=== PATIENT | male | born 1955 | race Caucasian/White ===

== ENCOUNTER 2019-12-29 15:36 | Inpatient (IN) | payer OTHER ==
[2019-12-29] MEDS ORDERED: MIDAZOLAM 2 MG/2 ML INJ IV ONE (15:38)
[2019-12-29] MEDS ORDERED: PANTOPRAZOLE SODIUM 40 MG VIAL IV ONE (15:51)
[2019-12-29] MEDS ORDERED: CEFEPIME 2 GM/D5W RTU 2 GM/50 ML RTUPB IV ONE (15:52)
[2019-12-29] MEDS ORDERED: VANCOMYCIN HCL INJ 1000 MG VIAL IV ONE (15:53)
[2019-12-29 15:55] LABS: INTERNATIONAL RATION (INR) 1.15; PROTHROMBIN TIME 14.8 SEC (11.4-15.4)
[2019-12-29 15:59] LABS: ABSOLUTE BASOPHILS # (AUTO) 0.1 10^3/uL (0.0-0.2); ABSOLUTE EOSINOPHILS # (AUTO) 0.1 10^3/uL (0.0-0.6); ABSOLUTE LYMPHOCYTES (AUTO) 1.4 10^3/uL (0.5-4.7); ABSOLUTE MONOCYTES (AUTO) 0.8 10^3/uL (0.1-1.4); ABSOLUTE NEUT (AUTO) 9.3 10^3/uL (1.7-8.2); BASOPHILS % (AUTO) 0.7 % (0-2); EOSINOPHILS % (AUTO) 0.5 % (0-6); HEMATOCRIT 34.1 % (37.9-51.0); HEMOGLOBIN 11.5 g/dL (13.5-17.0); LYMPHOCYTES % (AUTO) 11.7 % (13-45); MEAN CORPUSCULAR HEMOGLOBIN 33.9 pg (27.0-33.4); MEAN CORPUSCULAR HGB CONC 33.6 g/dL (32.0-36.0); MEAN CORPUSCULAR VOLUME 101 fl (80-97); MONOCYTES % (AUTO) 7.3 % (3-13); PLATELET COUNT 361 10^3/uL (150-450); RED BLOOD COUNT 3.38 10^6/uL (4.35-5.55); RED CELL DISTRIBUTION WIDTH 15.8 % (11.5-14.0); SEGMENTED NEUTROPHILS % (AUTO) 79.8 % (42-78); TOTAL CELLS COUNTED % (AUTO) 100 %; WHITE BLOOD COUNT 11.7 10^3/uL (4.0-10.5)
[2019-12-29 16:16] LABS: ALBUMIN 2.8 g/dL (3.5-5.0); ALKALINE PHOSPHATASE 131 U/L (38-126); ANION GAP 9 (5-19); ASPARTATE AMINO TRANSFERASE 18 U/L (17-59); BILIRUBIN,TOTAL 0.4 mg/dL (0.2-1.3); BLOOD UREA NITROGEN 11 mg/dL (7-20); CALCIUM 8.3 mg/dL (8.4-10.2); CARBON DIOXIDE 18 mmol/L (22-30); CHLORIDE 107 mmol/L (98-107); GLUCOSE 201 mg/dL (75-110); POTASSIUM 3.4 mmol/L (3.6-5.0); TOTAL PROTEIN 5.6 g/dL (6.3-8.2)
[2019-12-29] MEDS: PROPOFOL 1,000 MG/100 ML INFUS..BTL IV PRN ×2 (16:20→23:18)
[2019-12-29 16:21] LABS: ACETAMINOPHEN < 10 ug/mL (10-30); ALCOHOL < 10 mg/dL (NONE DETECTED)
--- NOTE | 2019-12-29 16:26 | EKG REPORT ---
SEVERITY:- ABNORMAL ECG - SINUS TACHYCARDIA LEFT POST FASCICULAR BLOCK RIGHT AXIS DEVIATION CONSIDER ANTERIOR INFARCT ABNORMAL T, CONSIDER ISCHEMIA, LATERAL LEADS PROLONGED QT INTERVAL : Confirmed by: Cecil Wild MD 29-Dec-2019 16:25:58
[2019-12-29 16:28] LABS: TROPONIN I 0.017 ng/mL
--- NOTE | 2019-12-29 16:42 | RADIOLOGY REPORT (SQ) ---
EXAM DESCRIPTION: CHEST SINGLE VIEW IMAGES COMPLETED DATE/TIME: 12/29/2019 3:21 pm REASON FOR STUDY: verify intubation. Altered mental status, GI bleeding. COMPARISON: CT chest same date EXAM PARAMETERS: NUMBER OF VIEWS: One view. TECHNIQUE: Single frontal radiographic view of the chest acquired. RADIATION DOSE: NA LIMITATIONS: None. FINDINGS: LUNGS AND PLEURA: Status inversus verified on CT. No opacities, masses or pneumothorax. N o pleural effusion. MEDIASTINUM AND HILAR STRUCTURES: No masses. Contour normal. HEART AND VASCULAR STRUCTURES: Heart normal in size. Normal vasculature. BONES: No acute findings. HARDWARE: Endotracheal tube is in the upper thoracic trachea approximately 8.8 cm above the gianluca. Esophagogastric tube tip and side hole below the diaphragm likely within the stomach. There is a bal listic fragment projecting over the right upper abdomen. OTHER: No other significant finding. IMPRESSION: Endotracheal tube is in the upper trachea approximately 8.8 cm above the gianluca. Recomm end advancing. Esophagogastric tube tip and side-hole are below the diaphragm within the stomach. 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 TECHNICAL DOCUMENTATION: JOB ID: [id number] [employer]- All Rights Reserved Reading location - IP/workstation name: [email or web address]
--- NOTE | 2019-12-29 16:48 | RADIOLOGY REPORT (SQ) ---
EXAM DESCRIPTION: CT HEAD WITHOUT IMAGES COMPLETED DATE/TIME: 12/29/2019 3:23 pm REASON FOR STUDY: ams COMPARISON: None. TECHNIQUE: Axial images acquired through the brain without intravenous contrast. Images reviewed wi th bone, brain and subdural windows. Additional sagittal and coronal reconstructions were generated. Images stored on PACS. All CT scanners at this facility use dose modulation, iterative reconstruction, and/or weight based d osing when appropriate to reduce radiation dose to as low as reasonably achievable (ALARA). [facility]: Dose Right [facility]: CareDose [facility]: Dose Right [facility]: Teradose 4D [facility]: [employer] RADIATION DOSE: CT Rad equipment meets quality standard of care and radiation dose reduction techniq ues were employed. CTDIvol: 53.2 mGy. DLP: 1044 mGy-cm. mGy. LIMITATIONS: None. FINDINGS: VENTRICLES: Normal size and contour. CEREBRUM: No masses. No hemorrhage. No midline shift. No evidence for acute infarction. Normal gra y/white matter differentiation. No areas of low density in the white matter. CEREBELLUM: No masses. No hemorrhage. No alteration of density. No evidence for acute infarction. EXTRAAXIAL SPACES: No fluid collections. No masses. ORBITS AND GLOBE: No intra- or extraconal masses. Normal contour of globe without masses. CALVARIUM: No fracture. PARANASAL SINUSES: No fluid or mucosal thickening. SOFT TISSUES: No mass or hematoma. OTHER: No other significant finding. IMPRESSION: No acute intracranial hemorrhage, mass, or evidence of acute territorial infarct. EVIDENCE OF ACUTE STROKE: NO. COMMENT: Quality ID # [id number]: Final reports with documentation of one or more dose reduction techniques (e.g., Automated exposure control, adjustment of the mA and/or kV according to patient size, use of iterative reconstruction technique) TECHNICAL DOCUMENTATION: JOB ID: [id number] 2010 [employer]- All Rights Reserved Reading location - IP/workstation name: [email or web address]
--- NOTE | 2019-12-29 16:49 | RADIOLOGY REPORT (SQ) ---
EXAM DESCRIPTION: CT CERVICAL SPINE WITHOUT IMAGES COMPLETED DATE/TIME: 12/29/2019 3:23 pm REASON FOR STUDY: ams COMPARISON: None. TECHNIQUE: Axial images acquired through the cervical spine without intravenous contrast. Images re viewed with lung, soft tissue and bone windows. Reconstructed coronal and sagittal MPR images review ed. Images stored on PACS. All CT scanners at this facility use dose modulation, iterative reconstruction, and/or weight based d osing when appropriate to reduce radiation dose to as low as reasonably achievable (ALARA). [facility]: Dose Right [facility]: CareDose [facility]: Dose Right [facility]: Teradose 4D [facility]: [employer] RADIATION DOSE: CT Rad equipment meets quality standard of care and radiation dose reduction techniq ues were employed. CTDIvol: 19.1 mGy. DLP: 434 mGy-cm. mGy. LIMITATIONS: None. FINDINGS: ALIGNMENT: Anatomic. MINERALIZATION: Normal. VERTEBRAL BODIES: No acute fracture or loss of vertebral body height. Multilevel spondylosis with br idging marginal osteophytes. Small posterior projecting marginal osteophytes without significant spi nal canal stenosis. DISCS: Multilevel degenerative disc disease with loss of intervertebral disc heights. FACETS, LATERAL MASSES, POSTERIOR ELEMENTS: Multilevel facet arthropathy with uncovertebral spurring. Multilevel neural foraminal stenosis. No facet fracture. No perched facets. HARDWARE: Partial visualization of an endotracheal and esophagogastric tube. VISUALIZED RIBS: No fractures. LUNG APICES AND SOFT TISSUES: No significant or acute findings. OTHER: No other significant finding. IMPRESSION: No acute fracture or dislocation of the cervical spine. Spondylosis, degenerative disc disease and facet arthropathy. TECHNICAL DOCUMENTATION: JOB ID: [id number] Quality ID # [id number]: Final reports with documentation of one or more dose reduction techniques (e.g., Au tomated exposure control, adjustment of the mA and/or kV according to patient size, use of iterative reconstruction technique) 2010 [employer]- All Rights Reserved Reading location - IP/workstation name: [email or web address]
[2019-12-29 16:54] LABS: APPEARANCE,URINE SLIGHTLY-CLOUDY; BILIRUBIN,URINE NEGATIVE (NEGATIVE); COLOR,URINE YELLOW; GLUCOSE, URINE NEGATIVE (NEGATIVE); KETONES,URINE NEGATIVE (NEGATIVE); LEUKOCYTE ESTERASE,URINE TRACE (NEGATIVE); NITRITE,URINE NEGATIVE (NEGATIVE); PROTEIN,URINE 30 mg/dL (NEGATIVE); URINE SPECIFIC GRAVITY 1.017; UROBILINOGEN,URINE NEGATIVE mg/dL (<2.0)
[2019-12-29 16:58] LABS: ARTERIAL BLOOD BASE EXCESS -7.1 mmol/L; ARTERIAL BLOOD FIO2 40%; ARTERIAL BLOOD H2CO3 1.24 mmol/L (1.05-1.35); ARTERIAL BLOOD HCO3 19.1 mmol/L (20-24); ARTERIAL BLOOD O2 SATURATION 94.7 % (94-98); ARTERIAL BLOOD PCO2 41.1 mmHg (35-45); ARTERIAL BLOOD PH 7.29 (7.35-7.45); ARTERIAL BLOOD PO2 80.8 mmHg (80-100); ARTERIAL BLOOD TOTAL CO2 20.4 mmol/L (23-27)
[2019-12-29] MEDS ORDERED: LORAZEPAM INJ 2 MG/1 ML VIAL IV ONE (17:01)
[2019-12-29] MEDS ORDERED: MIDAZOLAM HCL 50 MG/100 ML RTUINJ IV PRN (17:01)
--- NOTE | 2019-12-29 17:11 | RADIOLOGY REPORT (SQ) ---
EXAM DESCRIPTION: CT CHEST WITH; CT ABD/PELVIS WITH IV ONLY IMAGES COMPLETED DATE/TIME: 12/29/2019 3:23 pm REASON FOR STUDY: ams; ams/gibleed COMPARISON: None. CONTRAST TYPE AND DOSE: contrast/concentration: Isovue 350.00 mg/ml; Total Contrast Delivered: 100.0 ml; Total Saline Delivered: 72.0 ml RENAL FUNCTION: Unknown TECHNIQUE: CT scan of the chest performed using helical scanning technique with dynamic intravenous contrast injection. Images reviewed with lung, soft tissue and bone windows. Reconstructed coronal a nd sagittal MPR images reviewed. All images stored on PACS. CT scan of the abdomen and pelvis performed with intravenous and oral contrast using helical scanning technique with dynamic intravenous contrast injection. Images reviewed with lung, soft tissue and b one windows. Reconstructed coronal and sagittal MPR images reviewed. Delayed images for evaluation of the urinary system also acquired and evaluated. All images stored on PACS. All CT scanners at this facility use dose modulation, iterative reconstruction, and/or weight based d osing when appropriate to reduce radiation dose to as low as reasonably achievable (ALARA). [facility]: Dose Right [facility]: CareDose [facility]: Dose Right [facility]: Teradose 4D [facility]: Smart [employer] RADIATION DOSE: CT Rad equipment meets quality standard of care and radiation dose reduction techniq ues were employed. CTDIvol: 9.6 - 14.4 mGy. DLP: 1647 mGy-cm. . LIMITATIONS: None. FINDINGS: CHEST: AXILLAE: No adenopathy. CHEST WALL: No masses. No subcutaneous air. LUNGS: The trachea has normal caliber and appearance. No bronchial wall thickening or bronchiectasis . Peripheral ground-glass attenuation involving the posterior left lower lobe may represent atelecta sis, however developing infectious/ inflammatory process is not excluded. No focal confluent consoli dation. No suspicious pulmonary nodules. PLEURA: No effusions. No calcifications. THYROID: No masses or significant asymmetry. HILAR AND MEDIASTINAL STRUCTURES: There is complete situs inversus. Right aortic arch. 3 great vess els. No aortic aneurysm. No mediastinal mass or adenopathy. Esophagogastric tube tip and side-hole are below the diaphragm within the stomach lumen. AORTA AND GREAT VESSELS: No aneurysm. No dissection. PULMONARY ARTERIES: No identified pulmonary emboli. Study not optimized for the pulmonary arteries. HEART: Complete situs inversus. Heart has normal size. No pericardial effusion. HARDWARE AND LIFELINES: None. BONES: No significant finding. OTHER: No other significant finding. ABDOMEN AND PELVIS: LIVER: Complete situs inversus with liver on the left side of the abdomen. Liver has normal size and contour. Moderate hepatic steatosis. No focal hepatic mass. Hepatic and portal veins are patent. No biliary ductal dilation. SPLEEN: Normal size. No focal lesions. PANCREAS: No masses. No significant calcifications. No adjacent inflammation or peripancreatic flui d collections. Pancreatic duct not dilated. GALLBLADDER: No identified stones by CT criteria. No inflammatory changes to suggest cholecystitis. ADRENAL GLANDS: No significant masses or asymmetry. RIGHT KIDNEY AND URETER: No solid masses. No significant calcifications. No hydronephrosis or hyd roureter. LEFT KIDNEY AND URETER: No solid masses. No significant calcifications. There is mild left hydron ephrosis and hydroureter with no obstructing renal or ureteral calculus. Mild abnormal enhancement o f the renal collecting system. There is a mildly delayed left nephrogram. Mild surrounding inflamma tory change. No focal perinephric abscess. . AORTA AND VESSELS: No aneurysm. No dissection. Renal arteries, SMA, celiac without stenosis. RETROPERITONEUM: No retroperitoneal adenopathy, hemorrhage or masses. LARGE AND SMALL BOWEL: There is been what appears to be a near total colectomy with rectal anastomosi s in the pelvis. Adjacent to/ inferior to the suture line in the rectum there is circumferential rec iram wall thickening measuring up to 13 mm thickness. Surrounding inflammatory change in the perirect al region. There is no bowel obstruction. No other bowel wall thickening. No layering fluid or pne umoperitoneum. The stomach is moderately distended with heterogeneous appearance of gastric contents . Along the superior rib gastric fundus, there is a metallic density which may represent a gastric c oil. There is hyperdense attenuation adjacent to this in the gastric fundus measuring approximately 43 Hounsfield units, which may represent debris or possibly intraluminal hemorrhage. Clinical correl ation with aspiration of gastric contents recommended. APPENDIX: Surgically absent. ABDOMINAL WALL: No hernia or masses. PERITONEAL CAVITY: No free air. No free fluid. No peritoneal implants or masses. PELVIS: Shell catheter within the urinary bladder which is decompressed. Prostate has normal size. BONES: Multilevel spondylosis and degenerative disc disease in the thoracolumbar spine. No suspiciou s bone lesions. OTHER: No other significant finding. IMPRESSION: 1. There appears to be a near total colectomy with circumferential rectal wall thickening just inferi or to the rectal anastomosis. There is adjacent inflammatory change in the pelvis. Finding may repr esent acute proctitis/ colitis, however a circumferential rectal mass cannot be excluded. Clinical c orrelation for prior rectal tumor recommended. Consider colonoscopies/proctoscopy for biopsy as clin ically indicated. 2. Mild left hydronephrosis and hydroureter with abnormal enhancement of the urothelium. No definite obstructing renal or ureteral calculus. Finding may represent ascending pyelonephritis with vesicou reteral reflux. A distal ureteral stricture cannot be excluded. Clinical correlation with urinalysi s recommended. 3. Hyperdense attenuation debris within the posterior gastric fundus adjacent to a metallic foreign b marge which may represent vascular coil. The hyperdense material may represent blood however is nonspe cific and many ingested materials could have a similar attenuation. Correlation with gastric content aspiration through the esophagogastric tube could be helpful. 4. Mild peripheral ground-glass attenuation in the posterior left lower lobe may represent atelectasi s, however cannot exclude early developing infectious process. Imaging features can be seen with vir al pneumonia, though are nonspecific and can occur with a variety of infectious and noninfectious pro cesses. TECHNICAL DOCUMENTATION: JOB ID: [id number] Quality ID # 436: Final reports with documentation of one or more dose reduction techniques (e.g., Au tomated exposure control, adjustment of the mA and/or kV according to patient size, use of iterative reconstruction technique) 2010 [employer]- All Rights Reserved Reading location - IP/workstation name: [id number]
[2019-12-29] MEDS ORDERED: ONDANSETRON 4 MG TAB.RAPDIS PO PRN (17:47)
[2019-12-29] MEDS ORDERED: IPRATROPIUM/ALBUTEROL 0.5-2.5 MG/3 ML AMPUL NEB PRN (17:47)
[2019-12-29] MEDS ORDERED: ACETAMINOPHEN 325 MG TABLET PO PRN (17:47)
[2019-12-29] MEDS ORDERED: HYDROMORPHONE HCL INJ/PF 2 MG/ML AMPULE IV PRN (17:56)
[2019-12-29] MEDS ORDERED: ESMOLOL HCL INJ/PF 100 MG/10 ML SDV IV PRN (17:56)
[2019-12-29] MEDS ORDERED: NORMAL SALINE 1000 ML 1,000 ML with POTASSIUM CHLORIDE 20 MEQ, MAGNESIUM SULFATE 8 MEQ,... IV SCH ×5 (18:00)
[2019-12-29] MEDS ORDERED: PHARMACY COMMUNICATION ORDER MC NR (18:00)
[2019-12-29] MEDS ORDERED: ACETAMINOPHEN 325 MG TABLET NG PRN (18:30)
--- NOTE | 2019-12-29 18:46 | CRITICAL CARE ADMISSION REPORT ---
HPI Date:: 12/29/19 Time:: 17:30 Reason for ICU Reason:: Intubated. Probable stroke. HPI: This patient is a 64 yo man who apparently collapsed in his bathroom and was fou nd unresponsive by his girlfriend. His down time is not known but was not thought to be long. He was intubated at his home and was given versed and propofol effectively eliminating his neurological exam. In the ED versed and propofol were stopped and he began to cough on the EET. He is starting to rouse a bit. The differential includes a stroke. However his NG produced brown bloody material so a sudden GIB is also possible. He is a heavy drinker and alcoholic gastritis or an ulcer are pretty high as well. History obtained from:: ED MD [facility] - Diagnosis/Plan (1) Unresponsive state Is this a current diagnosis for this admission?: Yes Plan: The actual cause is not completely known, but a stroke and/or UGI bleed certainly is possible. (2) GIB (gastrointestinal bleeding) Qualifiers: GI bleed type/associated pathology: gastritis Gastritis type: acute gastritis Qualified Code(s): K29.01 - Acute gastritis with bleeding Is this a current diagnosis for this admission?: Yes Plan: Presumably gastritis. He is on IV protonix. Will include carafate as well. He will need an EGD before discharge (3) Airway compromise Is this a current diagnosis for this admission?: Yes Plan: He is intubated for airway protection. Extubate when more awake. Social/Family History - Social History Smoking Status: Current Every Day Smoker Frequency of Alcohol Use: Heavy - Medication/Allergies Allergies/Adverse Reactions: No Known Allergies Allergy (Unverified 12/29/19 17:39) Review of Systems ROS unobtainable: Due to endotracheal tube Physical Exam Vital Signs: Temp Pulse Resp BP Pulse Ox 12 130/97 H 100 12/29/19 17:20 12/29/19 17:20 12/29/19 17:20 Intake & Output 12/28/19 12/29/19 12/30/19 06:59 06:59 06:59 Intake Total 213 Balance 213 Weight 70.2 kg Weight/Height Weight 70.2 kg General appearance: PRESENT: no acute distress, thin Head exam: PRESENT: atraumatic, normocephalic Eye exam: PRESENT: conjunctiva pink, EOMI, PERRLA. ABSENT: scleral icterus Ear exam: PRESENT: normal external ear exam Mouth exam: PRESENT: moist, tongue midline Respiratory exam: PRESENT: clear to auscultation pedro. ABSENT: rales, rhonchi, wheezes Cardiovascular exam: PRESENT: tachycardia Pulses: PRESENT: normal dorsalis pedis pul GI/Abdominal exam: PRESENT: normal bowel sounds, soft. ABSENT: distended, guard ing, mass, organolmegaly, rebound, tenderness Rectal exam: PRESENT: deferred, heme (+) stool Extremities exam: PRESENT: full ROM. ABSENT: calf tenderness, clubbing, pedal edema Neurological exam: PRESENT: other - Obtunded Skin exam: PRESENT: dry, intact, warm. ABSENT: cyanosis, rash Tubes/Lines: PRESENT: Endotracheal Tube, Nasogastic Tube Laboratory/Radiographs Laboratory Results: 12/29/19 15:40 12/29/19 15:40 12/29/19 12/29/19 12/29/19 15:40 15:40 15:40 WBC 11.7 H RBC 3.38 L Hgb 11.5 L Hct 34.1 L MCV 101 H MCH 33.9 H MCHC 33.6 RDW 15.8 H Plt Count 361 Seg Neutrophils % 79.8 H Carbonic Acid HCO3/H2CO3 Ratio ABG pH ABG pCO2 ABG pO2 ABG HCO3 ABG O2 Saturation ABG Base Excess FiO2 Sodium 134.3 L Potassium 3.4 L Chloride 107 Carbon Dioxide 18 L Anion Gap 9 BUN 11 Creatinine 1.10 Est GFR ( Amer) > 60 Glucose 201 H Lactic Acid 3.9 H Calcium 8.3 L Total Bilirubin 0.4 AST 18 Alkaline Phosphatase 131 H Total Protein 5.6 L Albumin 2.8 L Lipase 111.9 Urine Color Urine Appearance Urine pH Ur Specific [employer] Urine Protein Urine Glucose (UA) Urine Ketones Urine Blood Urine Nitrite Ur Leukocyte Esterase Urine WBC (Auto) Urine RBC (Auto) Blood Type Antibody Screen 12/29/19 12/29/19 12/29/19 15:47 15:47 16:36 WBC RBC Hgb Hct MCV MCH MCHC RDW Plt Count Seg Neutrophils % Carbonic Acid 1.24 HCO3/H2CO3 Ratio 15:1 ABG pH 7.29 L ABG pCO2 41.1 ABG pO2 80.8 ABG HCO3 19.1 L ABG O2 Saturation 94.7 ABG Base Excess -7.1 FiO2 40% Sodium Potassium Chloride Carbon Dioxide Anion Gap BUN Creatinine Est GFR ( Amer) Glucose Lactic Acid Calcium Total Bilirubin AST Alkaline Phosphatase Total Protein Albumin Lipase Urine Color YELLOW Urine Appearance SLIGHTLY-CLOUDY Urine pH 5.0 Ur Specific [employer] 1.017 Urine Protein 30 H Urine Glucose (UA) NEGATIVE Urine Ketones NEGATIVE Urine Blood MODERATE H Urine Nitrite NEGATIVE Ur Leukocyte Esterase TRACE H Urine WBC (Auto) 21 Urine RBC (Auto) 9 Blood Type O POSITIVE Antibody Screen NEGATIVE 12/29/19 15:40 Troponin I 0.017 NT-Pro-B Natriuret Pep 359 H Impressions: Chest X-Ray 12/29/19 00:00 IMPRESSION: Endotracheal tube is in the upper trachea approximately 8.8 cm above the gianluca. Recommend advancing. Esophagogastric tube tip and side-hole are below the diaphragm within the stomach. 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 Head CT 12/29/19 15:42 IMPRESSION: No acute intracranial hemorrhage, mass, or evidence of acute territorial infarct. EVIDENCE OF ACUTE STROKE: NO. Cervical Spine CT 12/29/19 15:46 IMPRESSION: No acute fracture or dislocation of the cervical spine. Spondylosis, degenerative disc disease and facet arthropathy. Chest CT 12/29/19 15:48 IMPRESSION: 1. There appears to be a near total colectomy with circumferential rectal wall thickening just inferior to the rectal anastomosis. There is adjacent inflammatory change in the pelvis. Finding may represent acute proctitis/ colitis, however a circumferential rectal mass cannot be excluded. Clinical correlation for prior rectal tumor recommended. Consider colonoscopies/proctoscopy for biopsy as clinically indicated. 2. Mild left hydronephrosis and hydroureter with abnormal enhancement of the urothelium. No definite obstructing renal or ureteral calculus. Finding may represent ascending pyelonephritis with vesicoureteral reflux. A distal ureteral stricture cannot be excluded. Clinical correlation with urinalysis recommended. 3. Hyperdense attenuation debris within the posterior gastric fundus adjacent to a metallic foreign body which may represent vascular coil. The hyperdense material may represent blood however is nonspecific and many ingested materials could have a similar attenuation. Correlation with gastric content aspiration through the esophagogastric tube could be helpful. 4. Mild peripheral ground-glass attenuation in the posterior left lower lobe may represent atelectasis, however cannot exclude early developing infectious process. Imaging features can be seen with viral pneumonia, though are nonspecific and can occur with a variety of infectious and noninfectious processes. Abdomen/Pelvis CT 12/29/19 15:49 IMPRESSION: 1. There appears to be a near total colectomy with circumferential rectal wall thickening just inferior to the rectal anastomosis. There is adjacent inflammatory change in the pelvis. Finding may represent acute proctitis/ colitis, however a circumferential rectal mass cannot be excluded. Clinical correlation for prior rectal tumor recommended. Consider colonoscopies/proctoscopy for biopsy as clinically indicated. 2. Mild left hydronephrosis and hydroureter with abnormal enhancement of the urothelium. No definite obstructing renal or ureteral calculus. Finding may represent ascending pyelonephritis with vesicoureteral reflux. A distal ureteral stricture cannot be excluded. Clinical correlation with urinalysis recommended. 3. Hyperdense attenuation debris within the posterior gastric fundus adjacent to a metallic foreign body which may represent vascular coil. The hyperdense material may represent blood however is nonspecific and many ingested materials could have a similar attenuation. Correlation with gastric content aspiration through the esophagogastric tube could be helpful. 4. Mild peripheral ground-glass attenuation in the posterior left lower lobe may represent atelectasis, however cannot exclude early developing infectious process. Imaging features can be seen with viral pneumonia, though are nonspecific and can occur with a variety of infectious and noninfectious processes. All labs, radiographs, diagnostic studies and EKGs were personally reviewed: No In addition, reports of radiographic and diagnostic studies were read: No Critical Time Critical Time (minutes): 40 -: The care of a critically ill patient is dynamic. This note represents a static moment in the admission process. Orders and treatments may be given simultaneously and urgently, and time is not medical detail representative of the treatment process. This patient requires Critical Care secondary to life threatening organ or limb dysfunction. Without Critical Care services, the patient is at risk for increased mortality and morbidity.
--- NOTE | 2019-12-29 18:57 | ER Document Report ---
Entered by GEOFFREY PEREZ SCRIBE 12/29/19 1537 Acting as scribe for:DORA RUSSELL MD ED General - General Stated Complaint: UNRESPONSIVE Information source: Relative - Girlfriend Cannot obtain history due to: Intubated Notes: This 64-year-old male presents to the emergency department via EMS unresponsive and intubated. Patient was found by girlfriend unresponsive on the bathroom floor. Girlfriend reports that patient has a history of alcohol abuse and drinks every day. EMS states that when they arrived the patient had agonal breathing and started to vomit. EMS reports hematemesis, right deviated gaze and a right facial droop. EMS states that they found the patient in a decorticate posture. Due to the patient's condition, a full HPI is unobtainable at this time. After talking to the girlfriend on the phone, she reports that patient is a heavy drinker and smokes. Patient drank a little beer today but had not started drinking liquor yet. Girlfriend recalls that patient went to go eat something th is morning when he put the food away and ran to the bathroom. Girlfriend said she heard some gagging in the bathroom and when the gagging stopped she waited a few minutes. Girlfriend reports that when she went to check on him, she found him laying against the toilet on his left side unresponsive. Girlfriend said that he was thorne appearing and was making grunting noises. Girlfriend denies any recent falls last night or today. Girlfriend reports that patient has vomited lately and the vomit looked like coffee grounds and patient had some blood in his stool lately. Girlfriend reports weakness, occasional dizziness, difficulty swallowing, trouble urinating and rectum pain. - Related Data Allergies/Adverse Reactions: No Known Allergies Allergy (Unverified 12/29/19 17:39) Past Medical History - General Information source: Relative - Girlfriend Cannot obtain history due to: Intubated - Social History Smoking Status: Current Every Day Smoker Cigarette use (# per day): Yes Chew tobacco use (# tins/day): No Frequency of alcohol use: Heavy Lives with: Spouse/Significant other Family History: Reviewed & Not Pertinent, CVA Malignancy Medical History: Reports Other - Colon cancer Past Surgical History: Reports: Hx Cholecystectomy, Hx Orthopedic Surgery Review of Systems - Review of Systems Constitutional: See HPI, Diaphoresis, Weakness EENT: No symptoms reported Cardiovascular: No symptoms reported Respiratory: No symptoms reported Gastrointestinal: See HPI, Vomiting, Blood in vomit, Rectal bleeding Genitourinary: See HPI, Pain Male Genitourinary: No symptoms reported Musculoskeletal: No symptoms reported Skin: No symptoms reported Hematologic/Lymphatic: No symptoms reported Neurological/Psychological: No symptoms reported -: Yes All other systems reviewed and negative Physical Exam - Vital signs Vitals: Resp Pulse Ox 13 100 12/29/19 15:36 12/29/19 15:36 - Notes Notes: Physical Exam: General: Unresponsive, diaphoretic and intubated. HEENT: Normocephalic. Atraumatic. Pupils are 4mm and nonreactive on the midline. Oropharynx clear. Neck: Supple. Non-tender. Respiratory: Severe respiratory distress; intubated. Diminished breath sounds in the basis bilaterally. Cardiovascular: Tachycardic. Abdominal: Normal Inspection. Non-tender. No distension. Normal Bowel Sounds. Rectal: Stool brown that is positive for guaiac. Back: No gross abnormalities. Extremities: Flaccid. Upper extremities: Normal inspection. Normal ROM. Lower extremities: Normal inspection. No edema. Normal ROM. Neurological: Altered secondary to medication or condition upon arrival. Skin: Warm. Dry. Normal color. Course - Re-evaluation Re-evalutation: 12/29/19 17:27 Patient sedated, on ventilator IV fluids IV antibiotics and IV fluids.. Case discussed with Dr. Villela who will be down to see patient in the trauma bay 1. Dr. Villela requested that we shut off all sedation medications the patient has a chance to lift to consciousness if possible. - Vital Signs Vital signs: Temp Pulse Resp BP Pulse Ox 25 H 141/102 H 100 12/29/19 18:50 12/29/19 18:50 12/29/19 18:50 - Laboratory Result Diagrams: 12/29/19 15:40 12/29/19 15:40 Laboratory results interpreted by me: 12/29/19 12/29/19 12/29/19 15:40 15:40 15:40 WBC 11.7 H RBC 3.38 L Hgb 11.5 L Hct 34.1 L MCV 101 H MCH 33.9 H RDW 15.8 H Lymph % (Auto) 11.7 L Absolute Neuts (auto) 9.3 H Seg Neutrophils % 79.8 H ABG pH ABG HCO3 ABG Total CO2 Sodium 134.3 L Potassium 3.4 L Carbon Dioxide 18 L Glucose 201 H Lactic Acid 3.9 H Calcium 8.3 L Alkaline Phosphatase 131 H NT-Pro-B Natriuret Pep Total Protein 5.6 L Albumin 2.8 L Urine Protein Urine Blood Ur Leukocyte Esterase Acetaminophen < 10 L 12/29/19 12/29/19 12/29/19 15:40 15:47 16:36 WBC RBC Hgb Hct MCV MCH RDW Lymph % (Auto) Absolute Neuts (auto) Seg Neutrophils % ABG pH 7.29 L ABG HCO3 19.1 L ABG Total CO2 20.4 L Sodium Potassium Carbon Dioxide Glucose Lactic Acid Calcium Alkaline Phosphatase NT-Pro-B Natriuret Pep 359 H Total Protein Albumin Urine Protein 30 H Urine Blood MODERATE H Ur Leukocyte Esterase TRACE H Acetaminophen Significant lab results reports lipase 111 lactic acid of 3 - Diagnostic Test Radiology reviewed: Image reviewed, Reports reviewed Radiology results interpreted by me: 12/29/19 17:29 CT of the head did not show any acute process CT C-spine no fractures no acute process CT chest no acute process ET tube in place but can be pushed further now because it is 8 cm above the gianluca. NG tube in place showing tip of the tube below the diaphragm. Patient has situs inversus. Questionable groundglass appearance in the base. 12/29/19 17:30 CT abdomen and pelvis disclose prior hemicolectomy. Also rectal mass questionable prostatitis or or other inflammation in that area. Hydronephrosis noted.. - EKG Interpretation by Me Additional EKG results interpreted by me: 12/29/19 17:26 Twelve-lead EKG sinus tachycardia rate of 146 right axis deviation. Consider anterior infarct. Abnormal T waves consider ischemia lateral leads prolonged QT interval. Critical Care Note - Critical Care Note Total time excluding time spent on procedures (mins): 59 - Altered mental status, patient intubated prior to arrival, managing ventilation, managing hemodynamics, managing sedation, managing tachycardia, evaluating mental status, Discharge - Discharge Clinical Impression: Altered mental status, Upper GI bleed, Unresponsive state Condition: Critical Disposition: ADMITTED INPATIENT Admitting Provider: Manohar (Government Minister) Unit Admitted: ICU I personally performed the services described in the documentation, reviewed and edited the documentation which was dictated to the scribe in my presence, and it accurately records my words and actions.
[2019-12-29] MEDS ORDERED: PROPOFOL INJ 200 MG/20 ML VIAL IV ONE (19:00)
[2019-12-29] MEDS ORDERED: GLUCAGON,HUMAN RECOMB 1 MG INJ IM PRN (21:01)
[2019-12-29] MEDS ORDERED: DEXTROSE 40% GEL 15 GM TUBE PO PRN ×2 (21:01)
[2019-12-29] MEDS ORDERED: DEXTROSE 50%-WATER 25 GM/50 ML DISP.SYRIN IV PRN ×2 (21:01)
[2019-12-29] MEDS: PANTOPRAZOLE SODIUM 40 MG VIAL IV SCH (21:38)
[2019-12-29 22:10] LABS: HEMATOCRIT 30.3 % (37.9-51.0); HEMOGLOBIN 10.4 g/dL (13.5-17.0); MEAN CORPUSCULAR HEMOGLOBIN 34.4 pg (27.0-33.4); MEAN CORPUSCULAR HGB CONC 34.3 g/dL (32.0-36.0); MEAN CORPUSCULAR VOLUME 100 fl (80-97); PLATELET COUNT 329 10^3/uL (150-450); RED BLOOD COUNT 3.02 10^6/uL (4.35-5.55); RED CELL DISTRIBUTION WIDTH 15.7 % (11.5-14.0); WHITE BLOOD COUNT 15.2 10^3/uL (4.0-10.5)
[2019-12-29] MEDS: RINGERS SOLUTION,LACTATED 1,000 ML IV PRN (22:30)
[2019-12-30] MEDS: INSULIN REG, HUMAN 100 UNIT/ML 3 ML VIAL (PYX) SUBCUT SCH ×5 (01:21→23:06)
[2019-12-30 04:16] LABS: ABSOLUTE BASOPHILS # (AUTO) 0.1 10^3/uL (0.0-0.2); ABSOLUTE EOSINOPHILS # (AUTO) 0.1 10^3/uL (0.0-0.6); ABSOLUTE LYMPHOCYTES (AUTO) 1.2 10^3/uL (0.5-4.7); ABSOLUTE MONOCYTES (AUTO) 0.8 10^3/uL (0.1-1.4); ABSOLUTE NEUT (AUTO) 8.2 10^3/uL (1.7-8.2); BASOPHILS % (AUTO) 0.7 % (0-2); HEMATOCRIT 26.2 % (37.9-51.0); HEMOGLOBIN 9.1 g/dL (13.5-17.0); LYMPHOCYTES % (AUTO) 11.5 % (13-45); MEAN CORPUSCULAR HEMOGLOBIN 34.6 pg (27.0-33.4); MEAN CORPUSCULAR HGB CONC 34.9 g/dL (32.0-36.0); MEAN CORPUSCULAR VOLUME 99 fl (80-97); MONOCYTES % (AUTO) 7.3 % (3-13); PLATELET COUNT 277 10^3/uL (150-450); RED BLOOD COUNT 2.64 10^6/uL (4.35-5.55); RED CELL DISTRIBUTION WIDTH 15.5 % (11.5-14.0); SEGMENTED NEUTROPHILS % (AUTO) 79.5 % (42-78); TOTAL CELLS COUNTED % (AUTO) 100 %; WHITE BLOOD COUNT 10.4 10^3/uL (4.0-10.5)
[2019-12-30 04:34] LABS: ALBUMIN 2.3 g/dL (3.5-5.0); ALKALINE PHOSPHATASE 101 U/L (38-126); ASPARTATE AMINO TRANSFERASE 17 U/L (17-59); BILIRUBIN,TOTAL 0.3 mg/dL (0.2-1.3); BLOOD UREA NITROGEN 16 mg/dL (7-20); CALCIUM 8.1 mg/dL (8.4-10.2); CHLORIDE 108 mmol/L (98-107); CHOLESTEROL 110.01 mg/dL (0-200); GLUCOSE 86 mg/dL (75-110); POTASSIUM 4.1 mmol/L (3.6-5.0); TOTAL PROTEIN 4.9 g/dL (6.3-8.2); TRIGLYCERIDES 90 mg/dL (<150)
[2019-12-30 04:45] LABS: CARBON DIOXIDE 19 mmol/L (22-30)
[2019-12-30 04:56] LABS: DIRECT LDL 57 mg/dL (<100)
[2019-12-30 04:57] LABS: ANION GAP 4 (5-19)
[2019-12-30] MEDS: PROPOFOL 1,000 MG/100 ML INFUS..BTL IV PRN ×2 (05:26→09:19)
[2019-12-30] MEDS: RINGERS SOLUTION,LACTATED 1,000 ML IV PRN ×2 (05:28→10:14)
[2019-12-30] MEDS ORDERED: MIDAZOLAM 2 MG/2 ML INJ IV ONE (05:35)
[2019-12-30 07:18] LABS: ARTERIAL BLOOD BASE EXCESS -2.8 mmol/L; ARTERIAL BLOOD FIO2 30%; ARTERIAL BLOOD H2CO3 0.87 mmol/L (1.05-1.35); ARTERIAL BLOOD HCO3 20.2 mmol/L (20-24); ARTERIAL BLOOD O2 SATURATION 98.9 % (94-98); ARTERIAL BLOOD PCO2 28.9 mmHg (35-45); ARTERIAL BLOOD PH 7.46 (7.35-7.45); ARTERIAL BLOOD PO2 139.5 mmHg (80-100); ARTERIAL BLOOD TOTAL CO2 21.1 mmol/L (23-27)
[2019-12-30] MEDS ORDERED: MIDAZOLAM 2 MG/2 ML INJ ONE ×2 (08:53→08:56)
[2019-12-30] MEDS: PANTOPRAZOLE SODIUM 40 MG VIAL IV SCH ×2 (09:34→21:19)
[2019-12-30] MEDS ORDERED: FOLIC ACID INJ 5 MG/1 ML 10 ML VIAL IV SCH (10:00)
[2019-12-30] MEDS ORDERED: FOLIC ACID 1 MG in NORMAL SALINE 50 ML IV SCH (10:00)
[2019-12-30] MEDS ORDERED: THIAMINE HCL 100 MG in NORMAL SALINE 50 ML IV SCH (10:00)
[2019-12-30] MEDS ORDERED: LORAZEPAM INJ 2 MG/1 ML VIAL IV PRN (10:43)
--- NOTE | 2019-12-30 12:33 | PDOC CONSULTATION ---
Consultation Consult Date: 12/30/19 Provider Consulted: SURGICAL SURGICALIST MD Consult reason:: GI bleeding. History of Present Illness Admission Date/PCP: 12/29/19 18:13 History of Present Illness: RAYMON RODARTE is a 64 year old male seen in consultation at the request of the hole digger service. This is a patient who was "found down" at home. He has a long history of alcoholism per report. Currently he is intubated and sedated. Review of systems is unobtainable. All history is obtained from nursing staff, physicians, and the medical record. Per report, the patient has coffee grounds present in the NG aspirate. He also had a melanotic bowel movement earlier today. He is somewhat anemic. I was consulted to evaluate the patient for need for endoscopy. At this time the patient appears relatively stable. Past Medical History Past Medical History: Unable to obtain due to intubated and sedated status. Per nursing report, he has a history of alcohol abuse. Malignancy Medical History: Reports: Other - Colon cancer Past Surgical History Past Surgical History: Reports: Cholecystectomy, Orthopedic Surgery Social History Lives with: Spouse/Significant other Smoking Status: Unknown if Ever Smoked Frequency of Alcohol Use: Heavy Hx Recreational Drug Use: - unknown Hx Prescription Drug Abuse: No Family History Family History: Reviewed & Not Pertinent, CVA Parental Family History Reviewed: Yes Children Family History Reviewed: Yes Sibling(s) Family History Reviewed.: Yes Medication/Allergy Home Medications: Ibuprofen 200 mg PO DAILYP PRN 12/30/19 Multivitamin [Daily Multiple Vitamin] 1 each PO DAILY 12/30/19 Mv-Mn/Herb 208/Beta-Sitosterol [Urinozinc Prostate Formula Tab] 200 mg PO DAILY 12/30/19 Naproxen Sodium [Aleve] 220 mg PO DAILYP PRN 12/30/19 Saw [place] Fruit/Zinc Picoli [Saw [place] Capsule] 1 each PO BID 12/30/19 Allergies/Adverse Reactions: No Known Allergies Allergy (Unverified 12/29/19 17:39) Review of Systems ROS unobtainable: Due to endotracheal tube, Due to mental status Physical Exam Vital Signs: Temp Pulse Resp BP Pulse Ox 98.8 F 82 16 111/76 100 12/30/19 08:00 12/30/19 10:20 12/30/19 10:23 12/30/19 10:23 12/30/19 10:23 Intake & Output 12/29/19 12/30/19 12/31/19 06:59 06:59 06:59 Intake Total 1197 79 Output Total 895 160 Balance 302 -81 Weight 64.3 kg 64.3 kg General appearance: PRESENT: no acute distress. ABSENT: cooperative Head exam: PRESENT: atraumatic, normocephalic Eye exam: PRESENT: EOMI, PERRLA. ABSENT: scleral icterus Mouth exam: PRESENT: moist, neck supple Neck exam: ABSENT: thyromegaly, tracheal deviation, tracheostomy Respiratory exam: PRESENT: unlabored, other - Coarse breath sounds bilaterally, intubated with ventilatory support.. ABSENT: tachypnea Cardiovascular exam: ABSENT: tachycardia Pulses: PRESENT: normal radial pulses Vascular exam: PRESENT: normal capillary refill GI/Abdominal exam: PRESENT: soft. ABSENT: distended, guarding, rigid, tenderness Rectal exam: PRESENT: black stool Extremities exam: ABSENT: clubbing Musculoskeletal exam: ABSENT: deformity Neurological exam: PRESENT: alert, awake, oriented to person, oriented to place, oriented to time, oriented to situation, CN II-XII grossly intact Psychiatric exam: PRESENT: other - Sedated. ABSENT: agitated, anxious Focused psych exam: PRESENT: other - Sedated Skin exam: ABSENT: cyanosis, erythema, jaundice Results Laboratory Results: 12/30/19 03:57 12/30/19 03:57 12/29/19 12/29/19 12/29/19 15:40 15:40 15:40 WBC 11.7 H RBC 3.38 L Hgb 11.5 L Hct 34.1 L MCV 101 H MCH 33.9 H MCHC 33.6 RDW 15.8 H Plt Count 361 Seg Neutrophils % 79.8 H Carbonic Acid HCO3/H2CO3 Ratio ABG pH ABG pCO2 ABG pO2 ABG HCO3 ABG O2 Saturation ABG Base Excess FiO2 Sodium 134.3 L Potassium 3.4 L Chloride 107 Carbon Dioxide 18 L Anion Gap 9 BUN 11 Creatinine 1.10 Est GFR ( Amer) > 60 Glucose 201 H Lactic Acid 3.9 H Calcium 8.3 L Ionized Calcium Lindsay Total Bilirubin 0.4 AST 18 Alkaline Phosphatase 131 H Total Protein 5.6 L Albumin 2.8 L Triglycerides Cholesterol LDL Cholesterol Direct VLDL Cholesterol HDL Cholesterol Lipase 111.9 Urine Color Urine Appearance Urine pH Ur Specific [place] Urine Protein Urine Glucose (UA) Urine Ketones Urine Blood Urine Nitrite Ur Leukocyte Esterase Urine WBC (Auto) Urine RBC (Auto) Blood Type Antibody Screen 12/29/19 12/29/19 12/29/19 15:47 15:47 16:36 WBC RBC Hgb Hct MCV MCH MCHC RDW Plt Count Seg Neutrophils % Carbonic Acid 1.24 HCO3/H2CO3 Ratio 15:1 ABG pH 7.29 L ABG pCO2 41.1 ABG pO2 80.8 ABG HCO3 19.1 L ABG O2 Saturation 94.7 ABG Base Excess -7.1 FiO2 40% Sodium Potassium Chloride Carbon Dioxide Anion Gap BUN Creatinine Est GFR ( Amer) Glucose Lactic Acid Calcium Ionized Calcium Lindsay Total Bilirubin AST Alkaline Phosphatase Total Protein Albumin Triglycerides Cholesterol LDL Cholesterol Direct VLDL Cholesterol HDL Cholesterol Lipase Urine Color YELLOW Urine Appearance SLIGHTLY-CLOUDY Urine pH 5.0 Ur Specific [place] 1.017 Urine Protein 30 H Urine Glucose (UA) NEGATIVE Urine Ketones NEGATIVE Urine Blood MODERATE H Urine Nitrite NEGATIVE Ur Leukocyte Esterase TRACE H Urine WBC (Auto) 21 Urine RBC (Auto) 9 Blood Type O POSITIVE Antibody Screen NEGATIVE 12/29/19 12/29/19 12/29/19 22:00 22:00 22:00 WBC 15.2 H RBC 3.02 L Hgb 10.4 L Hct 30.3 L MCV 100 H MCH 34.4 H MCHC 34.3 RDW 15.7 H Plt Count 329 Seg Neutrophils % Carbonic Acid HCO3/H2CO3 Ratio ABG pH ABG pCO2 ABG pO2 ABG HCO3 ABG O2 Saturation ABG Base Excess FiO2 Sodium Potassium Chloride Carbon Dioxide Anion Gap BUN Creatinine Est GFR ( Amer) Glucose Lactic Acid 1.2 Calcium Ionized Calcium Lindsay 1.14 Total Bilirubin AST Alkaline Phosphatase Total Protein Albumin Triglycerides Cholesterol LDL Cholesterol Direct VLDL Cholesterol HDL Cholesterol Lipase Urine Color Urine Appearance Urine pH Ur Specific [place] Urine Protein Urine Glucose (UA) Urine Ketones Urine Blood Urine Nitrite Ur Leukocyte Esterase Urine WBC (Auto) Urine RBC (Auto) Blood Type Antibody Screen 12/30/19 12/30/19 12/30/19 03:57 03:57 06:35 WBC 10.4 RBC 2.64 L Hgb 9.1 L Hct 26.2 L MCV 99 H MCH 34.6 H MCHC 34.9 RDW 15.5 H Plt Count 277 Seg Neutrophils % 79.5 H Carbonic Acid 0.87 L HCO3/H2CO3 Ratio 23:1 ABG pH 7.46 H ABG pCO2 28.9 L ABG pO2 139.5 H ABG HCO3 20.2 ABG O2 Saturation 98.9 H ABG Base Excess -2.8 FiO2 30% Sodium 130.6 L Potassium 4.1 Chloride 108 H Carbon Dioxide 19 L Anion Gap 4 L BUN 16 Creatinine 1.01 Est GFR ( Amer) > 60 Glucose 86 Lactic Acid Calcium 8.1 L Ionized Calcium Lindsay Total Bilirubin 0.3 AST 17 Alkaline Phosphatase 101 Total Protein 4.9 L Albumin 2.3 L Triglycerides 90 Cholesterol 110.01 LDL Cholesterol Direct 57 VLDL Cholesterol 18.0 HDL Cholesterol 49 Lipase Urine Color Urine Appearance Urine pH Ur Specific [place] Urine Protein Urine Glucose (UA) Urine Ketones Urine Blood Urine Nitrite Ur Leukocyte Esterase Urine WBC (Auto) Urine RBC (Auto) Blood Type Antibody Screen 12/29/19 15:40 Troponin I 0.017 NT-Pro-B Natriuret Pep 359 H Impressions: Chest X-Ray 12/29/19 00:00 IMPRESSION: Endotracheal tube is in the upper trachea approximately 8.8 cm above the gianluca. Recommend advancing. Esophagogastric tube tip and side-hole are below the diaphragm within the stomach. 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 Head CT 12/29/19 15:42 IMPRESSION: No acute intracranial hemorrhage, mass, or evidence of acute territorial infarct. EVIDENCE OF ACUTE STROKE: NO. Cervical Spine CT 12/29/19 15:46 IMPRESSION: No acute fracture or dislocation of the cervical spine. Spondylosis, degenerative disc disease and facet arthropathy. Chest CT 12/29/19 15:48 IMPRESSION: 1. There appears to be a near total colectomy with circumferential rectal wall thickening just inferior to the rectal anastomosis. There is adjacent inflammatory change in the pelvis. Finding may represent acute proctitis/ colitis, however a circumferential rectal mass cannot be excluded. Clinical correlation for prior rectal tumor recommended. Consider c olonoscopies/proctoscopy for biopsy as clinically indicated. 2. Mild left hydronephrosis and hydroureter with abnormal enhancement of the urothelium. No definite obstructing renal or ureteral calculus. Finding may represent ascending pyelonephritis with vesicoureteral reflux. A distal ureteral stricture cannot be excluded. Clinical correlation with urinalysis recommended. 3. Hyperdense attenuation debris within the posterior gastric fundus adjacent to a metallic foreign body which may represent vascular coil. The hyperdense material may represent blood however is nonspecific and many ingested materials could have a similar attenuation. Correlation with gastric content aspiration through the esophagogastric tube could be helpful. 4. Mild peripheral ground-glass attenuation in the posterior left lower lobe may represent atelectasis, however cannot exclude early developing infectious process. Imaging features can be seen with viral pneumonia, though are nonspecific and can occur with a variety of infectious and noninfectious processes. Abdomen/Pelvis CT 12/29/19 15:49 IMPRESSION: 1. There appears to be a near total colectomy with circumferential rectal wall thickening just inferior to the rectal anastomosis. There is adjacent inflammatory change in the pelvis. Finding may represent acute proctitis/ colitis, however a circumferential rectal mass cannot be excluded. Clinical correlation for prior rectal tumor recommended. Consider colonosco pies/proctoscopy for biopsy as clinically indicated. 2. Mild left hydronephrosis and hydroureter with abnormal enhancement of the urothelium. No definite obstructing renal or ureteral calculus. Finding may represent ascending pyelonephritis with vesicoureteral reflux. A distal ureteral stricture cannot be excluded. Clinical correlation with urinalysis recommended. 3. Hyperdense attenuation debris within the posterior gastric fundus adjacent to a metallic foreign body which may represent vascular coil. The hyperdense material may represent blood however is nonspecific and many ingested materials could have a similar attenuation. Correlation with gastric content aspiration through the esophagogastric tube could be helpful. 4. Mild peripheral ground-glass attenuation in the posterior left lower lobe may represent atelectasis, however cannot exclude early developing infectious process. Imaging features can be seen with viral pneumonia, though are nonspecific and can occur with a variety of infectious and noninfectious processes. Assessment & Plan - Diagnosis (1) Upper GI bleed Is this a current diagnosis for this admission?: Yes - Plan Summary Plan Summary: This is a 64-year-old male "found down at home". The patient has coffee grounds emanating from his NG tube. He is mildly anemic at 9 today. He had a melanotic bowel movement earlier, in my presence. I have reviewed the patient's CT scan. He has a metallic foreign body within the wall of the stomach, that may be consistent with recent upper endoscopy and intervention. Also, interestingly, the patient has situs inversus totalis. At this time, the patient does not appear to be actively bleeding. I have lavaged his NG tube with 4 L of cold tap water. No red blood was obtained. Coffee grounds were initially identified, however after the first liter of irrigation the output cleared. Currently the patient's vital signs are stable. I have discussed the case with Dr. Villela. Plan to extubate the patient today. Afterwards, I will interview the patient and determine if he has had any recent interventions (upper or lower endoscopies). This will help determine what other diagnostic tests will be necessary. At minimum the patient should be taking a PPI and Carafate. He should avoid all alcohol consumption, caffeine, nicotine, NSAIDs, steroids, and soda pop. Further recommendations and treatment strategies will be determined once an adequate history can be obtained. Okay for extubation at this time. No need for emergent endoscopy at this time. Surgery will follow.
--- NOTE | 2019-12-30 13:48 | PDOC CRITICAL CARE PROG REPORT ---
General Date:: 12/30/19 ICU Day:: 2 Hospital Day:: 2 Resuscitation Status: Full Code Events in the past 12 to 24 Hours:: Extubated, much more awake. Review of systems relevant to events:: Neurological, GI Reason for ICU Addmission:: UGI bleed. Probable vasovagal reaction. - Medications: Medications reviewed and adjusted accordingly: Yes Vasopressors:: None Sedation:: None Physical Exam Vital Signs: Temp Pulse Resp BP Pulse Ox 100.2 F 76 16 133/75 H 99 12/30/19 12:00 12/30/19 12:00 12/30/19 12:00 12/30/19 12:00 12/30/19 12:00 Intake & Output 12/29/19 12/30/19 12/31/19 06:59 06:59 06:59 Intake Total 1197 79 Output Total 895 560 Balance 302 -481 Weight 64.3 kg 64.3 kg Weight/Height Weight 64.3 kg Height 6 ft 4 in General appearance: PRESENT: disheveled, thin Head exam: PRESENT: atraumatic, normocephalic Eye exam: PRESENT: conjunctiva pink, EOMI, PERRLA. ABSENT: scleral icterus Ear exam: PRESENT: normal external ear exam Mouth exam: PRESENT: moist, tongue midline Neck exam: ABSENT: carotid bruit, JVD, lymphadenopathy, thyromegaly Respiratory exam: PRESENT: clear to auscultation pedro. ABSENT: rales, rhonchi, wheezes Cardiovascular exam: PRESENT: RRR. ABSENT: diastolic murmur, rubs, systolic murmur GI/Abdominal exam: PRESENT: ascites, diminished bowel sounds, distended, hypoactive bowel sounds Rectal exam: PRESENT: deferred Gentrourinary exam: PRESENT: indwelling catheter Extremities exam: PRESENT: full ROM, +2 edema. ABSENT: calf tenderness, clubbi ng, pedal edema Musculoskeletal exam: PRESENT: normal inspection Neurological exam: PRESENT: altered Skin exam: PRESENT: dry, intact, jaundice, warm. ABSENT: cyanosis, rash Laboratory/Radiographs Laboratory Results: 12/30/19 03:57 12/30/19 03:57 12/29/19 12/29/19 12/29/19 15:40 15:40 15:40 WBC 11.7 H RBC 3.38 L Hgb 11.5 L Hct 34.1 L MCV 101 H MCH 33.9 H MCHC 33.6 RDW 15.8 H Plt Count 361 Seg Neutrophils % 79.8 H Carbonic Acid HCO3/H2CO3 Ratio ABG pH ABG pCO2 ABG pO2 ABG HCO3 ABG O2 Saturation ABG Base Excess FiO2 Sodium 134.3 L Potassium 3.4 L Chloride 107 Carbon Dioxide 18 L Anion Gap 9 BUN 11 Creatinine 1.10 Est GFR ( Amer) > 60 Glucose 201 H Lactic Acid 3.9 H Calcium 8.3 L Ionized Calcium Lindsay Total Bilirubin 0.4 AST 18 Alkaline Phosphatase 131 H Total Protein 5.6 L Albumin 2.8 L Triglycerides Cholesterol LDL Cholesterol Direct VLDL Cholesterol HDL Cholesterol Lipase 111.9 Urine Color Urine Appearance Urine pH Ur Specific [place] Urine Protein Urine Glucose (UA) Urine Ketones Urine Blood Urine Nitrite Ur Leukocyte Esterase Urine WBC (Auto) Urine RBC (Auto) Blood Type Antibody Screen 12/29/19 12/29/19 12/29/19 15:47 15:47 16:36 WBC RBC Hgb Hct MCV MCH MCHC RDW Plt Count Seg Neutrophils % Carbonic Acid 1.24 HCO3/H2CO3 Ratio 15:1 ABG pH 7.29 L ABG pCO2 41.1 ABG pO2 80.8 ABG HCO3 19.1 L ABG O2 Saturation 94.7 ABG Base Excess -7.1 FiO2 40% Sodium Potassium Chloride Carbon Dioxide Anion Gap BUN Creatinine Est GFR ( Amer) Glucose Lactic Acid Calcium Ionized Calcium Lindsay Total Bilirubin AST Alkaline Phosphatase Total Protein Albumin Triglycerides Cholesterol LDL Cholesterol Direct VLDL Cholesterol HDL Cholesterol Lipase Urine Color YELLOW Urine Appearance SLIGHTLY-CLOUDY Urine pH 5.0 Ur Specific [place] 1.017 Urine Protein 30 H Urine Glucose (UA) NEGATIVE Urine Ketones NEGATIVE Urine Blood MODERATE H Urine Nitrite NEGATIVE Ur Leukocyte Esterase TRACE H Urine WBC (Auto) 21 Urine RBC (Auto) 9 Blood Type O POSITIVE Antibody Screen NEGATIVE 12/29/19 12/29/19 12/29/19 22:00 22:00 22:00 WBC 15.2 H RBC 3.02 L Hgb 10.4 L Hct 30.3 L MCV 100 H MCH 34.4 H MCHC 34.3 RDW 15.7 H Plt Count 329 Seg Neutrophils % Carbonic Acid HCO3/H2CO3 Ratio ABG pH ABG pCO2 ABG pO2 ABG HCO3 ABG O2 Saturation ABG Base Excess FiO2 Sodium Potassium Chloride Carbon Dioxide Anion Gap BUN Creatinine Est GFR ( Amer) Glucose Lactic Acid 1.2 Calcium Ionized Calcium Lindsay 1.14 Total Bilirubin AST Alkaline Phosphatase Total Protein Albumin Triglycerides Cholesterol LDL Cholesterol Direct VLDL Cholesterol HDL Cholesterol Lipase Urine Color Urine Appearance Urine pH Ur Specific [place] Urine Protein Urine Glucose (UA) Urine Ketones Urine Blood Urine Nitrite Ur Leukocyte Esterase Urine WBC (Auto) Urine RBC (Auto) Blood Type Antibody Screen 12/30/19 12/30/19 12/30/19 03:57 03:57 06:35 WBC 10.4 RBC 2.64 L Hgb 9.1 L Hct 26.2 L MCV 99 H MCH 34.6 H MCHC 34.9 RDW 15.5 H Plt Count 277 Seg Neutrophils % 79.5 H Carbonic Acid 0.87 L HCO3/H2CO3 Ratio 23:1 ABG pH 7.46 H ABG pCO2 28.9 L ABG pO2 139.5 H ABG HCO3 20.2 ABG O2 Saturation 98.9 H ABG Base Excess -2.8 FiO2 30% Sodium 130.6 L Potassium 4.1 Chloride 108 H Carbon Dioxide 19 L Anion Gap 4 L BUN 16 Creatinine 1.01 Est GFR ( Amer) > 60 Glucose 86 Lactic Acid Calcium 8.1 L Ionized Calcium Lindsay Total Bilirubin 0.3 AST 17 Alkaline Phosphatase 101 Total Protein 4.9 L Albumin 2.3 L Triglycerides 90 Cholesterol 110.01 LDL Cholesterol Direct 57 VLDL Cholesterol 18.0 HDL Cholesterol 49 Lipase Urine Color Urine Appearance Urine pH Ur Specific [place] Urine Protein Urine Glucose (UA) Urine Ketones Urine Blood Urine Nitrite Ur Leukocyte Esterase Urine WBC (Auto) Urine RBC (Auto) Blood Type Antibody Screen 12/29/19 15:40 Troponin I 0.017 NT-Pro-B Natriuret Pep 359 H Impressions: Chest X-Ray 12/29/19 00:00 IMPRESSION: Endotracheal tube is in the upper trachea approximately 8.8 cm abo ve the gianluca. Recommend advancing. Esophagogastric tube tip and side-hole are below the diaphragm within the stomach. 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 Head CT 12/29/19 15:42 IMPRESSION: No acute intracranial hemorrhage, mass, or evidence of acute t erritorial infarct. EVIDENCE OF ACUTE STROKE: NO. Cervical Spine CT 12/29/19 15:46 IMPRESSION: No acute fracture or dislocation of the cervical spine. Spondylosis, degenerative disc disease and facet arthropathy. Chest CT 12/29/19 15:48 IMPRESSION: 1. There appears to be a near total colectomy with circumferential rectal wall thickening just inferior to the rectal anastomosis. There is adjacent inflammatory change in the pelvis. Finding may represent acute proctitis/ colitis, however a circumferential rectal mass cannot be excluded. Clinical correlation for prior rectal tumor recommended. Consider colonoscopies/proctoscopy for biopsy as clinically indicated. 2. Mild left hydronephrosis and hydroureter with abnormal enhancement of the urothelium. No definite obstructing renal or ureteral calculus. Finding may represent ascending pyelonephritis with vesicoureteral reflux. A distal ureteral stricture cannot be excluded. Clinical correlation with urinalysis recommended. 3. Hyperdense attenuation debris within the posterior gastric fundus adjacent to a metallic foreign body which may represent vascular coil. The hyperdense material may represent blood however is nonspecific and many ingested materials could have a similar attenuation. Correlation with gastric content aspiration through the esophagogastric tube could be helpful. 4. Mild peripheral ground-glass attenuation in the posterior left lower lobe may represent atelectasis, however cannot exclude early developing infectious process. Imaging features can be seen with viral pneumonia, though are nonspecific and can occur with a variety of infectious and noninfectious processes. Abdomen/Pelvis CT 12/29/19 15:49 IMPRESSION: 1. There appears to be a near total colectomy with circumferential rectal wall thickening just inferior to the rectal anastomosis. There is adjacent inflammatory change in the pelvis. Finding may represent acute proctitis/ colitis, however a circumferential rectal mass cannot be excluded. Clinical correlation for prior rectal tumor recommended. Consider colonoscopies/proctoscopy for biopsy as clinically indicated. 2. Mild left hydronephrosis and hydroureter with abnormal enhancement of the urothelium. No definite obstructing renal or ureteral calculus. Finding may represent ascending pyelonephritis with vesicoureteral reflux. A distal ureteral stricture cannot be excluded. Clinical correlation with urinalysis recommended. 3. Hyperdense attenuation debris within the posterior gastric fundus adjacent to a metallic foreign body which may represent vascular coil. The hyperdense m aterial may represent blood however is nonspecific and many ingested materials could have a similar attenuation. Correlation with gastric content aspiration through the esophagogastric tube could be helpful. 4. Mild peripheral ground-glass attenuation in the posterior left lower lobe may represent atelectasis, however cannot exclude early developing infectious process. Imaging features can be seen with viral pneumonia, though are nonspecific and can occur with a variety of infectious and noninfectious processes. All labs, radiographs, diagnostic studies and EKGs were personally reviewed: Yes In addition, reports of radiographic and diagnostic studies were read: Yes Assessment and Plan - Diagnosis (1) Unresponsive state Is this a current diagnosis for this admission?: Yes Plan: More awake but still not appropriate. Agitated. (2) GIB (gastrointestinal bleeding) Qualifiers: GI bleed type/associated pathology: gastritis Gastritis type: acute gastritis Qualified Code(s): K29.01 - Acute gastritis with bleeding Is this a current diagnosis for this admission?: Yes Plan: Had NG lavaged by Dr. Morales. Old blood. No active bleeding. Keep on protonix. (3) Airway compromise Is this a current diagnosis for this admission?: Yes Plan: Resolved Plan Summary: If no further bleeding and he remains calm, downgrade. Critical Time Critical Time (minutes): 35 Level of Care: ICU Anticipated discharge: Home Within: Other -: 1. The care of a critical patient is a dynamic process. This note is a internet sales representative synopsis but static in nature. The timeframe for treatments given in order is not necessarily the actual time these treatments may have been done. 2. This patient requires critical care secondary to ongoing requirements for therapy not offered or safe outside the critical care environment. Transfer to a lower level of care will result in altered life or limb morbidity and mortality. 3. Multidisciplinary rounds completed. 4. ABCDE bundle addressed.
[2019-12-30 16:51] LABS: HEMATOCRIT 26.4 % (37.9-51.0); HEMOGLOBIN 9.3 g/dL (13.5-17.0); MEAN CORPUSCULAR HEMOGLOBIN 34.5 pg (27.0-33.4); MEAN CORPUSCULAR HGB CONC 35.1 g/dL (32.0-36.0); MEAN CORPUSCULAR VOLUME 98 fl (80-97); PLATELET COUNT 288 10^3/uL (150-450); RED BLOOD COUNT 2.69 10^6/uL (4.35-5.55); RED CELL DISTRIBUTION WIDTH 15.7 % (11.5-14.0); WHITE BLOOD COUNT 12.1 10^3/uL (4.0-10.5)
[2019-12-30 22:02] LABS: HEMATOCRIT 24.4 % (37.9-51.0); HEMOGLOBIN 8.6 g/dL (13.5-17.0); MEAN CORPUSCULAR HEMOGLOBIN 34.5 pg (27.0-33.4); MEAN CORPUSCULAR HGB CONC 35.2 g/dL (32.0-36.0); MEAN CORPUSCULAR VOLUME 98 fl (80-97); PLATELET COUNT 286 10^3/uL (150-450); RED BLOOD COUNT 2.49 10^6/uL (4.35-5.55); RED CELL DISTRIBUTION WIDTH 15.6 % (11.5-14.0); WHITE BLOOD COUNT 9.5 10^3/uL (4.0-10.5)
[2019-12-31] MEDS: RINGERS SOLUTION,LACTATED 1,000 ML IV PRN (02:30)
[2019-12-31] MEDS: INSULIN REG, HUMAN 100 UNIT/ML 3 ML VIAL (PYX) SUBCUT SCH (06:02)
[2019-12-31] MEDS ORDERED: DEXTROSE 5%-LACTATED RINGERS 1,000 ML IV PRN (06:09)
[2019-12-31 07:39] LABS: ABSOLUTE BASOPHILS # (AUTO) 0.1 10^3/uL (0.0-0.2); ABSOLUTE EOSINOPHILS # (AUTO) 0.1 10^3/uL (0.0-0.6); ABSOLUTE LYMPHOCYTES (AUTO) 1.2 10^3/uL (0.5-4.7); ABSOLUTE MONOCYTES (AUTO) 0.6 10^3/uL (0.1-1.4); ABSOLUTE NEUT (AUTO) 6.3 10^3/uL (1.7-8.2); BASOPHILS % (AUTO) 0.6 % (0-2); EOSINOPHILS % (AUTO) 1.8 % (0-6); HEMATOCRIT 24.5 % (37.9-51.0); HEMOGLOBIN 8.7 g/dL (13.5-17.0); LYMPHOCYTES % (AUTO) 14.2 % (13-45); MEAN CORPUSCULAR HEMOGLOBIN 35.2 pg (27.0-33.4); MEAN CORPUSCULAR HGB CONC 35.6 g/dL (32.0-36.0); MEAN CORPUSCULAR VOLUME 99 fl (80-97); MONOCYTES % (AUTO) 6.7 % (3-13); PLATELET COUNT 294 10^3/uL (150-450); RED BLOOD COUNT 2.48 10^6/uL (4.35-5.55); RED CELL DISTRIBUTION WIDTH 15.3 % (11.5-14.0); SEGMENTED NEUTROPHILS % (AUTO) 76.7 % (42-78); TOTAL CELLS COUNTED % (AUTO) 100 %; WHITE BLOOD COUNT 8.2 10^3/uL (4.0-10.5)
[2019-12-31 08:07] LABS: BLOOD UREA NITROGEN 13 mg/dL (7-20); CALCIUM 8.3 mg/dL (8.4-10.2); GLUCOSE 99 mg/dL (75-110); PHOSPHORUS 2.4 mg/dL (2.5-4.5); POTASSIUM 3.4 mmol/L (3.6-5.0)
[2019-12-31 08:13] LABS: CARBON DIOXIDE 22 mmol/L (22-30); CHLORIDE 107 mmol/L (98-107)
[2019-12-31 08:16] LABS: ANION GAP 3 (5-19)
--- NOTE | 2019-12-31 08:22 | PDOC DISCHARGE SUMMARY ---
Impression - Admit/DC Date/PCP Admission Date/Primary Care Provider: 12/29/19 18:13 Discharge Date: 12/31/19 - Discharge Diagnosis (1) Unresponsive state Is this a current diagnosis for this admission?: Yes (2) GIB (gastrointestinal bleeding) Is this a current diagnosis for this admission?: Yes (3) Airway compromise Is this a current diagnosis for this admission?: Yes - Additional Information Resuscitation Status: Full Code Discharge Diet: As Tolerated Discharge Activity: Activity As Tolerated Prescriptions: Sucralfate [Carafate 1 gm Tablet] 1 gm PO ACHS 30 Days #120 tablet Pantoprazole Sodium [Protonix] 40 mg PO BID 30 Days #60 tablet. Home Medications: Multivitamin [Daily Multiple Vitamin] 1 each PO DAILY 12/30/19 Naproxen Sodium [Aleve] 220 mg PO DAILYP PRN 12/30/19 Saw [place] Fruit/Zinc Picoli [Saw [place] 450 mg Capsule] 1 each PO BID 12/30/19 Acetaminophen [Tylenol 325 mg Tablet] 650 mg NG Q4HP PRN tablet 12/31/19 Pantoprazole Sodium [Protonix] 40 mg PO BID 30 Days #60 tablet. 12/31/19 Sucralfate [Carafate 1 gm Tablet] 1 gm PO ACHS 30 Days #120 tablet 12/31/19 History of Present Illiness History of Present Illness: This patient is a 64 yo man who apparently collapsed in his bathroom and was found unresponsive by his girlfriend. His down time is not known but was not thought to be long. He was intubated at his home and was given versed and propofol effectively eliminating his neurological exam. In the ED versed and propofol were stopped and he began to cough on the EET. He is starting to rouse a bit. The differential includes a stroke. However his NG produced brown bloody material so a sudden GIB is also possible. He is a heavy drinker and alcoholic gastritis or an ulcer are pretty high as well. He is back to his normal baseline neurologic status with no signs of ETOH WD. No evidence of bleeding. Hospital Course Hospital Course: He was quickly extubated by the next day and is back baseline. He has been seen by Dr. Morales with no evidence of continued GI bleeding. There is evidence of old blood and coffee ground material. He admits to heavy drinking for which he was told can lead to bleeding. He also uses naproxyn and ibuprofen for which he was told to stop and he agrees. He would like to leave. His Hgb is higher at 8.7. I can find no reason for him to stay. He says he does not want an EGD. Dr. Kilgore (first name unknown) will see him in follow up. He will be on protonix and carafate x i month. Physical Exam Vital Signs: Temp Pulse Resp BP Pulse Ox 98.3 F 72 14 112/67 99 12/31/19 06:00 12/31/19 07:44 12/31/19 06:11 12/31/19 06:11 12/31/19 06:11 Intake & Output 12/30/19 12/31/19 01/01/20 06:59 06:59 06:59 Intake Total 1197 1466 Output Total 895 760 Balance 302 706 Weight 64.3 kg 64.3 kg General appearance: PRESENT: no acute distress, thin, well-developed, well- nourished Head exam: PRESENT: atraumatic, normocephalic Eye exam: PRESENT: conjunctiva pink, EOMI, PERRLA. ABSENT: scleral icterus Ear exam: PRESENT: normal external ear exam Mouth exam: PRESENT: moist, tongue midline Respiratory exam: PRESENT: clear to auscultation pedro. ABSENT: rales, rhonchi, wheezes Cardiovascular exam: PRESENT: RRR. ABSENT: diastolic murmur, rubs, systolic murmur Vascular exam: PRESENT: normal capillary refill GI/Abdominal exam: PRESENT: normal bowel sounds, soft. ABSENT: distended, guarding, mass, organolmegaly, rebound, tenderness Rectal exam: PRESENT: deferred, heme (+) stool Extremities exam: PRESENT: full ROM. ABSENT: calf tenderness, clubbing, pedal edema Neurological exam: PRESENT: alert, awake, oriented to person, oriented to place, oriented to time, oriented to situation, CN II-XII grossly intact. ABSENT: motor sensory deficit Psychiatric exam: PRESENT: appropriate affect, normal mood. ABSENT: homicidal ideation, suicidal ideation Skin exam: PRESENT: dry, intact, warm. ABSENT: cyanosis, rash Results Laboratory Results: WBC 8.2 10^3/uL (4.0-10.5) 12/31/19 07:20 RBC 2.48 10^6/uL (4.35-5.55) L 12/31/19 07:20 Hgb 8.7 g/dL (13.5-17.0) L 12/31/19 07:20 Hct 24.5 % (37.9-51.0) L 12/31/19 07:20 MCV 99 fl (80-97) H 12/31/19 07:20 MCH 35.2 pg (27.0-33.4) H 12/31/19 07:20 MCHC 35.6 g/dL (32.0-36.0) 12/31/19 07:20 RDW 15.3 % (11.5-14.0) H 12/31/19 07:20 Plt Count 294 10^3/uL (150-450) 12/31/19 07:20 Lymph % (Auto) 14.2 % (13-45) 12/31/19 07:20 [place] % (Auto) 6.7 % (3-13) 12/31/19 07:20 Eos % (Auto) 1.8 % (0-6) 12/31/19 07:20 Baso % (Auto) 0.6 % (0-2) 12/31/19 07:20 Absolute Neuts (auto) 6.3 10^3/uL (1.7-8.2) 12/31/19 07:20 Absolute Lymphs (auto) 1.2 10^3/uL (0.5-4.7) 12/31/19 07:20 Absolute Monos (auto) 0.6 10^3/uL (0.1-1.4) 12/31/19 07:20 Absolute Eos (auto) 0.1 10^3/uL (0.0-0.6) 12/31/19 07:20 Absolute Basos (auto) 0.1 10^3/uL (0.0-0.2) 12/31/19 07:20 Seg Neutrophils % 76.7 % (42-78) 12/31/19 07:20 PT 14.8 SEC (11.4-15.4) 12/29/19 15:40 INR 1.15 12/29/19 15:40 APTT 31.0 SEC (23.5-35.8) 12/29/19 15:40 Carbonic Acid 0.87 mmol/L (1.05-1.35) L 12/30/19 06:35 HCO3/H2CO3 Ratio 23:1 12/30/19 06:35 ABG pH 7.46 (7.35-7.45) H 12/30/19 06:35 ABG pCO2 28.9 mmHg (35-45) L 12/30/19 06:35 ABG pO2 139.5 mmHg (80-100) H 12/30/19 06:35 ABG HCO3 20.2 mmol/L (20-24) 12/30/19 06:35 ABG Total CO2 21.1 mmol/L (23-27) L 12/30/19 06:35 ABG O2 Saturation 98.9 % (94-98) H 12/30/19 06:35 ABG Base Excess -2.8 mmol/L 12/30/19 06:35 FiO2 30% 12/30/19 06:35 Sodium 130.6 mmol/L (137-145) L 12/30/19 03:57 Potassium 4.1 mmol/L (3.6-5.0) 12/30/19 03:57 Chloride 108 mmol/L (98-107) H 12/30/19 03:57 Carbon Dioxide 19 mmol/L (22-30) L 12/30/19 03:57 Anion Gap 4 (5-19) L 12/30/19 03:57 BUN 16 mg/dL (7-20) 12/30/19 03:57 Creatinine 1.01 mg/dL (0.52-1.25) 12/30/19 03:57 Est GFR ( Amer) > 60 (>60) 12/30/19 03:57 Est GFR (MDRD) Non-Af > 60 (>60) 12/30/19 03:57 Glucose 86 mg/dL (75-110) 12/30/19 03:57 POC Glucose 109 mg/dL (70-110) 12/31/19 06:20 Lactic Acid 1.2 mmol/L (0.7-2.1) 12/29/19 22:00 Calcium 8.1 mg/dL (8.4-10.2) L 12/30/19 03:57 Ionized Calcium Lindsay 1.14 mmol/L (1.14-1.30) 12/29/19 22:00 Total Bilirubin 0.3 mg/dL (0.2-1.3) 12/30/19 03:57 Direct Bilirubin 0.0 mg/dL (0.0-0.4) 12/30/19 03:57 Neonat Total Bilirubin Not Reportable 12/30/19 03:57 Neonat Direct Bilirubin Not Reportable 12/30/19 03:57 Neonat Indirect Bili Not Reportable 12/30/19 03:57 AST 17 U/L (17-59) 12/30/19 03:57 ALT 8 U/L (<50) 12/30/19 03:57 Alkaline Phosphatase 101 U/L (38-126) 12/30/19 03:57 Troponin I 0.017 ng/mL 12/29/19 15:40 NT-Pro-B Natriuret Pep 359 pg/mL (<125) H 12/29/19 15:40 Total Protein 4.9 g/dL (6.3-8.2) L 12/30/19 03:57 Albumin 2.3 g/dL (3.5-5.0) L 12/30/19 03:57 Triglycerides 90 mg/dL (<150) 12/30/19 03:57 Cholesterol 110.01 mg/dL (0-200) 12/30/19 03:57 LDL Cholesterol Direct 57 mg/dL (<100) 12/30/19 03:57 VLDL Cholesterol 18.0 mg/dL (10-31) 12/30/19 03:57 HDL Cholesterol 49 mg/dL (>40) 12/30/19 03:57 Lipase 111.9 U/L (23-300) 12/29/19 15:40 Urine Color YELLOW 12/29/19 15:47 Urine Appearance SLIGHTLY-CLOUDY 12/29/19 15:47 Urine pH 5.0 (5.0-9.0) 12/29/19 15:47 Ur Specific [place] 1.017 12/29/19 15:47 Urine Protein 30 mg/dL (NEGATIVE) H 12/29/19 15:47 Urine Glucose (UA) NEGATIVE mg/dL (NEGATIVE) 12/29/19 15:47 Urine Ketones NEGATIVE mg/dL (NEGATIVE) 12/29/19 15:47 Urine Blood MODERATE (NEGATIVE) H 12/29/19 15:47 Urine Nitrite NEGATIVE (NEGATIVE) 12/29/19 15:47 Urine Bilirubin NEGATIVE (NEGATIVE) 12/29/19 15:47 Urine Urobilinogen NEGATIVE mg/dL (<2.0) 12/29/19 15:47 Ur Leukocyte Esterase TRACE (NEGATIVE) H 12/29/19 15:47 Urine WBC (Auto) 21 /HPF 12/29/19 15:47 Urine RBC (Auto) 9 /HPF 12/29/19 15:47 Urine Bacteria (Auto) TRACE /HPF 12/29/19 15:47 Squamous Epi Cells Auto <1 /HPF 12/29/19 15:47 Urine Mucus (Auto) RARE /LPF 12/29/19 15:47 Urine Ascorbic Acid NEGATIVE (NEGATIVE) 12/29/19 15:47 Acetaminophen < 10 ug/mL (10-30) L 12/29/19 15:40 Serum Alcohol < 10 mg/dL (NONE DETECTED) 12/29/19 15:40 Blood Type O POSITIVE 12/29/19 15:47 Blood Type Confirm O POSITIVE 12/29/19 15:47 Antibody Screen NEGATIVE 12/29/19 15:47 Crossmatch See Detail 12/29/19 15:47 12/29/19 15:40 Troponin I 0.017 NT-Pro-B Natriuret Pep 359 H Impressions: Chest X-Ray 12/29/19 00:00 IMPRESSION: Endotracheal tube is in the upper trachea approximately 8.8 cm above the gianluca. Recommend advancing. Esophagogastric tube tip and side-hole are below the diaphragm within the stomach. 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 Head CT 12/29/19 15:42 IMPRESSION: No acute intracranial hemorrhage, mass, or evidence of acute territorial infarct. EVIDENCE OF ACUTE STROKE: NO. Cervical Spine CT 12/29/19 15:46 IMPRESSION: No acute fracture or dislocation of the cervical spine. Spondylosis, degenerative disc disease and facet arthropathy. Chest CT 12/29/19 15:48 IMPRESSION: 1. There appears to be a near total colectomy with circumferential rectal wall thickening just inferior to the rectal anastomosis. There is adjacent inflammatory change in the pelvis. Finding may represent acute proctitis/ colitis, however a circumferential rectal mass cannot be excluded. Clinical correlation for prior rectal tumor recommended. Consider colonoscopies/proctoscopy for biopsy as clinically indicated. 2. Mild left hydronephrosis and hydroureter with abnormal enhancement of the urothelium. No definite obstructing renal or ureteral calculus. Finding may represent ascending pyelonephritis with vesicoureteral reflux. A distal ureteral stricture cannot be excluded. Clinical correlation with urinalysis recommended. 3. Hyperdense attenuation debris within the posterior gastric fundus adjacent to a metallic foreign body which may represent vascular coil. The hyperdense material may represent blood however is nonspecific and many ingested materials could have a similar attenuation. Correlation with gastric content aspiration through the esophagogastric tube could be helpful. 4. Mild peripheral ground-glass attenuation in the posterior left lower lobe may represent atelectasis, however cannot exclude early developing infectious process. Imaging features can be seen with viral pneumonia, though are nonspecific and can occur with a variety of infectious and noninfectious processes. Abdomen/Pelvis CT 12/29/19 15:49 IMPRESSION: 1. There appears to be a near total colectomy with circumferential rectal wall thickening just inferior to the rectal anastomosis. There is adjacent inf lammatory change in the pelvis. Finding may represent acute proctitis/ colitis, however a circumferential rectal mass cannot be excluded. Clinical correlation for prior rectal tumor recommended. Consider colonoscopies/proctoscopy for biopsy as clinically indicated. 2. Mild left hydronephrosis and hydroureter with abnormal enhancement of the urothelium. No definite obstructing renal or ureteral calculus. Finding may represent ascending pyelonephritis with vesicoureteral reflux. A distal ureteral stricture cannot be excluded. Clinical correlation with urinalysis recommended. 3. Hyperdense attenuation debris within the posterior gastric fundus adjacent to a metallic foreign body which may represent vascular coil. The hyperdense material may represent blood however is nonspecific and many ingested materials could have a similar attenuation. Correlation with gastric content aspiration through the esophagogastric tube could be helpful. 4. Mild peripheral ground-glass attenuation in the posterior left lower lobe may represent atelectasis, however cannot exclude early developing infectious process. Imaging features can be seen with viral pneumonia, though are nonspecific and can occur with a variety of infectious and noninfectious processes. Plan Health Concerns: Rebleed and recurrence of drinking Plan of Treatment: Protonix and carafate. Avoid drinking and avoid naproxyn and ibuprfen. He states "I'm done with them." Goals: No further bleeding Critical Time: 35 Level of Care: MEDICAL Stroke Is this a Stroke Patient?: No Acute Heart Failure - Is this a Heart Failure Patient?: No
[2019-12-31 09:33] VITALS: BP 121/68
[2019-12-31] MEDS ORDERED: SAW PALMETTO FRUIT PO SCH (10:00)
[2019-12-31] MEDS ORDERED: ZINC PICOLI PO SCH (10:00)
[2019-12-31] MEDS ORDERED: [UNRECOGNIZED DRUG - OTHER] PO SCH (10:00)
== END 2019-12-31 09:40 | disposition home or self-care (01) | DRG 379 ==
LOC: ER 15:36 → EH 18:13 → ICU 19:39
PROVIDERS: ADMIT Anesthesiology; ATTEND Anesthesiology
PROC: 5A1935Z Respiratory Ventilation, Less than 24 Consecutive Hours (ICD-10-PCS; principal; 2019-12-29)
PROC: 0D9670Z Drainage of Stomach with Drainage Device, Via Natural or Artificial Opening (ICD-10-PCS; 2019-12-30)
PROC: 3E1G78Z Irrigation of Upper GI using Irrigating Substance, Via Natural or Artificial Opening (ICD-10-PCS; 2019-12-30)
DX: K29.01 Acute gastritis with bleeding (principal); F10.20 Alcohol dependence, uncomplicated; D64.9 Anemia, unspecified; F17.210 Nicotine dependence, cigarettes, uncomplicated; Z90.49 Acquired absence of other specified parts of digestive tract; Z82.3 Family history of stroke; Z85.038 Personal history of other malignant neoplasm of large intestine; Z78.1 Physical restraint status
CPT/HCPCS: 36415; 51702; 70450; 71045; 71260; 72125; 74177; 80048; 80053; 80061; 80307; 81001; 82330; 82803; 82962; 83605; 83690; 83735; 83880; 84100; 84484; 85025; 85610; 85730; 86850; 86900; 86901; 86920; 87040; 93005; 93010; 94003; 94660; 96365; 96367; 96375; 99239; 99291; C9113; J0692; J2060; J2250; J2704; J3370; J3411; J3490; J7120; J7121

== ENCOUNTER → 2020-08-13 | Outpatient (CLI) | payer OTHER ==
--- NOTE | 2020-08-13 12:00 | RADIOLOGY REPORT (SQ) ---
EXAM DESCRIPTION: CT ABD/PELVIS WITH IV ONLY IMAGES COMPLETED DATE/TIME: 08/13/2020 10:31 am REASON FOR STUDY: R39.12 POOR URINARY STREAM R39.12 POOR URINARY STREAM R10.30 LOWER ABDOMINAL RANJIT N, UNSPECIFIED Z85.038 PERSONAL HISTORY OF MALIGNANT NEOPLASM OF LARGE INTE COMPARISON: 12/29/2019 TECHNIQUE: CT scan of the abdomen and pelvis performed using helical scanning technique with dynamic intravenous contrast injection. No oral contrast. Images reviewed with lung, soft tissue, and bone windows. Reconstructed coronal and sagittal MPR images reviewed. Delayed images for evaluation of the urinary system also acquired. All images stored on PACS. All CT scanners at this facility use dose modulation, iterative reconstruction, and/or weight based d osing when appropriate to reduce radiation dose to as low as reasonably achievable (ALARA). [facility]: Dose Right [facility]: CareDose [facility]: Dose Right [facility]: Teradose 4D [facility]: Push Technology CONTRAST TYPE AND DOSE: contrast/concentration: Isovue 350.00 mmol/ml; Total Contrast Delivered: 83. 0 ml; Total Saline Delivered: 43.0 ml RENAL FUNCTION: Creatinine 1.0 RADIATION DOSE: CT Rad equipment meets quality standard of care and radiation dose reduction techniq ues were employed. CTDIvol: 2.9 mGy. DLP: 286 mGy-cm.. LIMITATIONS: None. FINDINGS: LOWER CHEST: Situs inversus. No acute findings. LIVER: Re- demonstration of situs inversus. Normal size. No masses. No dilated ducts. SPLEEN: Normal size. No focal lesions. PANCREAS: No masses. No significant calcifications. No adjacent inflammation or peripancreatic fluid collections. Pancreatic duct not dilated. GALLBLADDER: No identified stones by CT criteria. No inflammatory changes to suggest cholecystitis. ADRENAL GLANDS: No significant masses or asymmetry. RIGHT KIDNEY AND URETER: No solid masses. No significant calcifications. No hydronephrosis or hyd roureter. LEFT KIDNEY AND URETER: No solid masses. No significant calcifications. Moderate hydronephrosis a nd hydroureter with delayed nephrogram and no demonstrated contrast excretion on delayed imaging. Mu ltifocal periureteric fat stranding to the level of the pelvic brim, after which the ureter regains n ormal caliber and appearance. AORTA AND VESSELS: No aneurysm. No dissection. Renal arteries, SMA, celiac without stenosis. RETROPERITONEUM: Increased size of multiple retroperitoneal lymph nodes most significantly in the reg ion of the portacaval and left renal stations. BOWEL AND PERITONEAL CAVITY: Status post subtotal colectomy. Markedly heterogeneous appearance of th e rectum appears progressed relative to comparison imaging. Anastomotic sutures appear to be intact. Prominent pre anastomotic loop of small bowel containing air-fluid levels. APPENDIX: Surgically absent. PELVIS: No mass. No free fluid. Normal bladder. ABDOMINAL WALL: No masses. No hernias. BONES: Degenerative changes are seen of the hips and spine. A sclerotic focus seen within the right ilium is unchanged from December 2019 CT imaging. OTHER: No other significant finding. IMPRESSION: Moderate left-sided hydronephrosis and ureterectasis noting delayed nephrogram with the appearance of multifocal, irregular periureteric soft tissue attenuation which may be due in part to small lymph nodes. This is seen in the setting of mildly prominent retroperitoneal lymph nodes. Dif ferential considerations include both neoplastic and inflammatory processes. Status post subtotal colectomy with irregular mural thickening and heterogeneity of the rectum which appears increased relative to December 2019 CT imaging. 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 TECHNICAL DOCUMENTATION: JOB ID: [id number] Quality ID # [id number]: Final reports with documentation of one or more dose reduction techniques (e.g., Au tomated exposure control, adjustment of the mA and/or kV according to patient size, use of iterative reconstruction technique) 2010 [employer]- All Rights Reserved Reading location - IP/workstation name: [email or web address]
== END ==
LOC: RAD 09:22
PROVIDERS: ATTEND Physician Assistant
DX: N13.30 Unspecified hydronephrosis (principal); N13.4 Hydroureter; R39.12 Poor urinary stream; R10.30 Lower abdominal pain, unspecified; Z85.038 Personal history of other malignant neoplasm of large intestine
CPT/HCPCS: 74177; 82565

== ENCOUNTER 2020-09-11 13:37 | Inpatient (IN) | payer OTHER ==
[2020-09-11] MEDS ORDERED: ONDANSETRON HCL INJ/PF 4 MG/2 ML SDV IV ONE (14:09)
[2020-09-11] MEDS ORDERED: HYDROMORPHONE HCL INJ/PF 2 MG/ML AMPULE IV ONE ×3 (14:09→18:23)
--- NOTE | 2020-09-11 14:19 | RADIOLOGY REPORT (SQ) ---
EXAM DESCRIPTION: FEMUR LEFT IMAGES COMPLETED DATE/TIME: 09/11/2020 2:00 pm REASON FOR STUDY: deformity COMPARISON: None. NUMBER OF VIEWS: Two views. TECHNIQUE: Two radiographic images acquired of the left femur to include hip and knee in at least on e projection. LIMITATIONS: None. FINDINGS: MINERALIZATION: Normal. BONES: Fracture of the midshaft with displacement and angulation. Irregular lucency at the site of f racture. SOFT TISSUES: No obvious swelling or foreign body. OTHER: No other significant finding. IMPRESSION: DISPLACED FRACTURE OF THE MIDSHAFT OF THE FEMUR. IRREGULAR LUCENCY AT THE SITE OF FRACT URE, CANNOT EXCLUDE UNDERLYING BONE LESION WITH PATHOLOGIC FRACTURE. TECHNICAL DOCUMENTATION: JOB ID: [id number] 2010 [employer]- All Rights Reserved Reading location - IP/workstation name: [email or web address]
[2020-09-11 14:57] LABS: HEMATOCRIT 28.8 % (37.9-51.0); HEMOGLOBIN 9.5 g/dL (13.5-17.0); MEAN CORPUSCULAR HEMOGLOBIN 27.7 pg (27.0-33.4); MEAN CORPUSCULAR HGB CONC 33.1 g/dL (32.0-36.0); MEAN CORPUSCULAR VOLUME 84 fl (80-97); PLATELET COUNT 617 10^3/uL (150-450); RED BLOOD COUNT 3.44 10^6/uL (4.35-5.55); RED CELL DISTRIBUTION WIDTH 23.5 % (11.5-14.0); WHITE BLOOD COUNT 23.9 10^3/uL (4.0-10.5)
[2020-09-11 14:59] LABS: VENOUS BLOOD BASE EXCESS -5.2 mmol/L; VENOUS BLOOD PH 7.39 (7.30-7.42)
--- NOTE | 2020-09-11 15:00 | RADIOLOGY REPORT (SQ) ---
EXAM DESCRIPTION: CHEST SINGLE VIEW IMAGES COMPLETED DATE/TIME: 09/11/2020 2:34 pm REASON FOR STUDY: femur fracture COMPARISON: 12/29/2019. EXAM PARAMETERS: NUMBER OF VIEWS: One view. TECHNIQUE: Single frontal radiographic view of the chest acquired. RADIATION DOSE: NA LIMITATIONS: None. FINDINGS: LUNGS AND PLEURA: No opacities, masses or pneumothorax. No pleural effusion. MEDIASTINUM AND HILAR STRUCTURES: No masses. Contour normal. HEART AND VASCULAR STRUCTURES: Heart normal in size. Normal vasculature. BONES: No acute findings. Degenerative changes in the left shoulder. HARDWARE: None in the chest. OTHER: Situs inversus. IMPRESSION: NO ACUTE RADIOGRAPHIC FINDING IN THE CHEST. TECHNICAL DOCUMENTATION: JOB ID: [id number] 2010 [employer]- All Rights Reserved Reading location - IP/workstation name: [email or web address]
[2020-09-11 15:02] LABS: INTERNATIONAL RATION (INR) 1.34; PROTHROMBIN TIME 16.8 SEC (11.4-15.4)
[2020-09-11 15:03] LABS: PARTIAL THROMBOPLASTIN TIME 47.2 SEC (23.5-35.8)
[2020-09-11 15:15] LABS: ALBUMIN 2.1 g/dL (3.5-5.0); ALKALINE PHOSPHATASE 404 U/L (38-126); ANION GAP 13 (5-19); ASPARTATE AMINO TRANSFERASE 28 U/L (17-59); BILIRUBIN,DIRECT 0.9 mg/dL (0.0-0.4); BILIRUBIN,TOTAL 1.4 mg/dL (0.2-1.3); BLOOD UREA NITROGEN 13 mg/dL (7-20); CALCIUM 7.6 mg/dL (8.4-10.2); CARBON DIOXIDE 20 mmol/L (22-30); CHLORIDE 93 mmol/L (98-107); GLUCOSE 121 mg/dL (75-110); POTASSIUM 4.6 mmol/L (3.6-5.0)
[2020-09-11 15:16] LABS: ABSOLUTE MONOCYTES # (MANUAL) 1.7 10^3/uL (0.1-1.4); BASOPHILS % (MANUAL) 0 % (0-2); EOSINOPHILS % (MANUAL) 0 % (0-6); LYMPHOCYTES % (MANUAL) 4 % (13-45); MONOCYTES % (MANUAL) 7 % (3-13); SEGMENTED NEUTROPHILS % (MAN) 89 % (42-78); TOTAL CELLS COUNTED 100
[2020-09-11 15:18] LABS: POLYCHROMASIA 1+; TOXIC GRANULATION 1+
[2020-09-11 15:19] LABS: ANISOCYTOSIS 3+; HOWELL-JOLLY BODIES PRESENT; HYPOCHROMASIA SLIGHT; PAPPENHEIMER BODIES PRESENT; PLATELET COMMENT INCREASED; POIKILOCYTOSIS SLIGHT; TARGET CELLS 1+; TEAR DROP CELLS SLIGHT
[2020-09-11] MEDS ORDERED: NORMAL SALINE 1000 ML 1,000 ML IV ONE (15:34)
--- NOTE | 2020-09-11 15:58 | ER Document Report ---
ED General - General Chief Complaint: Thigh Injury Stated Complaint: LEG PAIN/POSSIBLE SEPSIS Time Seen by Provider: 09/11/20 14:09 - HPI Notes: Patient is a 64-year-old male who presents to the emergency department for evaluation. He stood on his left leg to twist to get into the bathtub when his leg broke. He denies hitting his head or losing consciousness. No neck or back pain. He had obvious deformity at the scene and was placed in a traction splint. The patient has pain only in his leg. He rates it a 10 out of 10. - Related Data Allergies/Adverse Reactions: No Known Allergies Allergy (Unverified 12/29/19 17:39) Past Medical History - General Information source: Patient - Social History Smoking Status: Current Every Day Smoker Frequency of alcohol use: Heavy - Former alcoholic, cut down to 2-3 beers 4 days weekly Drug Abuse: Marijuana Family History: Reviewed & Not Pertinent, CVA - Past Medical History Cardiac Medical History: Reports: Other - None borderline hypotension, baseline pressures in the 90s Renal/ Medical History: Reports: Hx Benign Prostatic Hyperplasia Malignancy Medical History: Reports Hx Colorectal Cancer GI Medical History: Reports: Hx Gastritis - History of alcoholic gastritis with GI bleed, Hx Gastroesophageal Reflux Disease Past Surgical History: Reports: Hx Bowel Diversion - Colectomy secondary to colon cancer, Hx Cholecystectomy, Hx Orthopedic Surgery Review of Systems - Review of Systems Constitutional: No symptoms reported EENT: No symptoms reported Cardiovascular: No symptoms reported Respiratory: No symptoms reported Gastrointestinal: No symptoms reported Genitourinary: Other - Nocturia and hesitancy Musculoskeletal: See HPI Skin: No symptoms reported Neurological/Psychological: No symptoms reported Physical Exam - Vital signs Vitals: Temp 97.8 F 09/11/20 13:38 - Notes Notes: This is a 64-year-old male who appears older than his stated age, in a significant amount of distress. He has a traction splint in place, is clearly uncomfortable. He is moderately tachycardic and tachypneic, likely secondary to pain. Head is normocephalic and atraumatic, pupils are equal and round, reactive to light. Oral mucosa is moist. Heart is regular rate and rhythm, lungs show diminished breath sounds but no wheezes, rales, rhonchi. Chest wall is nontender. Abdomen is soft, nontender, normoactive bowel sounds. Examination of the left lower extremity yields obvious mid femur deformity. His extremities are cold to the touch bilaterally. I am unable to easily palpate dorsalis pedis or posterior tibial pulses, but popliteal pulse is 2+ and easily palpable. Patient is awake and alert. Initially not able to cooperate much with history and exam secondary to level of discomfort. Course - Re-evaluation Re-evalutation: 09/11/20 16:02 Patient presents to the emergency department for evaluation. He was placed on a tank builder helper. IV had been established, he was given IV fluids, Dilaudid, Zofran for symptom control. X-ray revealed obvious pathologic midshaft femur fracture. Laboratory investigations, EKG obtained. Patient had significant relief with pain medication. He has remained borderline tachycardic but his current systolic blood pressure is 106. He feels much more comfortable. His oxygenation is 95%. I spoke with Dr. Clement, reviewed my concerns about this possibility of a significant pathological fracture. Given his known history of colon cancer, this is the likely etiology. He will accept the patient in consu ltation. He asked that medicine admit his. I will contact them shortly for further care. - Vital Signs Vital signs: Temp Pulse Resp BP Pulse Ox 97.8 F 14 112/92 H 74 L 09/11/20 14:00 09/11/20 18:01 09/11/20 18:00 09/11/20 14:59 - Laboratory Results Result Diagrams: 09/11/20 14:35 09/11/20 18:45 Laboratory Results Interpreted: 09/11/20 09/11/20 09/11/20 14:35 14:35 14:35 WBC 23.9 H RBC 3.44 L Hgb 9.5 L Hct 28.8 L RDW 23.5 H Plt Count 617 H Seg Neuts % (Manual) 89 H Lymphocytes % (Manual) 4 L Abs Neuts (Manual) 21.3 H Abs Monocytes (Manual) 1.7 H PT 16.8 H APTT 47.2 H VBG pCO2 VBG HCO3 Sodium 125.5 L Chloride 93 L Carbon Dioxide 20 L Glucose 121 H Lactic Acid Calcium 7.6 L Total Bilirubin 1.4 H Direct Bilirubin 0.9 H Alkaline Phosphatase 404 H Total Protein 5.0 L Albumin 2.1 L 09/11/20 09/11/20 14:35 14:35 WBC RBC Hgb Hct RDW Plt Count Seg Neuts % (Manual) Lymphocytes % (Manual) Abs Neuts (Manual) Abs Monocytes (Manual) PT APTT VBG pCO2 32.0 L VBG HCO3 19.0 L Sodium Chloride Carbon Dioxide Glucose Lactic Acid 8.9 H Calcium Total Bilirubin Direct Bilirubin Alkaline Phosphatase Total Protein Albumin Critical Laboratory Results Reviewed: No Critical Results - Radiology Results Critical Radiology Results Reviewed: No Critical Results - EKG Interpretation by Me Additional EKG results interpreted by me: 09/11/20 16:41 Sinus tachycardia with a rate of 136 bpm. Low voltage anterior leads and large amount of baseline artifact. Nonspecific ST changes but no clear ST elevation. No old studies immediately available for comparison. Critical Care Note - Critical Care Note Total time excluding time spent on procedures (mins): 15 Discharge - Discharge Clinical Impression: Pathological fracture, left femur, initial encounter for fracture, Hyponatremia, Lactic acidosis Leukocytosis Qualifiers: Leukocytosis type: unspecified Qualified Code(s): D72.829 - Elevated white blood cell count, unspecified Condition: Stable Disposition: ADMITTED INPATIENT Admitting Provider: Nando (Hospitalist) Unit Admitted: Telemetry
--- NOTE | 2020-09-11 17:34 | EKG REPORT ---
SEVERITY:- ABNORMAL ECG - SINUS TACHYCARDIA LEFT ANTERIOR FASCICULAR BLOCK NONSPECIFIC T ABNORMALITIES, INFERIOR LEADS : Confirmed by: Caio Hall MD 11-Sep-2020 17:33:33
[2020-09-11] MEDS ORDERED: ONDANSETRON HCL INJ/PF 4 MG/2 ML SDV IV PRN (18:30)
[2020-09-11] MEDS ORDERED: ACETAMINOPHEN 325 MG TABLET PO PRN (18:30)
[2020-09-11] MEDS ORDERED: ONDANSETRON 4 MG TAB.RAPDIS PO PRN (18:30)
[2020-09-11 19:35] LABS: ANION GAP 5 (5-19); BLOOD UREA NITROGEN 15 mg/dL (7-20); CALCIUM 7.1 mg/dL (8.4-10.2); CARBON DIOXIDE 25 mmol/L (22-30); CHLORIDE 95 mmol/L (98-107); GLUCOSE 95 mg/dL (75-110); POTASSIUM 4.2 mmol/L (3.6-5.0)
--- NOTE | 2020-09-11 20:33 | PDOC H&P ---
History of Present Illness Admission Date/PCP: 09/11/20 16:47 KRISTYN SALAS PA-C History of Present Illness: RAYMON RODARTE is a 64 year old male with past medical history significant f or colorectal cancer status post hemicolectomy/radiation/chemotherapy approximately 16 years prior to admission, ongoing tobacco abuse, alcohol dependency who presents ED after patient states he was getting into his bathtub and heard a loud snap with severe pain thereafter, later found to have fractured his left femur. X-ray in ED showed an irregular lucency at the site of the fracture concerning for possible metastatic disease. Patient states he has not had any follow-up with physicians for several years and has not followed with an oncologist for even more years than that. He has been vomiting multiple times a day for the past week and appears to be quite dehydrated based on his labs and clinical appearance. Of note, his lactate was 8.9 on admission and this later improved with aggressive rehydration. His sodium remains low and this is concerning for possible underlying lung cancer causing SIADH. Review of his imaging from last December and last month showed he has findings concerning for possible recurrence of his colorectal cancer. Dr. Parkinson with oncology will be consulted here. Patient also has a leukocytosis of approximately 24, mild anemia 9.5 hemoglobin, hyponatremia down to 124.9, elevated bilirubin. PSA came back at 0.56. He does have BPH and his history as well and previous CT scans have shown hydronephrosis. He does not follow with a urologist. Patient states he would like to be full code and I did explain to him that with cancer metastasized to bones there is high likelihood to suffer further fractures during a CPR attempt. I recommend further discussion of CODE STATUS during this admission. I recommend DNR/DNI. Past Medical History Cardiac Medical History: Reports: Other - None borderline hypotension, baseline pressures in the 90s Malignancy Medical History: Reports: Colorectal Cancer GI Medical History: Reports: Gastroesophageal Reflux Disease Psychiatric Medical History: Reports: Alcohol Dependency, Tobacco Dependency Hematology: Reports: Anemia Past Surgical History Past Surgical History: Reports: Appendectomy, Cholecystectomy, Orthopedic Surgery, Other - Hemicolectomy for cancer Social History Information Source: Patient, Friend, Emergency Med Personnel Lives with: Alone Smoking Status: Current Every Day Smoker Frequency of Alcohol Use: Heavy Hx Recreational Drug Use: - unknown Hx Prescription Drug Abuse: No - Advance Directive Resuscitation Status: Full Code Surrogate healthcare decision maker:: Admitting diagnosis: Pathologic fracture of left femur All aspects of code status discussed with patient/POA including cardioversion, chest compressions, and intubation and the patient/POA indicated they wish to be full code MPOA is designated as: Elva Steh, girlfriend Time spent: Greater than 16 minutes Family History Family History: Reviewed & Not Pertinent, CVA, Malignancy Parental Family History Reviewed: Yes Children Family History Reviewed: Yes Sibling(s) Family History Reviewed.: Yes Medication/Allergy Home Medications: Multivitamin [Daily Multiple Vitamin] 1 each PO DAILY 12/30/19 Naproxen Sodium [Aleve] 220 mg PO DAILYP PRN 12/30/19 Saw Meridian Fruit/Zinc Picoli [Saw Meridian 450 mg Capsule] 1 each PO BID 12/30/19 Acetaminophen [Tylenol 325 mg Tablet] 650 mg NG Q4HP PRN tablet 12/31/19 Pantoprazole Sodium [Protonix] 40 mg PO BID 30 Days #60 tablet. 12/31/19 Sucralfate [Carafate 1 gm Tablet] 1 gm PO ACHS 30 Days #120 tablet 12/31/19 Allergies/Adverse Reactions: No Known Allergies Allergy (Unverified 12/29/19 17:39) Review of Systems All systems: reviewed and no additional remarkable complaints except as stated - Per HPI otherwise negative Physical Exam Vital Signs: Temp Pulse Resp BP Pulse Ox 97.8 F 14 112/92 H 74 L 09/11/20 14:00 09/11/20 18:01 09/11/20 18:00 09/11/20 14:59 Intake & Output 09/10/20 09/11/20 09/12/20 06:59 06:59 06:59 Intake Total 1000 Balance 1000 Weight 59 kg Exam: General appearance: PRESENT: no acute distress, frail appearing white male who appears much older than stated age, very chronically ill-appearing Head exam: PRESENT: atraumatic, normocephalic Eye exam: PRESENT: conjunctiva pink. ABSENT: scleral icterus Mouth exam: PRESENT: Dry Respiratory exam: PRESENT: clear to auscultation pedro. ABSENT: rales, rhonchi, wheezes Cardiovascular exam: PRESENT: RRR. ABSENT: diastolic murmur, rubs, systolic murmur GI/Abdominal exam: PRESENT: normal bowel sounds, soft. ABSENT: distended, guarding, mass, organolmegaly, rebound, tenderness Neurological exam: PRESENT: alert, awake, oriented to person, oriented to place, oriented to time, oriented to situation Psychiatric exam: PRESENT: appropriate affect, normal mood Skin exam: PRESENT: dry, intact, warm Musculoskeletal: Left hip extremely tender along femur Results Laboratory Results: 09/11/20 14:35 09/11/20 18:45 09/11/20 09/11/20 09/11/20 14:35 14:35 14:35 WBC 23.9 H RBC 3.44 L Hgb 9.5 L Hct 28.8 L MCV 84 MCH 27.7 MCHC 33.1 RDW 23.5 H Plt Count 617 H Seg Neutrophils % Not Reportable VBG pH 7.39 VBG pCO2 32.0 L VBG HCO3 19.0 L VBG Base Excess -5.2 Sodium 125.5 L Potassium 4.6 Chloride 93 L Carbon Dioxide 20 L Anion Gap 13 BUN 13 Creatinine 0.80 Est GFR ( Amer) > 60 Glucose 121 H Lactic Acid Calcium 7.6 L Total Bilirubin 1.4 H AST 28 Alkaline Phosphatase 404 H Total Protein 5.0 L Albumin 2.1 L Prostate Specific Ag 09/11/20 09/11/20 09/11/20 14:35 18:45 18:45 WBC RBC Hgb Hct MCV MCH MCHC RDW Plt Count Seg Neutrophils % VBG pH VBG pCO2 VBG HCO3 VBG Base Excess Sodium 124.9 L Potassium 4.2 Chloride 95 L Carbon Dioxide 25 Anion Gap 5 BUN 15 Creatinine 0.82 Est GFR ( Amer) > 60 Glucose 95 Lactic Acid 8.9 H 2.6 H Calcium 7.1 L Total Bilirubin AST Alkaline Phosphatase Total Protein Albumin Prostate Specific Ag 09/11/20 18:45 WBC RBC Hgb Hct MCV MCH MCHC RDW Plt Count Seg Neutrophils % VBG pH VBG pCO2 VBG HCO3 VBG Base Excess Sodium Potassium Chloride Carbon Dioxide Anion Gap BUN Creatinine Est GFR ( Amer) Glucose Lactic Acid Calcium Total Bilirubin AST Alkaline Phosphatase Total Protein Albumin Prostate Specific Ag 0.560 09/11/20 14:35 Troponin I < 0.012 Impressions: Femur X-Ray 09/11/20 13:45 IMPRESSION: DISPLACED FRACTURE OF THE MIDSHAFT OF THE FEMUR. IRREGULAR LUCENCY AT THE SITE OF FRACTURE, CANNOT EXCLUDE UNDERLYING BONE LESION WITH PATHOLOGIC FRACTURE. Chest X-Ray 09/11/20 14:10 IMPRESSION: NO ACUTE RADIOGRAPHIC FINDING IN THE CHEST. Assessment and Plan - Diagnosis (1) Pathological fracture, left femur, initial encounter for fracture Is this a current diagnosis for this admission?: Yes Plan: Orthopedic surgery consulted, await correction of electrolyte abnormalities before attempting surgery Oncology consulted for likely metastatic cancer causing pathologic fracture Pain management Work-up for possible underlying recurrence of cancer (2) Hyponatremia Is this a current diagnosis for this admission?: Yes Plan: Trend BMP Sodium on admission 124.9 Normal saline infusion continuous Possible SIADH due to underlying lung cancer Get CT imaging of chest (3) History of colon cancer Is this a current diagnosis for this admission?: Yes Plan: CT chest abdomen pelvis with contrast to look for underlying cancer recurrence or possible new malignancy given smoking history Oncology consulted Prior imaging in 2019 concerning for new colorectal mass, patient denies being told about this and has not had any follow-up (4) Tobacco abuse Is this a current diagnosis for this admission?: Yes Plan: Patient does not wish to quit, counseled (5) Alcohol dependency Qualifiers: Substance use status: unspecified alcohol-induced disorder Qualified Code(s): F10.29 - Alcohol dependence with unspecified alcohol-induced disorder Is this a current diagnosis for this admission?: Yes Plan: Drinks daily but states he only has 1-2 beers per day Watch for signs of withdrawal (6) Leukocytosis Qualifiers: Leukocytosis type: unspecified Qualified Code(s): D72.829 - Elevated white blood cell count, unspecified Is this a current diagnosis for this admission?: Yes (7) Lactic acidosis Is this a current diagnosis for this admission?: Yes Plan: Likely due to severe dehydration and nausea/vomiting Antiemetics IV fluids Trend lactate, trending down (8) Nausea and vomiting Qualifiers: Vomiting type: unspecified Vomiting Intractability: non-intractable Qualified Code(s): R11.2 - Nausea with vomiting, unspecified Is this a current diagnosis for this admission?: Yes Plan: Progressive over 1 week IV fluids Antiemetics - Time Time Spent with patient: 35 or more minutes Smoking Cessation Education: 3 to 10 minutes Medications reviewed and adjusted accordingly: Yes Anticipated Discharge Disposition: [facility] Facility Anticipated Discharge Timeframe: within 72 hours - Inpatient Certification Based on my medical assessment, after consideration of the patient's comorbidities, presenting symptoms, or acuity I expect that the services needed warrant INPATIENT care.: Yes I certify that my determination is in accordance with my understanding of Medicare's requirements for reasonable and necessary INPATIENT services [42 CFR 412.3e].: Yes Medical Necessity: Significant Comorbidiites Make Outpatient Treatment Too Risky, Need Close Monitoring Due to Risk of Patient Decompensation, Need for Surgery, Risk of Complication if Not Cared For in Hospital, Risk of Diagnosis Which Will Require Inpatient Eval/Care/Monitoring
[2020-09-11] MEDS: MORPHINE SULFATE 10 MG/ML INJ IV PRN (21:04)
[2020-09-11] MEDS: NORMAL SALINE 1000 ML 1,000 ML IV PRN (22:57)
[2020-09-11] MEDS: PANTOPRAZOLE SODIUM 40 MG VIAL IV SCH (22:57)
[2020-09-12] MEDS: MORPHINE SULFATE 10 MG/ML INJ IV PRN ×4 (02:29→18:31)
[2020-09-12 04:45] LABS: ABSOLUTE LYMPHOCYTES (AUTO) 1.1 10^3/uL (0.5-4.7); ABSOLUTE MONOCYTES (AUTO) 1.5 10^3/uL (0.1-1.4); ABSOLUTE NEUT (AUTO) 15.7 10^3/uL (1.7-8.2); BASOPHILS % (AUTO) 0.2 % (0-2); EOSINOPHILS % (AUTO) 0.2 % (0-6); HEMATOCRIT 24.2 % (37.9-51.0); LYMPHOCYTES % (AUTO) 5.8 % (13-45); MEAN CORPUSCULAR HEMOGLOBIN 27.6 pg (27.0-33.4); MEAN CORPUSCULAR HGB CONC 33.2 g/dL (32.0-36.0); MEAN CORPUSCULAR VOLUME 83 fl (80-97); PLATELET COUNT 453 10^3/uL (150-450); RED BLOOD COUNT 2.91 10^6/uL (4.35-5.55); RED CELL DISTRIBUTION WIDTH 23.4 % (11.5-14.0); SEGMENTED NEUTROPHILS % (AUTO) 85.8 % (42-78); TOTAL CELLS COUNTED % (AUTO) 100 %; WHITE BLOOD COUNT 18.4 10^3/uL (4.0-10.5)
[2020-09-12 05:09] LABS: BLOOD UREA NITROGEN 17 mg/dL (7-20); CARBON DIOXIDE 23 mmol/L (22-30); CHLORIDE 97 mmol/L (98-107); GLUCOSE 80 mg/dL (75-110); PHOSPHORUS 3.4 mg/dL (2.5-4.5); POTASSIUM 4.3 mmol/L (3.6-5.0)
[2020-09-12 05:17] LABS: ANION GAP 4 (5-19); CALCIUM 6.8 mg/dL (8.4-10.2)
[2020-09-12] MEDS: NORMAL SALINE 1000 ML 1,000 ML IV PRN ×2 (06:52→21:39)
--- NOTE | 2020-09-12 07:48 | PDOC CONSULTATION ---
Consultation Consult Date: 09/12/20 Provider Consulted: KATIE SHARMA JR History of Present Illness Admission Date/PCP: 09/11/20 16:47 KRISTYN SALAS PA-C History of Present Illness: RAYMON RODARTE is a 64 year old male who recently was standing, pivoted to enter his bathtub, and had subsequent snap with inability to ambulate and severe left leg pain. He reports the pain is 9 out of 10, worse with motion, improved with rest and traction as well as pain medication. It is aching in nature, and radiates through his thigh and into his knee. He is unaware of prior pain in that leg. The patient has a history of colon cancer. He is appropriate on exam today but does not elaborate and seems unsure of some of his past medical management, work-up, and nature of his current potential metastatic disease. He had be lieved he was in remission first colon cancer however he has had recent work-up with CT scans that have shown concern for recurrence. He seems to not fully understand the nature of the results of these recent findings. He is also a chronic smoker with no intention of quitting. Past Medical History Past Medical History: Colon cancer Alcohol abuse Tobacco abuse BPH Cardiac Medical History: Reports: Other - None borderline hypotension, baseline pressures in the 90s Malignancy Medical History: Reports: Colorectal Cancer GI Medical History: Reports: Gastroesophageal Reflux Disease Psychiatric Medical History: Reports: Alcohol Dependency, Tobacco Dependency Denies: Depression Hematology: Reports: Anemia Past Surgical History Past Surgical History: Reports: Appendectomy, Cholecystectomy, Orthopedic Surgery, Other - Hemicolectomy for cancer Social History Lives with: Alone Smoking Status: Current Every Day Smoker Cigarettes Packs Per Day: 0.5 Electronic Cigarette use?: No Frequency of Alcohol Use: Social Hx Recreational Drug Use: No - unknown Hx Prescription Drug Abuse: No - Advance Directive Resuscitation Status: Full Code Family History Family History: Reviewed & Not Pertinent, CVA, Malignancy Parental Family History Reviewed: Yes Children Family History Reviewed: Yes Sibling(s) Family History Reviewed.: Yes Medication/Allergy Home Medications: Multivitamin [Daily Multiple Vitamin] 1 each PO DAILY 12/30/19 Naproxen Sodium [Aleve] 220 mg PO DAILYP PRN 12/30/19 Saw [place] Fruit/Zinc Picoli [Saw [place] 450 mg Capsule] 1 each PO BID 12/30/19 Acetaminophen [Tylenol 325 mg Tablet] 650 mg NG Q4HP PRN tablet 12/31/19 Pantoprazole Sodium [Protonix] 40 mg PO BID 30 Days #60 tablet. 12/31/19 Sucralfate [Carafate 1 gm Tablet] 1 gm PO ACHS 30 Days #120 tablet 12/31/19 Allergies/Adverse Reactions: No Known Allergies Allergy (Unverified 12/29/19 17:39) Review of Systems Review of Systems: Constitutional: ABSENT: anorexia, chills, night sweats Cardiovascular: ABSENT: chest pain Respiratory: ABSENT: dyspnea Gastrointestinal: Present: Recent multiple episodes of vomiting over the last 2 months. Genitourinary: ABSENT: dysuria Integumentary: ABSENT: rash Neurological: ABSENT: confusion, memory loss, numbness Psychiatric: ABSENT: hallucinations Hematologic/Lymphatic: ABSENT: easy bleeding All negative as above aside from that reported in the HPI Physical Exam Vital Signs: Temp Pulse Resp BP Pulse Ox 97.7 F 102 H 18 109/64 98 09/12/20 03:21 09/12/20 03:21 09/12/20 03:21 09/12/20 03:21 09/12/20 03:21 Intake & Output 09/11/20 09/12/20 09/13/20 06:59 06:59 06:59 Intake Total 2360 Balance 2360 Weight 64.9 kg Physical Exam: General appearance: PRESENT: no acute distress, cooperative, thin Head exam: PRESENT: atraumatic, normocephalic Eye exam: PRESENT: EOMI Ear exam: PRESENT: normal external ear exam Mouth exam: PRESENT: neck supple, poor dentition Neck exam: ABSENT: tracheal deviation Respiratory exam: PRESENT: symmetrical, unlabored. ABSENT: accessory muscle use, wheezes Pulses: PRESENT: normal radial pulses, normal dorsalis pedis pulse Vascular exam: PRESENT: normal capillary refill GI/Abdominal exam: ABSENT: distended, firm Musculoskeletal exam: PRESENT: full ROM, normal inspection of all 4 extremities aside from that noted below. Neurological exam: PRESENT: alert, awake, oriented to person, oriented to place, oriented to time Psychiatric exam: PRESENT: appropriate affect. ABSENT: agitated Focused psych exam: ABSENT: catatonic Skin exam: PRESENT: intact, multiple areas of excoriations without any signs of active current infection. ABSENT: dry All as above aside from that noted in the HPI and the following: Left lower extremity -Pulses 2+ distally -Compartments soft -Sensation grossly intact to L3-4-5 S1 -Motor grossly intact to EHL TA gastroc and quad Currently placed in a traction device, well positioned and padded. Skin intact. Results Laboratory Results: 09/12/20 04:22 09/12/20 04:22 09/11/20 09/11/20 09/11/20 14:35 14:35 14:35 WBC 23.9 H RBC 3.44 L Hgb 9.5 L Hct 28.8 L MCV 84 MCH 27.7 MCHC 33.1 RDW 23.5 H Plt Count 617 H Seg Neutrophils % Not Reportable VBG pH 7.39 VBG pCO2 32.0 L VBG HCO3 19.0 L VBG Base Excess -5.2 Sodium 125.5 L Potassium 4.6 Chloride 93 L Carbon Dioxide 20 L Anion Gap 13 BUN 13 Creatinine 0.80 Est GFR ( Amer) > 60 Glucose 121 H Lactic Acid Calcium 7.6 L Phosphorus Magnesium Total Bilirubin 1.4 H AST 28 Alkaline Phosphatase 404 H Total Protein 5.0 L Albumin 2.1 L Prostate Specific Ag [facility] 09/11/20 09/11/20 09/11/20 14:35 18:45 18:45 WBC RBC Hgb Hct MCV MCH MCHC RDW Plt Count Seg Neutrophils % VBG pH VBG pCO2 VBG HCO3 VBG Base Excess Sodium 124.9 L Potassium 4.2 Chloride 95 L Carbon Dioxide 25 Anion Gap 5 BUN 15 Creatinine 0.82 Est GFR ( Amer) > 60 Glucose 95 Lactic Acid 8.9 H 2.6 H Calcium 7.1 L Phosphorus Magnesium Total Bilirubin AST Alkaline Phosphatase Total Protein Albumin Prostate Specific Ag [facility] 09/11/20 09/11/20 09/12/20 18:45 21:46 04:22 WBC 18.4 H RBC 2.91 L Hgb 8.0 L Hct 24.2 L MCV 83 MCH 27.6 MCHC 33.2 RDW 23.4 H Plt Count 453 H Seg Neutrophils % 85.8 H VBG pH VBG pCO2 VBG HCO3 VBG Base Excess Sodium Potassium Chloride Carbon Dioxide Anion Gap BUN Creatinine Est GFR ( Amer) Glucose Lactic Acid 1.4 Calcium Phosphorus Magnesium Total Bilirubin AST Alkaline Phosphatase Total Protein Albumin Prostate Specific Ag 0.560 [facility] 09/12/20 09/12/20 04:22 04:22 WBC RBC Hgb Hct MCV MCH MCHC RDW Plt Count Seg Neutrophils % VBG pH VBG pCO2 VBG HCO3 VBG Base Excess Sodium 124.3 L Potassium 4.3 Chloride 97 L Carbon Dioxide 23 Anion Gap 4 L BUN 17 Creatinine 0.67 Est GFR ( Amer) > 60 Glucose 80 Lactic Acid Calcium 6.8 L* Phosphorus 3.4 Magnesium 1.8 Total Bilirubin AST Alkaline Phosphatase Total Protein Albumin Prostate Specific Ag TSH 1.47 09/11/20 14:35 Troponin I < 0.012 Impressions: Femur X-Ray 09/11/20 13:45 IMPRESSION: DISPLACED FRACTURE OF THE MIDSHAFT OF THE FEMUR. IRREGULAR LUCENCY AT THE SITE OF FRACTURE, CANNOT EXCLUDE UNDERLYING BONE LESION WITH PATHOLOGIC FRACTURE. Chest X-Ray 09/11/20 14:10 IMPRESSION: NO ACUTE RADIOGRAPHIC FINDING IN THE CHEST. Assessment & Plan - Diagnosis (1) Pathological fracture, left femur, initial encounter for fracture Is this a current diagnosis for this admission?: Yes Plan: Patient will need stabilizing surgery for his left femur fracture. - Will place on the schedule for tomorrow pending further medical clearance today and work-up. -Hold all chemical DVT prophylaxis at midnight tonight Make n.p.o. at midnight tonight Continue traction as long as it makes him comfortable. If he finds the device is more uncomfortable than the relief it produces, may remove. Bedrest -He will need a Covid test prior to surgery. (2) History of colon cancer Is this a current diagnosis for this admission?: Yes (3) Metastatic disease Plan: Further work-up right now being planned for determination of metastatic disease includes CT chest abdomen pelvis as well as blood work and a current consultation pending for oncology. I have also ordered a whole-body bone scan to be performed stat in order to further understand his bony involvement and potentially assist with determinatio n for DNR/DNI
[2020-09-12] MEDS ORDERED: INFLUENZA QUAD (6MOS+) 2020-21 VAC 0.5 ML SYR IM ONE (08:00)
[2020-09-12] MEDS: PANTOPRAZOLE SODIUM 40 MG VIAL IV SCH ×2 (09:11→21:39)
[2020-09-12] MEDS: ENOXAPARIN SODIUM INJ 40 MG/0.4 ML DISP.SYRIN SUBCUT SCH (09:11)
[2020-09-12] MEDS ORDERED: PANTOPRAZOLE SODIUM 40 MG TABLET.DR PO SCH (10:00)
--- NOTE | 2020-09-12 12:38 | PDOC CONSULTATION ---
Consultation Consult Date: 09/12/20 Provider Consulted: DERICK LONG Consult reason:: Hematology/Oncology consultation was requested for patient with pathologic femur fracture and history of colon cancer. History of Present Illness Admission Date/PCP: 09/11/20 16:47 KRISTYN SALAS PA-C History of Present Illness: RAYMON RODARTE is a 64 year old male who states that he was treated for a stage III colon cancer about 10-15 years ago. He was seen by Dr. Kilgore and Dr. Morse at the [facility] (both are no longer practicing in this area). He states that he underwent surgery and chemo but has not been followed by oncology nor had a colonoscopy for many years. He presented with complaints of decreased appetite, balance problems and frequent falls. Most recent causing a femur fracture as he was trying to get in/out of the bathtub. Today, he states that he is having pain and is anxious for surgery Past Medical History Cardiac Medical History: Reports: Other - None borderline hypotension, baseline pressures in the 90s Malignancy Medical History: Reports: Colorectal Cancer GI Medical History: Reports: Gastroesophageal Reflux Disease Psychiatric Medical History: Reports: Alcohol Dependency, Tobacco Dependency Denies: Depression Hematology: Reports: Anemia Past Surgical History Past Surgical History: Reports: Appendectomy, Cholecystectomy, Orthopedic Surgery, Other - Hemicolectomy for cancer Social History Lives with: Alone Smoking Status: Current Every Day Smoker Cigarettes Packs Per Day: 0.5 Electronic Cigarette use?: No Frequency of Alcohol Use: Social Hx Recreational Drug Use: No - unknown Hx Prescription Drug Abuse: No - Advance Directive Resuscitation Status: Full Code Family History Family History: Reviewed & Not Pertinent, CVA, Malignancy Parental Family History Reviewed: Yes Children Family History Reviewed: No Sibling(s) Family History Reviewed.: No Medication/Allergy Home Medications: Multivitamin [Daily Multiple Vitamin] 1 each PO DAILY 12/30/19 Acetaminophen with Codeine [Tylenol with Codeine #3 Tablet] 1 each PO QID 09/12/20 Docusate Sodium [Colace 100 mg Capsule] 100 mg PO DAILY 09/12/20 Ferrous Sulfate [Duong-Time] 325 mg PO DAILY 09/12/20 Tamsulosin HCl [Flomax 0.4 mg Cap.sr] 0.4 mg PO DAILY 09/12/20 Allergies/Adverse Reactions: No Known Allergies Allergy (Unverified 12/29/19 17:39) Review of Systems Constitutional: PRESENT: anorexia, weight loss. ABSENT: fever(s), headache(s) Eyes: ABSENT: visual disturbances Ears: ABSENT: hearing changes Nose, Mouth, and Throat: ABSENT: sore throat Cardiovascular: ABSENT: chest pain Respiratory: ABSENT: dyspnea Gastrointestinal: ABSENT: constipation, nausea Genitourinary: ABSENT: dysuria Neurological: PRESENT: abnormal gait, frequent falls, weakness Hematologic/Lymphatic: ABSENT: easy bleeding Physical Exam Vital Signs: Temp Pulse Resp BP Pulse Ox 97.5 F 109 H 20 103/62 98 09/12/20 10:00 09/12/20 12:05 09/12/20 12:05 09/12/20 12:05 09/12/20 12:05 Intake & Output 09/11/20 09/12/20 09/13/20 06:59 06:59 06:59 Intake Total 2360 Balance 2360 Weight 64.9 kg General appearance: PRESENT: no acute distress, well-developed, well-nourished Exam: 64 year old gentleman Head exam: PRESENT: normocephalic Eye exam: PRESENT: EOMI Mouth exam: PRESENT: tongue midline Neck exam: ABSENT: lymphadenopathy, tenderness Respiratory exam: PRESENT: clear to auscultation pedro, unlabored Cardiovascular exam: PRESENT: RRR. ABSENT: systolic murmur GI/Abdominal exam: PRESENT: soft, tenderness Extremities exam: PRESENT: other - Left leg immobilized. ABSENT: pedal edema Neurological exam: PRESENT: alert, awake Psychiatric exam: PRESENT: appropriate affect Skin exam: PRESENT: normal color Results Laboratory Results: 09/12/20 04:22 09/12/20 04:22 09/11/20 09/11/20 09/11/20 14:35 14:35 14:35 WBC 23.9 H RBC 3.44 L Hgb 9.5 L Hct 28.8 L MCV 84 MCH 27.7 MCHC 33.1 RDW 23.5 H Plt Count 617 H Seg Neutrophils % Not Reportable VBG pH 7.39 VBG pCO2 32.0 L VBG HCO3 19.0 L VBG Base Excess -5.2 Sodium 125.5 L Potassium 4.6 Chloride 93 L Carbon Dioxide 20 L Anion Gap 13 BUN 13 Creatinine 0.80 Est GFR ( Amer) > 60 Glucose 121 H Lactic Acid Calcium 7.6 L Phosphorus Magnesium Total Bilirubin 1.4 H AST 28 Alkaline Phosphatase 404 H Total Protein 5.0 L Albumin 2.1 L Prostate Specific Ag TSH 09/11/20 09/11/20 09/11/20 14:35 18:45 18:45 WBC RBC Hgb Hct MCV MCH MCHC RDW Plt Count Seg Neutrophils % VBG pH VBG pCO2 VBG HCO3 VBG Base Excess Sodium 124.9 L Potassium 4.2 Chloride 95 L Carbon Dioxide 25 Anion Gap 5 BUN 15 Creatinine 0.82 Est GFR ( Amer) > 60 Glucose 95 Lactic Acid 8.9 H 2.6 H Calcium 7.1 L Phosphorus Magnesium Total Bilirubin AST Alkaline Phosphatase Total Protein Albumin Prostate Specific Ag TSH 09/11/20 09/11/20 09/12/20 18:45 21:46 04:22 WBC 18.4 H RBC 2.91 L Hgb 8.0 L Hct 24.2 L MCV 83 MCH 27.6 MCHC 33.2 RDW 23.4 H Plt Count 453 H Seg Neutrophils % 85.8 H VBG pH VBG pCO2 VBG HCO3 VBG Base Excess Sodium Potassium Chloride Carbon Dioxide Anion Gap BUN Creatinine Est GFR ( Amer) Glucose Lactic Acid 1.4 Calcium Phosphorus Magnesium Total Bilirubin AST Alkaline Phosphatase Total Protein Albumin Prostate Specific Ag 0.560 TSH 09/12/20 09/12/20 04:22 04:22 WBC RBC Hgb Hct MCV MCH MCHC RDW Plt Count Seg Neutrophils % VBG pH VBG pCO2 VBG HCO3 VBG Base Excess Sodium 124.3 L Potassium 4.3 Chloride 97 L Carbon Dioxide 23 Anion Gap 4 L BUN 17 Creatinine 0.67 Est GFR ( Amer) > 60 Glucose 80 Lactic Acid Calcium 6.8 L* Phosphorus 3.4 Magnesium 1.8 Total Bilirubin AST Alkaline Phosphatase Total Protein Albumin Prostate Specific Ag TSH 1.47 09/11/20 14:35 Troponin I < 0.012 Impressions: Femur X-Ray 09/11/20 13:45 IMPRESSION: DISPLACED FRACTURE OF THE MIDSHAFT OF THE FEMUR. IRREGULAR LUCENCY AT THE SITE OF FRACTURE, CANNOT EXCLUDE UNDERLYING BONE LESION WITH PATHOLOGIC FRACTURE. Chest X-Ray 09/11/20 14:10 IMPRESSION: NO ACUTE RADIOGRAPHIC FINDING IN THE CHEST. Status: Image reviewed by me Assessment & Plan - Diagnosis (1) History of colon cancer Is this a current diagnosis for this admission?: Yes Plan: This was treated over 10 years ago. He has had no recent follow-up of colonoscopy. Agree with plans for CT and bone scans to see if there is evidence that this is metastatic from the colon. I will also check CEA. I am also worried about his recent neurological symptoms. I will order MRI brain with and without contrast to rule out brain mets. (2) Pathological fracture, left femur, initial encounter for fracture Is this a current diagnosis for this admission?: Yes Plan: Patient was discussed with Dr. Clement. Further recommendations based on scan results.
[2020-09-12 16:00] LABS: APPEARANCE,URINE CLEAR; BILIRUBIN,URINE NEGATIVE (NEGATIVE); COLOR,URINE AMBER; GLUCOSE, URINE NEGATIVE (NEGATIVE); KETONES,URINE TRACE mg/dL (NEGATIVE); LEUKOCYTE ESTERASE,URINE NEGATIVE (NEGATIVE); NITRITE,URINE NEGATIVE (NEGATIVE); PROTEIN,URINE 30 mg/dL (NEGATIVE); URINE SPECIFIC GRAVITY 1.024
--- NOTE | 2020-09-12 16:49 | RADIOLOGY REPORT (SQ) ---
EXAM DESCRIPTION: CT CHEST WITH; CT ABD/PELVIS WITH IV ORAL IMAGES COMPLETED DATE/TIME: 09/12/2020 3:52 pm REASON FOR STUDY: metastatic cancer, smoker; metastatic cancer, lung vs colorectal to bone 12/29/[address] CT chest. 08/13/2020 CT abdomen. COMPARISON: None. RENAL FUNCTION: Not reported. TECHNIQUE: CT scan of the chest performed using helical scanning technique with dynamic intravenous contrast injection. Images reviewed with lung, soft tissue and bone windows. Reconstructed coronal a nd sagittal MPR images reviewed. All images stored on PACS. CT scan of the abdomen and pelvis performed with intravenous and with oral contrastusing helical scan adrian technique with dynamic intravenous contrast injection. Images reviewed with lung, soft tissue a nd bone windows. Reconstructed coronal and sagittal MPR images reviewed. Delayed images for evaluat ion of the urinary system also acquired and evaluated. All images stored on PACS. All CT scanners at this facility use dose modulation, iterative reconstruction, and/or weight based d osing when appropriate to reduce radiation dose to as low as reasonably achievable (ALARA). [facility]: Dose Right [facility]: CareDose [facility]: Dose Right [facility]: Teradose 4D [facility]: GreenerU RADIATION DOSE: . LIMITATIONS: None. FINDINGS: CHEST: LUNGS AND PLEURA: Compared to the prior study, mild peripheral patchy ground-glass opacities have dev eloped, multifocal. Mild reticulonodular opacities are also present in the right upper lobe (image 6 5 and adjacent slices. Small bilateral pleural effusions are present now. HILAR AND MEDIASTINAL STRUCTURES: Sinus inversus, chronic congenital abnormality. No overt mediastin al mass. Ascending aorta mildly aneurysmal at just over 4 cm. No dissection. Great vessels are pat ent. No suggestion of central pulmonary embolus, peripheral branches poorly assessed. Trace pericar dial fluid. Mild coronary calcification. HEART AND VASCULAR STRUCTURES: As above. HARDWARE: None. THYROID AND OTHER SOFT TISSUES: No masses. No adenopathy. BONES: No significant finding. OTHER: No other significant finding. ABDOMEN AND PELVIS: LIVER: Left-sided liver consistent with sinus and versus, complete. SPLEEN: Normal appearance, right-sided. PANCREAS: No masses. No significant calcifications. No adjacent inflammation or peripancreatic fluid collections. Pancreatic duct not dilated. GALLBLADDER: No identified stones by CT criteria. No inflammatory changes to suggest cholecystitis. ADRENAL GLANDS: No significant masses or asymmetry. RIGHT KIDNEY AND URETER: No solid masses. No significant calcification. No hydronephrosis or hydroure ter. LEFT KIDNEY AND URETER: Chronically abnormal appearance. Cortical thinning with hypoenhancement, hyd rocephalus and lack of excretion on delayed imaging. Proximal ureteral and renal pelvic urothelial t hickening with small adjacent nodes or soft tissue periureteral nodules. This is unchanged. No calc ifications. AORTA AND VESSELS: Atherosclerotic aorta without evidence of aneurysm. No arterial occlusion. No gr oss venous clot as assessed. RETROPERITONEUM: No retroperitoneal adenopathy, hemorrhage or masses. BOWEL AND PERITONEAL CAVITY: Irregular wall thickening of the rectum with probable mass. Changes of subtotal colectomy and rectal anastomosis. Proximal to the anastomosis, bowel looks distended with s tool. In the right lower quadrant, there is at least 1 thick walled loop as well (please see axial i mage 58 and adjacent slices. . No abnormal gas or fluid or bulky adenopathy. APPENDIX: Surgically absent. ABDOMINAL WALL: No masses. No hernias. PELVIS: No pelvic free fluid identified. BONES: No significant or acute findings. OTHER: No other significant finding. IMPRESSION: 1. Since the prior study, patchy lung infiltrates have developed as described along with right upper lobe reticulonodular opacities. Findings are likely infectious/inflammatory. 2. Chronic left urinary obstruction as described. Associated findings look similar. Abnormal soft t issue thickening in the proximal ureter with small adjacent periureteric lymph nodes. 3. Subtotal colectomy with persistent probably progressive irregular wall thickening and probable mas s in the region of the rectum. Proximal to the anastomosis and rectal pathology, bowel loops are pro gressively dilated compared to August exam. There is a large amount of retained stool with at leas t 1 abnormal thick walled loop of small bowel in the right lower quadrant now also seen. TECHNICAL DOCUMENTATION: JOB ID: [id number] Quality ID # [id number]: Final reports with documentation of one or more dose reduction techniques (e.g., Au tomated exposure control, adjustment of the mA and/or kV according to patient size, use of iterative reconstruction technique) 2010 [employer]- All Rights Reserved Reading location - IP/workstation name: [email or web address]
--- NOTE | 2020-09-12 17:36 | RADIOLOGY REPORT (SQ) ---
EXAM DESCRIPTION: NM WHOLE BODY BONE SCAN IMAGES COMPLETED DATE/TIME: 09/12/2020 5:22 pm REASON FOR STUDY: metastatic workup COMPARISON: CT chest, abdomen and pelvis from same date. Femur radiographs from 09/11/2019. RADIONUCLIDE AND DOSE: 21.4 millicuries Tc99m MDP. The route of agent administration: Intravenous. ADDITIONAL DRUGS AND DOSES: None. TECHNIQUE: Routine delayed images at 3 hour post radionuclide injection acquired of the bony skeleto n including anterior and posterior whole-body projections and additional focused images as needed. LIMITATIONS: None. FINDINGS: BONES: Abnormal uptake at the patient's known right mid femur fracture. Abnormal uptake in the right humeral neck, correlate with radiographs. Otherwise, degenerative changes in the shoulders and knees and ankles. KIDNEYS: Solitary functioning right kidney. Left kidney not seen. Please see recently performed CT. OTHER: No other significant finding. IMPRESSION: 1. Abnormal uptake right femur. Known fracture here. 2. Abnormal uptake right proximal humerus. Consider radiographic evaluation. 3. No other overtly worrisome areas of bone uptake. Other findings as discussed. COMMENT: Quality measure 147: Current bone scan is compared with any available plain radiographs, p rior bone scans, and CT/MRI. TECHNICAL DOCUMENTATION: JOB ID: [id number] 2010 [employer]- All Rights Reserved Reading location - IP/workstation name: [email or web address]
--- NOTE | 2020-09-12 18:39 | RADIOLOGY REPORT (SQ) ---
EXAM DESCRIPTION: MRI LT LOWER EXTREMITY WITHOUT IMAGES COMPLETED DATE/TIME: 09/12/2020 6:17 pm REASON FOR STUDY: Tumor workup, perform along with brain scan COMPARISON: Bone scan from earlier. Femur radiographs from yesterday. TECHNIQUE: Multiplanar imaging of the left femur to include fat and fluid sensitive sequences. LIMITATIONS: Positioning difficulties. Local field distortion likely related to external factors. FINDINGS: BONE MARROW: Displaced angulated mid femoral shaft fracture as seen on radiographs. As ex pected, there is some marrow edema along the fracture margins. When correlating with the radiographs , a pathologic lesion here is certainly possible given some intermediate T1 signal in the medullary c avity on both sides of the fracture. SOFT TISSUES: There is deep soft tissue edema with regional fluid fluid levels, hematoma. OTHER: No other significant finding. IMPRESSION: 1. Although not definite, underlying pathologic lesion in the region of femur fracture is certainly p ossible. No suggestion of adjacent soft tissue mass allowing for posttraumatic edema and hematoma. TECHNICAL DOCUMENTATION: JOB ID: [id number] 2010 [employer]- All Rights Reserved Reading location - IP/workstation name: [email or web address]
--- NOTE | 2020-09-12 19:00 | PDOC PROGRESS REPORT ---
Subjective Date:: 09/12/20 Subjective:: RAYMON RODARTE is a 64 year old male with past medical history significant for colorectal cancer status post hemicolectomy/radiation/chemotherapy approximately 16 years prior to admission, ongoing tobacco abuse, alcohol dependency who was admitted 09/11/2019 with a left, nontraumatic, midshaft femur fracture concerning for pathologic fxy. Patient was seen on morning rounds. Is found resting in bed, comfortably, on room air. He states that this time his pain is well controlled. Generally does not have much pain unless he moves. Otherwise his only complaint is that he is tired and we keep waking him. He specifically denies fever, chills, chest pain, palpitations, dyspnea, cough, abdominal pain, nausea vomiting and diarrhea. He has no questions or concerns at this time. No concerns per nursing. Reason For Visit: PATHOLOGICAL FRACTURE,LEFT LOWER EXTREMITY, Physical Exam Vital Signs: Temp Pulse Resp BP Pulse Ox 97.5 F 113 H 20 103/62 98 09/12/20 10:00 09/12/20 14:00 09/12/20 12:05 09/12/20 12:05 09/12/20 12:05 Intake & Output 09/11/20 09/12/20 09/13/20 06:59 06:59 06:59 Intake Total 2360 470 Output Total 425 Balance 2360 45 Weight 64.9 kg General appearance: PRESENT: no acute distress, cooperative, thin, well- developed, other - Frail, chronically ill-appearing Head exam: PRESENT: atraumatic, normocephalic Eye exam: PRESENT: conjunctiva pink, EOMI, PERRLA. ABSENT: scleral icterus Mouth exam: PRESENT: moist, tongue midline Teeth exam: PRESENT: poor dentation Neck exam: ABSENT: carotid bruit, full ROM, JVD, lymphadenopathy, meningismus, tenderness, thyromegaly, tracheal deviation, tracheostomy, other Respiratory exam: PRESENT: clear to auscultation pedro, symmetrical, unlabored, other - Room air. ABSENT: rales, rhonchi, wheezes Cardiovascular exam: PRESENT: RRR. ABSENT: diastolic murmur, rubs, systolic murmur Vascular exam: PRESENT: normal capillary refill GI/Abdominal exam: PRESENT: distended, normal bowel sounds, soft. ABSENT: guarding, mass, organolmegaly, rebound, tenderness Rectal exam: PRESENT: deferred Extremities exam: PRESENT: tenderness - Left femur. ABSENT: calf tenderness, clubbing, full ROM, pedal edema Neurological exam: PRESENT: alert, awake, oriented to person, oriented to place, oriented to time, oriented to situation, CN II-XII grossly intact. ABSENT: m otor sensory deficit Psychiatric exam: PRESENT: flat affect, normal mood. ABSENT: homicidal ideation, suicidal ideation Skin exam: PRESENT: dry, intact, warm. ABSENT: cyanosis, rash Results Laboratory Results: 09/12/20 04:22 09/12/20 04:22 09/11/20 09/11/20 09/11/20 18:45 18:45 18:45 WBC RBC Hgb Hct MCV MCH MCHC RDW Plt Count Seg Neutrophils % Sodium 124.9 L Potassium 4.2 Chloride 95 L Carbon Dioxide 25 Anion Gap 5 BUN 15 Creatinine 0.82 Est GFR ( Amer) > 60 Glucose 95 Lactic Acid 2.6 H Calcium 7.1 L Phosphorus Magnesium Prostate Specific Ag 0.560 TSH Urine Color Urine Appearance Urine pH Ur Specific [place] Urine Protein Urine Glucose (UA) Urine Ketones Urine Blood Urine Nitrite Ur Leukocyte Esterase Urine WBC (Auto) Urine RBC (Auto) 09/11/20 09/12/20 09/12/20 21:46 04:22 04:22 WBC 18.4 H RBC 2.91 L Hgb 8.0 L Hct 24.2 L MCV 83 MCH 27.6 MCHC 33.2 RDW 23.4 H Plt Count 453 H Seg Neutrophils % 85.8 H Sodium 124.3 L Potassium 4.3 Chloride 97 L Carbon Dioxide 23 Anion Gap 4 L BUN 17 Creatinine 0.67 Est GFR ( Amer) > 60 Glucose 80 Lactic Acid 1.4 Calcium 6.8 L* Phosphorus 3.4 Magnesium 1.8 Prostate Specific Ag TSH Urine Color Urine Appearance Urine pH Ur Specific [place] Urine Protein Urine Glucose (UA) Urine Ketones Urine Blood Urine Nitrite Ur Leukocyte Esterase Urine WBC (Auto) Urine RBC (Auto) 09/12/20 09/12/20 04:22 15:00 WBC RBC Hgb Hct MCV MCH MCHC RDW Plt Count Seg Neutrophils % Sodium Potassium Chloride Carbon Dioxide Anion Gap BUN Creatinine Est GFR ( Amer) Glucose Lactic Acid Calcium Phosphorus Magnesium Prostate Specific Ag TSH 1.47 Urine Color CRISELDA Urine Appearance CLEAR Urine pH 5.0 Ur Specific [place] 1.024 Urine Protein 30 H Urine Glucose (UA) NEGATIVE Urine Ketones TRACE H Urine Blood NEGATIVE Urine Nitrite NEGATIVE Ur Leukocyte Esterase NEGATIVE Urine WBC (Auto) 1 Urine RBC (Auto) 0 09/11/20 14:35 Blood Blood Culture (PCR) - Final Staphylococcus Species 09/11/20 14:35 Troponin I < 0.012 Impressions: Chest CT 09/11/20 00:00 IMPRESSION: 1. Since the prior study, patchy lung infiltrates have developed as described along with right upper lobe reticulonodular opacities. Findings are likely infectious/inflammatory. 2. Chronic left urinary obstruction as described. Associated findings look mark lar. Abnormal soft tissue thickening in the proximal ureter with small adjacent periureteric lymph nodes. 3. Subtotal colectomy with persistent probably progressive irregular wall thickening and probable mass in the region of the rectum. Proximal to the anastomosis and rectal pathology, bowel loops are progressively dilated compared to August exam. There is a large amount of retained stool with at least 1 abnormal thick walled loop of small bowel in the right lower quadrant now also seen. Femur X-Ray 09/11/20 13:45 IMPRESSION: DISPLACED FRACTURE OF THE MIDSHAFT OF THE FEMUR. IRREGULAR LUCENCY AT THE SITE OF FRACTURE, CANNOT EXCLUDE UNDERLYING BONE LESION WITH PATHOLOGIC FRACTURE. Chest X-Ray 09/11/20 14:10 IMPRESSION: NO ACUTE RADIOGRAPHIC FINDING IN THE CHEST. Abdomen/Pelvis CT 09/11/20 14:15 IMPRESSION: 1. Since the prior study, patchy lung infiltrates have developed as described along with right upper lobe reticulonodular opacities. Findings are likely infectious/inflammatory. 2. Chronic left urinary obstruction as described. Associated findings look similar. Abnormal soft tissue thickening in the proximal ureter with small adjacent periureteric lymph nodes. 3. Subtotal colectomy with persistent probably progressive irregular wall thickening and probable mass in the region of the rectum. Proximal to the anastomosis and rectal pathology, bowel loops are progressively dilated compared to August exam. There is a large amount of retained stool with at least 1 abnormal thick walled loop of small bowel in the right lower quadrant now also seen. Body Scan Nuclear Medicine 09/12/20 00:00 IMPRESSION: 1. Abnormal uptake right femur. Known fracture here. 2. Abnormal uptake right proximal humerus. Consider radiographic evaluation. 3. No other overtly worrisome areas of bone uptake. Other findings as discussed. Lower Extremity MRI 09/12/20 00:00 IMPRESSION: 1. Although not definite, underlying pathologic lesion in the region of femur fracture is certainly possible. No suggestion of adjacent soft tissue mass allowing for posttraumatic edema and hematoma. Assessment and Plan - Diagnosis (1) Pathological fracture, left femur, initial encounter for fracture Is this a current diagnosis for this admission?: Yes Plan: Orthopedic surgery consulted, discussed with Dr. Clement; appreciate his exp ertise. Oncology consulted for likely metastatic cancer causing pathologic fracture Pain management - Lovenox for DVT prophylaxis. Discharge planning consulted. (2) Hyponatremia Is this a current diagnosis for this admission?: Yes Plan: Sodium stable; 125.5-> 124.9-> 124.3 Trend BMP Normal saline infusion continuous Possible SIADH due to underlying lung cancer (3) History of colon cancer Is this a current diagnosis for this admission?: Yes Plan: Prior imaging in 2019 concerning for new colorectal mass, patient denies being told about this and has not had any follow-up CT chest abdomen pelvis with contrast right upper lobe reticulonodular opacit ies, progressive irregular: Wall thickening and probable mass in the region of the rectum. Nuclear medicine bone scan significant for abnormal uptake right femur, abnormal uptake right proximal humerus -Head MRI pending. Oncology consulted. Discussed with Dr. Delvalle today; appreciate her expertise. (4) Alcohol dependency Qualifiers: Substance use status: unspecified alcohol-induced disorder Qualified Code(s): F10.29 - Alcohol dependence with unspecified alcohol-induced disorder Is this a current diagnosis for this admission?: Yes Plan: Drinks daily but states he only has 1-2 beers per day CIWA w/ prn Ativan Daily thiamine and folic acid supplementation. (5) Leukocytosis Qualifiers: Leukocytosis type: unspecified Qualified Code(s): D72.829 - Elevated white blood cell count, unspecified Is this a current diagnosis for this admission?: Yes Plan: Improved. UA negative. Blood cultures w/ gram positive cocci and gram negative rods in 1 bottle; likely contaminants. Repeat cultures in the a.m. CT Chest w/ scattered ground glass opacities; possibly infectious. Afebrile. Likely inflammatory r/t femure fracture and underlying malignancy. Will r/o COVID for preoperative planning. No indications for antibiotics at this time. Follow CBC (6) Tobacco abuse Is this a current diagnosis for this admission?: Yes Plan: Patient does not wish to quit Cessation encouraged. Nicotine replacement therapies provided. (7) Nausea and vomiting Qualifiers: Vomiting type: unspecified Vomiting Intractability: non-intractable Qualified Code(s): R11.2 - Nausea with vomiting, unspecified Is this a current diagnosis for this admission?: Yes Plan: None today IV fluids Antiemetics (8) Lactic acidosis Is this a current diagnosis for this admission?: Yes Plan: Resolved. Likely due to severe dehydration and nausea/vomiting Antiemetics IV fluids - Time Time Spent with patient: 25-34 minutes Medications reviewed and adjusted accordingly: Yes Anticipated Discharge Disposition[facility] Anticipated Discharge Timeframe: TBD
--- NOTE | 2020-09-12 19:28 | RADIOLOGY REPORT (SQ) ---
EXAM DESCRIPTION: HUMERUS RIGHT IMAGES COMPLETED DATE/TIME: 09/12/2020 6:59 pm REASON FOR STUDY: f/u nuclear bone scan COMPARISON: Bone scan from earlier. NUMBER OF VIEWS: Two views right humerus. LIMITATIONS: Skin folds project over the proximal humerus. FINDINGS: Minimal sclerosis in the humeral neck in the area of concern is nonspecific and ill-define d. No aggressive destructive lesion appreciated. OTHER: No other significant finding. IMPRESSION: As above. TECHNICAL DOCUMENTATION: JOB ID: [id number] Reading location - IP/workstation name: [email or web address]
--- NOTE | 2020-09-12 19:39 | RADIOLOGY REPORT (SQ) ---
EXAM DESCRIPTION: MRI HEAD WITHOUT IMAGES COMPLETED DATE/TIME: 09/12/2020 6:19 pm REASON FOR STUDY: new fall and balance issues r/o brain mets from ca COMPARISON: CT 12/29/2019. TECHNIQUE: Multiplanar imaging includes non-contrasted T1, T2, FLAIR, and diffusion with ADC map seq uences. Images stored on PACS. LIMITATIONS: At least moderate motion artifact on many sequences. Lack of IV contrast also may limi t detection of subtle metastatic lesions. FINDINGS: ANATOMY: No anomalies. Normal vascular flow voids. Pituitary fossa normal. CSF SPACES: Normal in size and contour. No hemorrhage. CEREBRUM: Sulci and gyri normal in size and contour. No evidence of hemorrhage, gross mass, or extra axial fluid collection. POSTERIOR FOSSA: No signal alteration. No hemorrhage. No edema, masses or mass effect. Internal lea tory canals, cerebello-pontine angles, mastoids normal. DIFFUSION IMAGING: Negative for acute or sub-acute infarction. ORBITS: No masses. Globes normal. PARANASAL SINUSES: No fluid levels. Mucosa normal. OTHER: No other significant finding. IMPRESSION: 1. Noncontrast somewhat limited study reveals no overt suggestion of intracranial metastatic disease. See limitations discussed above. No acute findings are suggested. EVIDENCE OF ACUTE STROKE: NO. TECHNICAL DOCUMENTATION: JOB ID: [id number] 2010 [facility]- All Rights Reserved Reading location - IP/workstation name: [email or web address]
[2020-09-12] MEDS: METOPROLOL TARTRATE 25 MG TABLET PO SCH (21:39)
[2020-09-13 05:01] LABS: ABSOLUTE LYMPHOCYTES (AUTO) 0.9 10^3/uL (0.5-4.7); ABSOLUTE MONOCYTES (AUTO) 1.3 10^3/uL (0.1-1.4); BASOPHILS % (AUTO) 0.2 % (0-2); EOSINOPHILS % (AUTO) 0.3 % (0-6); HEMATOCRIT 24.5 % (37.9-51.0); HEMOGLOBIN 8.1 g/dL (13.5-17.0); LYMPHOCYTES % (AUTO) 6.6 % (13-45); MEAN CORPUSCULAR HEMOGLOBIN 27.9 pg (27.0-33.4); MEAN CORPUSCULAR HGB CONC 33.2 g/dL (32.0-36.0); MEAN CORPUSCULAR VOLUME 84 fl (80-97); MONOCYTES % (AUTO) 8.9 % (3-13); PLATELET COUNT 480 10^3/uL (150-450); RED BLOOD COUNT 2.91 10^6/uL (4.35-5.55); RED CELL DISTRIBUTION WIDTH 22.9 % (11.5-14.0); TOTAL CELLS COUNTED % (AUTO) 100 %; WHITE BLOOD COUNT 14.3 10^3/uL (4.0-10.5)
[2020-09-13 05:23] LABS: ANION GAP 5 (5-19); BLOOD UREA NITROGEN 16 mg/dL (7-20); CARBON DIOXIDE 20 mmol/L (22-30); CHLORIDE 99 mmol/L (98-107); GLUCOSE 73 mg/dL (75-110); POTASSIUM 4.5 mmol/L (3.6-5.0)
[2020-09-13 05:58] LABS: CALCIUM 6.8 mg/dL (8.4-10.2)
[2020-09-13] MEDS: MORPHINE SULFATE 10 MG/ML INJ IV PRN ×2 (05:59→22:12)
[2020-09-13] MEDS: NORMAL SALINE 1000 ML 1,000 ML IV PRN (06:00)
[2020-09-13] MEDS: PANTOPRAZOLE SODIUM 40 MG VIAL IV SCH ×2 (10:56→22:12)
[2020-09-13] MEDS: THIAMINE HCL 100 MG TABLET PO SCH (10:56)
[2020-09-13] MEDS: METOPROLOL TARTRATE 25 MG TABLET PO SCH ×2 (10:56→22:12)
[2020-09-13] MEDS: NICOTINE 21 MG/24 HR PATCH.TD24 TD SCH (10:57)
[2020-09-13] MEDS: CALCIUM CARBONATE 600 MG/VITAMIN D3 400 UNIT TABLET PO SCH ×2 (10:57→17:18)
[2020-09-13] MEDS: DOCUSATE SODIUM 100 MG CAPSULE PO SCH (10:57)
[2020-09-13] MEDS: FOLIC ACID 1 MG TABLET PO SCH (10:57)
[2020-09-13] MEDS: MULTIVITAMIN TABLET PO SCH (10:57)
[2020-09-13] MEDS: TAMSULOSIN HCL 0.4 MG CAP.SR.24H PO SCH (10:57)
[2020-09-13] MEDS: ENOXAPARIN SODIUM INJ 40 MG/0.4 ML DISP.SYRIN SUBCUT SCH (10:57)
--- NOTE | 2020-09-13 20:08 | PDOC PROGRESS REPORT ---
Subjective Date:: 09/13/20 Subjective:: RAYMON RODARTE is a 64 year old male with past medical history significant for colorectal cancer status post hemicolectomy/radiation/chemotherapy approximately 16 years prior to admission, ongoing tobacco abuse, alcohol dependency who was admitted 09/11/2019 with a left, nontraumatic, midshaft femur fracture concerning for pathologic fxy. Patient was seen on morning rounds. He is found resting in bed, comfortably, on room air. He states that this time his pain is well controlled. He has no questions or concerns at this time. He specifically denies fever, chills, chest pain, palpitations, dyspnea, cough, abdominal pain, nausea vomiting and diarrhea. No concerns per nursing. Reason For Visit: PATHOLOGICAL FRACTURE,LEFT LOWER EXTREMITY, Physical Exam Vital Signs: Temp Pulse Resp BP Pulse Ox 97.8 F 107 H 18 103/61 97 09/13/20 16:33 09/13/20 19:00 09/13/20 16:33 09/13/20 16:33 09/13/20 16:33 Intake & Output 09/12/20 09/13/20 09/14/20 06:59 06:59 06:59 Intake Total 2360 2470 Output Total 625 220 Balance 2360 1845 -220 Weight 64.9 kg 64.9 kg General appearance: PRESENT: no acute distress, cooperative, thin, well- developed, other - Frail, chronically ill-appearing Head exam: PRESENT: atraumatic, normocephalic Eye exam: PRESENT: conjunctiva pink, EOMI, PERRLA. ABSENT: scleral icterus Mouth exam: PRESENT: moist, tongue midline Teeth exam: PRESENT: poor dentation Respiratory exam: PRESENT: clear to auscultation pedro, symmetrical, unlabored, other - room air. ABSENT: rales, rhonchi, wheezes Cardiovascular exam: PRESENT: RRR. ABSENT: diastolic murmur, rubs, systolic murmur Vascular exam: PRESENT: normal capillary refill Extremities exam: PRESENT: tenderness - Left femur. ABSENT: calf tenderness, clubbing, full ROM, pedal edema Neurological exam: PRESENT: alert, awake, oriented to person, oriented to place, oriented to time, oriented to situation, CN II-XII grossly intact. ABSENT: motor sensory deficit Psychiatric exam: PRESENT: appropriate affect, normal mood. ABSENT: homicidal ideation, suicidal ideation Skin exam: PRESENT: dry, intact, warm. ABSENT: cyanosis, rash Results Laboratory Results: 09/13/20 04:40 09/13/20 04:40 09/13/20 09/13/20 04:40 04:40 WBC 14.3 H RBC 2.91 L Hgb 8.1 L Hct 24.5 L MCV 84 MCH 27.9 MCHC 33.2 RDW 22.9 H Plt Count 480 H Seg Neutrophils % 84.0 H Sodium 123.7 L Potassium 4.5 Chloride 99 Carbon Dioxide 20 L Anion Gap 5 BUN 16 Creatinine 0.67 Est GFR ( Amer) > 60 Glucose 73 L Calcium 6.8 L* 09/11/20 14:35 Blood Blood Culture (PCR) - Final Staphylococcus Species 09/11/20 14:35 Troponin I < 0.012 Impressions: Chest CT 09/11/20 00:00 IMPRESSION: 1. Since the prior study, patchy lung infiltrates have developed as described along with right upper lobe reticulonodular opacities. Findings are likely infectious/inflammatory. 2. Chronic left urinary obstruction as described. Associated findings look similar. Abnormal soft tissue thickening in the proximal ureter with small adjacent periureteric lymph nodes. 3. Subtotal colectomy with persistent probably progressive irregular wall thickening and probable mass in the region of the rectum. Proximal to the anastomosis and rectal pathology, bowel loops are progressively dilated compared to August exam. There is a large amount of retained stool with at least 1 abnormal thick walled loop of small bowel in the right lower quadrant now also seen. Femur X-Ray 09/11/20 13:45 IMPRESSION: DISPLACED FRACTURE OF THE MIDSHAFT OF THE FEMUR. IRREGULAR LUCENCY AT THE SITE OF FRACTURE, CANNOT EXCLUDE UNDERLYING BONE LESION WITH PATHOLOGIC FRACTURE. Chest X-Ray 09/11/20 14:10 IMPRESSION: NO ACUTE RADIOGRAPHIC FINDING IN THE CHEST. Abdomen/Pelvis CT 09/11/20 14:15 IMPRESSION: 1. Since the prior study, patchy lung infiltrates have developed as described along with right upper lobe reticulonodular opacities. Findings are likely infectious/inflammatory. 2. Chronic left urinary obstruction as described. Associated findings look similar. Abnormal soft tissue thickening in the proximal ureter with small adjacent periureteric lymph nodes. 3. Subtotal colectomy with persistent probably progressive irregular wall thickening and probable mass in the region of the rectum. Proximal to the anast omosis and rectal pathology, bowel loops are progressively dilated compared to August exam. There is a large amount of retained stool with at least 1 abnormal thick walled loop of small bowel in the right lower quadrant now also seen. Body Scan Nuclear Medicine 09/12/20 00:00 IMPRESSION: 1. Abnormal uptake right femur. Known fracture here. 2. Abnormal uptake right proximal humerus. Consider radiographic evaluation. 3. No other overtly worrisome areas of bone uptake. Other findings as discussed. Head MRI 09/12/20 00:00 IMPRESSION: 1. Noncontrast somewhat limited study reveals no overt suggestion of intracranial metastatic disease. See limitations discussed above. No acute findings are suggested. EVIDENCE OF ACUTE STROKE: NO. Humerus X-Ray 09/12/20 00:00 IMPRESSION: As above. Lower Extremity MRI 09/12/20 00:00 IMPRESSION: 1. Although not definite, underlying pathologic lesion in the region of femur fracture is certainly possible. No suggestion of adjacent soft tissue mass allowing for posttraumatic edema and hematoma. Assessment and Plan - Diagnosis (1) Pathological fracture, left femur, initial encounter for fracture Is this a current diagnosis for this admission?: Yes Plan: Orthopedic surgery consulted, discussed with Dr. Clement; appreciate his expertise. Oncology consulted for likely metastatic cancer causing pathologic fracture Pain management - Lovenox for DVT prophylaxis. Discharge planning consulted. Was asked by Dr. Clement to attempt transfer to tertiary for bone biopsy due to concern that this may be a new primary malignancy site (i.e osteosarcoma). Spoke with [facility]; only acceting ICU level care. Spoke with [facility] (orthopedic team); recommended tertiary such as [facility] or [place]. Spoke w/ [facility] hospitalist; appropriate to accept patient to service, however, no bed available and do not have a wait list. Will have to call each day to check on bed status. (2) Hyponatremia Is this a current diagnosis for this admission?: Yes Plan: Sodium stable; 125.5-> 124.9-> 124.3 Trend BMP Normal saline infusion continuous Possible SIADH due to underlying lung cancer (3) History of colon cancer Is this a current diagnosis for this admission?: Yes Plan: Prior imaging in 2019 concerning for new colorectal mass, patient denies being told about this and has not had any follow-up CT chest abdomen pelvis with contrast right upper lobe reticulonodular opacities, progressive irregular: Wall thickening and probable mass in the region of the rectum. Nuclear medicine bone scan significant for abnormal uptake right femur, abnormal uptake right proximal humerus -Head MRI pending. Oncology consulted. Discussed with Dr. Delvalle today; appreciate her expertise. (4) Alcohol dependency Qualifiers: Substance use status: unspecified alcohol-induced disorder Qualified Code(s): F10.29 - Alcohol dependence with unspecified alcohol-induced disorder Is this a current diagnosis for this admission?: Yes Plan: Drinks daily but states he only has 1-2 beers per day CIWA w/ prn Ativan Daily thiamine and folic acid supplementation. (5) Leukocytosis Qualifiers: Leukocytosis type: unspecified Qualified Code(s): D72.829 - Elevated white blood cell count, unspecified Is this a current diagnosis for this admission?: Yes Plan: Improved. UA negative. Blood cultures w/ gram positive cocci and Klebsiella in 1 bottle; likely contaminants. Repeat cultures pending CT Chest w/ scattered ground glass opacities; possibly infectious. Afebrile. Likely inflammatory r/t femur fracture and underlying malignancy. COVID negative. No indications for antibiotics at this time. Follow CBC (6) Tobacco abuse Is this a current diagnosis for this admission?: Yes Plan: Patient does not wish to quit Cessation encouraged. Nicotine replacement therapies provided. (7) Nausea and vomiting Qualifiers: Vomiting type: unspecified Vomiting Intractability: non-intractable Qualified Code(s): R11.2 - Nausea with vomiting, unspecified Is this a current diagnosis for this admission?: Yes Plan: Resolved. IV fluids Antiemetics (8) Lactic acidosis Is this a current diagnosis for this admission?: Yes Plan: Resolved. Likely due to severe dehydration and nausea/vomiting Antiemetics IV fluids - Time Time Spent with patient: 35 or more minutes Medications reviewed and adjusted accordingly: Yes Anticipated Discharge Disposition: TBD Anticipated Discharge Timeframe: TBD
[2020-09-14 05:45] LABS: ABSOLUTE LYMPHOCYTES (AUTO) 0.9 10^3/uL (0.5-4.7); ABSOLUTE NEUT (AUTO) 11.8 10^3/uL (1.7-8.2); BASOPHILS % (AUTO) 0.1 % (0-2); EOSINOPHILS % (AUTO) 0.1 % (0-6); HEMATOCRIT 24.1 % (37.9-51.0); LYMPHOCYTES % (AUTO) 6.6 % (13-45); MEAN CORPUSCULAR HEMOGLOBIN 28.2 pg (27.0-33.4); MEAN CORPUSCULAR HGB CONC 33.1 g/dL (32.0-36.0); MEAN CORPUSCULAR VOLUME 85 fl (80-97); MONOCYTES % (AUTO) 7.2 % (3-13); PLATELET COUNT 487 10^3/uL (150-450); RED BLOOD COUNT 2.84 10^6/uL (4.35-5.55); RED CELL DISTRIBUTION WIDTH 23.5 % (11.5-14.0); TOTAL CELLS COUNTED % (AUTO) 100 %; WHITE BLOOD COUNT 13.8 10^3/uL (4.0-10.5)
[2020-09-14] MEDS: MORPHINE SULFATE 10 MG/ML INJ IV PRN ×2 (05:45→11:35)
[2020-09-14 06:02] LABS: ANION GAP 10 (5-19); BLOOD UREA NITROGEN 18 mg/dL (7-20); CALCIUM 7.5 mg/dL (8.4-10.2); CARBON DIOXIDE 18 mmol/L (22-30); CHLORIDE 97 mmol/L (98-107)
[2020-09-14 06:05] LABS: GLUCOSE 65 mg/dL (75-110)
--- NOTE | 2020-09-14 07:10 | PDOC PROGRESS REPORT ---
Subjective Date:: 09/13/20 Subjective:: Patient seen and examined. No acute events overnight. Pain more controlled thi s morning now that traction device has been removed Reason For Visit: PATHOLOGICAL FRACTURE,LEFT LOWER EXTREMITY, Physical Exam Vital Signs: Temp Pulse Resp BP Pulse Ox 98.0 F 108 H 14 110/65 96 09/13/20 23:50 09/14/20 02:00 09/13/20 23:50 09/13/20 23:50 09/13/20 23:50 Intake & Output 09/13/20 09/14/20 09/15/20 06:59 06:59 06:59 Intake Total 2470 360 Output Total 625 1320 Balance 1845 -960 Weight 64.9 kg 65.5 kg Physical Exam: No acute distress, alert and orient x3 Left lower extremity -Pulses 2+ distally -Compartments soft -Sensation grossly intact to L3-4-5 S1 -Motor grossly intact to EHL TA gastroc and quad Results Laboratory Results: 09/14/20 05:17 09/14/20 05:17 09/14/20 09/14/20 05:17 05:17 WBC 13.8 H RBC 2.84 L Hgb 8.0 L Hct 24.1 L MCV 85 MCH 28.2 MCHC 33.1 RDW 23.5 H Plt Count 487 H Seg Neutrophils % 86.0 H Sodium 125.4 L Potassium 5.0 Chloride 97 L Carbon Dioxide 18 L Anion Gap 10 BUN 18 Creatinine 0.79 Est GFR ( Amer) > 60 Glucose 65 L Calcium 7.5 L 09/11/20 14:35 Blood Blood Culture (PCR) - Final Staphylococcus Species 09/11/20 14:35 Troponin I < 0.012 Impressions: Chest CT 09/11/20 00:00 IMPRESSION: 1. Since the prior study, patchy lung infiltrates have developed as described along with right upper lobe reticulonodular opacities. Findings are likely infectious/inflammatory. 2. Chronic left urinary obstruction as described. Associated findings look similar. Abnormal soft tissue thickening in the proximal ureter with small adjacent periureteric lymph nodes. 3. Subtotal colectomy with persistent probably progressive irregular wall thickening and probable mass in the region of the rectum. Proximal to the anastomosis and rectal pathology, bowel loops are progressively dilated compared to August exam. There is a large amount of retained stool with at least 1 abnormal thick walled loop of small bowel in the right lower quadrant now also seen. Femur X-Ray 09/11/20 13:45 IMPRESSION: DISPLACED FRACTURE OF THE MIDSHAFT OF THE FEMUR. IRREGULAR LUCENCY AT THE SITE OF FRACTURE, CANNOT EXCLUDE UNDERLYING BONE LESION WITH PATHOLOGIC FRACTURE. Chest X-Ray 09/11/20 14:10 IMPRESSION: NO ACUTE RADIOGRAPHIC FINDING IN THE CHEST. Abdomen/Pelvis CT 09/11/20 14:15 IMPRESSION: 1. Since the prior study, patchy lung infiltrates have developed as described along with right upper lobe reticulonodular opacities. Findings are likely infectious/inflammatory. 2. Chronic left urinary obstruction as described. Associated findings look similar. Abnormal soft tissue thickening in the proximal ureter with small adjacent periureteric lymph nodes. 3. Subtotal colectomy with persistent probably progressive irregular wall thickening and probable mass in the region of the rectum. Proximal to the anastomosis and rectal pathology, bowel loops are progressively dilated compared to August exam. There is a large amount of retained stool with at least 1 abnormal thick walled loop of small bowel in the right lower quadrant now also seen. Body Scan Nuclear Medicine 09/12/20 00:00 IMPRESSION: 1. Abnormal uptake right femur. Known fracture here. 2. Abnormal uptake right proximal humerus. Consider radiographic evaluation. 3. No other overtly worrisome areas of bone uptake. Other findings as discussed. Head MRI 09/12/20 00:00 IMPRESSION: 1. Noncontrast somewhat limited study reveals no overt suggestion of i ntracranial metastatic disease. See limitations discussed above. No acute findings are suggested. EVIDENCE OF ACUTE STROKE: NO. Humerus X-Ray 09/12/20 00:00 IMPRESSION: As above. Lower Extremity MRI 09/12/20 00:00 IMPRESSION: 1. Although not definite, underlying pathologic lesion in the region of femur fracture is certainly possible. No suggestion of adjacent soft tissue mass allowing for posttraumatic edema and hematoma. Assessment & Plan - Diagnosis (1) Pathological fracture, left femur, initial encounter for fracture Is this a current diagnosis for this admission?: Yes Plan: I had a conversation with hospitalist team this morning. Given the fact that he has no defining diagnosis of metastatic colon cancer at this time I would request transfer to a tertiary care facility for further orthopedic oncologic work-up including biopsy. While I am happy to perform the biopsy here, some orthopedic oncologist would prefer that they perform the procedure in accordance with their subsequent operative plan. I explained this to the hospitalist who will attempt to transfer. They have explained that we have had some substantial difficulty in transferring patients recently given that the [facility] are all at capacity and refusing. If we cannot achieve transfer I will organize either biopsy myself or with interventional radiology and proceed depending on the outcome. If diagnosis ends up being metastatic colon cancer, will proceed with antegrade cephalomedullary nail of the left femur AARON. Keep n.p.o. tonight. Hold chemical DVT prophylaxis tonight I have discussed the case with Dr. Lai as well who also agrees. -I have also discussed the case with interventional radiology. If they are able to get to it first thing in the morning then I may have the ability to perform surgery in the same day pending the turnaround for pathology evaluation. Bedrest Multimodal pain control Also discussed the positive blood cultures which the hospitalist is considering contaminant at this time. (2) History of colon cancer Is this a current diagnosis for this admission?: Yes - Time Time Spent with patient: Less than 15 minutes
--- NOTE | 2020-09-14 08:56 | PDOC PROGRESS REPORT ---
Subjective Date:: 09/14/20 Subjective:: Patient states that he did not sleep at all last night and wants to wait until t omorrow for surgery. He has no new complaints otherwise and is very happy with his current care. Reason For Visit: PATHOLOGICAL FRACTURE,LEFT LOWER EXTREMITY, Physical Exam Vital Signs: Temp Pulse Resp BP Pulse Ox 98.0 F 96 17 108/67 99 09/14/20 08:24 09/14/20 08:19 09/14/20 08:19 09/14/20 08:19 09/14/20 08:19 Intake & Output 09/13/20 09/14/20 09/15/20 06:59 06:59 06:59 Intake Total 2470 360 Output Total 625 1320 Balance 1845 -960 Weight 64.9 kg 65.5 kg General appearance: PRESENT: no acute distress Head exam: PRESENT: normocephalic Eye exam: PRESENT: EOMI Mouth exam: PRESENT: moist Respiratory exam: PRESENT: unlabored Extremities exam: PRESENT: other - left leg immobilized. Neurological exam: PRESENT: alert, awake Psychiatric exam: PRESENT: appropriate affect Skin exam: PRESENT: normal color Results Laboratory Results: 09/14/20 05:17 09/14/20 05:17 09/14/20 09/14/20 05:17 05:17 WBC 13.8 H RBC 2.84 L Hgb 8.0 L Hct 24.1 L MCV 85 MCH 28.2 MCHC 33.1 RDW 23.5 H Plt Count 487 H Seg Neutrophils % 86.0 H Sodium 125.4 L Potassium 5.0 Chloride 97 L Carbon Dioxide 18 L Anion Gap 10 BUN 18 Creatinine 0.79 Est GFR ( Amer) > 60 Glucose 65 L Calcium 7.5 L 09/11/20 14:35 Blood Blood Culture (PCR) - Final Staphylococcus Species 09/11/20 14:35 Troponin I < 0.012 Impressions: Chest CT 09/11/20 00:00 IMPRESSION: 1. Since the prior study, patchy lung infiltrates have developed as described a long with right upper lobe reticulonodular opacities. Findings are likely infectious/inflammatory. 2. Chronic left urinary obstruction as described. Associated findings look similar. Abnormal soft tissue thickening in the proximal ureter with small adjacent periureteric lymph nodes. 3. Subtotal colectomy with persistent probably progressive irregular wall thickening and probable mass in the region of the rectum. Proximal to the anastomosis and rectal pathology, bowel loops are progressively dilated compared to August exam. There is a large amount of retained stool with at least 1 abnormal thick walled loop of small bowel in the right lower quadrant now also seen. Femur X-Ray 09/11/20 13:45 IMPRESSION: DISPLACED FRACTURE OF THE MIDSHAFT OF THE FEMUR. IRREGULAR LUCENCY AT THE SITE OF FRACTURE, CANNOT EXCLUDE UNDERLYING BONE LESION WITH PATHOLOGIC FRACTURE. Chest X-Ray 09/11/20 14:10 IMPRESSION: NO ACUTE RADIOGRAPHIC FINDING IN THE CHEST. Abdomen/Pelvis CT 09/11/20 14:15 IMPRESSION: 1. Since the prior study, patchy lung infiltrates have developed as described along with right upper lobe reticulonodular opacities. Findings are likely infectious/inflammatory. 2. Chronic left urinary obstruction as described. Associated findings look similar. Abnormal soft tissue thickening in the proximal ureter with small adjacent periureteric lymph nodes. 3. Subtotal colectomy with persistent probably progressive irregular wall thickening and probable mass in the region of the rectum. Proximal to the anastomosis and rectal pathology, bowel loops are progressively dilated compared to August exam. There is a large amount of retained stool with at least 1 abnormal thick walled loop of small bowel in the right lower quadrant now also seen. Body Scan Nuclear Medicine 09/12/20 00:00 IMPRESSION: 1. Abnormal uptake right femur. Known fracture here. 2. Abnormal uptake right proximal humerus. Consider radiographic evaluation. 3. No other overtly worrisome areas of bone uptake. Other findings as discussed. Head MRI 09/12/20 00:00 IMPRESSION: 1. Noncontrast somewhat limited study reveals no overt suggestion of intracranial metastatic disease. See limitations discussed above. No acute findings are suggested. EVIDENCE OF ACUTE STROKE: NO. Humerus X-Ray 09/12/20 00:00 IMPRESSION: As above. Lower Extremity MRI 09/12/20 00:00 IMPRESSION: 1. Although not definite, underlying pathologic lesion in the region of femur fracture is certainly possible. No suggestion of adjacent soft tissue mass allowing for posttraumatic edema and hematoma. Assessment & Plan - Diagnosis (1) History of colon cancer Is this a current diagnosis for this admission?: Yes Plan: CEA is elevated and CT scans show thickening of bowel wall concerning for recurrent disease. If pathology does not confirm met colon cancer at time of ORIF, will recommend colonoscopy for biopsy. (2) Pathological fracture, left femur, initial encounter for fracture Is this a current diagnosis for this admission?: Yes Plan: Although initial thought was to transfer patient to tertiary center, but due to COVID this does not seem likely. I discussed with Dr. Clement, he is planning to take patient to surgery in the near future. - Time Time Spent with patient: 15-24 minutes - Plan Summary Plan Summary: I will continue to follow with you, but await path from ORIF once done. Please call for any questions.
[2020-09-14] MEDS ORDERED: DEXTROSE 50%-WATER 25 GM/50 ML DISP.SYRIN IV PRN ×2 (11:11)
[2020-09-14] MEDS ORDERED: DEXTROSE 40% GEL 15 GM TUBE PO PRN ×2 (11:11)
[2020-09-14] MEDS ORDERED: GLUCAGON,HUMAN RECOMB 1 MG INJ SUBCUT PRN (11:11)
[2020-09-14] MEDS: ENOXAPARIN SODIUM INJ 40 MG/0.4 ML DISP.SYRIN SUBCUT SCH (11:19)
[2020-09-14] MEDS: PANTOPRAZOLE SODIUM 40 MG VIAL IV SCH (11:19)
[2020-09-14] MEDS: THIAMINE HCL 100 MG TABLET PO SCH (11:20)
[2020-09-14] MEDS: DOCUSATE SODIUM 100 MG CAPSULE PO SCH (11:20)
[2020-09-14] MEDS: FOLIC ACID 1 MG TABLET PO SCH (11:20)
[2020-09-14] MEDS: TAMSULOSIN HCL 0.4 MG CAP.SR.24H PO SCH (11:20)
[2020-09-14] MEDS: MULTIVITAMIN TABLET PO SCH (11:20)
[2020-09-14] MEDS: METOPROLOL TARTRATE 25 MG TABLET PO SCH ×2 (11:20→23:14)
[2020-09-14] MEDS: NICOTINE 21 MG/24 HR PATCH.TD24 TD SCH (11:36)
[2020-09-14] MEDS: CALCIUM CARBONATE 600 MG/VITAMIN D3 400 UNIT TABLET PO SCH ×2 (11:36→18:58)
[2020-09-14] MEDS ORDERED: MIDAZOLAM 2 MG/2 ML INJ ONE ×2 (12:47→13:05)
[2020-09-14] MEDS ORDERED: FENTANYL CITRATE INJ/PF 100 MCG/2 ML AMPUL ONE ×2 (12:48→13:06)
--- NOTE | 2020-09-14 13:48 | RADIOLOGY REPORT (SQ) ---
EXAM DESCRIPTION: CT BIOPSY BONE DEEP IMAGES COMPLETED DATE/TIME: 09/14/2020 1:39 pm REASON FOR STUDY: r/o malignancy (left femur) COMPARISON: None. TECHNIQUE: CT guided biopsy of the left femur performed with conscious sedation. CT Fluoroscopy Time: 13.[address] scanners at this facility use dose modulation, iterative reconstruction, and/or weight based d osing when appropriate to reduce radiation dose to as low as reasonably achievable (ALARA). [facility]: Dose Right [facility]: CareDose [facility]: Dose Right [facility]: Teradose 4D [facility]: [employer] RADIATION DOSE: CT Rad equipment meets quality standard of care and radiation dose reduction techni ques were employed. CTDIvol: 3.5 - 15.2 mGy. DLP: 196 mGy-cm.mGy. FINDINGS: After obtaining informed consent and explaining the risks and benefits of conscious sedati on,the patient agreed to the procedure. Prior to the procedure, a time out was performed to verify th e patient's identity and planned procedure. IV sedation was administered and physician direction by the registered nurse using 2.0 milligrams of Versed and 50 micrograms of fentanyl, for conscious sedation. Physiologic monitoring was provided bef ore, during, and after sedation. The total sedation time was 20 minutes. Documentation face to face time, the performing proceduralist, spent monitoring the patient: [address] scanning was performed to localize the percutaneous site for the biopsy approach. After sterile skin prep and local lidocaine for skin and deep tissue anesthesia, a coaxial biopsy nee dle was used to obtain multiple cores of tissue. The biopsy tissue was submitted to the lab in forma emmanuel. There were no immediate complications. Pathology is pending at the time of dictation. IMPRESSION: CT GUIDED BIOPSY OF THE LEFT FEMUR PERFORMED WITHOUT IMMEDIATE COMPLICATION. PATHOLOGY PENDING. COMMENT: Quality ID [id number]: Final reports for procedures using fluoroscopy that document radiation exp osure indices, or exposure time and number of fluorographic images (if radiation exposure indices are not available) Patient medication list reviewed: Yes- Quality ID# [id number]:Eligible professional attests to documenting i n the medical record they obtained, updated, or reviewed the patient's current medications.. TECHNICAL DOCUMENTATION: JOB ID: [id number] Quality ID# [id number]: Final reports with documentation of one or more dose reduction techniques (e.g., Aut omated exposure control, adjustment of the mA and/or kV according to patient size, use of iterative r econstruction technique) 2010 [employer]- All Rights Reserved Reading location - IP/workstation name: [email or web address]
--- NOTE | 2020-09-14 13:55 | RADIOLOGY REPORT (SQ) ---
EXAM DESCRIPTION: CT NEEDLE PLACEMENT COMPLETE DATE/TIME: 09/14/2020 1:44 pm REASON FOR STUDY: BONE BIOSPY FINDINGS: Please see combined report for performance of procedure and radiologic supervision and int erpretation. IMPRESSION: Please see combined report for performance of procedure and radiologic supervision and i nterpretation. Reading location - IP/workstation name: [id number]
--- NOTE | 2020-09-14 17:05 | PDOC PROGRESS REPORT ---
Subjective Date:: 09/14/20 Subjective:: As per admitting physician's note RAYMON RODARTE is a 64 year old male with past medical history significant for colorectal cancer status post hemicolectomy/radiation/chemotherapy approximately 16 years prior to admission, ongoing tobacco abuse, alcohol dependency who was admitted 09/11/2019 with a left, nontraumatic, midshaft femur fracture concerning for pathologic fxy. 09/14/2020. No acute events overnight. Patient complaining of left lower extremity pain and not able to sleep due to being anxious and being in pain, otherwise denies any fever, chills, nausea, vomiting. Patient is a status post left femur biopsy. Reason For Visit: PATHOLOGICAL FRACTURE,LEFT LOWER EXTREMITY, Physical Exam Vital Signs: Temp Pulse Resp BP Pulse Ox 97.3 F 106 H 14 120/77 100 09/14/20 16:09 09/14/20 16:09 09/14/20 16:09 09/14/20 16:09 09/14/20 16:09 Intake & Output 09/13/20 09/14/20 09/15/20 06:59 06:59 06:59 Intake Total 2470 360 Output Total 625 1320 Balance 1845 -960 Weight 64.9 kg 65.5 kg General appearance: PRESENT: no acute distress, well-developed, well-nourished Head exam: PRESENT: atraumatic, normocephalic Respiratory exam: PRESENT: clear to auscultation pedro. ABSENT: rales, rhonchi, wheezes Cardiovascular exam: PRESENT: RRR. ABSENT: diastolic murmur, rubs, systolic murmur Pulses: PRESENT: normal dorsalis pedis pul Extremities exam: PRESENT: other - Left lower extremity pain, range of motion limited by pain, neurovascularly intact.. ABSENT: calf tenderness, clubbing, pedal edema Neurological exam: PRESENT: alert, awake, oriented to person, oriented to place, oriented to time, oriented to situation, CN II-XII grossly intact. ABSENT: motor sensory deficit Results Laboratory Results: 09/14/20 05:17 09/14/20 05:17 09/14/20 09/14/20 05:17 05:17 WBC 13.8 H RBC 2.84 L Hgb 8.0 L Hct 24.1 L MCV 85 MCH 28.2 MCHC 33.1 RDW 23.5 H Plt Count 487 H Seg Neutrophils % 86.0 H Sodium 125.4 L Potassium 5.0 Chloride 97 L Carbon Dioxide 18 L Anion Gap 10 BUN 18 Creatinine 0.79 Est GFR ( Amer) > 60 Glucose 65 L Calcium 7.5 L 09/11/20 14:35 Blood Blood Culture (PCR) - Final Staphylococcus Species 09/11/20 14:35 Troponin I < 0.012 Impressions: Chest CT 09/11/20 00:00 IMPRESSION: 1. Since the prior study, patchy lung infiltrates have developed as described along with right upper lobe reticulonodular opacities. Findings are likely infectious/inflammatory. 2. Chronic left urinary obstruction as described. Associated findings look similar. Abnormal soft tissue thickening in the proximal ureter with small adjacent periureteric lymph nodes. 3. Subtotal colectomy with persistent probably progressive irregular wall thickening and probable mass in the region of the rectum. Proximal to the anastomosis and rectal pathology, bowel loops are progressively dilated compared to August exam. There is a large amount of retained stool with at least 1 abnormal thick walled loop of small bowel in the right lower quadrant now also seen. Femur X-Ray 09/11/20 13:45 IMPRESSION: DISPLACED FRACTURE OF THE MIDSHAFT OF THE FEMUR. IRREGULAR LUCENCY AT THE SITE OF FRACTURE, CANNOT EXCLUDE UNDERLYING BONE LESION WITH PATHOLOGIC FRACTURE. Chest X-Ray 09/11/20 14:10 IMPRESSION: NO ACUTE RADIOGRAPHIC FINDING IN THE CHEST. Abdomen/Pelvis CT 09/11/20 14:15 IMPRESSION: 1. Since the prior study, patchy lung infiltrates have developed as described along with right upper lobe reticulonodular opacities. Findings are likely infectious/inflammatory. 2. Chronic left urinary obstruction as described. Associated findings look similar. Abnormal soft tissue thickening in the proximal ureter with small adjacent periureteric lymph nodes. 3. Subtotal colectomy with persistent probably progressive irregular wall thickening and probable mass in the region of the rectum. Proximal to the anastomosis and rectal pathology, bowel loops are progressively dilated compared to August exam. There is a large amount of retained stool with at least 1 abnormal thick walled loop of small bowel in the right lower quadrant now also seen. Body Scan Nuclear Medicine 09/12/20 00:00 IMPRESSION: 1. Abnormal uptake right femur. Known fracture here. 2. Abnormal uptake right proximal humerus. Consider radiographic evaluation. 3. No other overtly worrisome areas of bone uptake. Other findings as discussed. Head MRI 09/12/20 00:00 IMPRESSION: 1. Noncontrast somewhat limited study reveals no overt suggestion of intracranial metastatic disease. See limitations discussed above. No acute findings are suggested. EVIDENCE OF ACUTE STROKE: NO. Humerus X-Ray 09/12/20:00 IMPRESSION: As above. Lower Extremity MRI 09/12/20: IMPRESSION: 1. Although not definite, underlying pathologic lesion in the region of femur fracture is certainly possible. No suggestion of adjacent soft tissue mass allowing for posttraumatic edema and hematoma. Bone Biopsy CT 09/14/20: IMPRESSION: CT GUIDED BIOPSY OF THE LEFT FEMUR PERFORMED WITHOUT IMMEDIATE COMPLICATION. PATHOLOGY PENDING. Guidance Needle Placement CT 09/14/20: IMPRESSION: Please see combined report for performance of procedure and radiologic supervision and interpretation. Assessment and Plan - Diagnosis (1) Pathological fracture, left femur, initial encounter for fracture Is this a current diagnosis for this admission?: Yes Plan: Orthopedic surgery consulted, discussed with Dr. Clement; appreciate his expertise. Oncology consulted for likely metastatic cancer causing pathologic fracture Pain management - Lovenox for DVT prophylaxis. Discharge planning consulted. Was asked by Dr. Clement to attempt transfer to tertiary for bone biopsy due to concern that this may be a new primary malignancy site (i.e osteosarcoma). Spoke with [facility]; only acceting ICU level care. Spoke with [facility] (orthopedic team); recommended tertiary such as [facility] or [facility]. Spoke w/ [facility] hospitalist; appropriate to accept patient to service, however, no bed available and do not have a wait list. Will have to call each day to check on bed status. (2) Alcohol dependency Qualifiers: Substance use status: unspecified alcohol-induced disorder Qualified Code(s): F10.29 - Alcohol dependence with unspecified alcohol-induced disorder Is this a current diagnosis for this admission?: Yes Plan: Drinks daily but states he only has 1-2 beers per day CIWA w/ prn Ativan Daily thiamine and folic acid supplementation. (3) History of colon cancer Is this a current diagnosis for this admission?: Yes Plan: Prior imaging in 2019 concerning for new colorectal mass, patient denies being told about this and has not had any follow-up CT chest abdomen pelvis with contrast right upper lobe reticulonodular opacities, progressive irregular: Wall thickening and probable mass in the region of the rectum. Nuclear medicine bone scan significant for abnormal uptake right femur, abnormal uptake right proximal humerus -Head MRI pending. Oncology consulted. Discussed with Dr. Delvalle today; appreciate her expertise. (4) Hyponatremia Is this a current diagnosis for this admission?: Yes Plan: Sodium stable; 125.5-> 124.9-> 124.3 Trend BMP Normal saline infusion continuous Possible SIADH due to underlying lung cancer (5) Lactic acidosis Is this a current diagnosis for this admission?: Yes Plan: Resolved. Likely due to severe dehydration and nausea/vomiting Antiemetics IV fluids (6) Leukocytosis Qualifiers: Leukocytosis type: unspecified Qualified Code(s): D72.829 - Elevated white blood cell count, unspecified Is this a current diagnosis for this admission?: Yes Plan: Improved. UA negative. Blood cultures w/ gram positive cocci and Klebsiella in 1 bottle; likely contaminants. Repeat cultures pending CT Chest w/ scattered ground glass opacities; possibly infectious. Afebrile. Likely inflammatory r/t femur fracture and underlying malignancy. COVID negative. No indications for antibiotics at this time. Follow CBC (7) Nausea and vomiting Qualifiers: Vomiting type: unspecified Vomiting Intractability: non-intractable Qualified Code(s): R11.2 - Nausea with vomiting, unspecified Is this a current diagnosis for this admission?: Yes Plan: Resolved. IV fluids Antiemetics (8) Tobacco abuse Is this a current diagnosis for this admission?: Yes Plan: Patient does not wish to quit Cessation encouraged. Nicotine replacement therapies provided. - Time Time Spent with patient: 25-34 minutes Anticipated Discharge Disposition: Home with Home Health Anticipated Discharge Timeframe: within 72 hours
[2020-09-14] MEDS ORDERED: TEMAZEPAM 15 MG CAPSULE PO PRN (17:12)
[2020-09-14] MEDS ORDERED: ERGOCALCIFEROL (VITAMIN D2) 50000 UNIT (1.25 MG) CAPSULE PO ONE (18:30)
[2020-09-15 07:03] LABS: HEMATOCRIT 25.3 % (37.9-51.0); HEMOGLOBIN 8.3 g/dL (13.5-17.0); MEAN CORPUSCULAR HEMOGLOBIN 28.2 pg (27.0-33.4); MEAN CORPUSCULAR HGB CONC 32.7 g/dL (32.0-36.0); MEAN CORPUSCULAR VOLUME 86 fl (80-97); PLATELET COUNT 411 10^3/uL (150-450); RED BLOOD COUNT 2.94 10^6/uL (4.35-5.55); RED CELL DISTRIBUTION WIDTH 23.7 % (11.5-14.0); RETICULOCYTE COUNT (AUTO) 4.07 % (0.66-2.85); WHITE BLOOD COUNT 14.8 10^3/uL (4.0-10.5)
[2020-09-15 07:28] LABS: ALBUMIN 1.9 g/dL (3.5-5.0); ALKALINE PHOSPHATASE 722 U/L (38-126); ANION GAP 9 (5-19); ASPARTATE AMINO TRANSFERASE 69 U/L (17-59); BILIRUBIN,DIRECT 3.2 mg/dL (0.0-0.4); BILIRUBIN,TOTAL 3.9 mg/dL (0.2-1.3); BLOOD UREA NITROGEN 21 mg/dL (7-20); CALCIUM 7.8 mg/dL (8.4-10.2); CARBON DIOXIDE 18 mmol/L (22-30); CHLORIDE 98 mmol/L (98-107); POTASSIUM 5.3 mmol/L (3.6-5.0); TOTAL PROTEIN 4.8 g/dL (6.3-8.2)
--- NOTE | 2020-09-15 08:25 | PDOC PROGRESS REPORT ---
Subjective Date:: 09/15/20 Subjective:: Patient seen and examined his morning. No acute events overnight. The patient does flux in and out of mild delirium. He is currently restrained. Pain is well controlled otherwise. Reason For Visit: PATHOLOGICAL FRACTURE,LEFT LOWER EXTREMITY, Physical Exam Vital Signs: Temp Pulse Resp BP Pulse Ox 97.6 F 95 18 102/63 98 09/15/20 03:22 09/15/20 07:00 09/15/20 03:22 09/15/20 03:22 09/15/20 03:22 Intake & Output 09/14/20 09/15/20 09/16/20 06:59 06:59 06:59 Intake Total 360 Output Total 1320 0 Balance -960 0 Weight 65.5 kg 63.6 kg Physical Exam: No acute distress Left lower extremity -Pulses 2+ distally -Compartments soft -Sensation grossly intact to L3-4-5 S1 -Motor grossly intact to EHL TA gastroc and quad Results Laboratory Results: 09/15/20 06:12 09/15/20 06:12 WBC 14.8 H RBC 2.94 L Hgb 8.3 L Hct 25.3 L MCV 86 MCH 28.2 MCHC 32.7 RDW 23.7 H Plt Count 411 Retic Count (auto) 4.07 H 09/11/20 14:35 Blood Blood Culture (PCR) - Final Staphylococcus Species 09/11/20 14:35 Troponin I < 0.012 Impressions: Chest CT 09/11/20 00:00 IMPRESSION: 1. Since the prior study, patchy lung infiltrates have developed as described along with right upper lobe reticulonodular opacities. Findings are likely infectious/inflammatory. 2. Chronic left urinary obstruction as described. Associated findings look similar. Abnormal soft tissue thickening in the proximal ureter with small adjacent periureteric lymph nodes. 3. Subtotal colectomy with persistent probably progressive irregular wall thickening and probable mass in the region of the rectum. Proximal to the anastomosis and rectal pathology, bowel loops are progressively dilated compared to August exam. There is a large amount of retained stool with at least 1 abnormal thick walled loop of small bowel in the right lower quadrant now also seen. Femur X-Ray 09/11/20 13:45 IMPRESSION: DISPLACED FRACTURE OF THE MIDSHAFT OF THE FEMUR. IRREGULAR LUCENCY AT THE SITE OF FRACTURE, CANNOT EXCLUDE UNDERLYING BONE LESION WITH PATHOLOGIC FRACTURE. Chest X-Ray 09/11/20 14:10 IMPRESSION: NO ACUTE RADIOGRAPHIC FINDING IN THE CHEST. Abdomen/Pelvis CT 09/11/20 14:15 IMPRESSION: 1. Since the prior study, patchy lung infiltrates have developed as described along with right upper lobe reticulonodular opacities. Findings are likely infectious/inflammatory. 2. Chronic left urinary obstruction as described. Associated findings look similar. Abnormal soft tissue thickening in the proximal ureter with small adjacent periureteric lymph nodes. 3. Subtotal colectomy with persistent probably progressive irregular wall thickening and probable mass in the region of the rectum. Proximal to the anastomosis and rectal pathology, bowel loops are progressively dilated compared to August exam. There is a large amount of retained stool with at least 1 abnormal thick walled loop of small bowel in the right lower quadrant now also seen. Body Scan Nuclear Medicine 09/12/20 00:00 IMPRESSION: 1. Abnormal uptake right femur. Known fracture here. 2. Abnormal uptake right proximal humerus. Consider radiographic evaluation. 3. No other overtly worrisome areas of bone uptake. Other findings as discussed. Head MRI 09/12/20 00:00 IMPRESSION: 1. Noncontrast somewhat limited study reveals no overt suggestion of intracranial metastatic disease. See limitations discussed above. No acute findings are suggested. EVIDENCE OF ACUTE STROKE: NO. Humerus X-Ray 09/12/20 00:00 IMPRESSION: As above. Lower Extremity MRI 09/12/20 00:00 IMPRESSION: 1. Although not definite, underlying pathologic lesion in the region of femur fracture is certainly possible. No suggestion of adjacent soft tissue mass al lowing for posttraumatic edema and hematoma. Bone Biopsy CT 09/14/20 00:00 IMPRESSION: CT GUIDED BIOPSY OF THE LEFT FEMUR PERFORMED WITHOUT IMMEDIATE COMPLICATION. PATHOLOGY PENDING. Guidance Needle Placement CT 09/14/20 00:00 IMPRESSION: Please see combined report for performance of procedure and radiologic supervision and interpretation. Assessment & Plan - Diagnosis (1) Pathological fracture, left femur, initial encounter for fracture Is this a current diagnosis for this admission?: Yes Plan: In spite of work-up, we have not found a primary source for his metastatic disease. At this time we are pending pathologic examination. The biopsy obtained yesterday by interventional radiology was inadequate. We will plan for rebiopsy today in the operating room. Keep n.p.o. Plan will be for operative intervention essentially can identify the etiology. (2) History of colon cancer Is this a current diagnosis for this admission?: Yes - Time Time Spent with patient: Less than 15 minutes
[2020-09-15 08:49] LABS: GLUCOSE 56 mg/dL (75-110)
[2020-09-15] MEDS ORDERED: DEXTROSE 5%-NORMAL SALINE 1,000 ML IV PRN ×2 (10:05→15:49)
[2020-09-15] MEDS ORDERED: FERRIC CARBOXYMALTOSE INJ 750 MG/15 ML VIAL IV ONE (10:09)
[2020-09-15] MEDS: ENOXAPARIN SODIUM INJ 40 MG/0.4 ML DISP.SYRIN SUBCUT SCH (10:56)
[2020-09-15] MEDS ORDERED: SODIUM POLYSTYRENE SULFONATE 15 GM/60 ML PO ONE (11:00)
[2020-09-15] MEDS: CALCIUM CARBONATE 600 MG/VITAMIN D3 400 UNIT TABLET PO SCH ×2 (11:07→17:07)
[2020-09-15] MEDS: TAMSULOSIN HCL 0.4 MG CAP.SR.24H PO SCH (11:07)
[2020-09-15] MEDS: THIAMINE HCL 100 MG TABLET PO SCH (11:07)
[2020-09-15] MEDS: FERROUS SULFATE 325 MG TABLET PO SCH (11:07)
[2020-09-15] MEDS: DOCUSATE SODIUM 100 MG CAPSULE PO SCH (11:07)
[2020-09-15] MEDS: NICOTINE 21 MG/24 HR PATCH.TD24 TD SCH (11:08)
[2020-09-15] MEDS: FOLIC ACID 1 MG TABLET PO SCH (11:08)
[2020-09-15] MEDS: SODIUM BICARBONATE 650 MG TABLET PO SCH ×2 (11:08→21:25)
[2020-09-15] MEDS: MULTIVITAMIN TABLET PO SCH (11:08)
[2020-09-15] MEDS: METOPROLOL TARTRATE 25 MG TABLET PO SCH ×2 (11:08→21:25)
--- NOTE | 2020-09-15 13:09 | Progress Note ---
Provider Note Provider Note: Case was discussed with anesthesia given patient's hyponatremia and hyperkalemia commonly and worsening metabolic profile to have recommended further metabolic work-up and correction of his abnormalities prior to operative intervention. We further discussed the limited amount of anesthesia that would be required for bone biopsy despite this decision was made to forego operative intervention today and set him up in 24 hours for bone biopsy and hopefully definitive procedure in the near future.
[2020-09-15] MEDS: MEGESTROL ACETATE 20 MG TABLET PO SCH (13:38)
[2020-09-15 14:54] LABS: ANION GAP 5 (5-19); BLOOD UREA NITROGEN 21 mg/dL (7-20); CALCIUM 7.6 mg/dL (8.4-10.2); CARBON DIOXIDE 21 mmol/L (22-30); CHLORIDE 100 mmol/L (98-107); GLUCOSE 84 mg/dL (75-110)
--- NOTE | 2020-09-15 15:46 | PDOC PROGRESS REPORT ---
Subjective Date:: 09/15/20 Subjective:: As per admitting physician's note RAYMON RODARTE is a 64 year old male with past medical history significant for colorectal cancer status post hemicolectomy/radiation/chemotherapy approximately 16 years prior to admission, ongoing tobacco abuse, alcohol dependency who was admitted 09/11/2019 with a left, nontraumatic, midshaft femur fracture concerning for pathologic fxy. 09/14/2020. No acute events overnight. Patient complaining of left lower extremity pain and not able to sleep due to being anxious and being in pain, otherwise denies any fever, chills, nausea, vomiting. Patient is a status post left femur biopsy. 09/15/2020. No acute events overnight. This morning patient is noted to be very lethargic but easily arousable and answering questions appropriately and falls back to sleep, still complaining of left lower extremity pain, denies any auditory or visual hallucinations, denies any fever, chills, nausea, vomiting. Reports history of anorexia for the last 4 months. Patient was scheduled to have his biopsy repeated as biopsy done yesterday was not adequate, unfortunately had to be delayed as patient had electrolyte derangement. Reason For Visit: PATHOLOGICAL FRACTURE,LEFT LOWER EXTREMITY, Physical Exam Vital Signs: Temp Pulse Resp BP Pulse Ox 97.2 F 100 16 100/69 97 09/15/20 11:30 09/15/20 11:30 09/15/20 11:30 09/15/20 11:30 09/15/20 11:30 Intake & Output 09/14/20 09/15/20 09/16/20 06:59 06:59 06:59 Intake Total 360 Output Total 1320 0 Balance -960 0 Weight 65.5 kg 63.6 kg 63.6 kg General appearance: PRESENT: no acute distress, thin, other - Somnolent but arousable. Head exam: PRESENT: atraumatic, normocephalic Respiratory exam: PRESENT: clear to auscultation pedro. ABSENT: rales, rhonchi, wheezes Cardiovascular exam: PRESENT: RRR. ABSENT: diastolic murmur, rubs, systolic murmur GI/Abdominal exam: PRESENT: normal bowel sounds, soft. ABSENT: distended, guarding, mass, organolmegaly, rebound, tenderness Extremities exam: PRESENT: full ROM, other - Left lower extremity range of motion limited due to pain. Left lower extremity below the knee pitting edema. Right foot pitting edema. Bilateral lower extremity neurovascularly intact.. ABSENT: calf tenderness, clubbing, pedal edema Neurological exam: PRESENT: oriented to person, oriented to place, CN II-XII grossly intact, motor sensory deficit, other - Somnolent but arousable, answers questions appropriately. Results Laboratory Results: 09/15/20 06:12 09/15/20 14:20 09/15/20 09/15/20 09/15/20 06:12 06:12 14:20 WBC 14.8 H RBC 2.94 L Hgb 8.3 L Hct 25.3 L MCV 86 MCH 28.2 MCHC 32.7 RDW 23.7 H Plt Count 411 Retic Count (auto) 4.07 H Sodium 125.1 L 125.9 L Potassium 5.3 H 5.0 Chloride 98 100 Carbon Dioxide 18 L 21 L Anion Gap 9 5 BUN 21 H 21 H Creatinine 0.69 0.63 Est GFR ( Amer) > 60 > 60 Glucose 56 L 84 Calcium 7.8 L 7.6 L Iron 27.0 L TIBC 144 L % Saturation 19 Ferritin 112.00 Total Bilirubin 3.9 H AST 69 H Alkaline Phosphatase 722 H Total Protein 4.8 L Albumin 1.9 L Vitamin B12 > 1000.0 H Folate 18.40 09/11/20 14:35 Blood Blood Culture (PCR) - Final Staphylococcus Species 09/11/20 14:35 Blood Blood Culture - Final Klebsiella Pneumoniae Staphylococcus Capitis 09/11/20 14:35 Troponin I < 0.012 Impressions: Chest CT 09/11/20 00:00 IMPRESSION: 1. Since the prior study, patchy lung infiltrates have developed as described along with right upper lobe reticulonodular opacities. Findings are likely infectious/inflammatory. 2. Chronic left urinary obstruction as described. Associated findings look similar. Abnormal soft tissue thickening in the proximal ureter with small adjacent periureteric lymph nodes. 3. Subtotal colectomy with persistent probably progressive irregular wall thickening and probable mass in the region of the rectum. Proximal to the anastomosis and rectal pathology, bowel loops are progressively dilated compared to August exam. There is a large amount of retained stool with at least 1 abnormal thick walled loop of small bowel in the right lower quadrant now also seen. Femur X-Ray 09/11/20 13:45 IMPRESSION: DISPLACED FRACTURE OF THE MIDSHAFT OF THE FEMUR. IRREGULAR LUCENCY AT THE SITE OF FRACTURE, CANNOT EXCLUDE UNDERLYING BONE LESION WITH PATHOLOGIC FRACTURE. Chest X-Ray 09/11/20 14:10 IMPRESSION: NO ACUTE RADIOGRAPHIC FINDING IN THE CHEST. Abdomen/Pelvis CT 09/11/20 14:15 IMPRESSION: 1. Since the prior study, patchy lung infiltrates have developed as described along with right upper lobe reticulonodular opacities. Findings are likely infectious/inflammatory. 2. Chronic left urinary obstruction as described. Associated findings look similar. Abnormal soft tissue thickening in the proximal ureter with small adjacent periureteric lymph nodes. 3. Subtotal colectomy with persistent probably progressive irregular wall thickening and probable mass in the region of the rectum. Proximal to the anastomosis and rectal pathology, bowel loops are progressively dilated compared to August exam. There is a large amount of retained stool with at least 1 abnormal thick walled loop of small bowel in the right lower quadrant now also seen. Body Scan Nuclear Medicine 09/12/20 00:00 IMPRESSION: 1. Abnormal uptake right femur. Known fracture here. 2. Abnormal uptake right proximal humerus. Consider radiographic evaluation. 3. No other overtly worrisome areas of bone uptake. Other findings as discussed. Head MRI 09/12/20 00:00 IMPRESSION: 1. Noncontrast somewhat limited study reveals no overt suggestion of intracranial metastatic disease. See limitations discussed above. No acute findings are suggested. EVIDENCE OF ACUTE STROKE: NO. Humerus X-Ray 09/12/20 00:00 IMPRESSION: As above. Lower Extremity MRI 09/12/20 00:00 IMPRESSION: 1. Although not definite, underlying pathologic lesion in the region of femur fracture is certainly possible. No suggestion of adjacent soft tissue mass allowing for posttraumatic edema and hematoma. Bone Biopsy CT 09/14/20 00:00 IMPRESSION: CT GUIDED BIOPSY OF THE LEFT FEMUR PERFORMED WITHOUT IMMEDIATE COMPLICATION. PATHOLOGY PENDING. Guidance Needle Placement CT 09/14/20 00:00 IMPRESSION: Please see combined report for performance of procedure and radiologic supervision and interpretation. Assessment and Plan - Diagnosis (1) Pathological fracture, left femur, initial encounter for fracture Is this a current diagnosis for this admission?: Yes Plan: Pending left femur biopsy prior to operative intervention to rule out metastatic disease. Status post left femur biopsy 09/14/2020, unfortunately has to be repeated at some point was not enough. Orthopedic surgery on board, recommendations noted. Oncology consulted, recommendations noted. Continue opioid and nonopioid analgesics monitor for respiratory depression and fall. Continue DVT prophylaxis. As per previous attending's note "was asked by Dr. Clement to attempt transfer to tertiary for bone biopsy due to concern that this may be a new primary malignancy site (i.e osteosarcoma). Spoke with [facility]; only acceting ICU level care. Spoke with [facility] (orthopedic team); recommended tertiary such as [facility] or [facility]. Spoke w/ [facility] hospitalist; appropriate to accept patient to service, however, no bed available and do not have a wait list. Will have to call each day to check on bed status." (2) Alcohol dependency Qualifiers: Substance use status: unspecified alcohol-induced disorder Qualified Code(s): F10.29 - Alcohol dependence with unspecified alcohol-induced disorder Is this a current diagnosis for this admission?: Yes Plan: Does not appear to be actively withdrawing, noted to be somnolent and lethargic. Drinks daily but states he only has 1-2 beers per day CIWA w/ prn Ativan. DT precautions. Continue daily thiamine and folic acid supplementation. (3) History of colon cancer Is this a current diagnosis for this admission?: Yes Plan: History of colorectal cancer status post colectomy and chemoradiation. As per patient only 12 inches of his colon is remaining. Prior imaging in 2020 concerning for new colorectal mass, patient denies being told about this and has not had any follow-up CT chest abdomen pelvis with contrast right upper lobe reticulonodular opacities, progressive irregular: Wall thickening and probable mass in the region of the rectum. Nuclear medicine bone scan significant for abnormal uptake right femur, abnormal uptake right proximal humerus MRI head with no contrast does not show any overt sign of metastatic disease. Oncology consulted. Discussed with Dr. Delvalle today; appreciate her expertise. (4) Hyponatremia Is this a current diagnosis for this admission?: Yes Plan: Chronic. 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 Continue D5 NS and supplemental p.o. sodium bicarb. Daily BMP. Seizure precautions. (5) Lactic acidosis Is this a current diagnosis for this admission?: Yes Plan: Resolved. Likely due to severe dehydration and nausea/vomiting Antiemetics IV fluids (6) Leukocytosis Qualifiers: Leukocytosis type: unspecified Qualified Code(s): D72.829 - Elevated white blood cell count, unspecified Is this a current diagnosis for this admission?: Yes Plan: Improving. UA negative. Blood cultures w/ gram positive cocci and Klebsiella in 1 bottle; likely contaminants. Repeat cultures negative x48 hours. CT Chest w/ scattered ground glass opacities; possibly infectious. Likely inflammatory r/t femur fracture and underlying malignancy. COVID negative. No indications for antibiotics at this time. Follow CBC (7) Nausea and vomiting Qualifiers: Vomiting type: unspecified Vomiting Intractability: non-intractable Qualified Code(s): R11.2 - Nausea with vomiting, unspecified Is this a current diagnosis for this admission?: Yes Plan: Resolved. IV fluids Antiemetics (8) Tobacco abuse Is this a current diagnosis for this admission?: Yes Plan: Patient does not wish to quit Cessation encouraged. Nicotine replacement therapies provided. (9) Metabolic acidosis Is this a current diagnosis for this admission?: Yes Plan: Normal anion gap metabolic acidosis likely starvation ketosis. Patient endorses history of EtOH abuse, anorexia, and has been n.p.o. pending surgery. Continue D5 NS, supplemental sodium bicarb, encourage p.o. intake once patient biopsies taken. (10) Hyperkalemia Is this a current diagnosis for this admission?: Yes Plan: Likely due to metabolic acidosis. No acute EKG changes. Hyperkalemia protocol. (11) Malnutrition Qualifiers: Malnutrition type: protein-calorie malnutrition Protein-calorie malnutrition severity: moderate Qualified Code(s): E44.0 - Moderate protein- calorie malnutrition Is this a current diagnosis for this admission?: Yes Plan: BMI 18.0. Patient appears cachectic. Endorses history of anorexia for the last 4 months. This is likely due to underlying malignancy complicated by EtOH abuse and low p.o. intake. Continue Megace, encourage p.o. intake. Registered dietitian consulted. - Time Time Spent with patient: 35 or more minutes Anticipated Discharge Disposition: Home with Home Health Anticipated Discharge Timeframe: within 72 hours
[2020-09-16 06:03] LABS: HEMATOCRIT 24.4 % (37.9-51.0); MEAN CORPUSCULAR HEMOGLOBIN 28.3 pg (27.0-33.4); MEAN CORPUSCULAR HGB CONC 32.5 g/dL (32.0-36.0); MEAN CORPUSCULAR VOLUME 87 fl (80-97); PLATELET COUNT 358 10^3/uL (150-450); RED BLOOD COUNT 2.81 10^6/uL (4.35-5.55); RED CELL DISTRIBUTION WIDTH 23.3 % (11.5-14.0); WHITE BLOOD COUNT 20.5 10^3/uL (4.0-10.5)
[2020-09-16 06:20] LABS: ALBUMIN 1.7 g/dL (3.5-5.0); ALKALINE PHOSPHATASE 682 U/L (38-126); ASPARTATE AMINO TRANSFERASE 62 U/L (17-59); BILIRUBIN,DIRECT 2.5 mg/dL (0.0-0.4); BILIRUBIN,TOTAL 3.2 mg/dL (0.2-1.3); BLOOD UREA NITROGEN 20 mg/dL (7-20); CALCIUM 7.3 mg/dL (8.4-10.2); GLUCOSE 112 mg/dL (75-110); TOTAL PROTEIN 4.2 g/dL (6.3-8.2)
[2020-09-16 06:24] LABS: HEMOGLOBIN 7.9 g/dL (13.5-17.0)
[2020-09-16 06:26] LABS: CARBON DIOXIDE 21 mmol/L (22-30); CHLORIDE 104 mmol/L (98-107)
[2020-09-16 06:32] LABS: ANION GAP 4 (5-19); PREALBUMIN < 3.0 mg/dL (17.6-36.0)
[2020-09-16] MEDS ORDERED: ONDANSETRON HCL INJ/PF 4 MG/2 ML SDV ONE (08:34)
[2020-09-16] MEDS ORDERED: LIDOCAINE 2% INJ-PF (20 MG/ML) 2 ML AMPUL ONE (08:34)
[2020-09-16] MEDS: DEXTROSE 5%-NORMAL SALINE 1,000 ML IV PRN ×2 (10:24→14:32)
[2020-09-16] MEDS: ALBUMIN HUMAN 12.5 GM/50 ML RTUINJ IV SCH ×4 (10:24→18:03)
[2020-09-16] MEDS: METOPROLOL TARTRATE 25 MG TABLET PO SCH ×2 (10:24→21:32)
--- NOTE | 2020-09-16 10:32 | RADIOLOGY REPORT (SQ) ---
EXAM DESCRIPTION: FEMUR LEFT IMAGES COMPLETED DATE/TIME: 09/16/2020 10:13 am REASON FOR STUDY: Fracture COMPARISON: 09/11/2020, 09/12/2020, 09/14/2020 NUMBER OF VIEWS: Two views. TECHNIQUE: Two radiographic images acquired of the left femur to include hip and knee in at least on e projection. LIMITATIONS: None. FINDINGS: MINERALIZATION: Normal. BONES: Re- demonstration of a displaced transverse fracture of the mid femur noting approximately 6 t o 7 cm of foreshortening. SOFT TISSUES: Soft tissue edema surrounds the injury site. OTHER: No other significant finding. IMPRESSION: Re- demonstration of a transverse fracture of the mid femur with increased foreshortenin g on today's examination. TECHNICAL DOCUMENTATION: JOB ID: [id number] 2010 [employer]- All Rights Reserved Reading location - IP/workstation name: [email or web address]
[2020-09-16] MEDS ORDERED: EPHEDRINE SULFATE INJ 50 MG/1 ML AMPULE ONE (10:41)
[2020-09-16] MEDS ORDERED: PROPOFOL INJ 200 MG/20 ML VIAL IV ONE (10:41)
[2020-09-16] MEDS ORDERED: FENTANYL CITRATE INJ/PF 100 MCG/2 ML AMPUL ONE (10:41)
[2020-09-16] MEDS ORDERED: KETAMINE HCL INJ 500 MG/10 ML VIAL ONE (10:42)
[2020-09-16] MEDS: DOCUSATE SODIUM 100 MG CAPSULE PO SCH (10:54)
[2020-09-16] MEDS: ENOXAPARIN SODIUM INJ 40 MG/0.4 ML DISP.SYRIN SUBCUT SCH (10:55)
[2020-09-16] MEDS: NICOTINE 21 MG/24 HR PATCH.TD24 TD SCH (10:55)
--- NOTE | 2020-09-16 11:13 | PDOC PROGRESS REPORT ---
Subjective Date:: 09/16/20 Subjective:: As per admitting physician's note RAYMON RODARTE is a 64 year old male with past medical history significant for colorectal cancer status post hemicolectomy/radiation/chemotherapy approximately 16 years prior to admission, ongoing tobacco abuse, alcohol dependency who was admitted 09/11/2019 with a left, nontraumatic, midshaft femur fracture concerning for pathologic fxy. 09/14/2020. No acute events overnight. Patient complaining of left lower extremity pain and not able to sleep due to being anxious and being in pain, otherwise denies any fever, chills, nausea, vomiting. Patient is a status post left femur biopsy. 09/15/2020. No acute events overnight. This morning patient is noted to be very lethargic but easily arousable and answering questions appropriately and falls back to sleep, still complaining of left lower extremity pain, denies any auditory or visual hallucinations, denies any fever, chills, nausea, vomiting. Reports history of anorexia for the last 4 months. Patient was scheduled to have his biopsy repeated as biopsy done yesterday was not adequate, unfortunately had to be delayed as patient had electrolyte derangement. 09/16/2020. Seems patient has had worsening of his left femur fracture overnight, this morning he was noted to have shortening of his left proximal lower extremity and developed posterior inversion of the proximal left lower extremity, repeat x-ray shows shortening of fracture, no new fracture. Patient has been bedbound and has not had any falls overnight. Patient complaining of generalized weakness, left lower extremity pain, and feeling anxious, stating that he just wants to go home, he seems to be in moderate distress, however is alert and oriented, answering questions appropriately. Fever, chest pain, nausea, vomiting. P.o. tolerant and having bowel movements. Reason For Visit: PATHOLOGICAL FRACTURE,LEFT LOWER EXTREMITY, Physical Exam Vital Signs: Temp Pulse Resp BP Pulse Ox 97.7 F 107 H 16 98/67 L 92 09/16/20 08:03 09/16/20 08:03 09/16/20 08:03 09/16/20 08:03 09/16/20 09:32 Intake & Output 09/15/20 09/16/20 09/17/20 06:59 06:59 06:59 Intake Total 1000 1032 Output Total 0 300 Balance 0 700 1032 Weight 63.6 kg 63.9 kg General appearance: PRESENT: thin, other - Appears very uncomfortable and seems to be in a lot of pain. Head exam: PRESENT: atraumatic, normocephalic Respiratory exam: PRESENT: clear to auscultation pedro. ABSENT: rales, rhonchi, wheezes Cardiovascular exam: PRESENT: RRR. ABSENT: diastolic murmur, rubs, systolic murmur GI/Abdominal exam: PRESENT: normal bowel sounds, soft. ABSENT: distended, guarding, mass, organolmegaly, rebound, tenderness Extremities exam: PRESENT: other - Shortening of left lower extremity and posterior inversion of proximal femur. Range of motion limited due to pain. Neurological exam: PRESENT: alert, awake, oriented to person, oriented to place, oriented to time, oriented to situation, CN II-XII grossly intact. ABSENT: motor sensory deficit Results Laboratory Results: 09/16/20 05:25 09/16/20 05:25 09/15/20 09/16/20 09/16/20 14:20 05:25 05:25 WBC 20.5 H RBC 2.81 L Hgb 7.9 L Hct 24.4 L MCV 87 MCH 28.3 MCHC 32.5 RDW 23.3 H Plt Count 358 Sodium 125.9 L 129.4 L Potassium 5.0 4.0 D Chloride 100 104 Carbon Dioxide 21 L 21 L Anion Gap 5 4 L BUN 21 H 20 Creatinine 0.63 0.70 Est GFR ( Amer) > 60 > 60 Glucose 84 112 H Calcium 7.6 L 7.3 L Total Bilirubin 3.2 H AST 62 H Alkaline Phosphatase 682 H Total Protein 4.2 L Albumin 1.7 L Prealbumin < 3.0 L 09/11/20 14:35 Blood Blood Culture (PCR) - Final Staphylococcus Species 09/11/20 14:35 Blood Blood Culture - Final Klebsiella Pneumoniae Staphylococcus Capitis 09/11/20 14:35 Troponin I < 0.012 Impressions: Chest CT 09/11/20 00:00 IMPRESSION: 1. Since the prior study, patchy lung infiltrates have developed as described along with right upper lobe reticulonodular opacities. Findings are likely infectious/inflammatory. 2. Chronic left urinary obstruction as described. Associated findings look similar. Abnormal soft tissue thickening in the proximal ureter with small adjacent periureteric lymph nodes. 3. Subtotal colectomy with persistent probably progressive irregular wall thickening and probable mass in the region of the rectum. Proximal to the anastomosis and rectal pathology, bowel loops are progressively dilated compared to August exam. There is a large amount of retained stool with at least 1 abnormal thick walled loop of small bowel in the right lower quadrant now also seen. Chest X-Ray 09/11/20 14:10 IMPRESSION: NO ACUTE RADIOGRAPHIC FINDING IN THE CHEST. Abdomen/Pelvis CT 09/11/20 14:15 IMPRESSION: 1. Since the prior study, patchy lung infiltrates have developed as described along with right upper lobe reticulonodular opacities. Findings are likely i nfectious/inflammatory. 2. Chronic left urinary obstruction as described. Associated findings look similar. Abnormal soft tissue thickening in the proximal ureter with small adjacent periureteric lymph nodes. 3. Subtotal colectomy with persistent probably progressive irregular wall thickening and probable mass in the region of the rectum. Proximal to the anastomosis and rectal pathology, bowel loops are progressively dilated compared to August exam. There is a large amount of retained stool with at least 1 abnormal thick walled loop of small bowel in the right lower quadrant now also seen. Body Scan Nuclear Medicine 09/12/20 00:00 IMPRESSION: 1. Abnormal uptake right femur. Known fracture here. 2. Abnormal uptake right proximal humerus. Consider radiographic evaluation. 3. No other overtly worrisome areas of bone uptake. Other findings as discussed. Head MRI 09/12/20 00:00 IMPRESSION: 1. Noncontrast somewhat limited study reveals no overt suggestion of intracranial metastatic disease. See limitations discussed above. No acute findings are suggested. EVIDENCE OF ACUTE STROKE: NO. Humerus X-Ray 09/12/20 00:00 IMPRESSION: As above. Lower Extremity MRI 09/12/20 00:00 IMPRESSION: 1. Although not definite, underlying pathologic lesion in the region of femur fracture is certainly possible. No suggestion of adjacent soft tissue mass allowing for posttraumatic edema and hematoma. Bone Biopsy CT 09/14/20 00:00 IMPRESSION: CT GUIDED BIOPSY OF THE LEFT FEMUR PERFORMED WITHOUT IMMEDIATE COMPLICATION. PATHOLOGY PENDING. Guidance Needle Placement CT 09/14/20 00:00 IMPRESSION: Please see combined report for performance of procedure and radiologic supervision and interpretation. Femur X-Ray 09/16/20 00:00 IMPRESSION: Re- demonstration of a transverse fracture of the mid femur with increased foreshortening on today's examination. Assessment and Plan - Diagnosis (1) Pathological fracture, left femur, initial encounter for fracture Is this a current diagnosis for this admission?: Yes Plan: Repeat x-ray shows shortening of left femur fracture. Pending left femur biopsy prior to operative intervention to rule out metastatic disease. Status post left femur biopsy 09/14/2020, unfortunately has to be repeated at some point was not enough. Orthopedic surgery on board, recommendations noted. Oncology consulted, recommendations noted. Continue opioid and nonopioid analgesics monitor for respiratory depression and fall. Continue DVT prophylaxis. As per previous attending's note "was asked by Dr. Clement to attempt transfer to tertiary for bone biopsy due to concern that this may be a new primary malignancy site (i.e osteosarcoma). Spoke with [facility]; only acceting ICU level care. Spoke with [facility] (orthopedic team); recommended tertiary such as [facility] or [place]. Spoke w/ [facility] hospitalist; appropriate to accept patient to service, however, no bed available and do not have a wait list. Will have to call each day to check on bed status." (2) Alcohol dependency Qualifiers: Substance use status: unspecified alcohol-induced disorder Qualified Code(s): F10.29 - Alcohol dependence with unspecified alcohol-induced disorder Is this a current diagnosis for this admission?: Yes Plan: Does not appear to be actively withdrawing, noted to be somnolent and lethargic. Drinks daily but states he only has 1-2 beers per day CIWA w/ prn Ativan. DT precautions. Continue daily thiamine and folic acid supplementation. (3) History of colon cancer Is this a current diagnosis for this admission?: Yes Plan: History of colorectal cancer status post colectomy and chemoradiation. As per patient only 12 inches of his colon is remaining. Prior imaging in 2020 concerning for new colorectal mass, patient denies being told about this and has not had any follow-up CT chest abdomen pelvis with contrast right upper lobe reticulonodular opacities, progressive irregular: Wall thickening and probable mass in the region of the rectum. Nuclear medicine bone scan significant for abnormal uptake right femur, abnormal uptake right proximal humerus MRI head with no contrast does not show any overt sign of metastatic disease. Oncology consulted. Discussed with Dr. Delvalle today; appreciate her expertise. (4) Hyponatremia Is this a current diagnosis for this admission?: Yes Plan: Improving. Chronic. 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 Continue D5 NS and supplemental p.o. sodium bicarb. Daily BMP. Seizure precautions. (5) Lactic acidosis Is this a current diagnosis for this admission?: Yes Plan: Resolved. Likely due to severe dehydration and nausea/vomiting Antiemetics IV fluids (6) Leukocytosis Qualifiers: Leukocytosis type: unspecified Qualified Code(s): D72.829 - Elevated white blood cell count, unspecified Is this a current diagnosis for this admission?: Yes Plan: Worsening leukocytosis, no bandemia. Afebrile. No sign of infection. Blood cultures w/ gram positive cocci and Klebsiella in 1 bottle; likely contaminants. Repeat cultures negative x78 hours. CT Chest w/ scattered ground glass opacities; possibly infectious. Likely inflammatory r/t femur fracture and underlying malignancy. COVID negative. Given worsening leukocytosis will start on empiric IV antibiotics. Day 1 IV cefepime. (7) Nausea and vomiting Qualifiers: Vomiting type: unspecified Vomiting Intractability: non-intractable Qualified Code(s): R11.2 - Nausea with vomiting, unspecified Is this a current diagnosis for this admission?: Yes Plan: Resolved. IV fluids Antiemetics (8) Tobacco abuse Is this a current diagnosis for this admission?: Yes Plan: Patient does not wish to quit Cessation encouraged. Nicotine replacement therapies provided. (9) Metabolic acidosis Is this a current diagnosis for this admission?: Yes Plan: Improving. Normal anion gap metabolic acidosis likely starvation ketosis. Patient endorses history of EtOH abuse, anorexia, and has been n.p.o. pending s urgery. Continue D5 NS, supplemental sodium bicarb, encourage p.o. intake once patient biopsies taken. (10) Hyperkalemia Is this a current diagnosis for this admission?: Yes Plan: Resolved. Likely due to metabolic acidosis. No acute EKG changes. Hyperkalemia protocol. (11) Malnutrition Qualifiers: Malnutrition type: protein-calorie malnutrition Protein-calorie malnutr ition severity: moderate Qualified Code(s): E44.0 - Moderate protein-calorie malnutrition Is this a current diagnosis for this admission?: Yes Plan: BMI 18.0. Prealbumin <3. Patient appears cachectic. Endorses history of anorexia for the last 4 months. This is likely due to underlying malignancy complicated by EtOH abuse and low p.o. intake. Continue Megace, encourage p.o. intake. Registered dietitian consulted. (12) Vitamin D deficiency Is this a current diagnosis for this admission?: Yes Plan: Severe vitamin D deficiency. Likely due to low p.o. intake. Continue ergocalciferol 50,000 units q. weekly. - Time Time Spent with patient: 35 or more minutes Anticipated Discharge Disposition: Home with Home Health Anticipated Discharge Timeframe: within 72 hours
[2020-09-16] MEDS ORDERED: BUPIVACAINE HCL 0.5 % INJ/PF 30 ML SDV ONE (11:45)
--- NOTE | 2020-09-16 12:12 | PDOC PROGRESS REPORT ---
Subjective Date:: 09/16/20 Subjective:: Patient seen and examined this morning. No acute events overnight. No new complaints. He is more lucid this morning. Pain is currently well controlled. Reason For Visit: PATHOLOGICAL FRACTURE,LEFT LOWER EXTREMITY, Physical Exam Vital Signs: Temp Pulse Resp BP Pulse Ox 97.7 F 107 H 16 98/67 L 92 09/16/20 08:03 09/16/20 08:03 09/16/20 08:03 09/16/20 08:03 09/16/20 09:32 Intake & Output 09/15/20 09/16/20 09/17/20 06:59 06:59 06:59 Intake Total 1000 1032 Output Total 0 300 Balance 0 700 1032 Weight 63.6 kg 63.9 kg Physical Exam: No acute distress, alert or x3 Left lower extremity -Pulses 2+ distally -Compartments soft -Sensation grossly intact to L3-4-5 S1 -Motor grossly intact to EHL TA gastroc and quad Patient has interval deformity with extension and valgus of the midshaft of the thigh. Additionally the patient has what appears to be prior puncture wounds from his biopsy on Monday that appeared to have utilized the medial compartment. Results Laboratory Results: 09/16/20 05:25 09/16/20 05:25 09/15/20 09/16/20 09/16/20 14:20 05:25 05:25 WBC 20.5 H RBC 2.81 L Hgb 7.9 L Hct 24.4 L MCV 87 MCH 28.3 MCHC 32.5 RDW 23.3 H Plt Count 358 Sodium 125.9 L 129.4 L Potassium 5.0 4.0 D Chloride 100 104 Carbon Dioxide 21 L 21 L Anion Gap 5 4 L BUN 21 H 20 Creatinine 0.63 0.70 Est GFR ( Amer) > 60 > 60 Glucose 84 112 H Calcium 7.6 L 7.3 L Total Bilirubin 3.2 H AST 62 H Alkaline Phosphatase 682 H Total Protein 4.2 L Albumin 1.7 L Prealbumin < 3.0 L 09/11/20 14:35 Blood Blood Culture (PCR) - Final Staphylococcus Species 09/11/20 14:35 Blood Blood Culture - Final Klebsiella Pneumoniae Staphylococcus Capitis 09/11/20 14:35 Troponin I < 0.012 Impressions: Chest CT 09/11/20 00:00 IMPRESSION: 1. Since the prior study, patchy lung infiltrates have developed as described along with right upper lobe reticulonodular opacities. Findings are likely infectious/inflammatory. 2. Chronic left urinary obstruction as described. Associated findings look similar. Abnormal soft tissue thickening in the proximal ureter with small adjacent periureteric lymph nodes. 3. Subtotal colectomy with persistent probably progressive irregular wall thickening and probable mass in the region of the rectum. Proximal to the anastomosis and rectal pathology, bowel loops are progressively dilated compared to August exam. There is a large amount of retained stool with at least 1 abnormal thick walled loop of small bowel in the right lower quadrant now also seen. Chest X-Ray 09/11/20 14:10 IMPRESSION: NO ACUTE RADIOGRAPHIC FINDING IN THE CHEST. Abdomen/Pelvis CT 09/11/20 14:15 IMPRESSION: 1. Since the prior study, patchy lung infiltrates have developed as described along with right upper lobe reticulonodular opacities. Findings are likely infectious/inflammatory. 2. Chronic left urinary obstruction as described. Associated findings look similar. Abnormal soft tissue thickening in the proximal ureter with small adjacent periureteric lymph nodes. 3. Subtotal colectomy with persistent probably progressive irregular wall thickening and probable mass in the region of the rectum. Proximal to the anastomosis and rectal pathology, bowel loops are progressively dilated compared to August exam. There is a large amount of retained stool with at least 1 abnormal thick walled loop of small bowel in the right lower quadrant now also seen. Body Scan Nuclear Medicine 09/12/20 00:00 IMPRESSION: 1. Abnormal uptake right femur. Known fracture here. 2. Abnormal uptake right proximal humerus. Consider radiographic evaluation. 3. No other overtly worrisome areas of bone uptake. Other findings as discussed. Head MRI 09/12/20 00:00 IMPRESSION: 1. Noncontrast somewhat limited study reveals no overt suggestion of intracranial metastatic disease. See limitations discussed above. No acute findings are suggested. EVIDENCE OF ACUTE STROKE: NO. Humerus X-Ray 09/12/20 00:00 IMPRESSION: As above. Lower Extremity MRI 09/12/20 00:00 IMPRESSION: 1. Although not definite, underlying pathologic lesion in the region of femur fracture is certainly possible. No suggestion of adjacent soft tissue mass allowing for posttraumatic edema and hematoma. Bone Biopsy CT 09/14/20 00:00 IMPRESSION: CT GUIDED BIOPSY OF THE LEFT FEMUR PERFORMED WITHOUT IMMEDIATE COMPLICATION. PATHOLOGY PENDING. Guidance Needle Placement CT 09/14/20 00:00 IMPRESSION: Please see combined report for performance of procedure and radiologic supervision and interpretation. Femur X-Ray 09/16/20 00:00 IMPRESSION: Re- demonstration of a transverse fracture of the mid femur with increased foreshortening on today's examination. Assessment & Plan - Diagnosis (1) Pathological fracture, left femur, initial encounter for fracture Is this a current diagnosis for this admission?: Yes Plan: At this time anesthesia is agreeable to allow for biopsy. His electrolytes have improved We need to have a confirmed diagnosis prior to proceeding with intramedullary nail fixation. I have been in contact with pathology in regards to the need for acute turnaround on pathology specimen. Pending pathology results, we will plan for nailing tomorrow. (2) History of colon cancer Is this a current diagnosis for this admission?: Yes - Time Time Spent with patient: Less than 15 minutes
[2020-09-16] MEDS ORDERED: FENTANYL CITRATE INJ/PF 100 MCG/2 ML AMPUL IV PRN ×3 (12:49)
[2020-09-16] MEDS: MEGESTROL ACETATE 20 MG TABLET PO SCH (14:27)
[2020-09-16] MEDS: TAMSULOSIN HCL 0.4 MG CAP.SR.24H PO SCH (14:27)
[2020-09-16] MEDS: CALCIUM CARBONATE 600 MG/VITAMIN D3 400 UNIT TABLET PO SCH ×2 (14:27→17:09)
[2020-09-16] MEDS: FOLIC ACID 1 MG TABLET PO SCH (14:27)
[2020-09-16] MEDS: FERROUS SULFATE 325 MG TABLET PO SCH (14:27)
[2020-09-16] MEDS: MULTIVITAMIN TABLET PO SCH (14:28)
[2020-09-16] MEDS: SODIUM BICARBONATE 650 MG TABLET PO SCH ×2 (14:28→21:32)
[2020-09-16] MEDS: THIAMINE HCL 100 MG TABLET PO SCH (14:28)
[2020-09-16] MEDS: CEFEPIME 1 GM/D5W RTU 1 GM/50 ML RTUPB IV SCH ×2 (14:29→21:32)
--- NOTE | 2020-09-16 14:58 | RADIOLOGY REPORT (SQ) ---
EXAM DESCRIPTION: FEMUR LEFT; NO CHG FLUORO IMAGES COMPLETED DATE/TIME: 09/16/2020 1:11 pm REASON FOR STUDY: LEFT FEMUR BIOPSY COMPARISON: None. FLUOROSCOPY TIME: 0.0 minutes 1 images saved to PACS. TECHNIQUE: Intra-operative images acquired during surgical procedure to evaluate progress. NUMBER OF IMAGES: 1 LIMITATIONS: None. FINDINGS: A single intraoperative fluoroscopic spot image was performed for the purposes of surgical guidance. This image is submitted for administrative purposes only. Please refer to the operative report for full details regarding this procedure. IMPRESSION: IMAGE(S) OBTAINED DURING PROCEDURE. COMMENT: Quality ID 145: Final reports for procedures using fluoroscopy that document radiation exp osure indices, or exposure time and number of fluorographic images (if radiation exposure indices are not available) Please consult full operative report of the attending physician for description of the procedure. TECHNICAL DOCUMENTATION: JOB ID: [id number] 2010 [employer]- All Rights Reserved Reading location - IP/workstation name: [email or web address]
--- NOTE | 2020-09-16 14:58 | RADIOLOGY REPORT (SQ) ---
EXAM DESCRIPTION: FEMUR LEFT; NO CHG FLUORO IMAGES COMPLETED DATE/TIME: 09/16/2020 1:11 pm REASON FOR STUDY: LEFT FEMUR BIOPSY COMPARISON: None. FLUOROSCOPY TIME: 0.0 minutes 1 images saved to PACS. TECHNIQUE: Intra-operative images acquired during surgical procedure to evaluate progress. NUMBER OF IMAGES: 1 LIMITATIONS: None. FINDINGS: A single intraoperative fluoroscopic spot image was performed for the purposes of surgical guidance. This image is submitted for administrative purposes only. Please refer to the operative report for full details regarding this procedure. IMPRESSION: IMAGE(S) OBTAINED DURING PROCEDURE. COMMENT: Quality ID 145: Final reports for procedures using fluoroscopy that document radiation exp osure indices, or exposure time and number of fluorographic images (if radiation exposure indices are not available) Please consult full operative report of the attending physician for description of the procedure. TECHNICAL DOCUMENTATION: JOB ID: [id number] 2010 [employer]- All Rights Reserved Reading location - IP/workstation name: [email or web address]
[2020-09-16] MEDS: MORPHINE SULFATE 10 MG/ML INJ IV PRN ×2 (15:06→20:49)
--- NOTE | 2020-09-16 17:10 | Operative Report ---
Operative Report DATE OF SURGERY: 09/16/20 PREOPERATIVE DIAGNOSIS: Pathologic left femoral shaft fracture POSTOPERATIVE DIAGNOSIS: Pathologic left femoral shaft fracture OPERATION: Left femur open biopsy SURGEON: KATIE SHARMA JR ANESTHESIA: Moderate Sedation TISSUE REMOVED OR ALTERED: Multiple tissue samples were sent for pathologic evaluation and culture COMPLICATIONS: None ESTIMATED BLOOD LOSS: 10 cc PROCEDURE: The patient was brought into the operating suite and laid supine on the operating table. They are placed under moderate sedation. They are given 1 g of cefepime preoperatively. Fluoroscopy was used to identify the appropriate level for the fracture. An appropriate timeout was performed. A longitudinal incision was made anterior lateral thigh to carried through the anterior fascia. An incision was made to the fascia and then the muscle was then bluntly dissected down to bone. At this point I was able to expose the fracture ends. I removed some of the surrounding soft tissue from outside the cortex with a rongeur and placed into a specimen cup. I used a pituitary rongeur to remove some fragments of bone and placed into a subsequent specimen cup which contain formalin. Further bone was gently removed from the fracture ends and placed into a third specimen cup. Finally some tissue from within the medullary canal was obtained as well as a few further fragments of bone and were placed into a fourth specimen cup. One of the cups was sent for culture and the others were sent to pathology. The wound was then copiously irrigated with sterile saline followed by closure of the muscle fascia with a running 2-0 Vicryl. The skin was then closed with a running 3-0 nylon. I had an immediate discussion with the pathologist following the procedure to confirm that there was appropriate specimen available for histologic analysis. The patient was awakened from anesthesia and transferred to PACU in stable condition.
[2020-09-16] MEDS: LORAZEPAM INJ 2 MG/1 ML VIAL IV PRN (22:28)
[2020-09-17 05:30] LABS: HEMATOCRIT 22.8 % (37.9-51.0); MEAN CORPUSCULAR HEMOGLOBIN 28.6 pg (27.0-33.4); MEAN CORPUSCULAR HGB CONC 32.2 g/dL (32.0-36.0); MEAN CORPUSCULAR VOLUME 89 fl (80-97); PLATELET COUNT 257 10^3/uL (150-450); RED BLOOD COUNT 2.56 10^6/uL (4.35-5.55); RED CELL DISTRIBUTION WIDTH 24.7 % (11.5-14.0); WHITE BLOOD COUNT 19.5 10^3/uL (4.0-10.5)
[2020-09-17 05:37] LABS: ALBUMIN 1.7 g/dL (3.5-5.0); ALKALINE PHOSPHATASE 461 U/L (38-126); ASPARTATE AMINO TRANSFERASE 41 U/L (17-59); BILIRUBIN,DIRECT 2.2 mg/dL (0.0-0.4); BILIRUBIN,TOTAL 2.8 mg/dL (0.2-1.3); BLOOD UREA NITROGEN 21 mg/dL (7-20); CARBON DIOXIDE 22 mmol/L (22-30); GLUCOSE 105 mg/dL (75-110); POTASSIUM 3.7 mmol/L (3.6-5.0); TOTAL PROTEIN 3.7 g/dL (6.3-8.2)
[2020-09-17 05:42] LABS: CHLORIDE 107 mmol/L (98-107)
[2020-09-17 05:46] LABS: ANION GAP 3 (5-19); CALCIUM 7.1 mg/dL (8.4-10.2)
[2020-09-17 06:24] LABS: HEMOGLOBIN 7.3 g/dL (13.5-17.0)
[2020-09-17] MEDS: LORAZEPAM INJ 2 MG/1 ML VIAL IV PRN ×2 (07:15→13:20)
[2020-09-17] MEDS ORDERED: NORMAL SALINE 250 ML IV PRN ×2 (08:58)
[2020-09-17] MEDS: DOCUSATE SODIUM 100 MG CAPSULE PO SCH (10:13)
[2020-09-17] MEDS: FOLIC ACID 1 MG TABLET PO SCH (10:13)
[2020-09-17] MEDS: FERROUS SULFATE 325 MG TABLET PO SCH (10:13)
[2020-09-17] MEDS: CALCIUM CARBONATE 600 MG/VITAMIN D3 400 UNIT TABLET PO SCH ×2 (10:13→17:22)
[2020-09-17] MEDS: TAMSULOSIN HCL 0.4 MG CAP.SR.24H PO SCH (10:13)
[2020-09-17] MEDS: METOPROLOL TARTRATE 25 MG TABLET PO SCH ×2 (10:13→21:13)
[2020-09-17] MEDS: MEGESTROL ACETATE 20 MG TABLET PO SCH (10:14)
[2020-09-17] MEDS: NICOTINE 21 MG/24 HR PATCH.TD24 TD SCH (10:14)
[2020-09-17] MEDS: SODIUM BICARBONATE 650 MG TABLET PO SCH ×2 (10:14→21:14)
[2020-09-17] MEDS: MULTIVITAMIN TABLET PO SCH (10:14)
[2020-09-17] MEDS: THIAMINE HCL 100 MG TABLET PO SCH (10:14)
[2020-09-17] MEDS: ENOXAPARIN SODIUM INJ 40 MG/0.4 ML DISP.SYRIN SUBCUT SCH (10:14)
[2020-09-17] MEDS: MORPHINE SULFATE 10 MG/ML INJ IV PRN ×3 (10:15→21:12)
[2020-09-17] MEDS: CEFEPIME 1 GM/D5W RTU 1 GM/50 ML RTUPB IV SCH ×2 (10:15→21:13)
[2020-09-17] MEDS: DEXTROSE 5%-NORMAL SALINE 1,000 ML IV PRN ×2 (10:17→15:30)
--- NOTE | 2020-09-17 10:28 | RADIOLOGY REPORT (SQ) ---
EXAM DESCRIPTION: CTA CHEST IMAGES COMPLETED DATE/TIME: 09/17/2020 9:55 am REASON FOR STUDY: increased SOB COMPARISON: 09/12/2020 TECHNIQUE: CT scan of the chest performed using helical scanning technique with dynamic intravenous contrast injection. Images reviewed with lung, soft tissue and bone windows. Reconstructed coronal and sagittal MPR images reviewed. Additional 3 dimensional post-processing performed to develop Maximal Intensity Projection images (LA P). All images stored on PACS. All CT scanners at this facility use dose modulation, iterative reconstruction, and/or weight based d osing when appropriate to reduce radiation dose to as low as reasonably achievable (ALARA). [facility]: Dose Right [facility]: CareDose [facility]: Dose Right [facility]: Teradose 4D [facility]: [employer] CONTRAST TYPE AND DOSE: contrast/concentration: Isovue 350.00 mmol/ml; Total Contrast Delivered: 65. 0 ml; Total Saline Delivered: 65.0 ml RENAL FUNCTION: GFR > 60. RADIATION DOSE: CT Rad equipment meets quality standard of care and radiation dose reduction techniq ues were employed. CTDIvol: 2.8 - 11.8 mGy. DLP: 484 mGy-cm. . LIMITATIONS: None. FINDINGS: LUNGS AND PLEURA: Progressive bilateral airspace disease with associated ground-glass atte nuation with some sparing of the lung apices. No evidence of cavitation. Trace right pleural effusi on. AORTA AND GREAT VESSELS: No aneurysm. No dissection. HEART: No pericardial effusion. Dextrocardia. PULMONARY ARTERIES: No emboli visualized in the main pulmonary arteries or the segmental branches. HILAR AND MEDIASTINAL STRUCTURES: No identified masses or abnormal nodes. HARDWARE: None in the chest. UPPER ABDOMEN: Situs inversus. THYROID AND OTHER SOFT TISSUES: No masses. No adenopathy. BONES: No acute or significant finding. 3D MIPS: Confirm above findings. OTHER: No other significant finding. IMPRESSION: 1. No PE. 2. Worsening bilateral pneumonia. COMMENT: Quality ID # 436: Final reports with documentation of one or more dose reduction techniques (e.g., Automated exposure control, adjustment of the mA and/or kV according to patient size, use of iterative reconstruction technique) TECHNICAL DOCUMENTATION: JOB ID: [id number] 2010 [employer] All Rights Reserved Reading location - IP/workstation name: [email or web address]
[2020-09-17] MEDS ORDERED: VANCOMYCIN HCL 0 MG in DEXTROSE 5%-WATER 250 ML IV NR (11:00)
[2020-09-17] MEDS ORDERED: METOPROLOL TARTRATE PF/INJ 5 MG/5 ML SDV IV PRN (11:03)
[2020-09-17 11:32] LABS: ARTERIAL BLOOD BASE EXCESS -2.5 mmol/L; ARTERIAL BLOOD H2CO3 0.79 mmol/L (1.05-1.35); ARTERIAL BLOOD HCO3 20.1 mmol/L (20-24); ARTERIAL BLOOD O2 SATURATION 91.5 % (94-98); ARTERIAL BLOOD PCO2 26.3 mmHg (35-45); ARTERIAL BLOOD PO2 54.2 mmHg (80-100); ARTERIAL BLOOD TOTAL CO2 20.9 mmol/L (23-27)
[2020-09-17 11:34] LABS: ARTERIAL BLOOD FIO2 35%
--- NOTE | 2020-09-17 12:30 | PDOC PROGRESS REPORT ---
Subjective Date:: 09/17/20 Subjective:: As per admitting physician's note RAYMON RODARTE is a 64 year old male with past medical history significant for colorectal cancer status post hemicolectomy/radiation/chemotherapy approximately 16 years prior to admission, ongoing tobacco abuse, alcohol dependency who was admitted 09/11/2019 with a left, nontraumatic, midshaft femur fracture concerning for pathologic fxy. 09/14/2020. No acute events overnight. Patient complaining of left lower extremity pain and not able to sleep due to being anxious and being in pain, otherwise denies any fever, chills, nausea, vomiting. Patient is a status post left femur biopsy. 09/15/2020. No acute events overnight. This morning patient is noted to be very lethargic but easily arousable and answering questions appropriately and falls back to sleep, still complaining of left lower extremity pain, denies any auditory or visual hallucinations, denies any fever, chills, nausea, vomiting. Reports history of anorexia for the last 4 months. Patient was scheduled to have his biopsy repeated as biopsy done yesterday was not adequate, unfortunately had to be delayed as patient had electrolyte derangement. 09/16/2020. Seems patient has had worsening of his left femur fracture overnight, this morning he was noted to have shortening of his left proximal lower extremity and developed posterior inversion of the proximal left lower extremity, repeat x-ray shows shortening of fracture, no new fracture. Patient has been bedbound and has not had any falls overnight. Patient complaining of generalized weakness, left lower extremity pain, and feeling anxious, stating that he just wants to go home, he seems to be in moderate distress, however is alert and oriented, answering questions appropriately. Fever, chest pain, nausea, vomiting. P.o. tolerant and having bowel movements. 09/17/2020. Over night patient was noted to become hypoxic and hypotensive, patient is becoming more somnolent to obtunded, a CTA chest this morning was negative for any PE however shows worsening bilateral pneumonia, ABG shows worsening hypoxemia, patient is status post open left femur biopsy and of my prior conversation with Dr. Clement it is likely that it could be osteosarcoma, [facility] was called on the status of transfer however there is stating that he is not on the list and we have to call every day to find out if he will be accepted to be transferred at some point there. Reason For Visit: PATHOLOGICAL FRACTURE,LEFT LOWER EXTREMITY, Physical Exam Vital Signs: Temp Pulse Resp BP Pulse Ox 98.2 F 89 28 H 89/50 L 97 09/17/20 10:00 09/17/20 07:00 09/17/20 03:40 09/17/20 03:32 09/17/20 03:40 Intake & Output 09/16/20 09/17/20 09/18/20 06:59 06:59 06:59 Intake Total 1000 3163 50 Output Total 300 250 Balance 700 2913 50 Weight 63.9 kg 68 kg 68 kg General appearance: PRESENT: no acute distress, well-developed, well-nourished, other - Obtunded, opens his eyes to verbal stimuli, Head exam: PRESENT: atraumatic, normocephalic Neck exam: ABSENT: carotid bruit, JVD, lymphadenopathy, thyromegaly Respiratory exam: PRESENT: decreased breath sounds, symmetrical, other - On BiPAP. ABSENT: rales, rhonchi, wheezes GI/Abdominal exam: PRESENT: normal bowel sounds, soft. ABSENT: distended, guarding, mass, organolmegaly, rebound, tenderness Neurological exam: PRESENT: other - Obtunded. Opens eyes to verbal stimuli, does not follow command. Results Laboratory Results: 09/17/20 04:16 09/17/20 04:16 09/17/20 09/17/20 09/17/20 04:16 04:16 04:16 WBC 19.5 H RBC 2.56 L Hgb 7.3 L Hct 22.8 L MCV 89 MCH 28.6 MCHC 32.2 RDW 24.7 H Plt Count 257 Carbonic Acid HCO3/H2CO3 Ratio ABG pH ABG pCO2 ABG pO2 ABG HCO3 ABG O2 Saturation ABG Base Excess FiO2 Sodium 132.0 L Potassium 3.7 Chloride 107 Carbon Dioxide 22 Anion Gap 3 L BUN 21 H Creatinine 0.81 Est GFR ( Amer) > 60 Glucose 105 Calcium 7.1 L Magnesium 1.7 Total Bilirubin 2.8 H AST 41 Alkaline Phosphatase 461 H Total Protein 3.7 L Albumin 1.7 L Blood Type Antibody Screen 09/17/20 09/17/20 11:05 11:10 WBC RBC Hgb Hct MCV MCH MCHC RDW Plt Count Carbonic Acid 0.79 L HCO3/H2CO3 Ratio 25:1 ABG pH 7.50 H ABG pCO2 26.3 L ABG pO2 54.2 L ABG HCO3 20.1 ABG O2 Saturation 91.5 L ABG Base Excess -2.5 FiO2 35% Sodium Potassium Chloride Carbon Dioxide Anion Gap BUN Creatinine Est GFR ( Amer) Glucose Calcium Magnesium Total Bilirubin AST Alkaline Phosphatase Total Protein Albumin Blood Type O POSITIVE Antibody Screen NEGATIVE 09/11/20 18:45 Blood Blood Culture - Final NO GROWTH IN 5 DAYS 09/11/20 16:27 Blood Blood Culture - Final NO GROWTH IN 5 DAYS 09/16/20 12:39 Leg - Tissue (Surgical) Fungal Smear - Final Not Reportable 09/16/20 12:39 Leg - Tissue (Surgical) Fungal Smear - Final Not Reportable 09/16/20 12:39 Leg - Tissue (Surgical) Fungal Smear - Final Not Reportable 09/16/20 12:39 Leg - Tissue (Surgical) Fungal Smear - Final Not Reportable 09/16/20 12:39 Leg - Tissue (Surgical) Fungal Culture - Final Not Reportable 09/16/20 12:39 Leg - Tissue (Surgical) Fungal Culture - Final Not Reportable 09/16/20 12:39 Leg - Tissue (Surgical) Fungal Culture - Final Not Reportable 09/16/20 12:39 Leg - Tissue (Surgical) Susceptibility Special Request - Final Not Reportable 09/16/20 12:39 Leg - Tissue (Surgical) Nocardia Susceptibility - Final Not Reportable 09/16/20 12:39 Leg - Tissue (Surgical) Nocardia Susceptibility - Final Not Reportable 09/16/20 12:39 Leg - Tissue (Surgical) Nocardia Susceptibility - Final Not Reportable 09/16/20 12:39 Leg - Tissue (Surgical) Nocardia Susceptibility - Final Not Reportable 09/16/20 12:39 Leg - Tissue (Surgical) Nocardia Susceptibility - Final Not Reportable 09/16/20 12:39 Leg - Tissue (Surgical) Nocardia Susceptibility - Final Not Reportable 09/16/20 12:39 Leg - Tissue (Surgical) Nocardia Susceptibility - Final Not Reportable 09/16/20 12:39 Leg - Tissue (Surgical) Microbiology Comment - Final Not Reportable 09/11/20 14:35 Troponin I < 0.012 Impressions: Chest CT 09/11/20 00:00 IMPRESSION: 1. Since the prior study, patchy lung infiltrates have developed as described along with right upper lobe reticulonodular opacities. Findings are likely infectious/inflammatory. 2. Chronic left urinary obstruction as described. Associated findings look similar. Abnormal soft tissue thickening in the proximal ureter with small ad jacent periureteric lymph nodes. 3. Subtotal colectomy with persistent probably progressive irregular wall thickening and probable mass in the region of the rectum. Proximal to the anastomosis and rectal pathology, bowel loops are progressively dilated compared to August exam. There is a large amount of retained stool with at least 1 abnormal thick walled loop of small bowel in the right lower quadrant now also seen. Chest X-Ray 09/11/20 14:10 IMPRESSION: NO ACUTE RADIOGRAPHIC FINDING IN THE CHEST. Abdomen/Pelvis CT 09/11/20 14:15 IMPRESSION: 1. Since the prior study, patchy lung infiltrates have developed as described along with right upper lobe reticulonodular opacities. Findings are likely infectious/inflammatory. 2. Chronic left urinary obstruction as described. Associated findings look similar. Abnormal soft tissue thickening in the proximal ureter with small adjacent periureteric lymph nodes. 3. Subtotal colectomy with persistent probably progressive irregular wall thickening and probable mass in the region of the rectum. Proximal to the anastomosis and rectal pathology, bowel loops are progressively dilated compared to August exam. There is a large amount of retained stool with at least 1 abnormal thick walled loop of small bowel in the right lower quadrant now also seen. Body Scan Nuclear Medicine 09/12/20 00:00 IMPRESSION: 1. Abnormal uptake right femur. Known fracture here. 2. Abnormal uptake right proximal humerus. Consider radiographic evaluation. 3. No other overtly worrisome areas of bone uptake. Other findings as discussed. Head MRI 09/12/20 00:00 IMPRESSION: 1. Noncontrast somewhat limited study reveals no overt suggestion of intracranial metastatic disease. See limitations discussed above. No acute findings are suggested. EVIDENCE OF ACUTE STROKE: NO. Humerus X-Ray 09/12/20 00:00 IMPRESSION: As above. Lower Extremity MRI 09/12/20 00:00 IMPRESSION: 1. Although not definite, underlying pathologic lesion in the region of femur fracture is certainly possible. No suggestion of adjacent soft tissue mass allowing for posttraumatic edema and hematoma. Bone Biopsy CT 09/14/20 00:00 IMPRESSION: CT GUIDED BIOPSY OF THE LEFT FEMUR PERFORMED WITHOUT IMMEDIATE COMPLICATION. PATHOLOGY PENDING. Guidance Needle Placement CT 09/14/20 00:00 IMPRESSION: Please see combined report for performance of procedure and radiologic supervision and interpretation. Femur X-Ray 09/16/20 00:00 IMPRESSION: IMAGE(S) OBTAINED DURING PROCEDURE. Fluoroscopy 09/16/20 00:00 IMPRESSION: IMAGE(S) OBTAINED DURING PROCEDURE. Chest/Abdomen CTA 09/17/20 00:00 IMPRESSION: 1. No PE. 2. Worsening bilateral pneumonia. Assessment and Plan - Diagnosis (1) Acute respiratory failure with hypoxemia Is this a current diagnosis for this admission?: Yes Plan: CTA positive for bilateral worsening pneumonia. COVID-19 serology negative. Patient came in with leukocytosis however no sign of infection on admission was noted started on antibiotics. Chest x-ray on admission was read as no acute findings. Day 2 IV antibiotics. Day 2 IV cefepime. Day 1 IV vancomycin. Blood culture from admission 09/12 bottles positive for staph S and Klebsiella pneumoniae. Repeat blood and sputum culture. Continue empiric IV antibiotics. Continue BiPAP. Continue DuoNeb. (2) Pathological fracture, left femur, initial encounter for fracture Is this a current diagnosis for this admission?: Yes Plan: Repeat x-ray shows shortening of left femur fracture. Status post open left femur biopsy 09/16/2020. Initial report likely osteosarcoma as per my conversation with Dr. Clement. Status post left femur biopsy 09/14/2020, unfortunately has to be repeated at some point was not enough. Pathology report no sign of malignancy. Orthopedic surgery on board, recommendations noted. Oncology consulted, recommendations noted. Continue opioid and nonopioid analgesics monitor for respiratory depression and fall. Continue DVT prophylaxis. As per previous attending's note "was asked by Dr. Clement to attempt transfer to tertiary for bone biopsy due to concern that this may be a new primary malignancy site (i.e osteosarcoma). Spoke with [facility]; only acceting ICU level care. Spoke with [facility] (orthopedic team); recommended tertiary such as [facility] or [place]. Spoke w/ [facility] hospitalist; appropriate to accept patient to service, however, no bed available and do not have a wait list. Call [facility] again, patient not on the list, they would like us to call me daily to inquire about possible late availability and patient is transferred. (3) Alcohol dependency Qualifiers: Substance use status: unspecified alcohol-induced disorder Qualified Code(s): F10.29 - Alcohol dependence with unspecified alcohol-induced disorder Is this a current diagnosis for this admission?: Yes Plan: Pain is very lethargic and somnolent. Drinks daily but states he only has 1-2 beers per day CIWA w/ prn Ativan. DT precautions. Continue daily thiamine and folic acid supplementation. (4) History of colon cancer Is this a current diagnosis for this admission?: Yes Plan: History of colorectal cancer status post colectomy and chemoradiation. As per patient only 12 inches of his colon is remaining. Prior imaging in 2019 concerning for new colorectal mass, patient denies being told about this and has not had any follow-up CT chest abdomen pelvis with contrast right upper lobe reticulonodular opacities, progressive irregular: Wall thickening and probable mass in the region of the rectum. Nuclear medicine bone scan significant for abnormal uptake right femur, abnormal uptake right proximal humerus MRI head with no contrast does not show any overt sign of metastatic disease. Oncology consulted. Discussed with Dr. Delvalle today; appreciate her expertise. (5) Hyponatremia Is this a current diagnosis for this admission?: Yes Plan: Improving. Chronic. 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 Continue D5 NS and supplemental p.o. sodium bicarb. Daily BMP. Seizure precautions. (6) Lactic acidosis Is this a current diagnosis for this admission?: Yes Plan: Resolved. Likely due to severe dehydration and nausea/vomiting Antiemetics IV fluids (7) Leukocytosis Qualifiers: Leukocytosis type: unspecified Qualified Code(s): D72.829 - Elevated white blood cell count, unspecified Is this a current diagnosis for this admission?: Yes Plan: As per #1. (8) Nausea and vomiting Qualifiers: Vomiting type: unspecified Vomiting Intractability: non-intractable Qualified Code(s): R11.2 - Nausea with vomiting, unspecified Is this a current diagnosis for this admission?: Yes Plan: Resolved. IV fluids Antiemetics (9) Tobacco abuse Is this a current diagnosis for this admission?: Yes Plan: Patient does not wish to quit Cessation encouraged. Nicotine replacement therapies provided. (10) Metabolic acidosis Is this a current diagnosis for this admission?: Yes Plan: Resolved. Normal anion gap metabolic acidosis likely starvation ketosis. Patient endorses history of EtOH abuse, anorexia, and has been n.p.o. pending leon jeromy. Continue D5 NS, supplemental sodium bicarb, encourage p.o. intake once patient biopsies taken. (11) Hyperkalemia Is this a current diagnosis for this admission?: Yes Plan: Resolved. Likely due to metabolic acidosis. No acute EKG changes. Hyperkalemia protocol. (12) Malnutrition Qualifiers: Malnutrition type: protein-calorie malnutrition Protein-calorie malnutri tion severity: moderate Qualified Code(s): E44.0 - Moderate protein-calorie malnutrition Is this a current diagnosis for this admission?: Yes Plan: BMI 18.0. Prealbumin <3. Patient appears cachectic. Endorses history of anorexia for the last 4 months. This is likely due to underlying malignancy complicated by EtOH abuse and low p.o. intake. Continue Megace, encourage p.o. intake. Registered dietitian consulted. (13) Vitamin D deficiency Is this a current diagnosis for this admission?: Yes Plan: Severe vitamin D deficiency. Likely due to low p.o. intake. Continue ergocalciferol 50,000 units q. weekly. (14) Pneumonia Is this a current diagnosis for this admission?: Yes Plan: Community-acquired pneumonia. Healthcare associated pneumonia could not be ru led out. Blood culture from admission 1/2 bottles positive for staph capitis and Klebsiella pneumonia. Plan as per #1. - Time Time Spent with patient: 25-34 minutes Anticipated Discharge Disposition: Intermediate Facility Anticipated Discharge Timeframe: within 72 hours
[2020-09-17] MEDS ORDERED: VANCOMYCIN HCL 1,500 MG in DEXTROSE 5%-WATER 250 ML IV ONE (13:00)
--- NOTE | 2020-09-17 16:43 | PDOC PROGRESS REPORT ---
Subjective Date:: 09/17/20 Subjective:: The patient is now on BiPAP. He is less communicative today. He appears slight ly more delirious. Pain is currently well controlled. Reason For Visit: PATHOLOGICAL FRACTURE,LEFT LOWER EXTREMITY, Physical Exam Vital Signs: Temp Pulse Resp BP Pulse Ox 98.0 F 93 31 H 94/64 L 100 09/17/20 15:07 09/17/20 15:15 09/17/20 15:07 09/17/20 15:15 09/17/20 15:07 Intake & Output 09/16/20 09/17/20 09/18/20 06:59 06:59 06:59 Intake Total 1000 3163 350 Output Total 300 250 100 Balance 700 2913 250 Weight 63.9 kg 68 kg 68 kg Physical Exam: Patient is currently on BiPAP. Left lower extremity -Pulses 2+ distally -Compartments soft -Sensation grossly intact to L3-4-5 S1 -Motor grossly intact to EHL TA gastroc and quad Leg shortened externally rotated 2+ pitting edema left lower extremity. Wound clean dry and intact. Results Laboratory Results: 09/17/20 04:16 09/17/20 04:16 09/17/20 09/17/20 09/17/20 04:16 04:16 04:16 WBC 19.5 H RBC 2.56 L Hgb 7.3 L Hct 22.8 L MCV 89 MCH 28.6 MCHC 32.2 RDW 24.7 H Plt Count 257 Carbonic Acid HCO3/H2CO3 Ratio ABG pH ABG pCO2 ABG pO2 ABG HCO3 ABG O2 Saturation ABG Base Excess FiO2 Sodium 132.0 L Potassium 3.7 Chloride 107 Carbon Dioxide 22 Anion Gap 3 L BUN 21 H Creatinine 0.81 Est GFR ( Amer) > 60 Glucose 105 Calcium 7.1 L Magnesium 1.7 Total Bilirubin 2.8 H AST 41 Alkaline Phosphatase 461 H Total Protein 3.7 L Albumin 1.7 L Blood Type Antibody Screen 09/17/20 09/17/20 11:05 11:10 WBC RBC Hgb Hct MCV MCH MCHC RDW Plt Count Carbonic Acid 0.79 L HCO3/H2CO3 Ratio 25:1 ABG pH 7.50 H ABG pCO2 26.3 L ABG pO2 54.2 L ABG HCO3 20.1 ABG O2 Saturation 91.5 L ABG Base Excess -2.5 FiO2 35% Sodium Potassium Chloride Carbon Dioxide Anion Gap BUN Creatinine Est GFR ( Amer) Glucose Calcium Magnesium Total Bilirubin AST Alkaline Phosphatase Total Protein Albumin Blood Type O POSITIVE Antibody Screen NEGATIVE 09/11/20 18:45 Blood Blood Culture - Final NO GROWTH IN 5 DAYS 09/11/20 16:27 Blood Blood Culture - Final NO GROWTH IN 5 DAYS 09/16/20 12:39 Leg - Tissue (Surgical) Fungal Smear - Final Not Reportable 09/16/20 12:39 Leg - Tissue (Surgical) Fungal Smear - Final Not Reportable 09/16/20 12:39 Leg - Tissue (Surgical) Fungal Smear - Final Not Reportable 09/16/20 12:39 Leg - Tissue (Surgical) Fungal Smear - Final Not Reportable 09/16/20 12:39 Leg - Tissue (Surgical) Fungal Culture - Final Not Reportable 09/16/20 12:39 Leg - Tissue (Surgical) Fungal Culture - Final Not Reportable 09/16/20 12:39 Leg - Tissue (Surgical) Fungal Culture - Final Not Reportable 09/16/20 12:39 Leg - Tissue (Surgical) Susceptibility Special Request - Final Not Reportable 09/16/20 12:39 Leg - Tissue (Surgical) Nocardia Susceptibility - Final Not Reportable 09/16/20 12:39 Leg - Tissue (Surgical) Nocardia Susceptibility - Final Not Reportable 09/16/20 12:39 Leg - Tissue (Surgical) Nocardia Susceptibility - Final Not Reportable 09/16/20 12:39 Leg - Tissue (Surgical) Nocardia Susceptibility - Final Not Reportable 09/16/20 12:39 Leg - Tissue (Surgical) Nocardia Susceptibility - Final Not Reportable 09/16/20 12:39 Leg - Tissue (Surgical) Nocardia Susceptibility - Final Not Reportable 09/16/20 12:39 Leg - Tissue (Surgical) Nocardia Susceptibility - Final Not Reportable 09/16/20 12:39 Leg - Tissue (Surgical) Microbiology Comment - Final Not Reportable 09/11/20 14:35 Troponin I < 0.012 Impressions: Chest CT 09/11/20 00:00 IMPRESSION: 1. Since the prior study, patchy lung infiltrates have developed as described along with right upper lobe reticulonodular opacities. Findings are likely infectious/inflammatory. 2. Chronic left urinary obstruction as described. Associated findings look similar. Abnormal soft tissue thickening in the proximal ureter with small adjacent periureteric lymph nodes. 3. Subtotal colectomy with persistent probably progressive irregular wall thickening and probable mass in the region of the rectum. Proximal to the anast omosis and rectal pathology, bowel loops are progressively dilated compared to August exam. There is a large amount of retained stool with at least 1 abnormal thick walled loop of small bowel in the right lower quadrant now also seen. Chest X-Ray 09/11/20 14:10 IMPRESSION: NO ACUTE RADIOGRAPHIC FINDING IN THE CHEST. Abdomen/Pelvis CT 09/11/20 14:15 IMPRESSION: 1. Since the prior study, patchy lung infiltrates have developed as described along with right upper lobe reticulonodular opacities. Findings are likely infectious/inflammatory. 2. Chronic left urinary obstruction as described. Associated findings look similar. Abnormal soft tissue thickening in the proximal ureter with small adjacent periureteric lymph nodes. 3. Subtotal colectomy with persistent probably progressive irregular wall thickening and probable mass in the region of the rectum. Proximal to the anastomosis and rectal pathology, bowel loops are progressively dilated compared to August exam. There is a large amount of retained stool with at least 1 abnormal thick walled loop of small bowel in the right lower quadrant now also seen. Body Scan Nuclear Medicine 09/12/20 00:00 IMPRESSION: 1. Abnormal uptake right femur. Known fracture here. 2. Abnormal uptake right proximal humerus. Consider radiographic evaluation. 3. No other overtly worrisome areas of bone uptake. Other findings as discussed. Head MRI 09/12/20 00:00 IMPRESSION: 1. Noncontrast somewhat limited study reveals no overt suggestion of intracranial metastatic disease. See limitations discussed above. No acute findings are suggested. EVIDENCE OF ACUTE STROKE: NO. Humerus X-Ray 09/12/20 00:00 IMPRESSION: As above. Lower Extremity MRI 09/12/20 00:00 IMPRESSION: 1. Although not definite, underlying pathologic lesion in the region of femur fracture is certainly possible. No suggestion of adjacent soft tissue mass allowing for posttraumatic edema and hematoma. Bone Biopsy CT 09/14/20 00:00 IMPRESSION: CT GUIDED BIOPSY OF THE LEFT FEMUR PERFORMED WITHOUT IMMEDIATE COMPLICATION. PATHOLOGY PENDING. Guidance Needle Placement CT 09/14/20 00:00 IMPRESSION: Please see combined report for performance of procedure and radiologic supervision and interpretation. Femur X-Ray 09/16/20 00:00 IMPRESSION: IMAGE(S) OBTAINED DURING PROCEDURE. Fluoroscopy 09/16/20 00:00 IMPRESSION: IMAGE(S) OBTAINED DURING PROCEDURE. Chest/Abdomen CTA 09/17/20 00:00 IMPRESSION: 1. No PE. 2. Worsening bilateral pneumonia. Assessment & Plan - Diagnosis (1) Pathological fracture, left femur, initial encounter for fracture Is this a current diagnosis for this admission?: Yes Plan: I had the patient scheduled for potential operative intervention today. Anesthesia has deemed the patient unstable for surgery at this time. We will tentatively place patient on the schedule for tomorrow. Patient will need to be medically optimized prior to surgery. The patient has anemia of unknown origin. My procedure yesterday was relatively limited and there was not much bleeding at the time so I do not believe that has substantially contributed to his ongoing drop in hemoglobin. Hemoccult currently pending. I have discussed the case with Dr. Ellis, pathology. After discussion yesterday there was some suspicion that this could potentially be sarcoma however today she is leaning more towards carcinoma. She is currently waiting some slides but reports that if the subsequent review is indeterminate she will need to send to [facility]. I will have a further conversation with her in regards to the timing and how long we can expect until we can stabilize the patient surgically. I would encourage the medical team to continue attempting transfer to [facility]. I will be happy to treat the patient if we are able to determine pathology is metastatic, however if this is a primary bone tumor will need to be treated at a tertiary care facility. Given her current continued lack of diagnosis it may lead to more rapid treatment and earlier patient recovery if we facilitate that transfer now. Continue current pain control measures, the patient appears to be relatively comfortable in regards to his left femur fracture in spite of his current situation. At this time he appears to be somewhat unaware of his injury. Bedrest (2) History of colon cancer Is this a current diagnosis for this admission?: Yes - Time Time Spent with patient: Less than 15 minutes
[2020-09-17] MEDS: VANCOMYCIN HCL 1,250 MG in DEXTROSE 5%-WATER 250 ML IV SCH (21:12)
[2020-09-17 22:51] LABS: HEMATOCRIT 32.7 % (37.9-51.0); MEAN CORPUSCULAR HEMOGLOBIN 28.2 pg (27.0-33.4); MEAN CORPUSCULAR HGB CONC 32.7 g/dL (32.0-36.0); MEAN CORPUSCULAR VOLUME 86 fl (80-97); PLATELET COUNT 232 10^3/uL (150-450); RED CELL DISTRIBUTION WIDTH 20.4 % (11.5-14.0); WHITE BLOOD COUNT 23.3 10^3/uL (4.0-10.5)
[2020-09-17 23:02] LABS: HEMOGLOBIN 10.7 g/dL (13.5-17.0)
--- NOTE | 2020-09-17 23:41 | EKG REPORT ---
SEVERITY:- ABNORMAL ECG - SINUS OR ECTOPIC ATRIAL RHYTHM CONSIDER DEXTROCARDIA vs RIGHT ARM LEFT ARM REVERSAL : Confirmed by: Brandon Riggs 17-Sep-2020 23:41:09
[2020-09-18] MEDS: DEXTROSE 5%-NORMAL SALINE 1,000 ML IV PRN ×2 (04:33→15:01)
[2020-09-18 05:19] LABS: HEMATOCRIT 36.8 % (37.9-51.0); HEMOGLOBIN 11.7 g/dL (13.5-17.0); MEAN CORPUSCULAR HEMOGLOBIN 28.1 pg (27.0-33.4); MEAN CORPUSCULAR HGB CONC 31.8 g/dL (32.0-36.0); MEAN CORPUSCULAR VOLUME 88 fl (80-97); PLATELET COUNT 214 10^3/uL (150-450); RED BLOOD COUNT 4.17 10^6/uL (4.35-5.55); RED CELL DISTRIBUTION WIDTH 20.6 % (11.5-14.0)
[2020-09-18 07:36] LABS: ALKALINE PHOSPHATASE 503 U/L (38-126); ANION GAP 6 (5-19); ASPARTATE AMINO TRANSFERASE 58 U/L (17-59); BILIRUBIN,DIRECT 2.4 mg/dL (0.0-0.4); BILIRUBIN,TOTAL 3.5 mg/dL (0.2-1.3); BLOOD UREA NITROGEN 21 mg/dL (7-20); CALCIUM 7.4 mg/dL (8.4-10.2); CARBON DIOXIDE 20 mmol/L (22-30); CHLORIDE 109 mmol/L (98-107); GLUCOSE 100 mg/dL (75-110); POTASSIUM 3.4 mmol/L (3.6-5.0); TOTAL PROTEIN 4.6 g/dL (6.3-8.2)
[2020-09-18] MEDS ORDERED: POTASSI CL 20 MEQ/50 ML RIDER 20 MEQ/50 ML RTUPB IV ONE (09:00)
[2020-09-18] MEDS: ENOXAPARIN SODIUM INJ 40 MG/0.4 ML DISP.SYRIN SUBCUT SCH (10:08)
[2020-09-18] MEDS: CALCIUM CARBONATE 600 MG/VITAMIN D3 400 UNIT TABLET PO SCH ×2 (10:09→17:26)
[2020-09-18] MEDS: FOLIC ACID 1 MG TABLET PO SCH (10:09)
[2020-09-18] MEDS: MULTIVITAMIN TABLET PO SCH (10:09)
[2020-09-18] MEDS: SODIUM BICARBONATE 650 MG TABLET PO SCH ×2 (10:09→21:37)
[2020-09-18] MEDS: FERROUS SULFATE 325 MG TABLET PO SCH (10:09)
[2020-09-18] MEDS: THIAMINE HCL 100 MG TABLET PO SCH (10:09)
[2020-09-18] MEDS: DOCUSATE SODIUM 100 MG CAPSULE PO SCH (10:09)
[2020-09-18] MEDS: METOPROLOL TARTRATE 25 MG TABLET PO SCH ×2 (10:09→21:37)
[2020-09-18] MEDS: NICOTINE 21 MG/24 HR PATCH.TD24 TD SCH (10:10)
[2020-09-18] MEDS: TAMSULOSIN HCL 0.4 MG CAP.SR.24H PO SCH (10:10)
[2020-09-18] MEDS: MEGESTROL ACETATE 20 MG TABLET PO SCH (10:10)
[2020-09-18] MEDS: CEFEPIME 1 GM/D5W RTU 1 GM/50 ML RTUPB IV SCH ×2 (10:21→21:37)
[2020-09-18] MEDS ORDERED: DEXTROSE 10%-WATER 1,000 ML IV PRN (10:49)
[2020-09-18] MEDS: VANCOMYCIN HCL 1,250 MG in DEXTROSE 5%-WATER 250 ML IV SCH ×2 (11:02→21:36)
[2020-09-18] MEDS: INSULIN REG, HUMAN 100 UNIT/ML 3 ML VIAL (PYX) SUBCUT SCH ×2 (12:19→18:21)
[2020-09-18 13:27] LABS: INTERNATIONAL RATION (INR) 1.57; PROTHROMBIN TIME 18.9 SEC (11.4-15.4)
[2020-09-18 13:48] LABS: HEMATOCRIT 34.1 % (37.9-51.0); HEMOGLOBIN 11.2 g/dL (13.5-17.0); MEAN CORPUSCULAR HEMOGLOBIN 28.7 pg (27.0-33.4); MEAN CORPUSCULAR HGB CONC 32.7 g/dL (32.0-36.0); MEAN CORPUSCULAR VOLUME 88 fl (80-97); PLATELET COUNT 198 10^3/uL (150-450); RED BLOOD COUNT 3.89 10^6/uL (4.35-5.55); RED CELL DISTRIBUTION WIDTH 20.9 % (11.5-14.0); WHITE BLOOD COUNT 21.9 10^3/uL (4.0-10.5)
--- NOTE | 2020-09-18 14:53 | RADIOLOGY REPORT (SQ) ---
EXAM DESCRIPTION: PICC INSERTION IMAGES COMPLETED DATE/TIME: 09/18/2020 2:39 pm REASON FOR STUDY: TPN COMPARISON: None. FLUOROSCOPY TIME: 4 portable chest images saved to PACS. TECHNIQUE: Ultrasound guided PICC placement at bedside. LIMITATIONS: None. PROCEDURE: After written consent and assessment were obtained, ultrasound evaluation of potential ac cess sites were performed. After successfully identifying a patent right basilic vein, the right arm was prepped and draped in a sterile fashion along with the ultrasound probe. The entry site was anest hetized with 1% lidocaine. A 21 gauge 7 cm needle was advanced through the skin and into the basilic vein under live ultrasound guidance. An ultrasound image was saved to PACS confirming access site. A .018 guide wire was then inserted through the needle and into the venous system. The needle was the n removed and an 11 blade scalpel was used to make a 1cm skin incision. A 5 fr peel-away sheath was advanced over the wire and into the venous system. A measurement was then made using the existing wir e. The wire was then removed and the catheter was trimmed. The PICC was advanced through the peel-aw ay sheath and into the venous system. The peel-away sheath was removed and the catheter was adhered t o the patients arm with a stat lock. The catheter was then aspirated and flushed and a sterile bandag e was placed over the access site. Portable chest image was saved to PACS confirming the catheter ti p within the superior vena cava. IMPRESSION: SUCCESSFUL PLACEMENT OF A 5 FR DUAL LUMEN 42 CM PICC IN THE RIGHT BASILIC VEIN. COMMENT: Patient medication list reviewed: Yes- Quality ID# [id number]:Eligible professional attests to doc umenting in the medical record they obtained, updated, or reviewed the patient's current medications. . Quality ID 145: Final reports for procedures using fluoroscopy that document radiation exposure moi sarah, or exposure time and number of fluorographic images (if radiation exposure indices are not avail able) Quality ID #[id number]: The patient was prepped and draped using maximum sterile barrier technique including cap, mask, sterile gown, sterile gloves, a large sterile sheet, hand hygiene, and 2% Chlorhexidine fo r cutaneous antisepsis. When ultrasound is used, sterile ultrasound techniques are followed requiring sterile gel and sterile probes. TECHNICAL DOCUMENTATION: JOB ID: [id number] 2010 [employer]- All Rights Reserved rev-01/26 Reading location - IP/workstation name: [email or web address]
--- NOTE | 2020-09-18 16:03 | Progress Note ---
Provider Note Provider Note: Repeat bone biopsy confirms adenocarcinoma. Most likely from colon, as he was treated for this years ago. Once his fracture has been stabilized, I am happy to speak with patient and family about systemic therapy.
--- NOTE | 2020-09-18 16:13 | PDOC PROGRESS REPORT ---
Subjective Date:: 09/18/20 Subjective:: As per admitting physician's note RAYMON RODARTE is a 64 year old male with past medical history significant for colorectal cancer status post hemicolectomy/radiation/chemotherapy approximately 16 years prior to admission, ongoing tobacco abuse, alcohol dependency who was admitted 09/11/2019 with a left, nontraumatic, midshaft femur fracture concerning for pathologic fxy. 09/14/2020. No acute events overnight. Patient complaining of left lower extremity pain and not able to sleep due to being anxious and being in pain, otherwise denies any fever, chills, nausea, vomiting. Patient is a status post left femur biopsy. 09/15/2020. No acute events overnight. This morning patient is noted to be very lethargic but easily arousable and answering questions appropriately and falls back to sleep, still complaining of left lower extremity pain, denies any auditory or visual hallucinations, denies any fever, chills, nausea, vomiting. Reports history of anorexia for the last 4 months. Patient was scheduled to have his biopsy repeated as biopsy done yesterday was not adequate, unfortunately had to be delayed as patient had electrolyte derangement. 09/16/2020. Seems patient has had worsening of his left femur fracture overnight, this morning he was noted to have shortening of his left proximal lower extremity and developed posterior inversion of the proximal left lower extremity, repeat x-ray shows shortening of fracture, no new fracture. Patient has been bedbound and has not had any falls overnight. Patient complaining of generalized weakness, left lower extremity pain, and feeling anxious, stating that he just wants to go home, he seems to be in moderate distress, however is alert and oriented, answering questions appropriately. Fever, chest pain, nausea, vomiting. P.o. tolerant and having bowel movements. 09/17/2020. Over night patient was noted to become hypoxic and hypotensive, patient is becoming more somnolent to obtunded, a CTA chest this morning was negative for any PE however shows worsening bilateral pneumonia, ABG shows worsening hypoxemia, patient is status post open left femur biopsy and of my prior conversation with Dr. Clement it is likely that it could be osteosarcoma, [facility] was called on the status of transfer however there is stating that he is not on the list and we have to call every day to find out if he will be accepted to be transferred at some point there. 09/18/2020. No acute events overnight. Patient is still remains somnolent and lethargic however more responsive than yesterday, still dependent on BiPAP, setting leukocytosis, repeat cultures remain negative. Pathology report is back as adenocarcinoma, pending surgical intervention by orthopedic surgery. Reason For Visit: PATHOLOGICAL FRACTURE,LEFT LOWER EXTREMITY, Physical Exam Vital Signs: Temp Pulse Resp BP Pulse Ox 97.5 F 95 40 H 98/64 L 98 09/18/20 13:11 09/18/20 14:00 09/18/20 13:11 09/18/20 13:11 09/18/20 13:11 Intake & Output 09/17/20 09/18/20 09/19/20 06:59 06:59 06:59 Intake Total 3163 1950 1350 Output Total 250 425 50 Balance 2913 1525 1300 Weight 68 kg 71.2 kg 71.2 kg General appearance: PRESENT: mild distress, other - Somnolent and lethargic Head exam: PRESENT: atraumatic, normocephalic Respiratory exam: PRESENT: clear to auscultation pedro, tachypnea, other - On BiPAP. ABSENT: rales, rhonchi, wheezes Cardiovascular exam: PRESENT: RRR. ABSENT: diastolic murmur, rubs, systolic murmur Extremities exam: PRESENT: full ROM, other - Left lower extremity swelling, internal rotated, left femur deformity. ABSENT: calf tenderness, clubbing, pedal edema Neurological exam: PRESENT: altered - Easily arousable Results Laboratory Results: 09/18/20 13:00 09/18/20 06:43 09/17/20 09/17/20 09/17/20 11:05 20:15 22:39 WBC 23.3 H RBC 3.80 L Hgb 10.7 L D Hct 32.7 L MCV 86 MCH 28.2 MCHC 32.7 RDW 20.4 H Plt Count 232 Sodium Potassium Chloride Carbon Dioxide Anion Gap BUN Creatinine Est GFR ( Amer) Est GFR (Non-Af Amer) Glucose Calcium Magnesium Total Bilirubin AST Alkaline Phosphatase Total Protein Albumin Triglycerides Stool Occult Blood POSITIVE Blood Type O POSITIVE Antibody Screen NEGATIVE 09/18/20 09/18/20 09/18/20 04:13 04:13 06:43 WBC 20.0 H RBC 4.17 L Hgb 11.7 L Hct 36.8 L MCV 88 MCH 28.1 MCHC 31.8 L RDW 20.6 H Plt Count 214 Sodium Cancelled 135.3 L Potassium Cancelled 3.4 L Chloride Cancelled 109 H Carbon Dioxide Cancelled 20 L Anion Gap Cancelled 6 BUN Cancelled 21 H Creatinine Cancelled 0.66 Est GFR ( Amer) Cancelled > 60 Est GFR (Non-Af Amer) Cancelled Glucose Cancelled 100 Calcium Cancelled 7.4 L Magnesium Cancelled 1.9 Total Bilirubin Cancelled 3.5 H AST Cancelled 58 Alkaline Phosphatase Cancelled 503 H Total Protein Cancelled 4.6 L Albumin Cancelled 2.0 L Triglycerides Stool Occult Blood Blood Type Antibody Screen 09/18/20 09/18/20 13:00 13:00 WBC 21.9 H RBC 3.89 L Hgb 11.2 L Hct 34.1 L MCV 88 MCH 28.7 MCHC 32.7 RDW 20.9 H Plt Count 198 Sodium Potassium Chloride Carbon Dioxide Anion Gap BUN Creatinine Est GFR ( Amer) Est GFR (Non-Af Amer) Glucose Calcium Magnesium 1.9 Total Bilirubin AST Alkaline Phosphatase Total Protein Albumin Triglycerides 143 Stool Occult Blood Blood Type Antibody Screen 09/16/20 12:39 Leg - Tissue (Surgical) AFB Smear Concentration - Final 09/16/20 12:39 Leg - Tissue (Surgical) Acid Fast Bacilli Smear - Final 09/13/20 06:07 Blood Blood Culture - Final NO GROWTH IN 5 DAYS 09/13/20 04:40 Blood Blood Culture - Final NO GROWTH IN 5 DAYS 09/11/20 14:35 Troponin I < 0.012 Impressions: Chest CT 09/11/20 00:00 IMPRESSION: 1. Since the prior study, patchy lung infiltrates have developed as described along with right upper lobe reticulonodular opacities. Findings are likely infectious/inflammatory. 2. Chronic left urinary obstruction as described. Associated findings look similar. Abnormal soft tissue thickening in the proximal ureter with small bre cent periureteric lymph nodes. 3. Subtotal colectomy with persistent probably progressive irregular wall thickening and probable mass in the region of the rectum. Proximal to the anastomosis and rectal pathology, bowel loops are progressively dilated compared to Murali exam. There is a large amount of retained stool with at least 1 abnormal thick walled loop of small bowel in the right lower quadrant now also seen. Chest X-Ray 09/11/20 14:10 IMPRESSION: NO ACUTE RADIOGRAPHIC FINDING IN THE CHEST. Abdomen/Pelvis CT 09/11/20 14:15 IMPRESSION: 1. Since the prior study, patchy lung infiltrates have developed as described along with right upper lobe reticulonodular opacities. Findings are likely infectious/inflammatory. 2. Chronic left urinary obstruction as described. Associated findings look similar. Abnormal soft tissue thickening in the proximal ureter with small adjacent periureteric lymph nodes. 3. Subtotal colectomy with persistent probably progressive irregular wall thickening and probable mass in the region of the rectum. Proximal to the anastomosis and rectal pathology, bowel loops are progressively dilated compared to August exam. There is a large amount of retained stool with at least 1 abnormal thick walled loop of small bowel in the right lower quadrant now also seen. Body Scan Nuclear Medicine 09/12/20 00:00 IMPRESSION: 1. Abnormal uptake right femur. Known fracture here. 2. Abnormal uptake right proximal humerus. Consider radiographic evaluation. 3. No other overtly worrisome areas of bone uptake. Other findings as discussed. Head MRI 09/12/20 00:00 IMPRESSION: 1. Noncontrast somewhat limited study reveals no overt suggestion of intracranial metastatic disease. See limitations discussed above. No acute findings are suggested. EVIDENCE OF ACUTE STROKE: NO. Humerus X-Ray 09/12/20 00:00 IMPRESSION: As above. Lower Extremity MRI 09/12/20 00:00 IMPRESSION: 1. Although not definite, underlying pathologic lesion in the region of femur fracture is certainly possible. No suggestion of adjacent soft tissue mass allowing for posttraumatic edema and hematoma. Bone Biopsy CT 09/14/20 00:00 IMPRESSION: CT GUIDED BIOPSY OF THE LEFT FEMUR PERFORMED WITHOUT IMMEDIATE COMPLICATION. PATHOLOGY PENDING. Guidance Needle Placement CT 09/14/20 00:00 IMPRESSION: Please see combined report for performance of procedure and radiologic supervision and interpretation. Femur X-Ray 09/16/20 00:00 IMPRESSION: IMAGE(S) OBTAINED DURING PROCEDURE. Fluoroscopy 09/16/20 00:00 IMPRESSION: IMAGE(S) OBTAINED DURING PROCEDURE. Chest/Abdomen CTA 09/17/20 00:00 IMPRESSION: 1. No PE. 2. Worsening bilateral pneumonia. PICC Line Insertion 09/18/20 00:00 IMPRESSION: SUCCESSFUL PLACEMENT OF A 5 FR DUAL LUMEN 42 CM PICC IN THE RIGHT BASILIC VEIN. Assessment and Plan - Diagnosis (1) Acute respiratory failure with hypoxemia Is this a current diagnosis for this admission?: Yes Plan: BiPAP dependent. SPO2 WNL on FiO2 of 65%. CTA positive for bilateral worsening pneumonia. COVID-19 serology negative. Patient came in with leukocytosis however no sign of infection on admission was noted started on antibiotics. Chest x-ray on admission was read as no acute findings. Day 3 IV antibiotics. Day 3 IV cefepime. Day 2 IV vancomycin. Blood culture from admission 09/12 bottles positive for staph S and Klebsiella pneumoniae. Repeat blood and sputum culture. Continue empiric IV antibiotics. Continue BiPAP. Continue DuoNeb. 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 Repeat x-ray shows shortening of left femur fracture. Status post open left femur biopsy 09/16/2020. Initial report likely osteosarcoma as per my conversation with Dr. Clement. Status post left femur biopsy 09/14/2020, unfortunately had to be repeated at some point was not enough. Pathology report no sign of malignancy. Orthopedic surgery on board, recommendations noted. Oncology consulted, recommendations noted. Continue opioid and nonopioid analgesics monitor for respiratory depression and fall. Continue DVT prophylaxis. As per previous attending's note "was asked by Dr. Clement to attempt transfer to tertiary for bone biopsy due to concern that this may be a new primary malignancy site (i.e osteosarcoma). Spoke with [facility]; only acceting ICU level care. [facility] ([facility]); recommended tertiary such as [facility] or [place]. Spoke / [facility] hospitalist; appropriate to accept patient to service, however, no bed available and do not have a wait list. Call [facility] again, patient not on the list, they would like us to call me daily to inquire about possible late availability and patient is transferred. (3) Malnutrition Qualifiers: Malnutrition type: protein-calorie malnutrition Protein-calorie malnutrition severity: moderate Qualified Code(s): E44.0 - Moderate protein- calorie malnutrition Is this a current diagnosis for this admission?: Yes Plan: Presented with severe malnutrition BMI 18.0. Prealbumin <3. Endorses history of anorexia for the last 4 months and drinking daily. This is likely due to underlying malignancy complicated by EtOH abuse and low p.o. intake. Unfortunately patient has been n.p.o. for the most of his hospitalization dissipation of surgery and has not been able to have much p.o. intake. In order to avoid further deterioration we will place a PICC line and start patient on TPN until he is able to have p.o. intake. (4) Alcohol dependency Qualifiers: Substance use status: unspecified alcohol-induced disorder Qualified Code(s): F10.29 - Alcohol dependence with unspecified alcohol-induced disorder Is this a current diagnosis for this admission?: Yes Plan: Pain is very lethargic and somnolent. Drinks daily but states he only has 1-2 beers per day CIWA w/ prn Ativan. DT precautions. Continue daily thiamine and folic acid supplementation. (5) History of colon cancer Is this a current diagnosis for this admission?: Yes Plan: History of colorectal cancer status post colectomy and chemoradiation. As per patient only 12 inches of his colon is remaining. Prior imaging in 2020 concerning for new colorectal mass, patient denies being told about this and has not had any follow-up CT chest abdomen pelvis with contrast right upper lobe reticulonodular opacities, progressive irregular: Wall thickening and probable mass in the region of the rectum. Nuclear medicine bone scan significant for abnormal uptake right femur, abnormal uptake right proximal humerus MRI head with no contrast does not show any overt sign of metastatic disease. Oncology consulted. Discussed with Dr. Delvalle today; appreciate her expertise. (6) Hyponatremia Is this a current diagnosis for this admission?: Yes Plan: Improving. Chronic. 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 Continue D5 NS and supplemental p.o. sodium bicarb. Daily BMP. Seizure precautions. (7) Lactic acidosis Is this a current diagnosis for this admission?: Yes Plan: Resolved. Likely due to severe dehydration and nausea/vomiting Antiemetics IV fluids (8) Leukocytosis Qualifiers: Leukocytosis type: unspecified Qualified Code(s): D72.829 - Elevated white blood cell count, unspecified Is this a current diagnosis for this admission?: Yes Plan: As per #1. (9) Nausea and vomiting Qualifiers: Vomiting type: unspecified Vomiting Intractability: non-intractable Qualified Code(s): R11.2 - Nausea with vomiting, unspecified Is this a current diagnosis for this admission?: Yes Plan: Resolved. IV fluids Antiemetics (10) Tobacco abuse Is this a current diagnosis for this admission?: Yes Plan: Patient does not wish to quit Cessation encouraged. Nicotine replacement therapies provided. (11) Metabolic acidosis Is this a current diagnosis for this admission?: Yes Plan: Resolved. Normal anion gap metabolic acidosis likely starvation ketosis. Patient endorses history of EtOH abuse, anorexia, and has been n.p.o. pending surgery. Continue D5 NS, supplemental sodium bicarb, encourage p.o. intake once patient biopsies taken. (12) Hyperkalemia Is this a current diagnosis for this admission?: Yes Plan: Resolved. Likely due to metabolic acidosis. No acute EKG changes. Hyperkalemia protocol. (13) Vitamin D deficiency Is this a current diagnosis for this admission?: Yes Plan: Severe vitamin D deficiency. Likely due to low p.o. intake. Continue ergocalciferol 50,000 units q. weekly. (14) Pneumonia Is this a current diagnosis for this admission?: Yes Plan: Community-acquired pneumonia. Healthcare associated pneumonia could not be ruled out. Blood culture from admission 1/2 bottles positive for staph capitis and Klebsiella pneumonia. Plan as per #1. - Time Time Spent with patient: 35 or more minutes Anticipated Discharge Disposition: Group Home Facility Anticipated Discharge Timeframe: within 72 hours
--- NOTE | 2020-09-18 16:37 | PDOC PROGRESS REPORT ---
Subjective Date:: 09/18/20 Subjective:: Patient is still on BiPAP today. Hospitalist reports he is somewhat improved bu t still quite sick. Pain currently controlled. Reason For Visit: PATHOLOGICAL FRACTURE,LEFT LOWER EXTREMITY, Physical Exam Vital Signs: Temp Pulse Resp BP Pulse Ox 97.5 F 95 40 H 98/64 L 98 09/18/20 13:11 09/18/20 14:00 09/18/20 13:11 09/18/20 13:11 09/18/20 13:11 Intake & Output 09/17/20 09/18/20 09/19/20 06:59 06:59 06:59 Intake Total 3163 1950 1350 Output Total 250 425 50 Balance 2913 1525 1300 Weight 68 kg 71.2 kg 71.2 kg Physical Exam: Currently on BiPAP. Alert and orient x3 Left lower extremity -Pulses 2+ distally -Compartments soft -Sensation grossly intact to L3-4-5 S1 -Motor grossly intact to EHL TA gastroc and quad Leg shortened externally rotated 2+ pitting edema left lower extremity. Wound clean dry and intact. Results Laboratory Results: 09/18/20 13:00 09/18/20 06:43 09/17/20 09/17/20 09/17/20 11:05 20:15 22:39 WBC 23.3 H RBC 3.80 L Hgb 10.7 L D Hct 32.7 L MCV 86 MCH 28.2 MCHC 32.7 RDW 20.4 H Plt Count 232 Sodium Potassium Chloride Carbon Dioxide Anion Gap BUN Creatinine Est GFR ( Amer) Est GFR (Non-Af Amer) Glucose Calcium Magnesium Total Bilirubin AST Alkaline Phosphatase Total Protein Albumin Triglycerides Stool Occult Blood POSITIVE Blood Type O POSITIVE Antibody Screen NEGATIVE 09/18/20 09/18/20 09/18/20 04:13 04:13 06:43 WBC 20.0 H RBC 4.17 L Hgb 11.7 L Hct 36.8 L MCV 88 MCH 28.1 MCHC 31.8 L RDW 20.6 H Plt Count 214 Sodium Cancelled 135.3 L Potassium Cancelled 3.4 L Chloride Cancelled 109 H Carbon Dioxide Cancelled 20 L Anion Gap Cancelled 6 BUN Cancelled 21 H Creatinine Cancelled 0.66 Est GFR ( Amer) Cancelled > 60 Est GFR (Non-Af Amer) Cancelled Glucose Cancelled 100 Calcium Cancelled 7.4 L Magnesium Cancelled 1.9 Total Bilirubin Cancelled 3.5 H AST Cancelled 58 Alkaline Phosphatase Cancelled 503 H Total Protein Cancelled 4.6 L Albumin Cancelled 2.0 L Triglycerides Stool Occult Blood Blood Type Antibody Screen 09/18/20 09/18/20 13:00 13:00 WBC 21.9 H RBC 3.89 L Hgb 11.2 L Hct 34.1 L MCV 88 MCH 28.7 MCHC 32.7 RDW 20.9 H Plt Count 198 Sodium Potassium Chloride Carbon Dioxide Anion Gap BUN Creatinine Est GFR ( Amer) Est GFR (Non-Af Amer) Glucose Calcium Magnesium 1.9 Total Bilirubin AST Alkaline Phosphatase Total Protein Albumin Triglycerides 143 Stool Occult Blood Blood Type Antibody Screen 09/16/20 12:39 Leg - Tissue (Surgical) AFB Smear Concentration - Final 09/16/20 12:39 Leg - Tissue (Surgical) Acid Fast Bacilli Smear - Final 09/13/20 06:07 Blood Blood Culture - Final NO GROWTH IN 5 DAYS 09/13/20 04:40 Blood Blood Culture - Final NO GROWTH IN 5 DAYS 09/11/20 14:35 Troponin I < 0.012 Impressions: Chest CT 09/11/20 00:00 IMPRESSION: 1. Since the prior study, patchy lung infiltrates have developed as described along with right upper lobe reticulonodular opacities. Findings are likely infectious/inflammatory. 2. Chronic left urinary obstruction as described. Associated findings look similar. Abnormal soft tissue thickening in the proximal ureter with small adjacent periureteric lymph nodes. 3. Subtotal colectomy with persistent probably progressive irregular wall thickening and probable mass in the region of the rectum. Proximal to the anastomosis and rectal pathology, bowel loops are progressively dilated compared to August exam. There is a large amount of retained stool with at least 1 abnormal thick walled loop of small bowel in the right lower quadrant now also seen. Chest X-Ray 09/11/20 14:10 IMPRESSION: NO ACUTE RADIOGRAPHIC FINDING IN THE CHEST. Abdomen/Pelvis CT 09/11/20 14:15 IMPRESSION: 1. Since the prior study, patchy lung infiltrates have developed as described along with right upper lobe reticulonodular opacities. Findings are likely infectious/inflammatory. 2. Chronic left urinary obstruction as described. Associated findings look similar. Abnormal soft tissue thickening in the proximal ureter with small adjacent periureteric lymph nodes. 3. Subtotal colectomy with persistent probably progressive irregular wall thickening and probable mass in the region of the rectum. Proximal to the anastomosis and rectal pathology, bowel loops are progressively dilated compared to August exam. There is a large amount of retained stool with at least 1 abnormal thick walled loop of small bowel in the right lower quadrant now also seen. Body Scan Nuclear Medicine 09/12/20 00:00 IMPRESSION: 1. Abnormal uptake right femur. Known fracture here. 2. Abnormal uptake right proximal humerus. Consider radiographic evaluation. 3. No other overtly worrisome areas of bone uptake. Other findings as discussed. Head MRI 09/12/20 00:00 IMPRESSION: 1. Noncontrast somewhat limited study reveals no overt suggestion of intracranial metastatic disease. See limitations discussed above. No acute findings are suggested. EVIDENCE OF ACUTE STROKE: NO. Humerus X-Ray 09/12/20 00:00 IMPRESSION: As above. Lower Extremity MRI 09/12/20 00:00 IMPRESSION: 1. Although not definite, underlying pathologic lesion in the region of femur fracture is certainly possible. No suggestion of adjacent soft tissue mass al lowing for posttraumatic edema and hematoma. Bone Biopsy CT 09/14/20 00:00 IMPRESSION: CT GUIDED BIOPSY OF THE LEFT FEMUR PERFORMED WITHOUT IMMEDIATE COMPLICATION. PATHOLOGY PENDING. Guidance Needle Placement CT 09/14/20 00 IMPRESSION: Please see combined report for performance of procedure and radiologic supervision and interpretation. Femur X-Ray 09/16/20 00:00 IMPRESSION: IMAGE(S) OBTAINED DURING PROCEDURE. Fluoroscopy 09/16/20 00:00 IMPRESSION: IMAGE(S) OBTAINED DURING PROCEDURE. Chest/Abdomen CTA 09/17/20 00:00 IMPRESSION: 1. No PE. 2. Worsening bilateral pneumonia. PICC Line Insertion 09/18/20 00:00 IMPRESSION: SUCCESSFUL PLACEMENT OF A 5 FR DUAL LUMEN 42 CM PICC IN THE RIGHT BASILIC VEIN. Assessment & Plan - Diagnosis (1) Pathological fracture, left femur, initial encounter for fracture Is this a current diagnosis for this admission?: Yes Plan: I had the patient scheduled for potential operative intervention today. Anesthesia has deemed the patient unstable for surgery at this time. I had a long discussion with anesthesia today in regards to treatment options for stabilizing his femur. At this point I am concerned that the patient is gone for this period of time without stabilization and I have offered the opportunity for either definitive fixation or external fixation. Anesthesia has reviewed the patient's current condition and feels that his current PO2 is not adequate for even doses of Dilaudid and local anesthesia for external fixation. Unfortunately our hospital system does not have a traction system here at this time. We will continue to check daily for potential improvement in patient condition and optimization for surgery. The patient has anemia. Hemoccult positive. General surgery on board. I have discussed the case with Dr. Ellis, pathology. 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 Given this finding I am comfortable with proceeding with definitive fixation. However, I am following general surgery's further work-up for the potential source. I would be interested in having slides sent to [facility] for a second opinion as well. - I would encourage the medical team to continue attempting transfer to [facility]. I will be happy to treat the patient if we are able to determine pathology is metastatic, however if this is a primary bone tumor will need to be treated at a tertiary care facility. Given her current continued lack of diagnosis it may lead to more rapid treatment and earlier patient recovery if we facilitate that transfer now. Continue current pain control measures, the patient appears to be relatively comfortable in regards to his left femur fracture in spite of his current situation. At this time he appears to be somewhat unaware of his injury. Bedrest (2) History of colon cancer Is this a current diagnosis for this admission?: Yes - Time Time Spent with patient: Less than 15 minutes
[2020-09-18] MEDS: MORPHINE SULFATE 10 MG/ML INJ IV PRN (20:52)
[2020-09-18 21:41] LABS: C DIFFICILE GDH NEGATIVE (NEGATIVE)
[2020-09-19] MEDS: LORAZEPAM INJ 2 MG/1 ML VIAL IV PRN (00:21)
[2020-09-19] MEDS: INSULIN REG, HUMAN 100 UNIT/ML 3 ML VIAL (PYX) SUBCUT SCH ×5 (00:34→18:51)
[2020-09-19 05:51] LABS: ARTERIAL BLOOD BASE EXCESS -3.3 mmol/L; ARTERIAL BLOOD HCO3 18.4 mmol/L (20-24); ARTERIAL BLOOD PCO2 23.1 mmHg (35-45); ARTERIAL BLOOD PH 7.52 (7.35-7.45); ARTERIAL BLOOD PO2 70.8 mmHg (80-100); ARTERIAL BLOOD TOTAL CO2 19.1 mmol/L (23-27)
[2020-09-19 05:55] LABS: ARTERIAL BLOOD FIO2 65%
[2020-09-19] MEDS: DEXTROSE 5%-NORMAL SALINE 1,000 ML IV PRN ×2 (06:07→22:46)
[2020-09-19 07:08] LABS: ALBUMIN 1.5 g/dL (3.5-5.0); ALKALINE PHOSPHATASE 372 U/L (38-126); ANION GAP 5 (5-19); ASPARTATE AMINO TRANSFERASE 42 U/L (17-59); BILIRUBIN,DIRECT 2.1 mg/dL (0.0-0.4); BLOOD UREA NITROGEN 18 mg/dL (7-20); CALCIUM 7.2 mg/dL (8.4-10.2); CARBON DIOXIDE 20 mmol/L (22-30); CHLORIDE 113 mmol/L (98-107); GLUCOSE 93 mg/dL (75-110); PHOSPHORUS 2.4 mg/dL (2.5-4.5); TOTAL PROTEIN 3.5 g/dL (6.3-8.2)
[2020-09-19 07:21] LABS: POTASSIUM 2.9 mmol/L (3.6-5.0)
[2020-09-19 07:34] LABS: PREALBUMIN < 3.0 mg/dL (17.6-36.0)
[2020-09-19] MEDS: POTASSI CL 20 MEQ/50 ML RIDER 20 MEQ/50 ML RTUPB IV SCH ×5 (09:00→21:57)
[2020-09-19] MEDS: THIAMINE HCL 100 MG TABLET PO SCH (10:29)
[2020-09-19] MEDS: MEGESTROL ACETATE 20 MG TABLET PO SCH (10:29)
[2020-09-19] MEDS: CEFEPIME 1 GM/D5W RTU 1 GM/50 ML RTUPB IV SCH ×2 (10:29→21:56)
[2020-09-19] MEDS: METOPROLOL TARTRATE 25 MG TABLET PO SCH ×2 (10:29→21:11)
[2020-09-19] MEDS: FOLIC ACID 1 MG TABLET PO SCH (10:30)
[2020-09-19] MEDS: TAMSULOSIN HCL 0.4 MG CAP.SR.24H PO SCH (10:30)
[2020-09-19] MEDS: MULTIVITAMIN TABLET PO SCH (10:30)
[2020-09-19] MEDS: HYDROMORPHONE HCL INJ/PF 2 MG/ML AMPULE IV PRN ×5 (10:30→23:10)
[2020-09-19] MEDS: FERROUS SULFATE 325 MG TABLET PO SCH (10:30)
--- NOTE | 2020-09-19 10:43 | PDOC PROGRESS REPORT ---
Subjective Date:: 09/19/20 Subjective:: Patient still very sick, BiPAP dependent, confused at times. Reason For Visit: PATHOLOGICAL FRACTURE,LEFT LOWER EXTREMITY, Physical Exam Vital Signs: Temp Pulse Resp BP Pulse Ox 98.2 F 105 H 20 93/65 L 98 09/19/20 07:54 09/19/20 07:54 09/19/20 07:54 09/19/20 07:54 09/19/20 07:54 Intake & Output 09/18/20 09/19/20 09/20/20 06:59 06:59 06:59 Intake Total 1950 2350 300 Output Total 425 475 Balance 1525 1875 300 Weight 71.2 kg 72.1 kg General appearance: PRESENT: no acute distress, well-developed, well-nourished Head exam: PRESENT: atraumatic, normocephalic Eye exam: PRESENT: conjunctiva pink, EOMI, PERRLA. ABSENT: scleral icterus Ear exam: PRESENT: normal external ear exam Mouth exam: PRESENT: moist, tongue midline Neck exam: ABSENT: carotid bruit, JVD, lymphadenopathy, thyromegaly Respiratory exam: PRESENT: clear to auscultation pedro. ABSENT: rales, rhonchi, wheezes Cardiovascular exam: PRESENT: RRR. ABSENT: diastolic murmur, rubs, systolic murmur Pulses: PRESENT: normal dorsalis pedis pul Vascular exam: PRESENT: normal capillary refill GI/Abdominal exam: PRESENT: normal bowel sounds, soft. ABSENT: distended, guarding, mass, organolmegaly, rebound, tenderness Rectal exam: PRESENT: deferred Extremities exam: PRESENT: full ROM. ABSENT: calf tenderness, clubbing, pedal edema Neurological exam: PRESENT: alert, awake, oriented to person, oriented to place, oriented to time, oriented to situation, CN II-XII grossly intact. ABSENT: motor sensory deficit Psychiatric exam: PRESENT: appropriate affect, normal mood. ABSENT: homicidal ideation, suicidal ideation Skin exam: PRESENT: dry, intact, warm. ABSENT: cyanosis, rash Results Laboratory Results: 09/18/20 13:00 09/19/20 06:00 09/18/20 09/18/20 09/18/20 13:00 13:00 20:15 WBC 21.9 H RBC 3.89 L Hgb 11.2 L Hct 34.1 L MCV 88 MCH 28.7 MCHC 32.7 RDW 20.9 H Plt Count 198 Carbonic Acid HCO3/H2CO3 Ratio ABG pH ABG pCO2 ABG pO2 ABG HCO3 ABG O2 Saturation ABG Base Excess FiO2 Sodium Potassium Chloride Carbon Dioxide Anion Gap BUN Creatinine Est GFR ( Amer) Glucose Calcium Phosphorus Magnesium 1.9 Total Bilirubin AST Alkaline Phosphatase Total Protein Albumin Prealbumin Triglycerides 143 Stool Occult Blood POSITIVE 09/19/20 09/19/20 05:07 06:00 WBC RBC Hgb Hct MCV MCH MCHC RDW Plt Count Carbonic Acid 0.70 L HCO3/H2CO3 Ratio 26:1 ABG pH 7.52 H ABG pCO2 23.1 L ABG pO2 70.8 L ABG HCO3 18.4 L ABG O2 Saturation 96.0 ABG Base Excess -3.3 FiO2 65% Sodium 137.7 Potassium 2.9 L* Chloride 113 H Carbon Dioxide 20 L Anion Gap 5 BUN 18 Creatinine 0.55 Est GFR ( Amer) > 60 Glucose 93 Calcium 7.2 L Phosphorus 2.4 L Magnesium Total Bilirubin 3.0 H AST 42 Alkaline Phosphatase 372 H Total Protein 3.5 L Albumin 1.5 L Prealbumin < 3.0 L Triglycerides Stool Occult Blood 09/16/20 12:39 Leg - Tissue (Surgical) AFB Smear Concentration - Final 09/16/20 12:39 Leg - Tissue (Surgical) Acid Fast Bacilli Smear - Final 09/13/20 06:07 Blood Blood Culture - Final NO GROWTH IN 5 DAYS 09/11/20 14:35 Troponin I < 0.012 Impressions: Chest CT 09/11/20 00:00 IMPRESSION: 1. Since the prior study, patchy lung infiltrates have developed as described along with right upper lobe reticulonodular opacities. Findings are likely infectious/inflammatory. 2. Chronic left urinary obstruction as described. Associated findings look similar. Abnormal soft tissue thickening in the proximal ureter with small adjacent periureteric lymph nodes. 3. Subtotal colectomy with persistent probably progressive irregular wall thickening and probable mass in the region of the rectum. Proximal to the anastomosis and rectal pathology, bowel loops are progressively dilated compared to August exam. There is a large amount of retained stool with at least 1 abnormal thick walled loop of small bowel in the right lower quadrant now also seen. Chest X-Ray 09/11/20 14:10 IMPRESSION: NO ACUTE RADIOGRAPHIC FINDING IN THE CHEST. Abdomen/Pelvis CT 09/11/20 14:15 IMPRESSION: 1. Since the prior study, patchy lung infiltrates have developed as described along with right upper lobe reticulonodular opacities. Findings are likely infectious/inflammatory. 2. Chronic left urinary obstruction as described. Associated findings look similar. Abnormal soft tissue thickening in the proximal ureter with small adjacent periureteric lymph nodes. 3. Subtotal colectomy with persistent probably progressive irregular wall thickening and probable mass in the region of the rectum. Proximal to the anastomosis and rectal pathology, bowel loops are progressively dilated compared to August exam. There is a large amount of retained stool with at least 1 abnormal thick walled loop of small bowel in the right lower quadrant now also s een. Body Scan Nuclear Medicine 09/12/20 00:00 IMPRESSION: 1. Abnormal uptake right femur. Known fracture here. 2. Abnormal uptake right proximal humerus. Consider radiographic evaluation. 3. No other overtly worrisome areas of bone uptake. Other findings as discusse d. Head MRI 09/12/20 00:00 IMPRESSION: 1. Noncontrast somewhat limited study reveals no overt suggestion of intracranial metastatic disease. See limitations discussed above. No acute findings are suggested. EVIDENCE OF ACUTE STROKE: NO. Humerus X-Ray 09/12/20 00:00 IMPRESSION: As above. Lower Extremity MRI 09/12/20 00:00 IMPRESSION: 1. Although not definite, underlying pathologic lesion in the region of femur fracture is certainly possible. No suggestion of adjacent soft tissue mass allowing for posttraumatic edema and hematoma. Bone Biopsy CT 09/14/20 00:00 IMPRESSION: CT GUIDED BIOPSY OF THE LEFT FEMUR PERFORMED WITHOUT IMMEDIATE COMPLICATION. PATHOLOGY PENDING. Guidance Needle Placement CT 09/14/20 00:00 IMPRESSION: Please see combined report for performance of procedure and radiologic supervision and interpretation. Femur X-Ray 09/16/20 00:00 IMPRESSION: IMAGE(S) OBTAINED DURING PROCEDURE. Fluoroscopy 09/16/20 00:00 IMPRESSION: IMAGE(S) OBTAINED DURING PROCEDURE. Chest/Abdomen CTA 09/17/20 00:00 IMPRESSION: 1. No PE. 2. Worsening bilateral pneumonia. PICC Line Insertion 09/18/20 00:00 IMPRESSION: SUCCESSFUL PLACEMENT OF A 5 FR DUAL LUMEN 42 CM PICC IN THE RIGHT BASILIC VEIN. Assessment & Plan - Diagnosis (1) Metastatic disease Qualifiers: Area of secondary neoplastic involvement: bone Qualified Code(s): C79.51 - Secondary malignant neoplasm of bone Is this a current diagnosis for this admission?: Yes Plan: Bone metastatic disease, adenocarcinoma, most likely would be colon cancer as patient has history of that. Unfortunately, patient is very sick in terms of his lung status, and it does not appear that he can get any intervention here. We will follow. - Time Time Spent with patient: 35 or more minutes - Inpatient Certification Based on my medical assessment, after consideration of the patient's comorbidities, presenting symptoms, or acuity I expect that the services needed warrant INPATIENT care.: Yes I certify that my determination is in accordance with my understanding of Medicare's requirements for reasonable and necessary INPATIENT services [42 CFR 412.3e].: Yes Medical Necessity: Need for Nebulizer Therapy and Monitoring of Response, Need for Surgery, Risk of Complication if Not Cared For in Hospital
--- NOTE | 2020-09-19 11:00 | PDOC PROGRESS REPORT ---
Subjective Date:: 09/19/20 Subjective:: Patient remains fairly sick. According to nursing staff his oxygenation did imp rove in the past 24 hours however he has become hypokalemic and will receive potassium. Reason For Visit: PATHOLOGICAL FRACTURE,LEFT LOWER EXTREMITY, Physical Exam Vital Signs: Temp Pulse Resp BP Pulse Ox 98.2 F 105 H 20 93/65 L 98 09/19/20 07:54 09/19/20 07:54 09/19/20 07:54 09/19/20 07:54 09/19/20 07:54 Intake & Output 09/18/20 09/19/20 09/20/20 06:59 06:59 06:59 Intake Total 1950 2350 300 Output Total 425 475 Balance 1525 1875 300 Weight 71.2 kg 72.1 kg Musculoskeletal exam: PRESENT: other - Left lower extremity: Intact dorsalis pedis pulse. Short/external rotated. Thigh compartments swollen but compressible no sign of compartment syndrome. Limited neurologic examination secondary to mental status Results Laboratory Results: 09/18/20 13:00 09/19/20 06:00 09/18/20 09/18/20 09/18/20 13:00 13:00 20:15 WBC 21.9 H RBC 3.89 L Hgb 11.2 L Hct 34.1 L MCV 88 MCH 28.7 MCHC 32.7 RDW 20.9 H Plt Count 198 Carbonic Acid HCO3/H2CO3 Ratio ABG pH ABG pCO2 ABG pO2 ABG HCO3 ABG O2 Saturation ABG Base Excess FiO2 Sodium Potassium Chloride Carbon Dioxide Anion Gap BUN Creatinine Est GFR ( Amer) Glucose Calcium Phosphorus Magnesium 1.9 Total Bilirubin AST Alkaline Phosphatase Total Protein Albumin Prealbumin Triglycerides 143 Stool Occult Blood POSITIVE 09/19/20 09/19/20 05:07 06:00 WBC RBC Hgb Hct MCV MCH MCHC RDW Plt Count Carbonic Acid 0.70 L HCO3/H2CO3 Ratio 26:1 ABG pH 7.52 H ABG pCO2 23.1 L ABG pO2 70.8 L ABG HCO3 18.4 L ABG O2 Saturation 96.0 ABG Base Excess -3.3 FiO2 65% Sodium 137.7 Potassium 2.9 L* Chloride 113 H Carbon Dioxide 20 L Anion Gap 5 BUN 18 Creatinine 0.55 Est GFR ( Amer) > 60 Glucose 93 Calcium 7.2 L Phosphorus 2.4 L Magnesium Total Bilirubin 3.0 H AST 42 Alkaline Phosphatase 372 H Total Protein 3.5 L Albumin 1.5 L Prealbumin < 3.0 L Triglycerides Stool Occult Blood 09/16/20 12:39 Leg - Tissue (Surgical) AFB Smear Concentration - Final 09/16/20 12:39 Leg - Tissue (Surgical) Acid Fast Bacilli Smear - Final 09/13/20 06:07 Blood Blood Culture - Final NO GROWTH IN 5 DAYS 09/11/20 14:35 Troponin I < 0.012 Impressions: Chest CT 09/11/20 00:00 IMPRESSION: 1. Since the prior study, patchy lung infiltrates have developed as described along with right upper lobe reticulonodular opacities. Findings are likely infectious/inflammatory. 2. Chronic left urinary obstruction as described. Associated findings look similar. Abnormal soft tissue thickening in the proximal ureter with small adjacent periureteric lymph nodes. 3. Subtotal colectomy with persistent probably progressive irregular wall thickening and probable mass in the region of the rectum. Proximal to the anastomosis and rectal pathology, bowel loops are progressively dilated compared to August exam. There is a large amount of retained stool with at least 1 abnormal thick walled loop of small bowel in the right lower quadrant now also seen. Chest X-Ray 09/11/20 14:10 IMPRESSION: NO ACUTE RADIOGRAPHIC FINDING IN THE CHEST. Abdomen/Pelvis CT 09/11/20 14:15 IMPRESSION: 1. Since the prior study, patchy lung infiltrates have developed as described along with right upper lobe reticulonodular opacities. Findings are likely infectious/inflammatory. 2. Chronic left urinary obstruction as described. Associated findings look similar. Abnormal soft tissue thickening in the proximal ureter with small adjacent periureteric lymph nodes. 3. Subtotal colectomy with persistent probably progressive irregular wall thickening and probable mass in the region of the rectum. Proximal to the anastomosis and rectal pathology, bowel loops are progressively dilated compared to August exam. There is a large amount of retained stool with at least 1 abnormal thick walled loop of small bowel in the right lower quadrant now also seen. Body Scan Nuclear Medicine 09/12/20 00:00 IMPRESSION: 1. Abnormal uptake right femur. Known fracture here. 2. Abnormal uptake right proximal humerus. Consider radiographic evaluation. 3. No other overtly worrisome areas of bone uptake. Other findings as discussed. Head MRI 09/12/20 00:00 IMPRESSION: 1. Noncontrast somewhat limited study reveals no overt suggestion of intracranial metastatic disease. See limitations discussed above. No acute findings are suggested. EVIDENCE OF ACUTE STROKE: NO. Humerus X-Ray 09/12/20 IMPRESSION: As above. Lower Extremity MRI 09/12/20 IMPRESSION: 1. Although not definite, underlying pathologic lesion in the region of femur fracture is certainly possible. No suggestion of adjacent soft tissue mass allowing for posttraumatic edema and hematoma. Bone Biopsy CT 09/14/20 IMPRESSION: CT GUIDED BIOPSY OF THE LEFT FEMUR PERFORMED WITHOUT IMMEDIATE COMPLICATION. PATHOLOGY PENDING. Guidance Needle Placement CT 09/14/20 IMPRESSION: Please see combined report for performance of procedure and radiologic supervision and interpretation. Femur X-Ray 09/16/20 IMPRESSION: IMAGE(S) OBTAINED DURING PROCEDURE. Fluoroscopy 09/16/20 IMPRESSION: IMAGE(S) OBTAINED DURING PROCEDURE. Chest/Abdomen CTA 09/17/20 IMPRESSION: 1. No PE. 2. Worsening bilateral pneumonia. PICC Line Insertion 09/18/20 IMPRESSION: SUCCESSFUL PLACEMENT OF A 5 FR DUAL LUMEN 42 CM PICC IN THE RIGHT BASILIC VEIN. Assessment & Plan - Diagnosis (1) Pathological fracture, left femur, initial encounter for fracture Is this a current diagnosis for this admission?: Yes Plan: Patient has been scheduled for operative intervention but continues to have oxygenation and respiratory issues and currently is on BiPAP and now has hypokalemia as well and thus currently is not optimized for operative intervention. We will continue to monitor once patient is medically optimized will proceed with operative intervention The patient has anemia. Hemoccult positive. General surgery on board. Current pathology diagnosis consistent with adenocarcinoma likely metastatic -Continue to encourage the medical team to continue attempting transfer to [facility]. I will be happy to treat the patient if we are able to determine pathology is metastatic, however if this is a primary bone tumor will need to be treated at a tertiary care facility. Given her current continued lack of diagnosis it may lead to more rapid treatment and earlier patient recovery if we facilitate that transfer now. Continue current pain control measures, the patient appears to be relatively comfortable in regards to his left femur fracture in spite of his current situation. At this time he appears to be somewhat unaware of his injury. Bedrest - Time Time Spent with patient: Less than 15 minutes
[2020-09-19] MEDS: NICOTINE 21 MG/24 HR PATCH.TD24 TD SCH (11:04)
[2020-09-19] MEDS: DOCUSATE SODIUM 100 MG CAPSULE PO SCH (11:05)
[2020-09-19] MEDS: VANCOMYCIN HCL 1,250 MG in DEXTROSE 5%-WATER 250 ML IV SCH ×2 (11:51→21:56)
[2020-09-19] MEDS: ALBUMIN HUMAN 12.5 GM/50 ML RTUINJ IV SCH ×5 (12:11→15:05)
[2020-09-19 13:12] LABS: VANCOMYCIN,TROUGH 13.6 ug/mL (5.0-20.0)
[2020-09-19] MEDS: HEPARIN SOD (PORCINE) 5,000 UNIT/ML 1 ML VIAL SUBCUT SCH ×2 (14:11→21:56)
[2020-09-19] MEDS ORDERED: FERRIC CARBOXYMALTOSE INJ 750 MG/15 ML VIAL IV ONE (14:14)
--- NOTE | 2020-09-19 14:14 | PDOC PROGRESS REPORT ---
Subjective Date:: 09/19/20 Subjective:: As per admitting physician's note RAYMON RODARTE is a 64 year old male with past medical history significant for colorectal cancer status post hemicolectomy/radiation/chemotherapy approximately 16 years prior to admission, ongoing tobacco abuse, alcohol dependency who was admitted 09/11/2019 with a left, nontraumatic, midshaft femur fracture concerning for pathologic fxy. 09/14/2020. No acute events overnight. Patient complaining of left lower extremity pain and not able to sleep due to being anxious and being in pain, otherwise denies any fever, chills, nausea, vomiting. Patient is a status post left femur biopsy. 09/15/2020. No acute events overnight. This morning patient is noted to be very lethargic but easily arousable and answering questions appropriately and falls back to sleep, still complaining of left lower extremity pain, denies any auditory or visual hallucinations, denies any fever, chills, nausea, vomiting. Reports history of anorexia for the last 4 months. Patient was scheduled to have his biopsy repeated as biopsy done yesterday was not adequate, unfortunately had to be delayed as patient had electrolyte derangement. 09/16/2020. Seems patient has had worsening of his left femur fracture overnight, this morning he was noted to have shortening of his left proximal lower extremity and developed posterior inversion of the proximal left lower extremity, repeat x-ray shows shortening of fracture, no new fracture. Patient has been bedbound and has not had any falls overnight. Patient complaining of generalized weakness, left lower extremity pain, and feeling anxious, stating that he just wants to go home, he seems to be in moderate distress, however is alert and oriented, answering questions appropriately. Fever, chest pain, nausea, vomiting. P.o. tolerant and having bowel movements. 09/17/2020. Over night patient was noted to become hypoxic and hypotensive, patient is becoming more somnolent to obtunded, a CTA chest this morning was negative for any PE however shows worsening bilateral pneumonia, ABG shows worsening hypoxemia, patient is status post open left femur biopsy and of my prior conversation with Dr. Clement it is likely that it could be osteosarcoma, [facility] called on the status of transfer however there is stating that he is not on the list and we have to call every day to find out if he will be accepted to be transferred at some point there. 09/18/2020. No acute events overnight. Patient is still remains somnolent and lethargic however more responsive than yesterday, still dependent on BiPAP, setting leukocytosis, repeat cultures remain negative. Pathology report is back as adenocarcinoma, pending surgical intervention by orthopedic surgery. 09/19/2020. This morning patient noted to be more awake, alert and oriented but seems to be in significant pain, asking for his pain medication. His PO2 has im proved but is still on BiPAP, has gone up, patient pathology report is back however still pending left femoral surgery as per anesthesiology evaluation patient too sick to undergo surgery, patient being started on TPN and his DVT prophylaxis has been restarted. We have reached out to [facility] for possible transfer however he has not been accepted and he is not on a waiting list, their recommendation is to call daily and see if he will be accepted. Reason For Visit: PATHOLOGICAL FRACTURE,LEFT LOWER EXTREMITY, Physical Exam Vital Signs: Temp Pulse Resp BP Pulse Ox 98.2 F 105 H 20 93/65 L 98 09/19/20 10:00 09/19/20 07:54 09/19/20 07:54 09/19/20 07:54 09/19/20 07:54 Intake & Output 09/18/20 09/19/20 09/20/20 06:59 06:59 06:59 Intake Total 1950 2350 677 Output Total 425 475 Balance 1525 1875 677 Weight 71.2 kg 72.1 kg General appearance: PRESENT: other - Appears to be in moderate pain Head exam: PRESENT: atraumatic, normocephalic Respiratory exam: PRESENT: clear to auscultation pedro, other - On BiPAP. ABSENT: rales, rhonchi, wheezes Cardiovascular exam: PRESENT: RRR. ABSENT: diastolic murmur, rubs, systolic murmur GI/Abdominal exam: PRESENT: normal bowel sounds, soft. ABSENT: distended, guarding, mass, organolmegaly, rebound, tenderness Extremities exam: PRESENT: full ROM, other - Left lower extremity diffuse swelling with deformity from fracture. Range of motion limited due to pain. Floor extremities warm to touch, flow could not be easily palpated due to diffuse swelling.. ABSENT: calf tenderness, clubbing, pedal edema Neurological exam: PRESENT: alert, awake, oriented to person, CN II-XII grossly intact. ABSENT: motor sensory deficit Results Laboratory Results: 09/18/20 13:00 09/19/20 06:00 09/18/20 09/19/20 09/19/20 20:15 05:07 06:00 Carbonic Acid 0.70 L HCO3/H2CO3 Ratio 26:1 ABG pH 7.52 H ABG pCO2 23.1 L ABG pO2 70.8 L ABG HCO3 18.4 L ABG O2 Saturation 96.0 ABG Base Excess -3.3 FiO2 65% Sodium 137.7 Potassium 2.9 L* Chloride 113 H Carbon Dioxide 20 L Anion Gap 5 BUN 18 Creatinine 0.55 Est GFR ( Amer) > 60 Glucose 93 Calcium 7.2 L Phosphorus 2.4 L Total Bilirubin 3.0 H AST 42 Alkaline Phosphatase 372 H Total Protein 3.5 L Albumin 1.5 L Prealbumin < 3.0 L Stool Occult Blood POSITIVE 09/17/20 20:15 Shell Catheter Urine Culture - Final NO GROWTH 2 DAYS 09/11/20 14:35 Troponin I < 0.012 Impressions: Chest CT 09/11/20 00:00 IMPRESSION: 1. Since the prior study, patchy lung infiltrates have developed as described along with right upper lobe reticulonodular opacities. Findings are likely infectious/inflammatory. 2. Chronic left urinary obstruction as described. Associated findings look similar. Abnormal soft tissue thickening in the proximal ureter with small adjacent periureteric lymph nodes. 3. Subtotal colectomy with persistent probably progressive irregular wall thickening and probable mass in the region of the rectum. Proximal to the anastomosis and rectal pathology, bowel loops are progressively dilated compared to August exam. There is a large amount of retained stool with at least 1 abnormal thick walled loop of small bowel in the right lower quadrant now also seen. Chest X-Ray 09/11/20 14:10 IMPRESSION: NO ACUTE RADIOGRAPHIC FINDING IN THE CHEST. Abdomen/Pelvis CT 09/11/20 14:15 IMPRESSION: 1. Since the prior study, patchy lung infiltrates have developed as described along with right upper lobe reticulonodular opacities. Findings are likely infectious/inflammatory. 2. Chronic left urinary obstruction as described. Associated findings look similar. Abnormal soft tissue thickening in the proximal ureter with small adjacent periureteric lymph nodes. 3. Subtotal colectomy with persistent probably progressive irregular wall thickening and probable mass in the region of the rectum. Proximal to the anastomosis and rectal pathology, bowel loops are progressively dilated compared to August exam. There is a large amount of retained stool with at least 1 ab normal thick walled loop of small bowel in the right lower quadrant now also seen. Body Scan Nuclear Medicine 09/12/20 00:00 IMPRESSION: 1. Abnormal uptake right femur. Known fracture here. 2. Abnormal uptake right proximal humerus. Consider radiographic evaluation. 3. No other overtly worrisome areas of bone uptake. Other findings as discussed. Head MRI 09/12/20 00:00 IMPRESSION: 1. Noncontrast somewhat limited study reveals no overt suggestion of intracranial metastatic disease. See limitations discussed above. No acute findings are suggested. EVIDENCE OF ACUTE STROKE: NO. Humerus X-Ray 09/12/20 00:00 IMPRESSION: As above. Lower Extremity MRI 09/12/20 00:00 IMPRESSION: 1. Although not definite, underlying pathologic lesion in the region of femur fracture is certainly possible. No suggestion of adjacent soft tissue mass allowing for posttraumatic edema and hematoma. Bone Biopsy CT 09/14/20 00:00 IMPRESSION: CT GUIDED BIOPSY OF THE LEFT FEMUR PERFORMED WITHOUT IMMEDIATE COMPLICATION. PATHOLOGY PENDING. Guidance Needle Placement CT 09/14/20 00: IMPRESSION: Please see combined report for performance of procedure and radiologic supervision and interpretation. Femur X-Ray 09/16/20 00:00 IMPRESSION: IMAGE(S) OBTAINED DURING PROCEDURE. Fluoroscopy 09/16/20 00:00 IMPRESSION: IMAGE(S) OBTAINED DURING PROCEDURE. Chest/Abdomen CTA 09/17/20 00:00 IMPRESSION: 1. No PE. 2. Worsening bilateral pneumonia. PICC Line Insertion 09/18/20 00:00 IMPRESSION: SUCCESSFUL PLACEMENT OF A 5 FR DUAL LUMEN 42 CM PICC IN THE RIGHT BASILIC VEIN. Assessment and Plan - Diagnosis (1) Acute respiratory failure with hypoxemia Is this a current diagnosis for this admission?: Yes Plan: BiPAP dependent. SPO2 WNL on FiO2 of 65%. PO2 improving. CTA positive for bilateral worsening pneumonia. COVID-19 serology negative. Patient came in with leukocytosis however no sign of infection on admission was noted started on antibiotics. Chest x-ray on admission was read as no acute findings. Day 4 IV antibiotics. Day 4 IV cefepime. Day 3 IV vancomycin. Blood culture from admission 09/12 bottles positive for staph S and Klebsiella pneumoniae. Repeat blood and sputum culture. Continue empiric IV antibiotics. Continue BiPAP. Continue DuoNeb. 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 Repeat x-ray shows shortening of left femur fracture. First biopsy on 09/16/2020. Initial report likely osteosarcoma as per my conversation with Dr. Clement. Second biopsy on 09/14/2020, positive for adenocarcinoma. Orthopedic surgery on board, recommendations noted. Please refer to note. Unfortunately surgery has been consulted already late repeatedly while waiting for pathology results and patient being too sick to tolerate anesthesia. Oncology consulted, recommendations noted. Continue opioid and nonopioid analgesics monitor for respiratory depression and fall. Continue heparin for DVT prophylaxis. Hold 6 hours before operation. As per previous attending's note "was asked by Dr. Clement to attempt transfer to tertiary for bone biopsy due to concern that this may be a new primary malignancy site (i.e osteosarcoma). Spoke with [facility]; only acceting ICU level care. Spoke with [facility] (orthopedic team); recommended tertiary such as [facility] or [place]. Spoke w/ [facility] hospitalist; appropriate to accept patient to service, however, no bed available and do not have a wait list. Called [facility] again, patient not on the list, they would like us to call me daily to inquire about possible late availability and patient is transferred. (3) Malnutrition Qualifiers: Malnutrition type: protein-calorie malnutrition Protein-calorie malnutrition severity: moderate Qualified Code(s): E44.0 - Moderate protein- calorie malnutrition Is this a current diagnosis for this admission?: Yes Plan: Presented with severe malnutrition BMI 18.0. Prealbumin <3. Endorses history of anorexia for the last 4 months and drinking daily. This is likely due to underlying malignancy complicated by EtOH abuse and low p.o. intake. Unfortunately patient has been n.p.o. for the most of his hospitalization dissipation of surgery and has not been able to have much p.o. intake. Orders placed for TPN initiation on 09/18/2020. Continue TPN until patient is able to tolerate p.o. intake. (4) Alcohol dependency Qualifiers: Substance use status: unspecified alcohol-induced disorder Qualified Code(s): F10.29 - Alcohol dependence with unspecified alcohol-induced disorder Is this a current diagnosis for this admission?: Yes Plan: Pain is very lethargic and somnolent. Drinks daily but states he only has 1-2 beers per day CIWA w/ prn Ativan. DT precautions. Continue daily thiamine and folic acid supplementation. (5) History of colon cancer Is this a current diagnosis for this admission?: Yes Plan: History of colorectal cancer status post colectomy and chemoradiation. As per patient only 12 inches of his colon is remaining. Prior imaging in 2019 concerning for new colorectal mass, patient denies being told about this and has not had any follow-up CT chest abdomen pelvis with contrast right upper lobe reticulonodular opacities, progressive irregular: Wall thickening and probable mass in the region of the rectum. Nuclear medicine bone scan significant for abnormal uptake right femur, abnormal uptake right proximal humerus MRI head with no contrast does not show any overt sign of metastatic disease. Oncology consulted. Discussed with Dr. Delvalle today; appreciate her expertise. (6) Hyponatremia Is this a current diagnosis for this admission?: Yes Plan: Improving. Chronic. 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 Continue D5 NS and supplemental p.o. sodium bicarb. Daily BMP. Seizure precautions. (7) Lactic acidosis Is this a current diagnosis for this admission?: Yes Plan: Resolved. Likely due to severe dehydration and nausea/vomiting Antiemetics IV fluids (8) Leukocytosis Qualifiers: Leukocytosis type: unspecified Qualified Code(s): D72.829 - Elevated white blood cell count, unspecified Is this a current diagnosis for this admission?: Yes Plan: As per #1. (9) Nausea and vomiting Qualifiers: Vomiting type: unspecified Vomiting Intractability: non-intractable Qualified Code(s): R11.2 - Nausea with vomiting, unspecified Is this a current diagnosis for this admission?: Yes Plan: Resolved. IV fluids Antiemetics (10) Tobacco abuse Is this a current diagnosis for this admission?: Yes Plan: Patient does not wish to quit Cessation encouraged. Nicotine replacement therapies provided. (11) Metabolic acidosis Is this a current diagnosis for this admission?: Yes Plan: Resolved. Normal anion gap metabolic acidosis likely starvation ketosis. Patient endorses history of EtOH abuse, anorexia, and has been n.p.o. pending surgery. Continue D5 NS, supplemental sodium bicarb, encourage p.o. intake once patient biopsies taken. (12) Hyperkalemia Is this a current diagnosis for this admission?: Yes Plan: Resolved. Likely due to metabolic acidosis. No acute EKG changes. Hyperkalemia protocol. (13) Vitamin D deficiency Is this a current diagnosis for this admission?: Yes Plan: Severe vitamin D deficiency. Likely due to low p.o. intake. Continue ergocalciferol 50,000 units q. weekly. (14) Pneumonia Is this a current diagnosis for this admission?: Yes Plan: Community-acquired pneumonia. Healthcare associated pneumonia could not be ruled out. Blood culture from admission 1/2 bottles positive for staph capitis and Klebsiella pneumonia. Plan as per #1. - Time Time Spent with patient: 35 or more minutes Anticipated Discharge Disposition: Care Home Facility Anticipated Discharge Timeframe: within 72 hours
[2020-09-19] MEDS ORDERED: FERRIC CARBOXYMALTOSE 750 MG in NORMAL SALINE 250 ML IV ONE (16:00)
[2020-09-19] MEDS ORDERED: GLUCAGON,HUMAN RECOMB 1 MG INJ IM PRN (17:26)
[2020-09-19] MEDS ORDERED: DEXTROSE 40% GEL 15 GM TUBE PO PRN ×2 (17:26)
[2020-09-19] MEDS ORDERED: DEXTROSE 10%-WATER 1,000 ML IV PRN (17:26)
[2020-09-19] MEDS ORDERED: DEXTROSE 50%-WATER 25 GM/50 ML DISP.SYRIN IV PRN ×2 (17:26)
[2020-09-19] MEDS: SODIUM BICARBONATE 650 MG TABLET PO SCH ×2 (17:34→21:11)
[2020-09-19 17:48] LABS: MEAN CORPUSCULAR HEMOGLOBIN 28.5 pg (27.0-33.4); MEAN CORPUSCULAR HGB CONC 32.7 g/dL (32.0-36.0); MEAN CORPUSCULAR VOLUME 87 fl (80-97); PLATELET COUNT 134 10^3/uL (150-450); RED BLOOD COUNT 3.09 10^6/uL (4.35-5.55); RED CELL DISTRIBUTION WIDTH 20.8 % (11.5-14.0); WHITE BLOOD COUNT 16.2 10^3/uL (4.0-10.5)
[2020-09-19 18:07] LABS: ALBUMIN 1.9 g/dL (3.5-5.0); ALKALINE PHOSPHATASE 298 U/L (38-126); ASPARTATE AMINO TRANSFERASE 37 U/L (17-59); BILIRUBIN,DIRECT 2.3 mg/dL (0.0-0.4); BILIRUBIN,TOTAL 3.5 mg/dL (0.2-1.3); BLOOD UREA NITROGEN 18 mg/dL (7-20); CALCIUM 7.5 mg/dL (8.4-10.2); CARBON DIOXIDE 21 mmol/L (22-30); CHLORIDE 115 mmol/L (98-107); GLUCOSE 95 mg/dL (75-110); POTASSIUM 3.3 mmol/L (3.6-5.0); TOTAL PROTEIN 4.2 g/dL (6.3-8.2)
[2020-09-19 18:09] LABS: ANION GAP 4 (5-19)
[2020-09-19 18:27] LABS: HEMOGLOBIN 8.8 g/dL (13.5-17.0)
[2020-09-19 18:29] LABS: ABSOLUTE LYMPHOCYTES# (MANUAL) 0.5 10^3/uL (0.5-4.7); ABSOLUTE MONOCYTES # (MANUAL) 0.2 10^3/uL (0.1-1.4); BAND NEUTROPHILS % (MANUAL) 2 % (3-5); BASOPHILS % (MANUAL) 0 % (0-2); EOSINOPHILS % (MANUAL) 0 % (0-6); LYMPHOCYTES % (MANUAL) 3 % (13-45); MONOCYTES % (MANUAL) 1 % (3-13); SEGMENTED NEUTROPHILS % (MAN) 94 % (42-78); TOTAL CELLS COUNTED 100
[2020-09-19 18:31] LABS: ANISOCYTOSIS 2+; OVALOCYTES 1+; PLATELET COMMENT DECREASED; TARGET CELLS 1+
[2020-09-19] MEDS ORDERED: NORMAL SALINE 10 ML SDV (AFTER EACH USE) IV PRN (23:00)
[2020-09-20] MEDS: INSULIN REG, HUMAN 100 UNIT/ML 3 ML VIAL (PYX) SUBCUT SCH ×7 (00:28→23:37)
[2020-09-20] MEDS: HYDROMORPHONE HCL INJ/PF 2 MG/ML AMPULE IV PRN ×4 (05:09→21:24)
[2020-09-20] MEDS: HEPARIN SOD (PORCINE) 5,000 UNIT/ML 1 ML VIAL SUBCUT SCH ×3 (05:09→21:25)
[2020-09-20 06:43] LABS: ARTERIAL BLOOD BASE EXCESS -7.1 mmol/L; ARTERIAL BLOOD H2CO3 0.83 mmol/L (1.05-1.35); ARTERIAL BLOOD HCO3 16.6 mmol/L (20-24); ARTERIAL BLOOD O2 SATURATION 88.6 % (94-98); ARTERIAL BLOOD PCO2 27.5 mmHg (35-45); ARTERIAL BLOOD PO2 53.8 mmHg (80-100); ARTERIAL BLOOD TOTAL CO2 17.5 mmol/L (23-27)
[2020-09-20 07:00] LABS: ARTERIAL BLOOD FIO2 65%
[2020-09-20 07:17] LABS: ALBUMIN 1.9 g/dL (3.5-5.0); ALKALINE PHOSPHATASE 278 U/L (38-126); ASPARTATE AMINO TRANSFERASE 38 U/L (17-59); BILIRUBIN,DIRECT 1.9 mg/dL (0.0-0.4); BILIRUBIN,TOTAL 2.8 mg/dL (0.2-1.3); BLOOD UREA NITROGEN 17 mg/dL (7-20); CALCIUM 7.4 mg/dL (8.4-10.2); GLUCOSE 89 mg/dL (75-110); HEMATOCRIT 29.3 % (37.9-51.0); HEMOGLOBIN 9.6 g/dL (13.5-17.0); MEAN CORPUSCULAR HGB CONC 32.8 g/dL (32.0-36.0); MEAN CORPUSCULAR VOLUME 88 fl (80-97); PHOSPHORUS 2.6 mg/dL (2.5-4.5); PLATELET COUNT 116 10^3/uL (150-450); POTASSIUM 3.6 mmol/L (3.6-5.0); RED BLOOD COUNT 3.32 10^6/uL (4.35-5.55); RED CELL DISTRIBUTION WIDTH 21.4 % (11.5-14.0); TOTAL PROTEIN 4.2 g/dL (6.3-8.2); WHITE BLOOD COUNT 19.8 10^3/uL (4.0-10.5)
[2020-09-20 07:22] LABS: ANION GAP 5 (5-19); CARBON DIOXIDE 21 mmol/L (22-30); CHLORIDE 116 mmol/L (98-107)
[2020-09-20 07:29] LABS: PREALBUMIN < 3.0 mg/dL (17.6-36.0)
[2020-09-20 08:51] LABS: ABSOLUTE LYMPHOCYTES# (MANUAL) 0.2 10^3/uL (0.5-4.7); ABSOLUTE MONOCYTES # (MANUAL) 0.4 10^3/uL (0.1-1.4); BAND NEUTROPHILS % (MANUAL) 2 % (3-5); BASOPHILS % (MANUAL) 0 % (0-2); EOSINOPHILS % (MANUAL) 0 % (0-6); LYMPHOCYTES % (MANUAL) 1 % (13-45); MONOCYTES % (MANUAL) 2 % (3-13); SEGMENTED NEUTROPHILS % (MAN) 95 % (42-78); TOTAL CELLS COUNTED 100
[2020-09-20 08:52] LABS: ANISOCYTOSIS 3+; BURR CELLS 2+
[2020-09-20 08:53] LABS: PLATELET CLUMPS PRESENT; PLATELET COMMENT DECREASED; TARGET CELLS 1+
--- NOTE | 2020-09-20 09:01 | RADIOLOGY REPORT (SQ) ---
EXAM DESCRIPTION: CHEST SINGLE VIEW IMAGES COMPLETED DATE/TIME: 09/20/2020 8:27 am REASON FOR STUDY: per anesthesia request COMPARISON: 09/11/2020 EXAM PARAMETERS: NUMBER OF VIEWS: One view. TECHNIQUE: Single frontal radiographic view of the chest acquired. RADIATION DOSE: NA LIMITATIONS: None. FINDINGS: LUNGS AND PLEURA: Diffuse ground-glass opacities in the lungs. New from 09/11/2020. MEDIASTINUM AND HILAR STRUCTURES: No masses. Contour normal. HEART AND VASCULAR STRUCTURES: Dextrocardia. BONES: No acute findings. HARDWARE: New venous access catheter via right peripheral approach. Tip is in the left-sided SVC. OTHER: No other significant finding. IMPRESSION: Size inversus. Venous access catheter in the left-sided SVC. Diffuse ground glass opacities in the lungs typical of covid 19. TECHNICAL DOCUMENTATION: JOB ID: [id number] 2010 [employer]- All Rights Reserved Reading location - IP/workstation name: [email or web address]
[2020-09-20] MEDS: TAMSULOSIN HCL 0.4 MG CAP.SR.24H PO SCH (10:18)
[2020-09-20] MEDS: FERROUS SULFATE 325 MG TABLET PO SCH (10:18)
[2020-09-20] MEDS: NICOTINE 21 MG/24 HR PATCH.TD24 TD SCH (10:36)
[2020-09-20] MEDS: CEFEPIME 1 GM/D5W RTU 1 GM/50 ML RTUPB IV SCH ×2 (10:40→21:25)
[2020-09-20] MEDS: NORMAL SALINE 10 ML SDV (SCHEDULED) IV SCH ×2 (11:48→21:26)
[2020-09-20] MEDS: VANCOMYCIN HCL 1,250 MG in DEXTROSE 5%-WATER 250 ML IV SCH ×2 (11:51→21:24)
[2020-09-20] MEDS: POTASSI CL 20 MEQ/D5NS 1L 20 MEQ/1,000 ML RTUINJ IV PRN ×2 (11:55→21:26)
[2020-09-20] MEDS: DOCUSATE SODIUM 100 MG CAPSULE PO SCH (12:06)
[2020-09-20] MEDS: METOPROLOL TARTRATE 25 MG TABLET PO SCH ×2 (12:06→21:25)
[2020-09-20] MEDS: MULTIVITAMIN TABLET PO SCH (12:06)
[2020-09-20] MEDS: FOLIC ACID 1 MG TABLET PO SCH (12:07)
[2020-09-20] MEDS: SODIUM BICARBONATE 650 MG TABLET PO SCH ×2 (12:07→21:25)
[2020-09-20] MEDS: MEGESTROL ACETATE 20 MG TABLET PO SCH (12:07)
[2020-09-20] MEDS: THIAMINE HCL 100 MG TABLET PO SCH (12:07)
--- NOTE | 2020-09-20 13:26 | PDOC PROGRESS REPORT ---
Subjective Date:: 09/20/20 Subjective:: As per admitting physician's note RAYMON RODARTE is a 64 year old male with past medical history significant for colorectal cancer status post hemicolectomy/radiation/chemotherapy approximately 16 years prior to admission, ongoing tobacco abuse, alcohol dependency who was admitted 09/11/2019 with a left, nontraumatic, midshaft femur fracture concerning for pathologic fxy. 09/14/2020. No acute events overnight. Patient complaining of left lower extremity pain and not able to sleep due to being anxious and being in pain, otherwise denies any fever, chills, nausea, vomiting. Patient is a status post left femur biopsy. 09/15/2020. No acute events overnight. This morning patient is noted to be very lethargic but easily arousable and answering questions appropriately and falls back to sleep, still complaining of left lower extremity pain, denies any auditory or visual hallucinations, denies any fever, chills, nausea, vomiting. Reports history of anorexia for the last 4 months. Patient was scheduled to have his biopsy repeated as biopsy done yesterday was not adequate, unfortunately had to be delayed as patient had electrolyte derangement. 09/16/2020. Seems patient has had worsening of his left femur fracture overnight, this morning he was noted to have shortening of his left proximal lower extremity and developed posterior inversion of the proximal left lower extremity, repeat x-ray shows shortening of fracture, no new fracture. Patient has been bedbound and has not had any falls overnight. Patient complaining of generalized weakness, left lower extremity pain, and feeling anxious, stating that he just wants to go home, he seems to be in moderate distress, however is alert and oriented, answering questions appropriately. Fever, chest pain, nausea, vomiting. P.o. tolerant and having bowel movements. 09/17/2020. Over night patient was noted to become hypoxic and hypotensive, patient is becoming more somnolent to obtunded, a CTA chest this morning was negative for any PE however shows worsening bilateral pneumonia, ABG shows worsening hypoxemia, patient is status post open left femur biopsy and of my prior conversation with Dr. Clement it is likely that it could be osteosarcoma, [facility] was called on the status of transfer however there is stating that he is not on the list and we have to call every day to find out if he will be accepted to be transferred at some point there. 09/18/2020. No acute events overnight. Patient is still remains somnolent and lethargic however more responsive than yesterday, still dependent on BiPAP, setting leukocytosis, repeat cultures remain negative. Pathology report is back as adenocarcinoma, pending surgical intervention by orthopedic surgery. 09/19/2020. This morning patient noted to be more awake, alert and oriented but seems to be in significant pain, asking for his pain medication. His PO2 has im proved but is still on BiPAP, has gone up, patient pathology report is back however still pending left femoral surgery as per anesthesiology evaluation patient too sick to undergo surgery, patient being started on TPN and his DVT prophylaxis has been restarted. We have reached out to [facility] for possible transfer however he has not been accepted and he is not on a waiting list, their recommendation is to call daily and see if he will be accepted. 09/20/2020. No acute events overnight. Patient is status BiPAP dependent, ABG shows worsening hypoxemia, patient is drowsy but easily arousable, oriented to person and place, complaining of left leg pain, patient is still pending ORIF by orthopedic surgery but unfortunately patient too sick to go to the OR as per anesthesia evaluation. I have contacted Dr. Clement who stated that he is in the last for tomorrow. Unfortunately TPN was not started yesterday as the order did not cross through the pharmacy. Patient is scheduled to have his TPN restarted today. Reason For Visit: PATHOLOGICAL FRACTURE,LEFT LOWER EXTREMITY, Physical Exam Vital Signs: Temp Pulse Resp BP Pulse Ox 97.3 F 105 H 20 104/74 93 09/20/20 11:57 09/20/20 11:57 09/20/20 11:57 09/20/20 11:57 09/20/20 11:57 Intake & Output 09/19/20 09/20/20 09/21/20 06:59 06:59 06:59 Intake Total 2350 2591 80 Output Total 475 450 100 Balance 1875 2141 -20 Weight 72.1 kg 65.5 kg General appearance: PRESENT: other - Somnolent but easily arousable, appears to be in significant pain. Head exam: PRESENT: atraumatic, normocephalic Neck exam: ABSENT: carotid bruit, JVD, lymphadenopathy, thyromegaly Respiratory exam: PRESENT: clear to auscultation pedro. ABSENT: rales, rhonchi, wheezes Cardiovascular exam: PRESENT: RRR. ABSENT: diastolic murmur, rubs, systolic murmur GI/Abdominal exam: PRESENT: normal bowel sounds, soft. ABSENT: distended, guarding, mass, organolmegaly, rebound, tenderness Extremities exam: PRESENT: other - Left lower extremity diffuse swelling with deformity and mid femur. Pulses are not palpable due to diffuse swelling, left lower extremity feels warm to touch. Neurological exam: PRESENT: alert - Somnolent but easily arousable., oriented to person, oriented to place Results Laboratory Results: 09/20/20 05:40 09/20/20 05:40 09/19/20 09/19/20 09/20/20 17:25 17:25 05:40 WBC 16.2 H 19.8 H RBC 3.09 L 3.32 L Hgb 8.8 L D 9.6 L Hct 27.0 L 29.3 L MCV 87 88 MCH 28.5 29.0 MCHC 32.7 32.8 RDW 20.8 H 21.4 H Plt Count 134 L 116 L Seg Neutrophils % Not Reportable Not Reportable Carbonic Acid HCO3/H2CO3 Ratio ABG pH ABG pCO2 ABG pO2 ABG HCO3 ABG O2 Saturation ABG Base Excess FiO2 Sodium 139.6 Potassium 3.3 L Chloride 115 H Carbon Dioxide 21 L Anion Gap 4 L BUN 18 Creatinine 0.57 Est GFR ( Amer) > 60 Glucose 95 Calcium 7.5 L Phosphorus Total Bilirubin 3.5 H AST 37 Alkaline Phosphatase 298 H Total Protein 4.2 L Albumin 1.9 L Prealbumin 09/20/20 09/20/20 05:40 05:40 WBC RBC Hgb Hct MCV MCH MCHC RDW Plt Count Seg Neutrophils % Carbonic Acid 0.83 L HCO3/H2CO3 Ratio 20:1 ABG pH 7.40 ABG pCO2 27.5 L ABG pO2 53.8 L ABG HCO3 16.6 L ABG O2 Saturation 88.6 L ABG Base Excess -7.1 FiO2 65% Sodium 141.5 Potassium 3.6 Chloride 116 H Carbon Dioxide 21 L Anion Gap 5 BUN 17 Creatinine 0.51 L Est GFR ( Amer) > 60 Glucose 89 Calcium 7.4 L Phosphorus 2.6 Total Bilirubin 2.8 H AST 38 Alkaline Phosphatase 278 H Total Protein 4.2 L Albumin 1.9 L Prealbumin < 3.0 L 09/16/20 12:39 Leg - Tissue (Surgical) Gram Stain - Final 09/16/20 12:39 Leg - Tissue (Surgical) Wound Culture - Final NO AEROBIC OR ANAEROBIC ORGANISMS RECOVERED 09/17/20 20:15 Shell Catheter Urine Culture - Final NO GROWTH 2 DAYS 09/11/20 14:35 Troponin I < 0.012 Impressions: Chest CT 09/11/20 00:00 IMPRESSION: 1. Since the prior study, patchy lung infiltrates have developed as described along with right upper lobe reticulonodular opacities. Findings are likely infectious/inflammatory. 2. Chronic left urinary obstruction as described. Associated findings look similar. Abnormal soft tissue thickening in the proximal ureter with small adjacent periureteric lymph nodes. 3. Subtotal colectomy with persistent probably progressive irregular wall thickening and probable mass in the region of the rectum. Proximal to the anastomosis and rectal pathology, bowel loops are progressively dilated compared to August exam. There is a large amount of retained stool with at least 1 abnormal thick walled loop of small bowel in the right lower quadrant now also seen. Abdomen/Pelvis CT 09/11/20 14:15 IMPRESSION: 1. Since the prior study, patchy lung infiltrates have developed as described along with right upper lobe reticulonodular opacities. Findings are likely infectious/inflammatory. 2. Chronic left urinary obstruction as described. Associated findings look similar. Abnormal soft tissue thickening in the proximal ureter with small adjacent periureteric lymph nodes. 3. Subtotal colectomy with persistent probably progressive irregular wall thickening and probable mass in the region of the rectum. Proximal to the anastomosis and rectal pathology, bowel loops are progressively dilated compared to August exam. There is a large amount of retained stool with at least 1 abnormal thick walled loop of small bowel in the right lower quadrant now also seen. Body Scan Nuclear Medicine 09/12/20 00:00 IMPRESSION: 1. Abnormal uptake right femur. Known fracture here. 2. Abnormal uptake right proximal humerus. Consider radiographic evaluation. 3. No other overtly worrisome areas of bone uptake. Other findings as discussed. Head MRI 09/12/20 00:00 IMPRESSION: 1. Noncontrast somewhat limited study reveals no overt suggestion of intr acranial metastatic disease. See limitations discussed above. No acute findings are suggested. EVIDENCE OF ACUTE STROKE: NO. Humerus X-Ray 09/12/20 00:00 IMPRESSION: As above. Lower Extremity MRI 09/12/20 00:00 IMPRESSION: 1. Although not definite, underlying pathologic lesion in the region of femur fracture is certainly possible. No suggestion of adjacent soft tissue mass allowing for posttraumatic edema and hematoma. Bone Biopsy CT 09/14/20 00:00 IMPRESSION: CT GUIDED BIOPSY OF THE LEFT FEMUR PERFORMED WITHOUT IMMEDIATE COMPLICATION. PATHOLOGY PENDING. Guidance Needle Placement CT 09/14/20 00:00 IMPRESSION: Please see combined report for performance of procedure and radiologic supervision and interpretation. Femur X-Ray 09/16/20 00:00 IMPRESSION: IMAGE(S) OBTAINED DURING PROCEDURE. Fluoroscopy 09/16/20 00:00 IMPRESSION: IMAGE(S) OBTAINED DURING PROCEDURE. Chest/Abdomen CTA 09/17/20 00:00 IMPRESSION: 1. No PE. 2. Worsening bilateral pneumonia. PICC Line Insertion 09/18/20 00:00 IMPRESSION: SUCCESSFUL PLACEMENT OF A 5 FR DUAL LUMEN 42 CM PICC IN THE RIGHT BASILIC VEIN. Chest X-Ray 09/20/20 06:00 IMPRESSION: Size inversus. Venous access catheter in the left-sided SVC. Diffuse ground glass opacities in the lungs typical of covid 19. Assessment and Plan - Diagnosis (1) Acute respiratory failure with hypoxemia Is this a current diagnosis for this admission?: Yes Plan: BiPAP dependent. SPO2 WNL on FiO2 of 65%. Persistent hypoxemia. CTA positive for bilateral worsening pneumonia. COVID-19 serology negative. Patient came in with leukocytosis however no sign of infection on admission was noted started on antibiotics. Chest x-ray on admission was read as no acute findings. Day 5 IV antibiotics. Day 5 IV cefepime. Day 4 IV vancomycin. Blood culture from admission 09/12 bottles positive for staph S and Klebsiella pneumoniae. Repeat blood and sputum culture. Continue empiric IV antibiotics. Continue BiPAP. Continue DuoNeb. (2) Pathological fracture, left femur, initial encounter for fracture Is this a current diagnosis for this admission?: Yes Plan: Schedule for ORIF tomorrow. Pathology report is positive for adenocarcinoma. Repeat x-ray shows shortening of left femur fracture. First biopsy on 09/16/2020. Initial report likely osteosarcoma as per my conversation with Dr. Clement. Second biopsy on 09/14/2020, positive for adenocarcinoma. Orthopedic surgery on board, recommendations noted. Please refer to note. Unfortunately surgery has been consulted already late repeatedly while waiting for pathology results and patient being too sick to tolerate anesthesia. Oncology consulted, recommendations noted. Continue opioid and nonopioid analgesics monitor for respiratory depression and fall. Continue heparin for DVT prophylaxis. Hold 6 hours before operation. As per previous attending's note "was asked by Dr. Clement to attempt transfer to tertiary for bone biopsy due to concern that this may be a new primary malignancy site (i.e osteosarcoma). Spoke with [facility]; only acceting ICU level care. Spoke with [facility] (orthopedic team); recommended tertiary such as [facility] or [facility]. Spoke w/ [facility] hospitalist; appropriate to accept patient to service, however, no bed available and do not have a wait list. Called [facility] again, patient not on the list, they would like us to call me daily to inquire about possible late availability and patient is transferred. (3) Malnutrition Qualifiers: Malnutrition type: protein-calorie malnutrition Protein-calorie malnutrition severity: moderate Qualified Code(s): E44.0 - Moderate protein- calorie malnutrition Is this a current diagnosis for this admission?: Yes Plan: Presented with severe malnutrition BMI 18.0. Prealbumin <3. Endorses history of anorexia for the last 4 months and drinking daily. This is likely due to underlying malignancy complicated by EtOH abuse and low p.o. intake. Unfortunately patient has been n.p.o. for the most of his hospitalization dissipation of surgery and has not been able to have much p.o. intake. Orders placed for TPN initiation on 09/18/2020. Continue TPN until patient is able to tolerate p.o. intake. (4) Alcohol dependency Qualifiers: Substance use status: unspecified alcohol-induced disorder Qualified Code(s): F10.29 - Alcohol dependence with unspecified alcohol-induced disorder Is this a current diagnosis for this admission?: Yes Plan: Pain is very lethargic and somnolent. Drinks daily but states he only has 1-2 beers per day CIWA w/ prn Ativan. DT precautions. Continue daily thiamine and folic acid supplementation. (5) History of colon cancer Is this a current diagnosis for this admission?: Yes Plan: History of colorectal cancer status post colectomy and chemoradiation. As per patient only 12 inches of his colon is remaining. Prior imaging in 2020 concerning for new colorectal mass, patient denies being told about this and has not had any follow-up CT chest abdomen pelvis with contrast right upper lobe reticulonodular opacit ies, progressive irregular: Wall thickening and probable mass in the region of the rectum. Nuclear medicine bone scan significant for abnormal uptake right femur, abnormal uptake right proximal humerus MRI head with no contrast does not show any overt sign of metastatic disease. Oncology consulted. Discussed with Dr. Delvalle today; appreciate her expertise. (6) Hyponatremia Is this a current diagnosis for this admission?: Yes Plan: Improving. Chronic. 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 Continue D5 NS and supplemental p.o. sodium bicarb. Daily BMP. Seizure precautions. (7) Lactic acidosis Is this a current diagnosis for this admission?: Yes Plan: Resolved. Likely due to severe dehydration and nausea/vomiting Antiemetics IV fluids (8) Leukocytosis Qualifiers: Leukocytosis type: unspecified Qualified Code(s): D72.829 - Elevated white blood cell count, unspecified Is this a current diagnosis for this admission?: Yes Plan: As per #1. (9) Nausea and vomiting Qualifiers: Vomiting type: unspecified Vomiting Intractability: non-intractable Qualified Code(s): R11.2 - Nausea with vomiting, unspecified Is this a current diagnosis for this admission?: Yes Plan: Resolved. IV fluids Antiemetics (10) Tobacco abuse Is this a current diagnosis for this admission?: Yes Plan: Patient does not wish to quit Cessation encouraged. Nicotine replacement therapies provided. (11) Metabolic acidosis Is this a current diagnosis for this admission?: Yes Plan: Resolved. Normal anion gap metabolic acidosis likely starvation ketosis. Patient endorses history of EtOH abuse, anorexia, and has been n.p.o. pending surgery. Continue D5 NS, supplemental sodium bicarb, encourage p.o. intake once patient biopsies taken. (12) Hyperkalemia Is this a current diagnosis for this admission?: Yes Plan: Resolved. Likely due to metabolic acidosis. No acute EKG changes. Hyperkalemia protocol. (13) Vitamin D deficiency Is this a current diagnosis for this admission?: Yes Plan: Severe vitamin D deficiency. Likely due to low p.o. intake. Continue ergocalciferol 50,000 units q. weekly. (14) Pneumonia Is this a current diagnosis for this admission?: Yes Plan: Community-acquired pneumonia. Healthcare associated pneumonia could not be ruled out. Blood culture from admission 1/2 bottles positive for staph capitis and Kleb siella pneumonia. Plan as per #1. - Time Time Spent with patient: 35 or more minutes Anticipated Discharge Disposition: Snf Facility Anticipated Discharge Timeframe: within 72 hours
[2020-09-20] MEDS: AMINO ACIDS 5 %/DEXTROSE 20 % 1,000 ML IV PRN (17:59)
--- NOTE | 2020-09-20 20:19 | PDOC PROGRESS REPORT ---
Subjective Date:: 09/20/20 Subjective:: Patient seen and examined. Confused this AM, otherwise appeared to be resting c omfortably on BiPAP Reason For Visit: PATHOLOGICAL FRACTURE,LEFT LOWER EXTREMITY, Physical Exam Vital Signs: Temp Pulse Resp BP Pulse Ox 97.9 F 95 25 H 111/70 95 09/20/20 16:00 09/20/20 18:52 09/20/20 19:23 09/20/20 16:00 09/20/20 19:23 Intake & Output 09/19/20 09/20/20 09/21/20 06:59 06:59 06:59 Intake Total 2350 2591 330 Output Total 475 450 200 Balance 1875 2141 130 Weight 72.1 kg 65.5 kg Physical Exam: Currently on BiPAP, Arousable Left lower extremity -Pulses 2+ distally -Compartments soft - Sensorimotor function grossly intact Leg shortened externally rotated 2+ pitting edema left lower extremity. Wound clean dry and intact. Results Laboratory Results: 09/20/20 05:40 09/20/20 05:40 09/20/20 09/20/20 09/20/20 05:40 05:40 05:40 WBC 19.8 H RBC 3.32 L Hgb 9.6 L Hct 29.3 L MCV 88 MCH 29.0 MCHC 32.8 RDW 21.4 H Plt Count 116 L Seg Neutrophils % Not Reportable Carbonic Acid 0.83 L HCO3/H2CO3 Ratio 20:1 ABG pH 7.40 ABG pCO2 27.5 L ABG pO2 53.8 L ABG HCO3 16.6 L ABG O2 Saturation 88.6 L ABG Base Excess -7.1 FiO2 65% Sodium 141.5 Potassium 3.6 Chloride 116 H Carbon Dioxide 21 L Anion Gap 5 BUN 17 Creatinine 0.51 L Est GFR ( Amer) > 60 Glucose 89 Calcium 7.4 L Phosphorus 2.6 Total Bilirubin 2.8 H AST 38 Alkaline Phosphatase 278 H Total Protein 4.2 L Albumin 1.9 L Prealbumin < 3.0 L 09/16/20 12:39 Leg - Tissue (Surgical) Gram Stain - Final 09/16/20 12:39 Leg - Tissue (Surgical) Wound Culture - Final NO AEROBIC OR ANAEROBIC ORGANISMS RECOVERED 09/11/20 14:35 Troponin I < 0.012 Impressions: Chest CT 09/11/20 00:00 IMPRESSION: 1. Since the prior study, patchy lung infiltrates have developed as described along with right upper lobe reticulonodular opacities. Findings are likely infectious/inflammatory. 2. Chronic left urinary obstruction as described. Associated findings look similar. Abnormal soft tissue thickening in the proximal ureter with small adjacent periureteric lymph nodes. 3. Subtotal colectomy with persistent probably progressive irregular wall thickening and probable mass in the region of the rectum. Proximal to the anastomosis and rectal pathology, bowel loops are progressively dilated compared to August exam. There is a large amount of retained stool with at least 1 abnormal thick walled loop of small bowel in the right lower quadrant now also seen. Abdomen/Pelvis CT 09/11/20 14:15 IMPRESSION: 1. Since the prior study, patchy lung infiltrates have developed as described along with right upper lobe reticulonodular opacities. Findings are likely infectious/inflammatory. 2. Chronic left urinary obstruction as described. Associated findings look similar. Abnormal soft tissue thickening in the proximal ureter with small adjacent periureteric lymph nodes. 3. Subtotal colectomy with persistent probably progressive irregular wall thickening and probable mass in the region of the rectum. Proximal to the an astomosis and rectal pathology, bowel loops are progressively dilated compared to August exam. There is a large amount of retained stool with at least 1 abnormal thick walled loop of small bowel in the right lower quadrant now also seen. Body Scan Nuclear Medicine 09/12/20 00:00 IMPRESSION: 1. Abnormal uptake right femur. Known fracture here. 2. Abnormal uptake right proximal humerus. Consider radiographic evaluation. 3. No other overtly worrisome areas of bone uptake. Other findings as discussed. Head MRI 09/12/20 00:00 IMPRESSION: 1. Noncontrast somewhat limited study reveals no overt suggestion of intracranial metastatic disease. See limitations discussed above. No acute findings are suggested. EVIDENCE OF ACUTE STROKE: NO. Humerus X-Ray 09/12/20 00:00 IMPRESSION: As above. Lower Extremity MRI 09/12/20 00:00 IMPRESSION: 1. Although not definite, underlying pathologic lesion in the region of femur fracture is certainly possible. No suggestion of adjacent soft tissue mass allowing for posttraumatic edema and hematoma. Bone Biopsy CT 09/14/20 00:00 IMPRESSION: CT GUIDED BIOPSY OF THE LEFT FEMUR PERFORMED WITHOUT IMMEDIATE COMPLICATION. PATHOLOGY PENDING. Guidance Needle Placement CT 09/14/20 00:00 IMPRESSION: Please see combined report for performance of procedure and radiologic supervision and interpretation. Femur X-Ray 09/16/20 00:00 IMPRESSION: IMAGE(S) OBTAINED DURING PROCEDURE. Fluoroscopy 09/16/20 00:00 IMPRESSION: IMAGE(S) OBTAINED DURING PROCEDURE. Chest/Abdomen CTA 09/17/20 00:00 IMPRESSION: 1. No PE. 2. Worsening bilateral pneumonia. PICC Line Insertion 09/18/20 00:00 IMPRESSION: SUCCESSFUL PLACEMENT OF A 5 FR DUAL LUMEN 42 CM PICC IN THE RIGHT BASILIC VEIN. Chest X-Ray 09/20/20 06:00 IMPRESSION: Size inversus. Venous access catheter in the left-sided SVC. Diffuse ground glass opacities in the lungs typical of covid 19. Assessment & Plan - Diagnosis (1) Pathological fracture, left femur, initial encounter for fracture Is this a current diagnosis for this admission?: Yes Plan: Patient has been scheduled for operative intervention for tomorrow. I have spoken with the medical team who also plans to speak with anesthesiology about the paitents condition. At this point, he is as well as he may be for the near future. Operative intervention, though high risk, may lead to improved mobility and potentially improved medical status as well. He continues to have oxygenation and respiratory issues and remains on BiPAP with electrolyte abnormalities. Current pathology diagnosis consistent with adenocarcinoma, metastatic. -Continue to encourage the medical team to continue attempting transfer to [facility]. It is unlikely to happen in an expedited manner and the patient will likely need definitive treatment soon. Continue current pain control measures, the patient appears to be relatively comfortable in regards to his left femur fracture in spite of his current situation. Bedrest - Keep NPO in the AM - Hold all chemical DVT PPX at midnight. (2) History of colon cancer Is this a current diagnosis for this admission?: Yes (3) Metastatic disease Qualifiers: Area of secondary neoplastic involvement: bone Qualified Code(s): C79.51 - Secondary malignant neoplasm of bone Is this a current diagnosis for this admission?: Yes - Time Time Spent with patient: Less than 15 minutes
[2020-09-20] MEDS ORDERED: CEFAZOLIN INJ 1 GM VIAL ONE (21:57)
[2020-09-20] MEDS ORDERED: CEFAZOLIN SODIUM 2 GM in DEXTROSE 5%-WATER 100 ML IV SCH (22:00)
[2020-09-21] MEDS: HYDROMORPHONE HCL INJ/PF 2 MG/ML AMPULE IV PRN ×2 (00:28→20:09)
[2020-09-21] MEDS: MORPHINE SULFATE 10 MG/ML INJ IV PRN ×2 (02:20→09:40)
[2020-09-21] MEDS: HEPARIN SOD (PORCINE) 5,000 UNIT/ML 1 ML VIAL SUBCUT SCH (05:59)
[2020-09-21] MEDS: INSULIN REG, HUMAN 100 UNIT/ML 3 ML VIAL (PYX) SUBCUT SCH ×3 (05:59→18:11)
[2020-09-21] MEDS ORDERED: ONDANSETRON HCL INJ/PF 4 MG/2 ML SDV ONE (06:25)
[2020-09-21] MEDS ORDERED: PROPOFOL INJ 200 MG/20 ML VIAL IV ONE (06:25)
[2020-09-21] MEDS ORDERED: TRANEXAMIC ACID INJ/PF 1,000 MG/10 ML SDV ONE (06:25)
[2020-09-21] MEDS ORDERED: FENTANYL CITRATE INJ/PF 100 MCG/2 ML AMPUL ONE (06:25)
[2020-09-21] MEDS ORDERED: MIDAZOLAM 2 MG/2 ML INJ ONE (06:25)
[2020-09-21 06:41] LABS: HEMATOCRIT 26.6 % (37.9-51.0); HEMOGLOBIN 8.6 g/dL (13.5-17.0); MEAN CORPUSCULAR HGB CONC 32.5 g/dL (32.0-36.0); MEAN CORPUSCULAR VOLUME 89 fl (80-97); RED BLOOD COUNT 2.98 10^6/uL (4.35-5.55); RED CELL DISTRIBUTION WIDTH 21.5 % (11.5-14.0); WHITE BLOOD COUNT 15.1 10^3/uL (4.0-10.5)
[2020-09-21 06:52] LABS: INTERNATIONAL RATION (INR) 1.67; PROTHROMBIN TIME 19.8 SEC (11.4-15.4)
[2020-09-21 07:07] LABS: PLATELET COUNT 84 10^3/uL (150-450)
[2020-09-21 07:18] LABS: ALBUMIN 1.6 g/dL (3.5-5.0); ALKALINE PHOSPHATASE 202 U/L (38-126); ANION GAP 5 (5-19); ASPARTATE AMINO TRANSFERASE 36 U/L (17-59); BILIRUBIN,DIRECT 1.2 mg/dL (0.0-0.4); BILIRUBIN,TOTAL 1.9 mg/dL (0.2-1.3); BLOOD UREA NITROGEN 17 mg/dL (7-20); CALCIUM 7.2 mg/dL (8.4-10.2); CARBON DIOXIDE 20 mmol/L (22-30); CHLORIDE 119 mmol/L (98-107); GLUCOSE 91 mg/dL (75-110); PHOSPHORUS 2.2 mg/dL (2.5-4.5); POTASSIUM 3.7 mmol/L (3.6-5.0)
[2020-09-21 07:30] LABS: PREALBUMIN < 3.0 mg/dL (17.6-36.0)
[2020-09-21] MEDS ORDERED: NORMAL SALINE 250 ML IV PRN ×2 (07:31)
[2020-09-21] MEDS: METOPROLOL TARTRATE 25 MG TABLET PO SCH ×2 (10:00→22:13)
[2020-09-21] MEDS ORDERED: FAT EMULSIONS 250 ML IV SCH (10:00)
[2020-09-21] MEDS: FOLIC ACID 1 MG TABLET PO SCH (10:00)
[2020-09-21] MEDS: FERROUS SULFATE 325 MG TABLET PO SCH (10:00)
[2020-09-21] MEDS: NICOTINE 21 MG/24 HR PATCH.TD24 TD SCH (10:00)
[2020-09-21] MEDS: TAMSULOSIN HCL 0.4 MG CAP.SR.24H PO SCH (10:00)
[2020-09-21] MEDS: DOCUSATE SODIUM 100 MG CAPSULE PO SCH (10:00)
[2020-09-21] MEDS: CEFEPIME 1 GM/D5W RTU 1 GM/50 ML RTUPB IV SCH ×2 (10:01→22:14)
[2020-09-21 10:02] LABS: ARTERIAL BLOOD BASE EXCESS -6.4 mmol/L; ARTERIAL BLOOD FIO2 65%; ARTERIAL BLOOD H2CO3 0.83 mmol/L (1.05-1.35); ARTERIAL BLOOD HCO3 17.2 mmol/L (20-24); ARTERIAL BLOOD O2 SATURATION 94.4 % (94-98); ARTERIAL BLOOD PCO2 27.6 mmHg (35-45); ARTERIAL BLOOD PH 7.41 (7.35-7.45)
[2020-09-21] MEDS: MEGESTROL ACETATE 20 MG TABLET PO SCH (10:02)
[2020-09-21] MEDS: NORMAL SALINE 10 ML SDV (SCHEDULED) IV SCH ×2 (10:03→22:25)
[2020-09-21] MEDS: SODIUM BICARBONATE 650 MG TABLET PO SCH (10:03)
[2020-09-21] MEDS: MULTIVITAMIN TABLET PO SCH (10:03)
[2020-09-21] MEDS: THIAMINE HCL 100 MG TABLET PO SCH (10:06)
--- NOTE | 2020-09-21 10:12 | PDOC PROGRESS REPORT ---
Subjective Date:: 09/21/20 Subjective:: Patient is confused, on BiPAP, and asking to get up and out of bed. Nurses repo rt that there is still no plan for the patient, as far as surgery. His breathing has progressively worsened and he is not eating. TPN was started yesterday. There is no evidence of active bleeding, but he did receive blood transfusion. Cefapime and Vanc were started for presumed pneumonia. His repeat COVID test was again negative. Reason For Visit: PATHOLOGICAL FRACTURE,LEFT LOWER EXTREMITY, Physical Exam Vital Signs: Temp Pulse Resp BP Pulse Ox 97.3 F 109 H 20 117/43 L 95 09/21/20 07:44 09/21/20 07:44 09/21/20 07:44 09/21/20 07:44 09/21/20 07:44 Intake & Output 09/20/20 09/21/20 09/22/20 06:59 06:59 06:59 Intake Total 2591 1582 Output Total 450 575 Balance 2141 1007 Weight 65.5 kg 70.4 kg General appearance: PRESENT: mild distress Head exam: PRESENT: normocephalic Eye exam: PRESENT: EOMI Throat exam: PRESENT: other - BiPAP mask in place. Respiratory exam: PRESENT: other - breath sounds obscured by BiPAP maching. Cardiovascular exam: PRESENT: other - Heart sounds obscured, but pulse is reg ular. GI/Abdominal exam: PRESENT: soft. ABSENT: tenderness Extremities exam: PRESENT: +2 edema Musculoskeletal exam: PRESENT: other - left leg is still rotated and shortened. Neurological exam: PRESENT: awake Psychiatric exam: PRESENT: appropriate affect Skin exam: PRESENT: normal color Results Laboratory Results: 09/21/20 06:15 09/21/20 06:15 09/21/20 09/21/20 09/21/20 06:15 06:15 08:25 WBC 15.1 H RBC 2.98 L Hgb 8.6 L Hct 26.6 L MCV 89 MCH 29.0 MCHC 32.5 RDW 21.5 H Plt Count 84 L Carbonic Acid HCO3/H2CO3 Ratio ABG pH ABG pCO2 ABG pO2 ABG HCO3 ABG O2 Saturation ABG Base Excess FiO2 Sodium 144.4 Potassium 3.7 Chloride 119 H Carbon Dioxide 20 L Anion Gap 5 BUN 17 Creatinine 0.60 Est GFR ( Amer) > 60 Glucose 91 Calcium 7.2 L Phosphorus 2.2 L Magnesium 1.9 Total Bilirubin 1.9 H AST 36 Alkaline Phosphatase 202 H Total Protein 4.0 L Albumin 1.6 L Prealbumin < 3.0 L Blood Type O POSITIVE Antibody Screen NEGATIVE 09/21/20 09:45 WBC RBC Hgb Hct MCV MCH MCHC RDW Plt Count Carbonic Acid 0.83 L HCO3/H2CO3 Ratio 20:1 ABG pH 7.41 ABG pCO2 27.6 L ABG pO2 69.0 L ABG HCO3 17.2 L ABG O2 Saturation 94.4 ABG Base Excess -6.4 FiO2 65% Sodium Potassium Chloride Carbon Dioxide Anion Gap BUN Creatinine Est GFR ( Amer) Glucose Calcium Phosphorus Magnesium Total Bilirubin AST Alkaline Phosphatase Total Protein Albumin Prealbumin Blood Type Antibody Screen 09/16/20 12:39 Leg - Tissue (Surgical) Fungal Smear - Final 09/16/20 12:39 Leg - Tissue (Surgical) Fungal Smear - Final 09/16/20 12:39 Leg - Tissue (Surgical) Gram Stain - Final 09/16/20 12:39 Leg - Tissue (Surgical) Wound Culture - Final NO AEROBIC OR ANAEROBIC ORGANISMS RECOVERED 09/11/20 14:35 Troponin I < 0.012 Impressions: Chest CT 09/11/20 00:00 IMPRESSION: 1. Since the prior study, patchy lung infiltrates have developed as described along with right upper lobe reticulonodular opacities. Findings are likely infectious/inflammatory. 2. Chronic left urinary obstruction as described. Associated findings look similar. Abnormal soft tissue thickening in the proximal ureter with small adjacent periureteric lymph nodes. 3. Subtotal colectomy with persistent probably progressive irregular wall th ickening and probable mass in the region of the rectum. Proximal to the anastomosis and rectal pathology, bowel loops are progressively dilated compared to August exam. There is a large amount of retained stool with at least 1 abnormal thick walled loop of small bowel in the right lower quadrant now also seen. Abdomen/Pelvis CT 09/11/20 14:15 IMPRESSION: 1. Since the prior study, patchy lung infiltrates have developed as described along with right upper lobe reticulonodular opacities. Findings are likely infectious/inflammatory. 2. Chronic left urinary obstruction as described. Associated findings look similar. Abnormal soft tissue thickening in the proximal ureter with small adjacent periureteric lymph nodes. 3. Subtotal colectomy with persistent probably progressive irregular wall thickening and probable mass in the region of the rectum. Proximal to the anastomosis and rectal pathology, bowel loops are progressively dilated compared to August exam. There is a large amount of retained stool with at least 1 abnormal thick walled loop of small bowel in the right lower quadrant now also seen. Body Scan Nuclear Medicine 09/12/20 00:00 IMPRESSION: 1. Abnormal uptake right femur. Known fracture here. 2. Abnormal uptake right proximal humerus. Consider radiographic evaluation. 3. No other overtly worrisome areas of bone uptake. Other findings as discussed. Head MRI 09/12/20 00:00 IMPRESSION: 1. Noncontrast somewhat limited study reveals no overt suggestion of intracranial metastatic disease. See limitations discussed above. No acute findings are suggested. EVIDENCE OF ACUTE STROKE: NO. Humerus X-Ray 09/12/20 00:00 IMPRESSION: As above. Lower Extremity MRI 09/12/20 00:00 IMPRESSION: 1. Although not definite, underlying pathologic lesion in the region of femur fracture is certainly possible. No suggestion of adjacent soft tissue mass allowing for posttraumatic edema and hematoma. Bone Biopsy CT 09/14/20 00:00 IMPRESSION: CT GUIDED BIOPSY OF THE LEFT FEMUR PERFORMED WITHOUT IMMEDIATE COMPLICATION. PATHOLOGY PENDING. Guidance Needle Placement CT 09/14/20 00:00 IMPRESSION: Please see combined report for performance of procedure and radiologic supervision and interpretation. Femur X-Ray 09/16/20 00:00 IMPRESSION: IMAGE(S) OBTAINED DURING PROCEDURE. Fluoroscopy 09/16/20 00:00 IMPRESSION: IMAGE(S) OBTAINED DURING PROCEDURE. Chest/Abdomen CTA 09/17/20 00:00 IMPRESSION: 1. No PE. 2. Worsening bilateral pneumonia. PICC Line Insertion 09/18/20 00:00 IMPRESSION: SUCCESSFUL PLACEMENT OF A 5 FR DUAL LUMEN 42 CM PICC IN THE RIGHT BASILIC VEIN. Chest X-Ray 09/20/20 06:00 IMPRESSION: Size inversus. Venous access catheter in the left-sided SVC. Diffuse ground glass opacities in the lungs typical of covid 19. Assessment & Plan - Diagnosis (1) History of colon cancer Is this a current diagnosis for this admission?: Yes Plan: He now has widespread metastatic colon cancer. However, treatment is on hold until after his upcoming surgery. I have left a message for his family to discuss this. (2) Pathological fracture, left femur, initial encounter for fracture Is this a current diagnosis for this admission?: Yes Plan: Await surgery. If this is not able to be performed, then patient will succumb to the cancer very rapidly. I will also discuss risks with the family and possible Hospice/palliative care only. However, I do NOT believe they will agree to this and will want aggressive treatment despite the risk. - Time Time Spent with patient: 15-24 minutes
--- NOTE | 2020-09-21 12:46 | PDOC PROGRESS REPORT ---
Subjective Date:: 09/21/20 Subjective:: Patient is on BiPAP at this time. The medical team reports some improvement in his pneumonia. The patient is confused. Reason For Visit: PATHOLOGICAL FRACTURE,LEFT LOWER EXTREMITY, Physical Exam Vital Signs: Temp Pulse Resp BP Pulse Ox 97.3 F 109 H 40 H 117/43 L 92 09/21/20 07:44 09/21/20 07:44 09/21/20 09:30 09/21/20 07:44 09/21/20 09:30 Intake & Output 09/20/20 09/21/20 09/22/20 06:59 06:59 06:59 Intake Total 2591 1582 Output Total 450 575 Balance 2141 1007 Weight 65.5 kg 70.4 kg Physical Exam: Currently on BiPAP, Arousable Left lower extremity -Pulses 2+ distally -Compartments soft - Sensorimotor function grossly intact Leg shortened externally rotated 2+ pitting edema left lower extremity. Wound clean dry and intact. Results Laboratory Results: 09/21/20 06:15 09/21/20 06:15 09/21/20 09/21/20 09/21/20 06:15 06:15 08:25 WBC 15.1 H RBC 2.98 L Hgb 8.6 L Hct 26.6 L MCV 89 MCH 29.0 MCHC 32.5 RDW 21.5 H Plt Count 84 L Carbonic Acid HCO3/H2CO3 Ratio ABG pH ABG pCO2 ABG pO2 ABG HCO3 ABG O2 Saturation ABG Base Excess FiO2 Sodium 144.4 Potassium 3.7 Chloride 119 H Carbon Dioxide 20 L Anion Gap 5 BUN 17 Creatinine 0.60 Est GFR ( Amer) > 60 Glucose 91 Calcium 7.2 L Phosphorus 2.2 L Magnesium 1.9 Total Bilirubin 1.9 H AST 36 Alkaline Phosphatase 202 H Total Protein 4.0 L Albumin 1.6 L Prealbumin < 3.0 L Blood Type O POSITIVE Antibody Screen NEGATIVE 09/21/20 09:45 WBC RBC Hgb Hct MCV MCH MCHC RDW Plt Count Carbonic Acid 0.83 L HCO3/H2CO3 Ratio 20:1 ABG pH 7.41 ABG pCO2 27.6 L ABG pO2 69.0 L ABG HCO3 17.2 L ABG O2 Saturation 94.4 ABG Base Excess -6.4 FiO2 65% Sodium Potassium Chloride Carbon Dioxide Anion Gap BUN Creatinine Est GFR ( Amer) Glucose Calcium Phosphorus Magnesium Total Bilirubin AST Alkaline Phosphatase Total Protein Albumin Prealbumin Blood Type Antibody Screen 09/16/20 12:39 Leg - Tissue (Surgical) Fungal Smear - Final 09/16/20 12:39 Leg - Tissue (Surgical) Fungal Smear - Final 09/16/20 12:39 Leg - Tissue (Surgical) Gram Stain - Final 09/16/20 12:39 Leg - Tissue (Surgical) Wound Culture - Final NO AEROBIC OR ANAEROBIC ORGANISMS RECOVERED 09/11/20 14:35 Troponin I < 0.012 Impressions: Chest CT 09/11/20 00:00 IMPRESSION: 1. Since the prior study, patchy lung infiltrates have developed as described along with right upper lobe reticulonodular opacities. Findings are likely infectious/inflammatory. 2. Chronic left urinary obstruction as described. Associated findings look similar. Abnormal soft tissue thickening in the proximal ureter with small adjacent periureteric lymph nodes. 3. Subtotal colectomy with persistent probably progressive irregular wall thickening and probable mass in the region of the rectum. Proximal to the anastomosis and rectal pathology, bowel loops are progressively dilated compared to August exam. There is a large amount of retained stool with at least 1 abnormal thick walled loop of small bowel in the right lower quadrant now also seen. Abdomen/Pelvis CT 09/11/20 14:15 IMPRESSION: 1. Since the prior study, patchy lung infiltrates have developed as described along with right upper lobe reticulonodular opacities. Findings are likely infectious/inflammatory. 2. Chronic left urinary obstruction as described. Associated findings look similar. Abnormal soft tissue thickening in the proximal ureter with small adjacent periureteric lymph nodes. 3. Subtotal colectomy with persistent probably progressive irregular wall thickening and probable mass in the region of the rectum. Proximal to the anastomosis and rectal pathology, bowel loops are progressively dilated compared to August exam. There is a large amount of retained stool with at least 1 abnormal thick walled loop of small bowel in the right lower quadrant now also seen. Body Scan Nuclear Medicine 09/12/20 00:00 IMPRESSION: 1. Abnormal uptake right femur. Known fracture here. 2. Abnormal uptake right proximal humerus. Consider radiographic evaluation. 3. No other overtly worrisome areas of bone uptake. Other findings as discussed. Head MRI 09/12/20 00:00 IMPRESSION: 1. Noncontrast somewhat limited study reveals no overt suggestion of intracranial metastatic disease. See limitations discussed above. No acute findings are suggested. EVIDENCE OF ACUTE STROKE: NO. Humerus X-Ray 09/12/20 00:00 IMPRESSION: As above. Lower Extremity MRI 09/12/20 00: IMPRESSION: 1. Although not definite, underlying pathologic lesion in the region of femur fracture is certainly possible. No suggestion of adjacent soft tissue mass allowing for posttraumatic edema and hematoma. Bone Biopsy CT 09/14/20 00: IMPRESSION: CT GUIDED BIOPSY OF THE LEFT FEMUR PERFORMED WITHOUT IMMEDIATE COMPLICATION. PATHOLOGY PENDING. Guidance Needle Placement CT 09/14/20 00 IMPRESSION: Please see combined report for performance of procedure and radiologic supervision and interpretation. Femur X-Ray 09/16/20 00: IMPRESSION: IMAGE(S) OBTAINED DURING PROCEDURE. Fluoroscopy 09/16/20 IMPRESSION: IMAGE(S) OBTAINED DURING PROCEDURE. Chest/Abdomen CTA 09/17/20 00:00 IMPRESSION: 1. No PE. 2. Worsening bilateral pneumonia. PICC Line Insertion 09/18/20 00:00 IMPRESSION: SUCCESSFUL PLACEMENT OF A 5 FR DUAL LUMEN 42 CM PICC IN THE RIGHT BASILIC VEIN. Chest X-Ray 09/20/20 06:00 IMPRESSION: Size inversus. Venous access catheter in the left-sided SVC. Diffuse ground glass opacities in the lungs typical of covid 19. Assessment & Plan - Diagnosis (1) Pathological fracture, left femur, initial encounter for fracture Is this a current diagnosis for this admission?: Yes Plan: I had a thorough discussion with anesthesia today in regards to the patient's overall condition and potential for surgical management. I also spoke with the medical team yesterday who at that time felt he may be as optimized as he could be for operative intervention. I have encouraged the 2 teams to speak with each other regarding the clearance. I would like to proceed with surgical intervention in order to stabilize the fracture and potentially get the patient more mobile which may also benefit his response to both his metastatic colon cancer as well as his pneumonia. I will remain in communication with both the anesthesia team as well as the medical team in regards to their interpretation of his medical condition and potential for surgery. Hopefully he will be able to receive intervention this afternoon. (2) History of colon cancer Is this a current diagnosis for this admission?: Yes (3) Metastatic disease Qualifiers: Qualified Code(s): C79.51 - Secondary malignant neoplasm of bone Is this a current diagnosis for this admission?: Yes - Time Time Spent with patient: Less than 15 minutes
--- NOTE | 2020-09-21 12:54 | PDOC PROGRESS REPORT ---
Subjective Date:: 09/21/20 Subjective:: As per admitting physician's note RAYMON RODARTE is a 64 year old male with past medical history significant for colorectal cancer status post hemicolectomy/radiation/chemotherapy approximately 16 years prior to admission, ongoing tobacco abuse, alcohol dependency who was admitted 09/11/2019 with a left, nontraumatic, midshaft femur fracture concerning for pathologic fxy. 09/14/2020. No acute events overnight. Patient complaining of left lower extremity pain and not able to sleep due to being anxious and being in pain, otherwise denies any fever, chills, nausea, vomiting. Patient is a status post left femur biopsy. 09/15/2020. No acute events overnight. This morning patient is noted to be very lethargic but easily arousable and answering questions appropriately and falls back to sleep, still complaining of left lower extremity pain, denies any auditory or visual hallucinations, denies any fever, chills, nausea, vomiting. Reports history of anorexia for the last 4 months. Patient was scheduled to have his biopsy repeated as biopsy done yesterday was not adequate, unfortunately had to be delayed as patient had electrolyte derangement. 09/16/2020. Seems patient has had worsening of his left femur fracture overnight, this morning he was noted to have shortening of his left proximal lower extremity and developed posterior inversion of the proximal left lower extremity, repeat x-ray shows shortening of fracture, no new fracture. Patient has been bedbound and has not had any falls overnight. Patient complaining of generalized weakness, left lower extremity pain, and feeling anxious, stating that he just wants to go home, he seems to be in moderate distress, however is alert and oriented, answering questions appropriately. Fever, chest pain, nausea, vomiting. P.o. tolerant and having bowel movements. 09/17/2020. Over night patient was noted to become hypoxic and hypotensive, patient is becoming more somnolent to obtunded, a CTA chest this morning was negative for any PE however shows worsening bilateral pneumonia, ABG shows worsening hypoxemia, patient is status post open left femur biopsy and of my prior conversation with Dr. Clement it is likely that it could be osteosarcoma, [facility] was called on the status of transfer however there is stating that he is not on the list and we have to call every day to find out if he will be accepted to be transferred at some point there. 09/18/2020. No acute events overnight. Patient is still remains somnolent and lethargic however more responsive than yesterday, still dependent on BiPAP, setting leukocytosis, repeat cultures remain negative. Pathology report is back as adenocarcinoma, pending surgical intervention by orthopedic surgery. 09/19/2020. This morning patient noted to be more awake, alert and oriented but seems to be in significant pain, asking for his pain medication. His PO2 has im proved but is still on BiPAP, has gone up, patient pathology report is back however still pending left femoral surgery as per anesthesiology evaluation patient too sick to undergo surgery, patient being started on TPN and his DVT prophylaxis has been restarted. We have reached out to [facility] for possible transfer however he has not been accepted and he is not on a waiting list, their recommendation is to call daily and see if he will be accepted. 09/20/2020. No acute events overnight. Patient is status BiPAP dependent, ABG shows worsening hypoxemia, patient is drowsy but easily arousable, oriented to person and place, complaining of left leg pain, patient is still pending ORIF by orthopedic surgery but unfortunately patient too sick to go to the OR as per anesthesia evaluation. I have contacted Dr. Clement who stated that he is in the last for tomorrow. Unfortunately TPN was not started yesterday as the order did not cross through the pharmacy. Patient is scheduled to have his TPN restarted today. 09/21/2020. No acute events overnight. Patient is still remains very sick however he is more awake and communicative compared to last 2 days, still confused though. He appears to be in significant pain and asking for his pain meds and asking to be repositioned. He has been afebrile and his leukocytosis trending down, still on BiPAP and FiO2 of 65 however his PO2 is improving, his e lectrolytes are WNL and liver enzymes are also trending down, his prealbumin is still less than 3. He was started on TPN yesterday. Patient has been pending ORIF by orthopedic surgery however he remains too sick to undergo surgery as per anesthesia evaluation, I spoke with both orthopedic surgery and anesthesia, orthopedic surgery is willing to do the surgery if anesthesia is okay with the plan however as per my conversation with anesthesia they think patient is still too sick to undergo surgery and he might need to be intubated and sent to ICU, I touched bases with ICU yesterday and they are saying that they do not have any rooms available and if patient is intubated he would have to be transferred to tertiary center. Anesthesia would be okay for patient to go to the OR today if it is done as as a team approach and if it is decided to be in the best interest of the patient, by the whole team, otherwise they would like to wait 1 more day and see if patient improves by tomorrow. Even though patient appears very sick but he is slowly improving, he is more awake and alert, his electrolytes are optimized, WBC is trending down, liver enzymes are also trending down, he was also started on TPN yesterday and hopefully his nutritional status was also keep improving. I believe it would be in the best interest of the patient to hold off surgery for today and hopefully there is more improvement tomorrow by tomorrow if no improvement we would have to go ahead with surgery even if he has to be intubated and transferred to ICU or transfer to a tertiary center. Reason For Visit: PATHOLOGICAL FRACTURE,LEFT LOWER EXTREMITY, Physical Exam Vital Signs: Temp Pulse Resp BP Pulse Ox 97.3 F 109 H 40 H 117/43 L 92 09/21/20 07:44 09/21/20 07:44 09/21/20 09:30 09/21/20 07:44 09/21/20 09:30 Intake & Output 09/20/20 09/21/20 09/22/20 06:59 06:59 06:59 Intake Total 2591 1582 Output Total 450 575 Balance 2141 1007 Weight 65.5 kg 70.4 kg General appearance: PRESENT: other - On BiPAP, moderate distress, appears to be in a lot of pain, Head exam: PRESENT: atraumatic, normocephalic Respiratory exam: PRESENT: clear to auscultation pedro. ABSENT: rales, rhonchi, wheezes Cardiovascular exam: PRESENT: RRR. ABSENT: diastolic murmur, rubs, systolic murmur GI/Abdominal exam: PRESENT: normal bowel sounds, soft. ABSENT: distended, guar ding, mass, organolmegaly, rebound, tenderness Musculoskeletal exam: PRESENT: other - Left femur fracture and left lower extremity deformity, diffuse swelling of left lower extremity. Neurological exam: PRESENT: awake, oriented to person, oriented to place Results Laboratory Results: 09/21/20 06:15 09/21/20 06:15 09/21/20 09/21/20 09/21/20 06:15 06:15 08:25 WBC 15.1 H RBC 2.98 L Hgb 8.6 L Hct 26.6 L MCV 89 MCH 29.0 MCHC 32.5 RDW 21.5 H Plt Count 84 L Carbonic Acid HCO3/H2CO3 Ratio ABG pH ABG pCO2 ABG pO2 ABG HCO3 ABG O2 Saturation ABG Base Excess FiO2 Sodium 144.4 Potassium 3.7 Chloride 119 H Carbon Dioxide 20 L Anion Gap 5 BUN 17 Creatinine 0.60 Est GFR ( Amer) > 60 Glucose 91 Calcium 7.2 L Phosphorus 2.2 L Magnesium 1.9 Total Bilirubin 1.9 H AST 36 Alkaline Phosphatase 202 H Total Protein 4.0 L Albumin 1.6 L Prealbumin < 3.0 L Blood Type O POSITIVE Antibody Screen NEGATIVE 09/21/20 09:45 WBC RBC Hgb Hct MCV MCH MCHC RDW Plt Count Carbonic Acid 0.83 L HCO3/H2CO3 Ratio 20:1 ABG pH 7.41 ABG pCO2 27.6 L ABG pO2 69.0 L ABG HCO3 17.2 L ABG O2 Saturation 94.4 ABG Base Excess -6.4 FiO2 65% Sodium Potassium Chloride Carbon Dioxide Anion Gap BUN Creatinine Est GFR ( Amer) Glucose Calcium Phosphorus Magnesium Total Bilirubin AST Alkaline Phosphatase Total Protein Albumin Prealbumin Blood Type Antibody Screen 09/16/20 12:39 Leg - Tissue (Surgical) Fungal Smear - Final 09/16/20 12:39 Leg - Tissue (Surgical) Fungal Smear - Final 09/16/20 12:39 Leg - Tissue (Surgical) Gram Stain - Final 09/16/20 12:39 Leg - Tissue (Surgical) Wound Culture - Final NO AEROBIC OR ANAEROBIC ORGANISMS RECOVERED 09/11/20 14:35 Troponin I < 0.012 Impressions: Chest CT 09/11/20 00:00 IMPRESSION: 1. Since the prior study, patchy lung infiltrates have developed as described along with right upper lobe reticulonodular opacities. Findings are likely infectious/inflammatory. 2. Chronic left urinary obstruction as described. Associated findings look similar. Abnormal soft tissue thickening in the proximal ureter with small adjacent periureteric lymph nodes. 3. Subtotal colectomy with persistent probably progressive irregular wall thickening and probable mass in the region of the rectum. Proximal to the anastomosis and rectal pathology, bowel loops are progressively dilated compared to August exam. There is a large amount of retained stool with at least 1 a bnormal thick walled loop of small bowel in the right lower quadrant now also seen. Abdomen/Pelvis CT 09/11/20 14:15 IMPRESSION: 1. Since the prior study, patchy lung infiltrates have developed as described along with right upper lobe reticulonodular opacities. Findings are likely infectious/inflammatory. 2. Chronic left urinary obstruction as described. Associated findings look similar. Abnormal soft tissue thickening in the proximal ureter with small adjacent periureteric lymph nodes. 3. Subtotal colectomy with persistent probably progressive irregular wall t hickening and probable mass in the region of the rectum. Proximal to the anastomosis and rectal pathology, bowel loops are progressively dilated compared to August exam. There is a large amount of retained stool with at least 1 abnormal thick walled loop of small bowel in the right lower quadrant now also seen. Body Scan Nuclear Medicine 09/12/20 00:00 IMPRESSION: 1. Abnormal uptake right femur. Known fracture here. 2. Abnormal uptake right proximal humerus. Consider radiographic evaluation. 3. No other overtly worrisome areas of bone uptake. Other findings as discussed. Head MRI 09/12/20 00:00 IMPRESSION: 1. Noncontrast somewhat limited study reveals no overt suggestion of intracranial metastatic disease. See limitations discussed above. No acute findings are suggested. EVIDENCE OF ACUTE STROKE: NO. Humerus X-Ray 09/12/20 00:00 IMPRESSION: As above. Lower Extremity MRI 09/12/20 00:00 IMPRESSION: 1. Although not definite, underlying pathologic lesion in the region of femur fracture is certainly possible. No suggestion of adjacent soft tissue mass allowing for posttraumatic edema and hematoma. Bone Biopsy CT 09/14/20 00:00 IMPRESSION: CT GUIDED BIOPSY OF THE LEFT FEMUR PERFORMED WITHOUT IMMEDIATE COMPLICATION. PATHOLOGY PENDING. Guidance Needle Placement CT 09/14/20 00: IMPRESSION: Please see combined report for performance of procedure and radiologic supervision and interpretation. Femur X-Ray 09/16/20 00:00 IMPRESSION: IMAGE(S) OBTAINED DURING PROCEDURE. Fluoroscopy 09/16/20 00:00 IMPRESSION: IMAGE(S) OBTAINED DURING PROCEDURE. Chest/Abdomen CTA 09/17/20 00:00 IMPRESSION: 1. No PE. 2. Worsening bilateral pneumonia. PICC Line Insertion 09/18/20 00:00 IMPRESSION: SUCCESSFUL PLACEMENT OF A 5 FR DUAL LUMEN 42 CM PICC IN THE RIGHT BASILIC VEIN. Chest X-Ray 09/20/20 06:00 IMPRESSION: Size inversus. Venous access catheter in the left-sided SVC. Diffuse ground glass opacities in the lungs typical of covid 19. Assessment and Plan - Diagnosis (1) Acute respiratory failure with hypoxemia Is this a current diagnosis for this admission?: Yes Plan: BiPAP dependent. SPO2 WNL on FiO2 of 65%. Hypoxemia improving. CTA positive for bilateral worsening pneumonia. COVID-19 serology negative. Patient came in with leukocytosis however no sign of infection on admission was noted started on antibiotics. Chest x-ray on admission was read as no acute findings. Day 6 IV antibiotics. Day 6 IV cefepime. Day 5 IV vancomycin. Blood culture from admission 1/2 bottles positive for staph S and Klebsiella pneumoniae. Repeat blood and sputum culture. Continue empiric IV antibiotics. Continue BiPAP. Continue DuoNeb. (2) Pathological fracture, left femur, initial encounter for fracture Is this a current diagnosis for this admission?: Yes Plan: Patient is still remains very sick however he is more awake and communicative compared to last 2 days, still confused though. He appears to be in significant pain and asking for his pain meds and asking to be repositioned. He has been afebrile and his leukocytosis trending down, still on BiPAP and FiO2 of 65 however his PO2 is improving, his electrolytes are WNL and liver enzymes are also trending down, his prealbumin is still less than 3. He was started on TPN yesterday. Patient has been pending ORIF by orthopedic surgery however he remains too sick to undergo surgery as per anesthesia evaluation, I spoke with both orthopedic surgery and anesthesia, orthopedic surgery is willing to do the surgery if anesthesia is okay with the plan however as per my conversation with anesthesia they think patient is still too sick to undergo surgery and he might need to be intubated and sent to ICU, I touched bases with ICU yesterday and they are saying that they do not have any rooms available and if patient is intubated he would have to be transferred to tertiary center. Anesthesia would be okay for patient to go to the OR today if it is done as as a team approach and if it is decided to be in the best interest of the patient, by the whole team, otherwise they would like to wait 1 more day and see if patient improves by tomorrow. Even though patient appears very sick but he is slowly improving, he is more awake and alert, his electrolytes are optimized, WBC is trending down, liver enzymes are also trending down, he was also started on TPN yesterday and hopefully his nutritional status was also keep improving. I believe it would be in the best interest of the patient to hold off surgery for today and hopefully there is more improvement tomorrow by tomorrow if no improvement we would have to go ahead with surgery even if he has to be intubated and transferred to ICU or transfer to a tertiary center. Schedule for ORIF tomorrow. Pathology report is positive for adenocarcinoma. Repeat x-ray shows shortening of left femur fracture. First biopsy on 09/16/2020. Initial report likely osteosarcoma as per my conversation with Dr. Clemetn. Second biopsy on 09/14/2020, positive for adenocarcinoma. Orthopedic surgery on board, recommendations noted. Please refer to note. Unfortunately surgery has been consulted already late repeatedly while waiting for pathology results and patient being too sick to tolerate anesthesia. Oncology consulted, recommendations noted. Continue opioid and nonopioid analgesics monitor for respiratory depression and fall. Continue heparin for DVT prophylaxis. Hold 6 hours before operation. As per previous attending's note "was asked by Dr. Clement to attempt transfer to tertiary for bone biopsy due to concern that this may be a new primary malignancy site (i.e osteosarcoma). Spoke with [facility]; only acceting ICU level care. Spoke with [facility] (orthopedic team); recommended tertiary such as [facility] or [place]. Spoke w/ [facility] hospitalist; appropriate to accept patient to service, however, no bed available and do not have a wait list. Called [facility] again, patient not on the list, they would like us to call me daily to inquire about possible late availability and patient is transferred. (3) Anemia Qualifiers: Anemia type: iron deficiency Is this a current diagnosis for this admission?: Yes Plan: Worsening anemia. Likely combination of GI bleed and acute femoral fracture. As per patient and girlfriend he had history of colectomy and only 12 inches of his colon remains. Has not had a bowel movement since 09/18/2020. Patient had 2 guaiac positive stools but as per primary nurse his last bowel movement did not look melanotic. Even though ferrous sulfate does not cause positive guaiac but is known to give positive guaiac in vitro. Is likely his anemia mostly due to his femoral fracture, but GI bleed is still remains a concern. Patient is status post 3 PRBC transfusions since admission. He received 1 dose of Injectafer on 09/20/2020. Letter H&H closely, supportive transfusions. Surgery was consulted however as per my consultation with Dr. Loja they will address his GI bleed after his surgery. If concern remains for worsening GI bleed please consult gastroenterology AARON. (4) Malnutrition Qualifiers: Malnutrition type: protein-calorie malnutrition Protein-calorie malnutrition severity: moderate Qualified Code(s): E44.0 - Moderate protein- calorie malnutrition Is this a current diagnosis for this admission?: Yes Plan: Presented with severe malnutrition BMI 18.0. Prealbumin <3. Endorses history of anorexia for the last 4 months and drinking daily. This is likely due to underlying malignancy complicated by EtOH abuse and low p.o. intake. Unfortunately patient has been n.p.o. for the most of his hospitalization anticipation of surgery and has not been able to have much p.o. intake. Orders placed for TPN initiation on 09/20/2020. Continue TPN until patient is able to tolerate p.o. intake. (5) Alcohol dependency Qualifiers: Substance use status: unspecified alcohol-induced disorder Qualified Code(s): F10.29 - Alcohol dependence with unspecified alcohol-induced disorder Is this a current diagnosis for this admission?: Yes Plan: Pain is very lethargic and somnolent. Drinks daily but states he only has 1-2 beers per day CIWA w/ prn Ativan. DT precautions. Continue daily thiamine and folic acid supplementation. (6) History of colon cancer Is this a current diagnosis for this admission?: Yes Plan: History of colorectal cancer status post colectomy and chemoradiation. As per patient only 12 inches of his colon is remaining. Prior imaging in 2019 concerning for new colorectal mass, patient denies being told about this and has not had any follow-up CT chest abdomen pelvis with contrast right upper lobe reticulonodular opacities, progressive irregular: Wall thickening and probable mass in the region of the rectum. Nuclear medicine bone scan significant for abnormal uptake right femur, abnormal uptake right proximal humerus MRI head with no contrast does not show any overt sign of metastatic disease. Oncology consulted. Discussed with Dr. Delvalle today; appreciate her expertise. (7) Hyponatremia Is this a current diagnosis for this admission?: Yes Plan: Improving. Chronic. 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 Continue D5 NS and supplemental p.o. sodium bicarb. Daily BMP. Seizure precautions. (8) Lactic acidosis Is this a current diagnosis for this admission?: Yes Plan: Resolved. Likely due to severe dehydration and nausea/vomiting Antiemetics IV fluids (9) Leukocytosis Qualifiers: Leukocytosis type: unspecified Qualified Code(s): D72.829 - Elevated white blood cell count, unspecified Is this a current diagnosis for this admission?: Yes Plan: As per #1. (10) Nausea and vomiting Qualifiers: Vomiting type: unspecified Vomiting Intractability: non-intractable Qualified Code(s): R11.2 - Nausea with vomiting, unspecified Is this a current diagnosis for this admission?: Yes Plan: Resolved. IV fluids Antiemetics (11) Tobacco abuse Is this a current diagnosis for this admission?: Yes Plan: Patient does not wish to quit Cessation encouraged. Nicotine replacement therapies provided. (12) Metabolic acidosis Is this a current diagnosis for this admission?: Yes Plan: Resolved. Normal anion gap metabolic acidosis likely starvation ketosis. Patient endorses history of EtOH abuse, anorexia, and has been n.p.o. pending surgery. Continue D5 NS, supplemental sodium bicarb, encourage p.o. intake once patient biopsies taken. (13) Hyperkalemia Is this a current diagnosis for this admission?: Yes Plan: Resolved. Likely due to metabolic acidosis. No acute EKG changes. Hyperkalemia protocol. (14) Vitamin D deficiency Is this a current diagnosis for this admission?: Yes Plan: Severe vitamin D deficiency. Likely due to low p.o. intake. Continue ergocalciferol 50,000 units q. weekly. (15) Pneumonia Is this a current diagnosis for this admission?: Yes Plan: Community-acquired pneumonia. Healthcare associated pneumonia could not be ruled out. Blood culture from admission 1/2 bottles positive for staph capitis and Klebsiella pneumonia. Plan as per #1. - Time Time Spent with patient: 35 or more minutes Anticipated Discharge Disposition: [facility] Anticipated Discharge Timeframe: within 72 hours
[2020-09-21] MEDS: VANCOMYCIN HCL 1,250 MG in DEXTROSE 5%-WATER 250 ML IV SCH ×2 (14:54→23:12)
[2020-09-21] MEDS: AMINO ACIDS 5 %/DEXTROSE 20 % 1,000 ML IV PRN (22:14)
[2020-09-22] MEDS: HYDROMORPHONE HCL INJ/PF 2 MG/ML AMPULE IV PRN (03:41)
[2020-09-22] MEDS: INSULIN REG, HUMAN 100 UNIT/ML 3 ML VIAL (PYX) SUBCUT SCH ×4 (04:53→17:40)
[2020-09-22 06:04] LABS: ARTERIAL BLOOD BASE EXCESS -5.2 mmol/L; ARTERIAL BLOOD H2CO3 0.68 mmol/L (1.05-1.35); ARTERIAL BLOOD HCO3 16.7 mmol/L (20-24); ARTERIAL BLOOD O2 SATURATION 91.2 % (94-98); ARTERIAL BLOOD PCO2 22.6 mmHg (35-45); ARTERIAL BLOOD PH 7.49 (7.35-7.45); ARTERIAL BLOOD TOTAL CO2 17.4 mmol/L (23-27)
[2020-09-22 06:06] LABS: ARTERIAL BLOOD FIO2 65%
[2020-09-22 08:18] LABS: ALBUMIN 1.8 g/dL (3.5-5.0); ALKALINE PHOSPHATASE 489 U/L (38-126); ASPARTATE AMINO TRANSFERASE 73 U/L (17-59); BILIRUBIN,DIRECT 2.3 mg/dL (0.0-0.4); BILIRUBIN,TOTAL 3.5 mg/dL (0.2-1.3); BLOOD UREA NITROGEN 19 mg/dL (7-20); CALCIUM 7.9 mg/dL (8.4-10.2); GLUCOSE 103 mg/dL (75-110); POTASSIUM 3.6 mmol/L (3.6-5.0); TOTAL PROTEIN 4.4 g/dL (6.3-8.2)
[2020-09-22 08:23] LABS: CARBON DIOXIDE 21 mmol/L (22-30); CHLORIDE 121 mmol/L (98-107)
[2020-09-22 08:26] LABS: ANION GAP 4 (5-19)
[2020-09-22 08:44] LABS: HEMATOCRIT 31.7 % (37.9-51.0); HEMOGLOBIN 10.4 g/dL (13.5-17.0); MEAN CORPUSCULAR HEMOGLOBIN 28.9 pg (27.0-33.4); MEAN CORPUSCULAR HGB CONC 32.9 g/dL (32.0-36.0); MEAN CORPUSCULAR VOLUME 88 fl (80-97); RED BLOOD COUNT 3.61 10^6/uL (4.35-5.55); RED CELL DISTRIBUTION WIDTH 20.9 % (11.5-14.0); WHITE BLOOD COUNT 15.1 10^3/uL (4.0-10.5)
--- NOTE | 2020-09-22 08:59 | PDOC PROGRESS REPORT ---
Subjective Date:: 09/22/20 Subjective:: Patient is much more awake and complaining, but not fully oriented. Complains o f needing to void, but sequeira in place and functioning. He is still in soft wrist restrains and BiPAP. Reason For Visit: PATHOLOGICAL FRACTURE,LEFT LOWER EXTREMITY, Physical Exam Vital Signs: Temp Pulse Resp BP Pulse Ox 97.5 F 94 27 H 110/67 97 09/22/20 03:31 09/22/20 03:31 09/22/20 03:31 09/22/20 03:31 09/22/20 03:31 Intake & Output 09/21/20 09/22/20 09/23/20 06:59 06:59 06:59 Intake Total 1582 900 Output Total 575 725 Balance 1007 175 Weight 70.4 kg 67.5 kg General appearance: PRESENT: thin Head exam: PRESENT: normocephalic Mouth exam: PRESENT: dry mucosa Respiratory exam: PRESENT: unlabored GI/Abdominal exam: PRESENT: soft. ABSENT: tenderness Extremities exam: PRESENT: other - No change. Marked edema throughout. Psychiatric exam: PRESENT: agitated Skin exam: PRESENT: other - erythema over abdomen Results Laboratory Results: 09/22/20 07:29 09/21/20 09/21/20 09/21/20 08:25 09:45 12:15 Carbonic Acid 0.83 L HCO3/H2CO3 Ratio 20:1 ABG pH 7.41 ABG pCO2 27.6 L ABG pO2 69.0 L ABG HCO3 17.2 L ABG O2 Saturation 94.4 ABG Base Excess -6.4 FiO2 65% Sodium Potassium Chloride Carbon Dioxide Anion Gap BUN Creatinine Est GFR ( Amer) Glucose Lactic Acid 1.9 Calcium Total Bilirubin AST Alkaline Phosphatase Total Protein Albumin Blood Type O POSITIVE Antibody Screen NEGATIVE 09/22/20 09/22/20 05:40 07:29 Carbonic Acid 0.68 L HCO3/H2CO3 Ratio 24:1 ABG pH 7.49 H ABG pCO2 22.6 L ABG pO2 54.0 L ABG HCO3 16.7 L ABG O2 Saturation 91.2 L ABG Base Excess -5.2 FiO2 65% Sodium 145.9 H Potassium 3.6 Chloride 121 H Carbon Dioxide 21 L Anion Gap 4 L BUN 19 Creatinine 0.65 Est GFR ( Amer) > 60 Glucose 103 Lactic Acid Calcium 7.9 L Total Bilirubin 3.5 H AST 73 H Alkaline Phosphatase 489 H Total Protein 4.4 L Albumin 1.8 L Blood Type Antibody Screen 09/16/20 12:39 Leg - Tissue (Surgical) Fungal Smear - Final 09/16/20 12:39 Leg - Tissue (Surgical) Fungal Smear - Final 09/11/20 14:35 Troponin I < 0.012 Impressions: Chest CT 09/11/20 00:00 IMPRESSION: 1. Since the prior study, patchy lung infiltrates have developed as described along with right upper lobe reticulonodular opacities. Findings are likely infectious/inflammatory. 2. Chronic left urinary obstruction as described. Associated findings look similar. Abnormal soft tissue thickening in the proximal ureter with small adjacent periureteric lymph nodes. 3. Subtotal colectomy with persistent probably progressive irregular wall thicke adrian and probable mass in the region of the rectum. Proximal to the anastomosis and rectal pathology, bowel loops are progressively dilated compared to August exam. There is a large amount of retained stool with at least 1 abnormal thick walled loop of small bowel in the right lower quadrant now also seen. Abdomen/Pelvis CT 09/11/20 14:15 IMPRESSION: 1. Since the prior study, patchy lung infiltrates have developed as described along with right upper lobe reticulonodular opacities. Findings are likely infectious/inflammatory. 2. Chronic left urinary obstruction as described. Associated findings look similar. Abnormal soft tissue thickening in the proximal ureter with small adjacent periureteric lymph nodes. 3. Subtotal colectomy with persistent probably progressive irregular wall thickening and probable mass in the region of the rectum. Proximal to the anastomosis and rectal pathology, bowel loops are progressively dilated compared to August exam. There is a large amount of retained stool with at least 1 abnormal thick walled loop of small bowel in the right lower quadrant now also seen. Body Scan Nuclear Medicine 09/12/20 00:00 IMPRESSION: 1. Abnormal uptake right femur. Known fracture here. 2. Abnormal uptake right proximal humerus. Consider radiographic evaluation. 3. No other overtly worrisome areas of bone uptake. Other findings as discussed. Head MRI 09/12/20 00:00 IMPRESSION: 1. Noncontrast somewhat limited study reveals no overt suggestion of intracranial metastatic disease. See limitations discussed above. No acute findings are suggested. EVIDENCE OF ACUTE STROKE: NO. Humerus X-Ray 09/12/20 00:00 IMPRESSION: As above. Lower Extremity MRI 09/12/20 00:00 IMPRESSION: 1. Although not definite, underlying pathologic lesion in the region of femur fracture is certainly possible. No suggestion of adjacent soft tissue mass allowing for posttraumatic edema and hematoma. Bone Biopsy CT 09/14/20 00:00 IMPRESSION: CT GUIDED BIOPSY OF THE LEFT FEMUR PERFORMED WITHOUT IMMEDIATE COMPLICATION. PATHOLOGY PENDING. Guidance Needle Placement CT 09/14/20 00 IMPRESSION: Please see combined report for performance of procedure and radiologic supervision and interpretation. Femur X-Ray 09/16/20 00:00 IMPRESSION: IMAGE(S) OBTAINED DURING PROCEDURE. Fluoroscopy 09/16/20 00:00 IMPRESSION: IMAGE(S) OBTAINED DURING PROCEDURE. Chest/Abdomen CTA 09/17/20 00:00 IMPRESSION: 1. No PE. 2. Worsening bilateral pneumonia. PICC Line Insertion 09/18/20 00:00 IMPRESSION: SUCCESSFUL PLACEMENT OF A 5 FR DUAL LUMEN 42 CM PICC IN THE RIGHT BASILIC VEIN. Chest X-Ray 09/20/20 06:00 IMPRESSION: Size inversus. Venous access catheter in the left-sided SVC. Diffuse ground glass opacities in the lungs typical of covid 19. 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 However, treatment cannot start until his femur has been fixed. I had a long discussion with his family yesterday and they understand the situation. If he is able to improve after ORIF, consider chemo for his cancer (2) Pathological fracture, left femur, initial encounter for fracture Is this a current diagnosis for this admission?: Yes Plan: Hopeful surgery later today. If surgery is not possible, then patient has no chance of survival. Will need to come up with another plan for comfort - Time Time Spent with patient: 15-24 minutes - Plan Summary Plan Summary: Patient was discussed with Clair Jessica.
[2020-09-22 10:16] LABS: PLATELET COUNT 57 10^3/uL (150-450)
[2020-09-22] MEDS: DOCUSATE SODIUM 100 MG CAPSULE PO SCH (11:26)
[2020-09-22] MEDS: TAMSULOSIN HCL 0.4 MG CAP.SR.24H PO SCH (11:26)
[2020-09-22] MEDS: MEGESTROL ACETATE 20 MG TABLET PO SCH (12:04)
[2020-09-22] MEDS: FOLIC ACID 1 MG TABLET PO SCH (12:04)
[2020-09-22] MEDS: METOPROLOL TARTRATE 25 MG TABLET PO SCH ×2 (12:04→22:29)
[2020-09-22] MEDS: THIAMINE HCL 100 MG TABLET PO SCH (12:05)
[2020-09-22] MEDS: NORMAL SALINE 10 ML SDV (SCHEDULED) IV SCH ×2 (12:05→22:30)
[2020-09-22] MEDS: MULTIVITAMIN TABLET PO SCH (12:05)
[2020-09-22] MEDS: VANCOMYCIN HCL 1,250 MG in DEXTROSE 5%-WATER 250 ML IV SCH ×2 (13:06→23:20)
[2020-09-22] MEDS: CEFEPIME 1 GM/D5W RTU 1 GM/50 ML RTUPB IV SCH ×2 (13:10→22:30)
[2020-09-22] MEDS: NICOTINE 21 MG/24 HR PATCH.TD24 TD SCH (13:10)
--- NOTE | 2020-09-22 17:08 | PDOC PROGRESS REPORT ---
Subjective Date:: 09/22/20 Subjective:: Patient stormed BiPAP. Potentially improving as far as respiratory function. S omewhat confused this morning. Appears improved as compared to yesterday. Reason For Visit: PATHOLOGICAL FRACTURE,LEFT LOWER EXTREMITY, Physical Exam Vital Signs: Temp Pulse Resp BP Pulse Ox 97.3 F 108 H 25 H 110/75 95 09/22/20 15:24 09/22/20 08:00 09/22/20 14:50 09/22/20 08:00 09/22/20 09:46 Intake & Output 09/21/20 09/22/20 09/23/20 06:59 06:59 06:59 Intake Total 1582 900 Output Total 575 725 Balance 1007 175 Weight 70.4 kg 67.5 kg Physical Exam: Patient is currently on BiPAP, alert to person place Left lower extremity -Pulses 2+ distally -Compartments soft - Sensorimotor function grossly intact Leg shortened externally rotated 2+ pitting edema left lower extremity. Wound clean dry and intact. Results Laboratory Results: 09/22/20 08:20 09/22/20 07:29 09/22/20 09/22/20 09/22/20 05:40 07:29 08:20 WBC 15.1 H RBC 3.61 L Hgb 10.4 L Hct 31.7 L MCV 88 MCH 28.9 MCHC 32.9 RDW 20.9 H Plt Count 57 L Carbonic Acid 0.68 L HCO3/H2CO3 Ratio 24:1 ABG pH 7.49 H ABG pCO2 22.6 L ABG pO2 54.0 L ABG HCO3 16.7 L ABG O2 Saturation 91.2 L ABG Base Excess -5.2 FiO2 65% Sodium 145.9 H Potassium 3.6 Chloride 121 H Carbon Dioxide 21 L Anion Gap 4 L BUN 19 Creatinine 0.65 Est GFR ( Amer) > 60 Glucose 103 Calcium 7.9 L Total Bilirubin 3.5 H AST 73 H Alkaline Phosphatase 489 H Total Protein 4.4 L Albumin 1.8 L 09/11/20 14:35 Troponin I < 0.012 Impressions: Chest CT 09/11/20 00:00 IMPRESSION: 1. Since the prior study, patchy lung infiltrates have developed as described along with right upper lobe reticulonodular opacities. Findings are likely infe ctious/inflammatory. 2. Chronic left urinary obstruction as described. Associated findings look sim ilar. Abnormal soft tissue thickening in the proximal ureter with small adjacent periureteric lymph nodes. 3. Subtotal colectomy with persistent probably progressive irregular wall thickening and probable mass in the region of the rectum. Proximal to the anastomosis and rectal pathology, bowel loops are progressively dilated compared to August exam. There is a large amount of retained stool with at least 1 abnormal thick walled loop of small bowel in the right lower quadrant now also seen. Abdomen/Pelvis CT 09/11/20 14:15 IMPRESSION: 1. Since the prior study, patchy lung infiltrates have developed as described along with right upper lobe reticulonodular opacities. Findings are likely infectious/inflammatory. 2. Chronic left urinary obstruction as described. Associated findings look similar. Abnormal soft tissue thickening in the proximal ureter with small adjacent periureteric lymph nodes. 3. Subtotal colectomy with persistent probably progressive irregular wall thickening and probable mass in the region of the rectum. Proximal to the anastomosis and rectal pathology, bowel loops are progressively dilated compared to August exam. There is a large amount of retained stool with at least 1 abnormal thick walled loop of small bowel in the right lower quadrant now also seen. Body Scan Nuclear Medicine 09/12/20 00:00 IMPRESSION: 1. Abnormal uptake right femur. Known fracture here. 2. Abnormal uptake right proximal humerus. Consider radiographic evaluation. 3. No other overtly worrisome areas of bone uptake. Other findings as discussed. Head MRI 09/12/20 00:00 IMPRESSION: 1. Noncontrast somewhat limited study reveals no overt suggestion of intracranial metastatic disease. See limitations discussed above. No acute findings are suggested. EVIDENCE OF ACUTE STROKE: NO. Humerus X-Ray 09/12/20 00:00 IMPRESSION: As above. Lower Extremity MRI 09/12/20 00:00 IMPRESSION: 1. Although not definite, underlying pathologic lesion in the region of femur fracture is certainly possible. No suggestion of adjacent soft tissue mass allowing for posttraumatic edema and hematoma. Bone Biopsy CT 09/14/20 00:00 IMPRESSION: CT GUIDED BIOPSY OF THE LEFT FEMUR PERFORMED WITHOUT IMMEDIATE COMPLICATION. PATHOLOGY PENDING. Guidance Needle Placement CT 09/14/20 00:00 IMPRESSION: Please see combined report for performance of procedure and radiologic supervision and interpretation. Femur X-Ray 09/16/20 00:00 IMPRESSION: IMAGE(S) OBTAINED DURING PROCEDURE. Fluoroscopy 09/16/20 00:00 IMPRESSION: IMAGE(S) OBTAINED DURING PROCEDURE. Chest/Abdomen CTA 09/17/20 00:00 IMPRESSION: 1. No PE. 2. Worsening bilateral pneumonia. PICC Line Insertion 09/18/20 00:00 IMPRESSION: SUCCESSFUL PLACEMENT OF A 5 FR DUAL LUMEN 42 CM PICC IN THE RIGHT BASILIC VEIN. Chest X-Ray 09/20/20 06:00 IMPRESSION: Size inversus. Venous access catheter in the left-sided SVC. Diffuse ground glass opacities in the lungs typical of covid 19. Assessment & Plan - Diagnosis (1) Pathological fracture, left femur, initial encounter for fracture Is this a current diagnosis for this admission?: Yes Plan: I had multiple discussions today with different caregivers. I have contacted Dr. Dubon who still feels the patient is not stable for surgery. His current concern is that he would be unable to come off of the ventilator if we placed him on a vent. We do not currently have any ICU beds available, and so we would have nowhere to send the patient after surgery. The hospitalist team has reached out to multiple hospitals today for transfer, all of which have been denied. They have been repetitively contacting [facility] daily for more than a week without success for a transfer. Additionally, the patient has had a progressively worsening platelet count. There is concerns for proceeding with surgery given that his platelets are under 60,000 at this time. I have discussed this case also with Clair Jessica who is his primary hospitalist provider today. We have both spoken with Dr. Esquivel, oncology, who explained that without definitive fixation of the fracture, treatment of his metastatic cancer will be limited and he will likely succumb more rapidly to that illness. Additionally I have explained to all of these team members that stabilization of long bone fractures is not only therapy for the fracture itself but also leads to potentially increased chance of survivorship of other systemic illnesses including pneumonia. Dr. Marie has also been involved in the case and has the impression at this time that surgical management is not as acutely necessary as further medical management. Given these discussions above, they have decided that surgery is to be canceled at this time. I understand the patient is high risk and have discussed this with the family as well and explained that sometimes it is difficult to mediate the risk with surgery but given this patient's scenario he will likely decline substantially without surgery. I am available and feel that it is appropriate to perform the procedure as soon as the patient is determined to be appropriate for surgery. Until that time I will continue to follow peripherally. Please contact myself or Dr. Bryce Stokes as soon as there are any developments that will potentially allow for operative treatment of his left femur. (2) History of colon cancer Is this a current diagnosis for this admission?: Yes (3) Metastatic disease Qualifiers: Area of secondary neoplastic involvement: bone Qualified Code(s): C79.51 - Secondary malignant neoplasm of bone Is this a current diagnosis for this admission?: Yes - Time Time Spent with patient: 15-24 minutes Total Critical Time (Minutes): 60
[2020-09-22 17:10] LABS: ARTERIAL BLOOD BASE EXCESS -5.3 mmol/L; ARTERIAL BLOOD H2CO3 0.55 mmol/L (1.05-1.35); ARTERIAL BLOOD HCO3 14.6 mmol/L (20-24); ARTERIAL BLOOD O2 SATURATION 98.2 % (94-98); ARTERIAL BLOOD PH 7.52 (7.35-7.45); ARTERIAL BLOOD PO2 97.8 mmHg (80-100); ARTERIAL BLOOD TOTAL CO2 15.2 mmol/L (23-27)
[2020-09-22 17:11] LABS: ARTERIAL BLOOD FIO2 65%
[2020-09-22 17:12] LABS: ARTERIAL BLOOD PCO2 18.2 mmHg (35-45)
--- NOTE | 2020-09-22 17:14 | Progress Note ---
Provider Note Provider Note: Over the course of the day, I have communicated with Dr. Clement (Ortho) and Luisa Jessica (Hospitalist) as well as Rosi (patient advocate). Although multiple attempts have been made to try to transfer patient to a tertiary facility for his care, this is impossible in the current COVID-19 pandemic situation. Although he may be considered a candidate for chemotherapy for his colon cancer in the future, this is not possible currently and ORIF procedure for his broken leg is considered an "elective procedure" and anesthesia does not believe he will be able to be extubated after the situation with his lungs the way they are currently. I have left a message for family "Rosanna" but have not been able to reach her today to discuss other options of Hospice care. Until then, we will continue to make the patient as comfortable as possible. He currently has TPN. Will discuss options for nutrition with the family as well as code status once I am able to reach them.
--- NOTE | 2020-09-22 20:27 | PDOC PROGRESS REPORT ---
Subjective Date:: 09/22/20 Subjective:: RAYMON RODARTE is a 64 year old male with past medical history significant for colorectal cancer status post hemicolectomy/radiation/chemotherapy approximately 16 years prior to admission, ongoing tobacco abuse, alcohol dependency who was admitted 09/11/2019 with a left, nontraumatic, midshaft femur fracture concerning for pathologic fx. Patient was seen on morning rounds. He is found resting in bed, comfortably, on BiPAP. He is alert and orientated to self and place but become easily confused and is unable to answer further questions clearly. He does appear to be comfortable and is not noted to be in distress at this time. ROS is otherwise limited. No concerns per nursing. Reason For Visit: PATHOLOGICAL FRACTURE,LEFT LOWER EXTREMITY, Physical Exam Vital Signs: Temp Pulse Resp BP Pulse Ox 97.8 F 110 H 18 108/78 97 09/22/20 19:38 09/22/20 19:38 09/22/20 19:38 09/22/20 19:38 09/22/20 19:38 Intake & Output 09/21/20 09/22/20 09/23/20 06:59 06:59 06:59 Intake Total 1582 900 300 Output Total 575 725 200 Balance 1007 175 100 Weight 70.4 kg 67.5 kg General appearance: PRESENT: no acute distress, disheveled, thin, well- developed, other - On BiPAP Head exam: PRESENT: atraumatic, normocephalic Eye exam: PRESENT: conjunctiva pink, EOMI, PERRLA. ABSENT: scleral icterus Mouth exam: PRESENT: dry mucosa, tongue midline, other - dried vomitus to lips and mouth Respiratory exam: PRESENT: clear to auscultation pedro, symmetrical, tachypnea, other - Bipap; FiO2 65%. ABSENT: rales, rhonchi, wheezes Cardiovascular exam: PRESENT: RRR. ABSENT: diastolic murmur, rubs, systolic murmur Pulses: PRESENT: normal dorsalis pedis pul Vascular exam: PRESENT: normal capillary refill GI/Abdominal exam: PRESENT: normal bowel sounds, soft. ABSENT: distended, guarding, mass, organolmegaly, rebound, tenderness Rectal exam: PRESENT: deferred Extremities exam: PRESENT: tenderness - LLE, other - Left femur fracture and left lower extremity deformity, diffuse swelling of left lower extremity. ABSENT: calf tenderness, clubbing, full ROM, pedal edema Neurological exam: PRESENT: alert, awake, oriented to person, oriented to place, CN II-XII grossly intact. ABSENT: oriented to time, oriented to situation, motor sensory deficit Psychiatric exam: PRESENT: appropriate affect, normal mood. ABSENT: homicidal ideation, suicidal ideation Skin exam: PRESENT: dry, warm. ABSENT: cyanosis, rash Results Laboratory Results: 09/22/20 08:20 09/22/20 07:29 09/22/20 09/22/20 09/22/20 05:40 07:29 08:20 WBC 15.1 H RBC 3.61 L Hgb 10.4 L Hct 31.7 L MCV 88 MCH 28.9 MCHC 32.9 RDW 20.9 H Plt Count 57 L Carbonic Acid 0.68 L HCO3/H2CO3 Ratio 24:1 ABG pH 7.49 H ABG pCO2 22.6 L ABG pO2 54.0 L ABG HCO3 16.7 L ABG O2 Saturation 91.2 L ABG Base Excess -5.2 FiO2 65% Sodium 145.9 H Potassium 3.6 Chloride 121 H Carbon Dioxide 21 L Anion Gap 4 L BUN 19 Creatinine 0.65 Est GFR ( Amer) > 60 Glucose 103 Calcium 7.9 L Total Bilirubin 3.5 H AST 73 H Alkaline Phosphatase 489 H Total Protein 4.4 L Albumin 1.8 L 09/22/20 16:45 WBC RBC Hgb Hct MCV MCH MCHC RDW Plt Count Carbonic Acid 0.55 L HCO3/H2CO3 Ratio 26:1 ABG pH 7.52 H ABG pCO2 18.2 L* ABG pO2 97.8 ABG HCO3 14.6 L ABG O2 Saturation 98.2 H ABG Base Excess -5.3 FiO2 65% Sodium Potassium Chloride Carbon Dioxide Anion Gap BUN Creatinine Est GFR ( Amer) Glucose Calcium Total Bilirubin AST Alkaline Phosphatase Total Protein Albumin 09/11/20 14:35 Troponin I < 0.012 Impressions: Chest CT 09/11/20 00:00 IMPRESSION: 1. Since the prior study, patchy lung infiltrates have developed as described along with right upper lobe reticulonodular opacities. Findings are likely infectious/inflammatory. 2. Chronic left urinary obstruction as described. Associated findings look similar. Abnormal soft tissue thickening in the proximal ureter with small adjacent periureteric lymph nodes. 3. Subtotal colectomy with persistent probably progressive irregular wall thic kening and probable mass in the region of the rectum. Proximal to the anastomosis and rectal pathology, bowel loops are progressively dilated compared to August exam. There is a large amount of retained stool with at least 1 abnormal thick walled loop of small bowel in the right lower quadrant now also seen. Abdomen/Pelvis CT 09/11/20 14:15 IMPRESSION: 1. Since the prior study, patchy lung infiltrates have developed as described along with right upper lobe reticulonodular opacities. Findings are likely infectious/inflammatory. 2. Chronic left urinary obstruction as described. Associated findings look similar. Abnormal soft tissue thickening in the proximal ureter with small adjacent periureteric lymph nodes. 3. Subtotal colectomy with persistent probably progressive irregular wall thickening and probable mass in the region of the rectum. Proximal to the anastomosis and rectal pathology, bowel loops are progressively dilated compared to August exam. There is a large amount of retained stool with at least 1 abnormal thick walled loop of small bowel in the right lower quadrant now also seen. Body Scan Nuclear Medicine 09/12/20 00:00 IMPRESSION: 1. Abnormal uptake right femur. Known fracture here. 2. Abnormal uptake right proximal humerus. Consider radiographic evaluation. 3. No other overtly worrisome areas of bone uptake. Other findings as discussed. Head MRI 09/12/20 00:00 IMPRESSION: 1. Noncontrast somewhat limited study reveals no overt suggestion of intracranial metastatic disease. See limitations discussed above. No acute findings are suggested. EVIDENCE OF ACUTE STROKE: NO. Humerus X-Ray 09/12/20 00:00 IMPRESSION: As above. Lower Extremity MRI 09/12/20 00:00 IMPRESSION: 1. Although not definite, underlying pathologic lesion in the region of femur fracture is certainly possible. No suggestion of adjacent soft tissue mass allowing for posttraumatic edema and hematoma. Bone Biopsy CT 09/14/20 00:00 IMPRESSION: CT GUIDED BIOPSY OF THE LEFT FEMUR PERFORMED WITHOUT IMMEDIATE COMPLICATION. PATHOLOGY PENDING. Guidance Needle Placement CT 09/14/20 00:00 IMPRESSION: Please see combined report for performance of procedure and radiologic supervision and interpretation. Femur X-Ray 09/16/20 00:00 IMPRESSION: IMAGE(S) OBTAINED DURING PROCEDURE. Fluoroscopy 09/16/20 00:00 IMPRESSION: IMAGE(S) OBTAINED DURING PROCEDURE. Chest/Abdomen CTA 09/17/20 00:00 IMPRESSION: 1. No PE. 2. Worsening bilateral pneumonia. PICC Line Insertion 09/18/20 00:00 IMPRESSION: SUCCESSFUL PLACEMENT OF A 5 FR DUAL LUMEN 42 CM PICC IN THE RIGHT BASILIC VEIN. Chest X-Ray 09/20/20 06:00 IMPRESSION: Size inversus. Venous access catheter in the left-sided SVC. Diffuse ground glass opacities in the lungs typical of covid 19. Assessment and Plan - Diagnosis (1) Pneumonia Is this a current diagnosis for this admission?: Yes Plan: Hypoxia is improved; transition to CPAP with FiO2 65%. Follow-up ABG is reassuring. Will trial Oxymizer. CTA positive for bilateral worsening pneumonia. COVID-19 serology negative. Patient came in with leukocytosis however no sign of infection on admission was noted started on antibiotics. Chest x-ray on admission was read as no acute findings. Day 7 IV antibiotics. Day 7 IV cefepime. Day 6 IV vancomycin. Blood culture from admission 1/2 bottles positive for staph S and Klebsiella pneumoniae. Repeat blood culture is negative at 40 h. Repeat sputum culture not yet obtained. Continue empiric IV antibiotics. Continue supplemental oxygen. Continue DuoNeb. 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 Repeat x-ray shows shortening of left femur fracture. First biopsy on 09/16/2020. positive for adenocarcinoma Second biopsy on 09/14/2020, positive for adenocarcinoma. Orthopedic surgery on board, recommendations noted. Please refer to note. Continue opioid and nonopioid analgesics monitor for respiratory depression and fall. Continue heparin for DVT prophylaxis. Hold 6 hours before operation. Unfortunately, due to the patient's current respiratory condition, and and baseline health, the anesthesia team is hesitant to take the patient to the OR as he will likely require intubation and be a very prolonged, difficult, extubation. Do not disagree given his current respiratory status and CPAP dependence with an FiO2 of 65%. Further, there are no ICU beds available at our facility (currently 14 ICU level patients) as we are currently exceeding our intensive care capacity. I did reach out to multiple tertiary care facilities to see about possible transfer for his orthopedic repair and follow up care. Was very clear with all facilities that should the patient tolerate the procedure well and not require ICU level care following operative repair, that [facility] would be willing to take the patient on a same-day back transfer. As of 09/22/2020, [facility], [place], [place], [facility], [facility], [facility], and [place] are unable to provide assistance. Of these seven facilities, only one ([facility]) even has ICU level care available. However, the patient does not currently require ICU level care and they are, understandably, hesitant to commit in ICU bed for a potential need when there are current critical needs in the community due to the current COVID-19 pandemic. Otherwise, all the facilities are at capacity on their floor, stepdown, and ICU beds. This was discussed with Dr. Delvalle, Dr. Clement, Dr Villela, and Dr. Marie. ICU availability is not expected to improve over the next 4-6 weeks. (3) Hyponatremia Is this a current diagnosis for this admission?: Yes Plan: Resolved. Chronic. 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 Now receiving TPN; fine adjustments per pharmacy staff. Daily BMP. (4) History of colon cancer Is this a current diagnosis for this admission?: Yes Plan: History of colorectal cancer status post colectomy and chemoradiation. As per patient only 12 inches of his colon is remaining. Prior imaging in 2020 concerning for new colorectal mass, patient denies being told about this and has not had any follow-up CT chest abdomen pelvis with contrast right upper lobe reticulonodular opacities, progressive irregular: Wall thickening and probable mass in the region of the rectum. Nuclear medicine bone scan significant for abnormal uptake right femur, abnormal uptake right proximal humerus MRI head with no contrast does not show any overt sign of metastatic disease. Oncology consulted. Discussed with Dr. Delvalle today; appreciate her expertise. (5) Leukocytosis Qualifiers: Leukocytosis type: unspecified Qualified Code(s): D72.829 - Elevated white blood cell count, unspecified Is this a current diagnosis for this admission?: Yes Plan: As per #1. (6) Acute respiratory failure with hypoxemia Is this a current diagnosis for this admission?: Yes Plan: Secondary to #1 Evaluation and management as above. (7) Anemia Qualifiers: Anemia type: iron deficiency Is this a current diagnosis for this admission?: Yes Plan: Worsening anemia. Likely combination of GI bleed and acute femoral fracture. As per patient and girlfriend he had history of colectomy and only 12 inches of his colon remains. Patient had 2 guaiac positive stools but as per primary nurse his last bowel movement did not look melanotic. Even though ferrous sulfate does not cause positive guaiac but is known to give positive guaiac in vitro. Is likely his anemia mostly due to his femoral fracture, but GI bleed is still remains a concern. Patient is status post 3 PRBC transfusions since admission. He received 1 dose of Injectafer on 09/20/2020. Monitor H&H closely, supportive transfusions. Surgery was consulted however as per my consultation with Dr. Loja they will address his GI bleed after his surgery. If concern remains for worsening GI bleed please consult gastroenterology [facility]. (8) Malnutrition Qualifiers: Malnutrition type: protein-calorie malnutrition Protein-calorie malnutrition severity: moderate Qualified Code(s): E44.0 - Moderate protein- calorie malnutrition Is this a current diagnosis for this admission?: Yes Plan: Presented with severe malnutrition BMI 18.0. Prealbumin <3. Endorses history of anorexia for the last 4 months and drinking daily. This is likely due to underlying malignancy complicated by EtOH abuse and low p.o. intake. Unfortunately patient has been n.p.o. for the most of his hospitalization anticipation of surgery and has not been able to have much p.o. intake. Orders placed for TPN initiation on 09/20/2020. Continue TPN until patient is able to tolerate p.o. intake. (9) Vitamin D deficiency Is this a current diagnosis for this admission?: Yes Plan: Severe vitamin D deficiency. Likely due to low p.o. intake. Continue ergocalciferol 50,000 units q. weekly. (10) Tobacco abuse Is this a current diagnosis for this admission?: Yes Plan: Patient does not wish to quit Cessation encouraged. Nicotine replacement therapies provided. (11) Nausea and vomiting Qualifiers: Vomiting type: unspecified Vomiting Intractability: non-intractable Qualified Code(s): R11.2 - Nausea with vomiting, unspecified Is this a current diagnosis for this admission?: Yes Plan: Resolved. IV fluids Antiemetics (12) Lactic acidosis Is this a current diagnosis for this admission?: Yes Plan: Resolved. Likely due to severe dehydration and nausea/vomiting Antiemetics IV fluids (13) Alcohol dependency Qualifiers: Substance use status: unspecified alcohol-induced disorder Qualified Code(s): F10.29 - Alcohol dependence with unspecified alcohol-induced disorder Is this a current diagnosis for this admission?: Yes Plan: Now outside window for withdrawal. Drinks daily but states he only has 1-2 beers per day Continue daily thiamine and folic acid supplementation. (14) Hyperkalemia Is this a current diagnosis for this admission?: Yes Plan: Resolved. Likely due to metabolic acidosis. No acute EKG changes. Hyperkalemia protocol. - Plan Summary Summary: The patient is CPAP/BiPAP dependent with a required FiO2 of >60% to maintain appropriate SpO2 secondary to healthcare associated pneumonia. Patient would normally be appropriate for ICU due to this FiO2 requirement, however, is currently being managed on the IMCU due to pandemic related ca pacity. 60 minutes critical care time. - Time Medications reviewed and adjusted accordingly: Yes Anticipated Discharge Disposition: TBD Anticipated Discharge Timeframe: TBD
[2020-09-23] MEDS: INSULIN REG, HUMAN 100 UNIT/ML 3 ML VIAL (PYX) SUBCUT SCH ×4 (00:28→18:11)
[2020-09-23] MEDS: AMINO ACIDS 5 %/DEXTROSE 20 % 1,000 ML IV PRN (08:56)
[2020-09-23] MEDS: DOCUSATE SODIUM 100 MG CAPSULE PO SCH (10:20)
[2020-09-23] MEDS: TAMSULOSIN HCL 0.4 MG CAP.SR.24H PO SCH (10:20)
[2020-09-23] MEDS: THIAMINE HCL 100 MG TABLET PO SCH (10:21)
[2020-09-23] MEDS: MEGESTROL ACETATE 20 MG TABLET PO SCH (10:21)
[2020-09-23] MEDS: FOLIC ACID 1 MG TABLET PO SCH (10:21)
[2020-09-23] MEDS: FUROSEMIDE INJ/PF 20 MG/2 ML SDV IV SCH ×2 (10:35→21:27)
[2020-09-23] MEDS: HYDROMORPHONE HCL INJ/PF 2 MG/ML AMPULE IV PRN (10:36)
[2020-09-23] MEDS: MULTIVITAMIN TABLET PO SCH (10:40)
[2020-09-23] MEDS: METOPROLOL TARTRATE 25 MG TABLET PO SCH (10:41)
[2020-09-23] MEDS: NICOTINE 21 MG/24 HR PATCH.TD24 TD SCH (10:42)
[2020-09-23] MEDS: VANCOMYCIN HCL 1,250 MG in DEXTROSE 5%-WATER 250 ML IV SCH (10:56)
[2020-09-23] MEDS: NORMAL SALINE 10 ML SDV (SCHEDULED) IV SCH ×2 (12:12→21:27)
--- NOTE | 2020-09-23 17:06 | PDOC PROGRESS REPORT ---
Subjective Date:: 09/23/20 Subjective:: Patient was taken off BiPAP briefly so that I could talk to him. He states that he feels much better off the Bipap and does not like to have it on. However, he is still confused and is not able to fully participate in all decisions. Nurses are concerned that patient is having skin breakdown, is not eating or drinking much, and still combative at times. His O2 sats go to 81 within a few minutes of stopping the BiPAP. Reason For Visit: PATHOLOGICAL FRACTURE,LEFT LOWER EXTREMITY, Physical Exam Vital Signs: Temp Pulse Resp BP Pulse Ox 98.1 F 97 16 108/72 95 09/23/20 12:18 09/23/20 14:00 09/23/20 12:40 09/23/20 12:18 09/23/20 12:40 Intake & Output 09/22/20 09/23/20 09/24/20 06:59 06:59 06:59 Intake Total 900 600 Output Total 725 425 Balance 175 175 Weight 67.5 kg 67.2 kg 67.2 kg General appearance: PRESENT: thin Exam: 64 year old male on BiPAP Head exam: PRESENT: normocephalic Mouth exam: PRESENT: dry mucosa Respiratory exam: PRESENT: other - breath sounds obscured by BiPAP Cardiovascular exam: PRESENT: other - Heart sounds obscured by BiPAP GI/Abdominal exam: PRESENT: soft. ABSENT: tenderness Neurological exam: PRESENT: altered Skin exam: PRESENT: cyanosis, normal color Results Laboratory Results: 09/22/20 08:20 09/22/20 07:29 09/22/20 16:45 Carbonic Acid 0.55 L HCO3/H2CO3 Ratio 26:1 ABG pH 7.52 H ABG pCO2 18.2 L* ABG pO2 97.8 ABG HCO3 14.6 L ABG O2 Saturation 98.2 H ABG Base Excess -5.3 FiO2 65% 09/11/20 14:35 Troponin I < 0.012 Impressions: Chest CT 09/11/20 00:00 IMPRESSION: 1. Since the prior study, patchy lung infiltrates have developed as described along with right upper lobe reticulonodular opacities. Findings are likely inf ectious/inflammatory. 2. Chronic left urinary obstruction as described. Associated findings look si milar. Abnormal soft tissue thickening in the proximal ureter with small adjacent periureteric lymph nodes. 3. Subtotal colectomy with persistent probably progressive irregular wall thickening and probable mass in the region of the rectum. Proximal to the anastomosis and rectal pathology, bowel loops are progressively dilated compared to August exam. There is a large amount of retained stool with at least 1 abnormal thick walled loop of small bowel in the right lower quadrant now also seen. Abdomen/Pelvis CT 09/11/20 14:15 IMPRESSION: 1. Since the prior study, patchy lung infiltrates have developed as described along with right upper lobe reticulonodular opacities. Findings are likely infectious/inflammatory. 2. Chronic left urinary obstruction as described. Associated findings look similar. Abnormal soft tissue thickening in the proximal ureter with small adjacent periureteric lymph nodes. 3. Subtotal colectomy with persistent probably progressive irregular wall thickening and probable mass in the region of the rectum. Proximal to the anastomosis and rectal pathology, bowel loops are progressively dilated compared to August exam. There is a large amount of retained stool with at least 1 abnormal thick walled loop of small bowel in the right lower quadrant now also seen. Body Scan Nuclear Medicine 09/12/20 00:00 IMPRESSION: 1. Abnormal uptake right femur. Known fracture here. 2. Abnormal uptake right proximal humerus. Consider radiographic evaluation. 3. No other overtly worrisome areas of bone uptake. Other findings as discussed. Head MRI 09/12/20 00:00 IMPRESSION: 1. Noncontrast somewhat limited study reveals no overt suggestion of intracranial metastatic disease. See limitations discussed above. No acute findings are suggested. EVIDENCE OF ACUTE STROKE: NO. Humerus X-Ray 09/12/20 00:00 IMPRESSION: As above. Lower Extremity MRI 09/12/20 00:00 IMPRESSION: 1. Although not definite, underlying pathologic lesion in the region of femur fracture is certainly possible. No suggestion of adjacent soft tissue mass allowing for posttraumatic edema and hematoma. Bone Biopsy CT 09/14/20 00:00 IMPRESSION: CT GUIDED BIOPSY OF THE LEFT FEMUR PERFORMED WITHOUT IMMEDIATE COMPLICATION. PATHOLOGY PENDING. Guidance Needle Placement CT 09/14/20 00:00 IMPRESSION: Please see combined report for performance of procedure and radiologic supervision and interpretation. Femur X-Ray 09/16/20 00:00 IMPRESSION: IMAGE(S) OBTAINED DURING PROCEDURE. Fluoroscopy 09/16/20 00:00 IMPRESSION: IMAGE(S) OBTAINED DURING PROCEDURE. Chest/Abdomen CTA 09/17/20 00:00 IMPRESSION: 1. No PE. 2. Worsening bilateral pneumonia. PICC Line Insertion 09/18/20 00:00 IMPRESSION: SUCCESSFUL PLACEMENT OF A 5 FR DUAL LUMEN 42 CM PICC IN THE RIGHT BASILIC VEIN. Chest X-Ray 09/20/20 06:00 IMPRESSION: Size inversus. Venous access catheter in the left-sided SVC. Diffuse ground glass opacities in the lungs typical of covid 19. Assessment & Plan - Diagnosis (1) History of colon cancer Is this a current diagnosis for this admission?: Yes Plan: Now with widespread metastatic cancer including the bones and lungs. (2) Pathological fracture, left femur, initial encounter for fracture Is this a current diagnosis for this admission?: Yes Plan: He is no longer considered to be a candidate for any surgery due to his worsening pulmonary problems. - Time Time Spent with patient: 25-34 minutes - Plan Summary Plan Summary: I spoke with Rosanna Seth at length again today. She states that family has decided to stop TPN and ABX and move toward comfort measures. However, his children are in [place]. They would like to set up a facetime visit with his children before we stop the BiPAP. They will arrange that [facility] and then plan Hospice in some form within the next 48 hours. Not sure yet if he will stay in the hospital or be able to be transfered to inpatient SNF/Hospice for further comfort once he is off BiPAP. Social workers/discharge planners are working on this now.
--- NOTE | 2020-09-23 19:05 | PDOC PROGRESS REPORT ---
Subjective Date:: 09/23/20 Subjective:: RAYMON RODARTE is a 64 year old male with past medical history significant for colorectal cancer status post hemicolectomy/radiation/chemotherapy approximately 16 years prior to admission, ongoing tobacco abuse, alcohol dependency who was admitted 09/11/2019 with a left, nontraumatic, midshaft femur fracture concerning for pathologic fx. Patient was seen on morning rounds. He is found resting in bed, comfortably, on CPAP 10/FiO2 100%. He was sleeping soundly and I did not attempt to wake him. He does appear to be comfortable and is not noted to be in distress (while on CPAP). ROS is otherwise limited. Discussed plan of care with nursing. Reason For Visit: PATHOLOGICAL FRACTURE,LEFT LOWER EXTREMITY, Physical Exam Vital Signs: Temp Pulse Resp BP Pulse Ox 98.8 F 100 20 90/65 L 97 09/23/20 17:08 09/23/20 17:08 09/23/20 17:08 09/23/20 17:08 09/23/20 17:08 Intake & Output 09/22/20 09/23/20 09/24/20 06:59 06:59 06:59 Intake Total 900 600 Output Total 565 517 4592 Balance 175 175 -1500 Weight 67.5 kg 67.2 kg 67.2 kg General appearance: PRESENT: no acute distress, thin, well-developed, other - anasarca Head exam: PRESENT: atraumatic, normocephalic Mouth exam: PRESENT: dry mucosa, tongue midline Respiratory exam: PRESENT: clear to auscultation pedro, decreased breath sounds, symmetrical, other - CPAP; 10/FiO2 100%. ABSENT: rales, rhonchi, wheezes Cardiovascular exam: PRESENT: RRR Pulses: PRESENT: normal dorsalis pedis pul Extremities exam: PRESENT: tenderness - LLE, +2 edema - peripheral edema bilaterally Musculoskeletal exam: PRESENT: deformity - Left midshaft femur Neurological exam: PRESENT: other - sleeping soundly Skin exam: PRESENT: dry, intact, warm. ABSENT: cyanosis, rash Results Laboratory Results: 09/22/20 08:20 09/22/20 07:29 09/11/20 14:35 Troponin I < 0.012 Impressions: Chest CT 09/11/20 00:00 IMPRESSION: 1. Since the prior study, patchy lung infiltrates have developed as described along with right upper lobe reticulonodular opacities. Findings are likely infectious/inflammatory. 2. Chronic left urinary obstruction as described. Associated findings look similar. Abnormal soft tissue thickening in the proximal ureter with small adjacent periureteric lymph nodes. 3. Subtotal colectomy with persistent probably progressive irregular wall thickening and probable mass in the region of the rectum. Proximal to the anastomosis and rectal pathology, bowel loops are progressively dilated compared to August exam. There is a large amount of retained stool with at least 1 abnormal thick walled loop of small bowel in the right lower quadrant now also seen. Abdomen/Pelvis CT 09/11/20 14:15 IMPRESSION: 1. Since the prior study, patchy lung infiltrates have developed as described along with right upper lobe reticulonodular opacities. Findings are likely infectious/inflammatory. 2. Chronic left urinary obstruction as described. Associated findings look similar. Abnormal soft tissue thickening in the proximal ureter with small adjacent periureteric lymph nodes. 3. Subtotal colectomy with persistent probably progressive irregular wall thickening and probable mass in the region of the rectum. Proximal to the anastomosis and rectal pathology, bowel loops are progressively dilated compared to August exam. There is a large amount of retained stool with at least 1 abnormal thick walled loop of small bowel in the right lower quadrant now also seen. Body Scan Nuclear Medicine 09/12/20 00:00 IMPRESSION: 1. Abnormal uptake right femur. Known fracture here. 2. Abnormal uptake right proximal humerus. Consider radiographic evaluation. 3. No other overtly worrisome areas of bone uptake. Other findings as discussed. Head MRI 09/12/20 00:00 IMPRESSION: 1. Noncontrast somewhat limited study reveals no overt suggestion of intracranial metastatic disease. See limitations discussed above. No acute findings are suggested. EVIDENCE OF ACUTE STROKE: NO. Humerus X-Ray 09/12/20 00:00 IMPRESSION: As above. Lower Extremity MRI 09/12/20 00:00 IMPRESSION: 1. Although not definite, underlying pathologic lesion in the region of femur fracture is certainly possible. No suggestion of adjacent soft tissue mass al lowing for posttraumatic edema and hematoma. Bone Biopsy CT 09/14/20 00:00 IMPRESSION: CT GUIDED BIOPSY OF THE LEFT FEMUR PERFORMED WITHOUT IMMEDIATE COMPLICATION. PATHOLOGY PENDING. Guidance Needle Placement CT 09/14/20 00:00 IMPRESSION: Please see combined report for performance of procedure and radiologic supervision and interpretation. Femur X-Ray 09/16/20 00:00 IMPRESSION: IMAGE(S) OBTAINED DURING PROCEDURE. Fluoroscopy 09/16/20 00:00 IMPRESSION: IMAGE(S) OBTAINED DURING PROCEDURE. Chest/Abdomen CTA 09/17/20 00:00 IMPRESSION: 1. No PE. 2. Worsening bilateral pneumonia. PICC Line Insertion 09/18/20 00:00 IMPRESSION: SUCCESSFUL PLACEMENT OF A 5 FR DUAL LUMEN 42 CM PICC IN THE RIGHT BASILIC VEIN. Chest X-Ray 09/20/20 06:00 IMPRESSION: Size inversus. Venous access catheter in the left-sided SVC. Diffuse ground glass opacities in the lungs typical of covid 19. Assessment and Plan - Diagnosis (1) Pneumonia Is this a current diagnosis for this admission?: Yes Plan: Hypoxia is improved; transition to CPAP with FiO2 65%. Follow-up ABG is reassuring. Will trial Oxymizer. CTA positive for bilateral worsening pneumonia. COVID-19 serology negative. Patient came in with leukocytosis however no sign of infection on admission was noted started on antibiotics. Chest x-ray on admission was read as no acute findings. Day 8 IV antibiotics. Day 8 IV cefepime. Day 7 IV vancomycin. Blood culture from admission 12 bottles positive for staph S and Klebsiella pneumoniae. Repeat blood culture is negative at 72 h. Repeat sputum culture not yet obtained. Continue supplemental oxygen. Continue DuoNeb. Goals of care discussion by Dr. Delvalle with family. Family has decided to transition to comfort care. Desire to stop antibiotics at this time. Arranging to Video-chat with patient tomorrow and then transition fully to [facility] [employer] with discontinuation of CPAP at that time. (2) Pathological fracture, left femur, initial encounter for fracture Is this a current diagnosis for this admission?: Yes Plan: Not a surgical candidate 2/2 respiratory status. Family plans to transition to [facility] w/in 48 hours. Pathology report is positive for adenocarcinoma. Repeat x-ray shows shortening of left femur fracture. First biopsy on 09/16/2020. positive for adenocarcinoma Second biopsy on 09/14/2020, positive for adenocarcinoma. Orthopedic surgery on board, recommendations noted. Please refer to note. Continue opioid and nonopioid analgesics monitor for respiratory depression and fall. Continue heparin for DVT prophylaxis. Hold 6 hours before operation. Unfortunately, due to the patient's current respiratory condition, and and baseline health, the anesthesia team is hesitant to take the patient to the OR as he will likely require intubation and be a very prolonged, difficult, extubation. Do not disagree given his current respiratory status and CPAP dependence with an FiO2 of 65%. Further, there are no ICU beds available at our facility (currently 14 ICU level patients) as we are currently exceeding our intensive care capacity. I did reach out to multiple tertiary care facilities to see about possible transfer for his orthopedic repair and follow up care. Was very clear with all facilities that should the patient tolerate the procedure well and not require ICU level care following operative repair, that [facility] would be willing to take the patient on a same-day back transfer. As of 09/22/2020, [facility], [place], [place], [facility], [facility], [facility], and [facility] e unable to provide assistance. Of these seven facilities, only one ([facility]) even has ICU level care available. However, the patient does not currently require ICU level care and they are, understandably, hesitant to commit in ICU bed for a potential need when there are current critical needs in the community due to the current COVID-19 pandemic. Otherwise, all the facilities are at capacity on their floor, stepdown, and ICU beds. This was discussed with Dr. Delvalle, Dr. Clement, Dr Villela, and Dr. Marie. ICU availability is not expected to improve over the next 4-6 weeks. (3) Hyponatremia Is this a current diagnosis for this admission?: Yes Plan: No longer following labs. Resolved. Chronic. 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 (4) History of colon cancer Is this a current diagnosis for this admission?: Yes Plan: History of colorectal cancer status post colectomy and chemoradiation. As per patient only 12 inches of his colon is remaining. Prior imaging in 2020 concerning for new colorectal mass, patient denies being told about this and has not had any follow-up CT chest abdomen pelvis with contrast right upper lobe reticulonodular opacities, progressive irregular: Wall thickening and probable mass in the region of the rectum. Nuclear medicine bone scan significant for abnormal uptake right femur, abnormal uptake right proximal humerus MRI head with no contrast does not show any overt sign of metastatic disease. Oncology consulted. Discussed with Dr. Delvalle today; appreciate her expertise. (5) Leukocytosis Qualifiers: Leukocytosis type: unspecified Qualified Code(s): D72.829 - Elevated white blood cell count, unspecified Is this a current diagnosis for this admission?: Yes Plan: As per #1. (6) Acute respiratory failure with hypoxemia Is this a current diagnosis for this admission?: Yes Plan: Secondary to #1 Evaluation and management as above. (7) Anemia Qualifiers: Anemia type: iron deficiency Is this a current diagnosis for this admission?: Yes Plan: Likely combination of GI bleed and acute femoral fracture. Patient is status post 3 PRBC transfusions since admission. He received 1 dose of Injectafer on 09/20/2020. No further interventions planned. (8) Malnutrition Qualifiers: Malnutrition type: protein-calorie malnutrition Protein-calorie malnutrition severity: moderate Qualified Code(s): E44.0 - Moderate protein- calorie malnutrition Is this a current diagnosis for this admission?: Yes Plan: TPN initiation on 09/20/2020. Goals of care discussion by Dr. Delvalle with family. Family has decided to transition to comfort care. Desire to stop TPN at this time. Arranging to Video-chat with patient tomorrow and then transition fully to [employer]EL[employer] SPECIALIST with discontinuation of CPAP at that time. (9) Vitamin D deficiency Is this a current diagnosis for this admission?: Yes (10) Tobacco abuse Is this a current diagnosis for this admission?: Yes Plan: Nicotine replacement therapies provided. (11) Nausea and vomiting Qualifiers: Vomiting type: unspecified Vomiting Intractability: non-intractable Qualified Code(s): R11.2 - Nausea with vomiting, unspecified Is this a current diagnosis for this admission?: Yes Plan: Resolved. Antiemetics (12) Lactic acidosis Is this a current diagnosis for this admission?: Yes Plan: Resolved. (13) Alcohol dependency Qualifiers: Substance use status: unspecified alcohol-induced disorder Qualified Cod e(s): F10.29 - Alcohol dependence with unspecified alcohol-induced disorder Is this a current diagnosis for this admission?: Yes Plan: Now outside window for withdrawal. Drinks daily but states he only has 1-2 beers per day (14) Hyperkalemia Is this a current diagnosis for this admission?: Yes Plan: Resolved. Likely due to metabolic acidosis. No acute EKG changes. - Plan Summary Summary: The patient is CPAP dependent with a required FiO2 of 100% to maintain appropriate SpO2 secondary to healthcare associated pneumonia. Patient would normally be appropriate for ICU due to this FiO2 requirement, however, is currently being managed on the IMCU due to pandemic related capacity. 30 minutes critical care time. - Time Total Critical Time (Minutes): 30 Medications reviewed and adjusted accordingly: Yes Anticipated Discharge Disposition: [facility] - Anticipated Discharge Timeframe: within 48 hours
[2020-09-23] MEDS: MORPHINE SULFATE 10 MG/ML INJ IV PRN (21:55)
[2020-09-24] MEDS ORDERED: NORMAL SALINE 500 ML IV ONE (00:15)
--- NOTE | 2020-09-24 06:48 | PDOC PROGRESS REPORT ---
Subjective Date:: 09/24/20 Subjective:: Patient complaining. He asks for something to drink and states that he needs to use the bathroom. However, he is asking for the pink drink in the sink which I cannot see. He remains confused and want to be off the BiPAP and out of the wrist restraints. Reason For Visit: PATHOLOGICAL FRACTURE,LEFT LOWER EXTREMITY, Physical Exam Vital Signs: Temp Pulse Resp BP Pulse Ox 97.9 F 106 H 18 92/59 L 94 09/24/20 03:35 09/24/20 03:35 09/24/20 03:35 09/24/20 03:35 09/24/20 03:35 Intake & Output 09/22/20 09/23/20 09/24/20 06:59 06:59 06:59 Intake Total 900 600 750 Output Total 933 131 2091 Balance 175 175 -950 Weight 67.5 kg 67.2 kg 66.7 kg General appearance: PRESENT: thin Head exam: PRESENT: normocephalic Mouth exam: PRESENT: dry mucosa Respiratory exam: PRESENT: other - Comfortable on BiPAP, but off this, he is very tachypnic. Neurological exam: PRESENT: alert, awake Psychiatric exam: PRESENT: agitated Focused psych exam: PRESENT: delusional, restlessness Skin exam: PRESENT: normal color Results Laboratory Results: 09/22/20 08:20 09/22/20 07:29 09/11/20 14:35 Troponin I < 0.012 Impressions: Chest CT 09/11/20 00:00 IMPRESSION: 1. Since the prior study, patchy lung infiltrates have developed as described along with right upper lobe reticulonodular opacities. Findings are likely infectious/inflammatory. 2. Chronic left urinary obstruction as described. Associated findings look similar. Abnormal soft tissue thickening in the proximal ureter with small adjacent periureteric lymph nodes. 3. Subtotal colectomy with persistent probably progressive irregular wall thickening and probable mass in the region of the rectum. Proximal to the anastomosis and rectal pathology, bowel loops are progressively dilated compared to August exam. There is a large amount of retained stool with at least 1 abnormal thick walled loop of small bowel in the right lower quadrant now also seen. Abdomen/Pelvis CT 09/11/20 14:15 IMPRESSION: 1. Since the prior study, patchy lung infiltrates have developed as described along with right upper lobe reticulonodular opacities. Findings are likely infectious/inflammatory. 2. Chronic left urinary obstruction as described. Associated findings look similar. Abnormal soft tissue thickening in the proximal ureter with small adjacent periureteric lymph nodes. 3. Subtotal colectomy with persistent probably progressive irregular wall thickening and probable mass in the region of the rectum. Proximal to the anastomosis and rectal pathology, bowel loops are progressively dilated compared to August exam. There is a large amount of retained stool with at least 1 abnormal thick walled loop of small bowel in the right lower quadrant now also seen. Body Scan Nuclear Medicine 09/12/20 00:00 IMPRESSION: 1. Abnormal uptake right femur. Known fracture here. 2. Abnormal uptake right proximal humerus. Consider radiographic evaluation. 3. No other overtly worrisome areas of bone uptake. Other findings as discussed. Head MRI 09/12/20 00 IMPRESSION: 1. Noncontrast somewhat limited study reveals no overt suggestion of intra cranial metastatic disease. See limitations discussed above. No acute findings are suggested. EVIDENCE OF ACUTE STROKE: NO. Humerus X-Ray 09/12/20 00: IMPRESSION: As above. Lower Extremity MRI 09/12/20 00 IMPRESSION: 1. Although not definite, underlying pathologic lesion in the region of femur fracture is certainly possible. No suggestion of adjacent soft tissue mass allowing for posttraumatic edema and hematoma. Bone Biopsy CT 09/14/20 00:00 IMPRESSION: CT GUIDED BIOPSY OF THE LEFT FEMUR PERFORMED WITHOUT IMMEDIATE COMPLICATION. PATHOLOGY PENDING. Guidance Needle Placement CT 09/14/20 00:00 IMPRESSION: Please see combined report for performance of procedure and radiologic supervision and interpretation. Femur X-Ray 09/16/20 00:00 IMPRESSION: IMAGE(S) OBTAINED DURING PROCEDURE. Fluoroscopy 09/16/20 00:00 IMPRESSION: IMAGE(S) OBTAINED DURING PROCEDURE. Chest/Abdomen CTA 09/17/20 00:00 IMPRESSION: 1. No PE. 2. Worsening bilateral pneumonia. PICC Line Insertion 09/18/20 00:00 IMPRESSION: SUCCESSFUL PLACEMENT OF A 5 FR DUAL LUMEN 42 CM PICC IN THE RIGHT BASILIC VEIN. Chest X-Ray 09/20/20 06:00 IMPRESSION: Size inversus. Venous access catheter in the left-sided SVC. Diffuse ground glass opacities in the lungs typical of covid 19. Assessment & Plan - Diagnosis (1) History of colon cancer Is this a current diagnosis for this admission?: Yes (2) Pathological fracture, left femur, initial encounter for fracture Is this a current diagnosis for this admission?: Yes - Time Time Spent with patient: 15-24 minutes - Plan Summary Plan Summary: I explained to the patient and nursing staff that family has requested he remain on the BiPAP until they can arrange a FaceTime visit with his children in [place] and once they have said their good-byes, then patient will be placed on full comfort measures and BiPAP will be removed.
[2020-09-24] MEDS ORDERED: FONDAPARINUX SODIUM INJ 7.5 MG/0.6 ML DISP.SYRIN SUBCUT SCH (10:00)
[2020-09-24] MEDS ORDERED: FONDAPARINUX SODIUM INJ 2.5 MG/0.5 ML DISP.SYRIN SUBCUT SCH (10:00)
[2020-09-24] MEDS ORDERED: LORAZEPAM INJ 2 MG/1 ML VIAL IV PRN (11:42)
[2020-09-24] MEDS ORDERED: ATROPINE SULFATE 1% OPH SOLN 5 ML BOTTLE SL PRN (11:44)
[2020-09-24] MEDS ORDERED: HYDROMORPHONE HCL INJ/PF 2 MG/ML AMPULE IV PRN (11:44)
[2020-09-24 11:52] VITALS: BP 76/62
--- NOTE | 2020-09-24 15:20 | Death Summary ---
Summary Date : 09/24/20 Time of :: 14:55 Autopsy: No Resuscitation Status: Comfort Measures Only - Final Diagnosis (1) Pneumonia Is this a current diagnosis for this admission?: Yes (2) Pathological fracture, left femur, initial encounter for fracture Is this a current diagnosis for this admission?: Yes (3) Hyponatremia Is this a current diagnosis for this admission?: Yes (4) History of colon cancer Is this a current diagnosis for this admission?: Yes (5) Leukocytosis Is this a current diagnosis for this admission?: Yes (6) Acute respiratory failure with hypoxemia Is this a current diagnosis for this admission?: Yes (7) Anemia Is this a current diagnosis for this admission?: Yes (8) Malnutrition Is this a current diagnosis for this admission?: Yes (9) Vitamin D deficiency Is this a current diagnosis for this admission?: Yes (10) Tobacco abuse Is this a current diagnosis for this admission?: Yes (11) Nausea and vomiting Is this a current diagnosis for this admission?: Yes (12) Lactic acidosis Is this a current diagnosis for this admission?: Yes (13) Alcohol dependency Is this a current diagnosis for this admission?: Yes (14) Hyperkalemia Is this a current diagnosis for this admission?: Yes Hospital Course:: RAYMON RODARTE is a 64 year old male with past medical history significant for colorectal cancer status post hemicolectomy/radiation/chemotherapy approximately 16 years prior to admission, ongoing tobacco abuse, alcohol dependency who was admitted 09/11/2019 with a left, nontraumatic, midshaft femur fracture concerning for pathologic fx. Patient underwent bone biopsy on 09/14/2020 and 09/16/2020; both positive for adenocarcinoma. Unfortunately, the patient experienced acute blood loss anemia; likely multifactorial secondary to GI bleeding and acute femoral fracture. He was provided Injectafer and 3 units PRBC. Abdominal imaging did confirm a rectal mass; discussions were had with surgery regarding colonoscopy. Surgery is agreeable to providing service once the patient's respiratory status improved and femoral fracture had been repaired. At the same time as development of the GI bleeding, the patient developed acute respiratory failure secondary to bilateral pneumonia. COVID-19 serology was negative. He was started on IV antibiotics for healthcare associated pneumonia (vancomycin and cefepime) receiving 8 days of total therapy. The patient's respiratory status deteriorated to the extent that he became BiPAP dependent and required an FiO2 of 65% or higher in order to maintain oxygen saturations. The patient's tenuous respiratory status precluded any operative intervention f or his femoral neck fracture. And as his fracture had not yet been addressed, oncology could not move forward with initiating radiation or chemotherapy treatments. Multiple attempts were made to transfer the patient to tertiary care facility where intensive care services could be provided postoperatively as there was high expectation that was the patient became intubated for surgery that he would have a prolonged and difficult course toward extubation. Unfortunately, a tertiary care facility bed could not be arranged (r/t COVID pandemic). Discussions were had with family regarding the patient's clinical statust, poor prognosis, barriers to care, and options of transitioning toward a comfort focus vs ongoing aggressive interventions despite the patient's inoperable status. The patients significant other and family members agreed that the patient would not desire aggressive/heroic measures and requested that he be transitioned to comfort care only. The patient was provided as needed medications for management of pain and BiPAP discontinued at family's request. He expectantly within minutes with his significant other at bedside.
== END 2020-09-24 18:14 | DRG 477 ==
LOC: ER 13:37 → EH 16:47 → 5 22:37
PROVIDERS: ADMIT Internal Medicine; ATTEND Registered Nurse
PROC: 0QB93ZX Excision of Left Femoral Shaft, Percutaneous Approach, Diagnostic (ICD-10-PCS; 2020-09-14)
PROC: 5A09557 Assistance with Respiratory Ventilation, Greater than 96 Consecutive Hours, Continuous Positive Airway Pressure (ICD-10-PCS; 2020-09-16)
PROC: 0QB90ZX Excision of Left Femoral Shaft, Open Approach, Diagnostic (ICD-10-PCS; principal; 2020-09-16 11:30)
PROC: 30233N1 Transfusion of Nonautologous Red Blood Cells into Peripheral Vein, Percutaneous Approach (ICD-10-PCS; 2020-09-17)
PROC: 02HV33Z Insertion of Infusion Device into Superior Vena Cava, Percutaneous Approach (ICD-10-PCS; 2020-09-18)
PROC: B548ZZA Ultrasonography of Superior Vena Cava, Guidance (ICD-10-PCS; 2020-09-18)
PROC: 3E0436Z Introduction of Nutritional Substance into Central Vein, Percutaneous Approach (ICD-10-PCS; 2020-09-20)
DX: C79.51 Secondary malignant neoplasm of bone (principal); J96.01 Acute respiratory failure with hypoxia; J18.9 Pneumonia, unspecified organism; M84.552A Pathological fracture in neoplastic disease, left femur, initial encounter for fracture; E87.1 Hypo-osmolality and hyponatremia; E44.0 Moderate protein-calorie malnutrition; Z51.5 Encounter for palliative care; E87.2 Acidosis; Z68.1 Body mass index [BMI] 19.9 or less, adult; K92.1 Melena; D62 Acute posthemorrhagic anemia; K21.9 Gastro-esophageal reflux disease without esophagitis; F17.200 Nicotine dependence, unspecified, uncomplicated; D50.9 Iron deficiency anemia, unspecified; F10.20 Alcohol dependence, uncomplicated; E86.0 Dehydration; D64.9 Anemia, unspecified; N40.0 Benign prostatic hyperplasia without lower urinary tract symptoms; D72.829 Elevated white blood cell count, unspecified; E87.5 Hyperkalemia; Z20.822 Contact with and (suspected) exposure to COVID-19; E55.9 Vitamin D deficiency, unspecified; Z85.038 Personal history of other malignant neoplasm of large intestine; Z92.3 Personal history of irradiation; Z79.899 Other long term (current) drug therapy; Z90.49 Acquired absence of other specified parts of digestive tract
CPT/HCPCS: 01230; 20225; 36415; 36430; 36573; 36600; 70551; 71045; 71260; 71275; 74177; 77012; 78306; 80048; 80053; 80202; 81001; 82272; 82306; 82378; 82607; 82728; 82746; 82803; 82962; 83520; 83540; 83550; 83605; 83735; 84100; 84134; 84153; 84443; 84478; 84484; 85025; 85027; 85045; 85610; 85730; 86850; 86900; 86901; 86920; 87015; 87040; 87070; 87075; 87077; 87086; 87101; 87116; 87150; 87186; 87205; 87206; 87324; 87449; 88305; 88311; 88313; 88341; 88342; 93005; 93010; 94660; 96361; 96374; 96375; 96376; 99285; 0241U; A9503; C9113; C9803; J0692; J1170; J1439; J1642; J1644; J1650; J1815; J1940; J2060; J2250; J2270; J2405; J2704; J3010; J3370; J3480; J3490; J7030; J7040; J7042; J7050; J7060; L1830; P9016; P9047; Q9969